=== PATIENT | male | born 1945 | race Caucasian/White ===

== ENCOUNTER 2018-01-13 18:37 | Emergency (ER) | payer OTHER, SELFPAY ==
[2018-01-13 18:37] VITALS: BP 164/64; PULSE 71; RESP 18; TEMP 36.8; O2SAT 98; BMI 47.2
--- NOTE | 2018-01-13 18:50 | ED.VISSUMM ---
- ER Visit Summary Date of Service: 01/13/18 Chief Complaint: Fall, facial injury History of Present Illness: The patient is a 72 M presents to the emergency department after mechanical fall. The patient normally walks with crutches. He was out at the park walking his dog. He states that he thinks that he got tangled up with the dog. He fell forward. Since he was on his crutches, he cannot brace his fall. He struck his face against the concrete. He denies loss of consciousness. His only current complaint is some mild pain at the top of his nose. He denies malocclusion. He denies any trouble speaking or swallowing. He does not take anticoagulants. Physical Examination: Exam is relatively unremarkable. This is an obese male no acute distress. Head is normocephalic. Patient has multiple abrasions on the forehead. He has deformity of the nose, but states this is chronic. There is some bleeding from the nares, but no nasal septal hematoma. Midface is stable. There is no malocclusion. Neck is nontender. Patient has 5 out of 5 strength of the upper extremities. He has a small contusion of the left knee, but minimal pain palpation. Extension is preserved. Test Results: [] Emergency Department Course and Treatment: The patient presents a fall. He had crutches and was unable to brace himself. He struck his anterior face. He also had some transient numbness of bilateral upper extremities. Head CT was obtained which shows no acute intracranial abnormality. CT of the face shows bilateral nasal fractures and a markedly depressed frontal sinus fracture. It is not through the posterior table. CT of the C-spine is pending. Patient was kept in a collar. He was given analgesics with improvement of his pain. Given his depressed frontal sinus fracture that is greater than 2 mm, it is transient heaviness of his arms I do want to rule out central cord. I do for this patient is going to require higher level of care at a trauma center. Patient was discussed with Radha hicks was accepted. He will be transferred for trauma evaluation. Treatment Plan: [] Disposition: Transfer Impression: 1. Depressed frontal sinus fracture 2. Transient upper extremity weakness 3. Closed head injury This note was generated with TensorCommation software. It may contain incorrect words, spelling, and punctuation that were not noted in review of the chart prior to signing ED Disposition - Plan for ED Patient: Chief Complaint: Fall Referrals: [facility],Out of [NON-STAFF] -
[2018-01-13] MEDS: Oxymetazoline 0.05% 1 SPRAY SPRAY.BTL 2 SPRAY NASAL (18:58)
[2018-01-13] MEDS: Acetaminophen 500 MG Tablet 1000 MG PO (18:58)
[2018-01-13] MEDS: Ondansetron 4 MG/2 ML Vial IV (19:58)
[2018-01-13] MEDS: fentaNYL 100 MCG/2 ML Ampul 25 MCG IV (19:58)
[2018-01-13 20:02] VITALS: BP 125/48; PULSE 71; RESP 16; O2SAT 98
[2018-01-13 20:05] LABS: Absolute Lymphocyte Count 0.99 X10^3/ul (0.83-4.51); Absolute Neutrophil Count 6.9 X10^3/uL (2.0-7.7); Basophil# 0.01 X10^3/uL; Basophil% 0.1 % (0-1); Eosinophil# 0.07 X10^3/uL; Eosinophils% 0.8 % (0-5); Hematocrit 34.4 % (40-54); Hemoglobin 11.1 g/dl (13.0-16.5); Lymphocyte # 0.99 X10^3/ul (4.0); Lymphocyte % 11.9 % (19-41); Mean Corp Hgb Conc 32.3 g/gl (32-36); Mean Corpuscular Hgb 26.7 pg (27.0-32.0); Mean Corpuscular Volume 82.7 fL (80-94); Mean Platelet Vol. 8.4 fl (6.2-12.0); Monocyte# 0.42 X10^3/uL; Neutrophil # 6.85 X10^3/uL (2.7-7.7); Neutrophil % 82.1 % (47-70); Platelet Count 71 K/mm3 (150-450); RBC Distribution Width CV 16.3 % (11.6-14.6); RBC Distribution Width SD 49.3 fl (35.1-43.9); Red Blood Count 4.16 M/mm3 (4.6-6.2); White Blood Count 8.4 K/mm3 (4.4-11.0)
[2018-01-13 20:06] LABS: POSITIVE COUNT NO; POSITIVE DIFFERENTIAL NO; POSITIVE MORPHOLOGY NO
[2018-01-13 20:10] VITALS: O2SAT 84; O2SAT 97
[2018-01-13 20:11] LABS: International Normalized Ratio 1.1; Prothrombin Time (Protime)PT. 13.8 SECONDS (11.7-14.9)
[2018-01-13 20:22] LABS: AST(SGOT) 20 U/L (15-37); Alanine Aminotransfer ALT/SGPT 24 U/L (16-61); Albumin, Serum 3.7 g/dL (3.2-5.0); Alkaline Phosphatase 154 U/L (45-117); Anion Gap 13 (5-15); BUN 56 mg/dL (7-18); BUN/Creat Ratio 22.2 RATIO (10-20); Calcium,Total 8.8 mg/dL (8.5-10.1); Chloride 107 mmol/L (98-107); Creatinine, Serum 2.52 mg/dL (0.70-1.30); EST Glomerular Filtration Rate 27 mL/min (>60); Est Glom Filt Rate - Afr Amer 33 mL/min (>60); Estimated Creatinine Clearance 24.77 ml/min; Globulin 3.7 g/dL (2.2-4.2); Glucose 140 mg/dL (74-106); Potassium 4.4 mmol/L (3.5-5.1); Protein, Total 7.4 g/dL (6.4-8.2); Sodium Level 144 mmol/L (136-145)
--- NOTE | 2018-01-13 20:44 | ED.RN ---
CALLED [facility] AND TALKED TO ANN. SHE STATED IT WAS OK TO SEND PT TO [facility] FOR MEDICAL TREATMENT AND ASKED ME TO FAX HER A FACESHEET AT [phone].
[2018-01-13 21:06] VITALS: BP 154/65; PULSE 72; RESP 16; O2SAT 99
== END 2018-01-13 22:15 | disposition short-term general hospital (02) ==
PROVIDERS: Emergency Provider Emergency Medicine
DX: S02.2XXA Fracture of nasal bones, initial encounter for closed fracture (principal); S02.19XA Other fracture of base of skull, initial encounter for closed fracture; S80.02XA Contusion of left knee, initial encounter; S00.81XA Abrasion of other part of head, initial encounter; W01.0XXA Fall on same level from slipping, tripping and stumbling without subsequent striking against object, initial encounter; Y93.K1 Activity, walking an animal; Y92.830 Public park as the place of occurrence of the external cause; Y99.9 Unspecified external cause status; R20.0 Anesthesia of skin; E66.9 Obesity, unspecified
CPT/HCPCS: 70450; 70486; 72125; 80053; 85025; 85610; 96374; 96375; 99285; A4216; J2405

== ENCOUNTER 2018-05-11 02:23 | Inpatient (IN) | payer MEDICARE, SELFPAY ==
[2018-05-11] VITALS (10 sets, daily range): BP systolic 113–134; BP diastolic 53–70; PULSE 82–94; RESP 16–18; TEMP 36.4–36.7; O2SAT 95–100; BMI 44.6; BMI 43.5
--- NOTE | 2018-05-11 02:48 | ED.VISSUMM ---
- ER Visit Summary Date of Service: 05/11/18 Chief Complaint: Hematuria History of Present Illness: The patient is a 72 M who presents with hematuria that is been getting worse over the past week. Patient states he does have some burning with urination. Patient states he feels like there is a clot in his urethra which is causing the burning. Patient also admits to some generalized weakness and some shortness of breath with the exertion. Patient denies any chest pain. Patient denies any nausea or vomiting. Patient denies any fevers or chills. Patient states he has an appointment with a buyer tobacco head tomorrow and urologist next week. Physical Examination: Vital signs are stable. Patient is afebrile. Patient is in no acute distress. Oral mucosa is pink and moist. Neck is supple. Trachea is midline. There is no JVD noted. Heart was regular rate and rhythm. Lungs are clear and equal bilaterally. Abdomen is soft. Bowel sounds are normal. There is no tenderness. Cranial nerves II through XII are intact. There are no focal deficits noted. The remaining physical exam is within normal limits. Test Results: CBC showed a mild anemia with a hemoglobin of 10.0. Basic metabolic profile showed elevated BUN of 113 and a creatinine of 4.2. Urinalysis shows leukocyte esterase of 500 with 50-100 white blood cells, occult blood of 250 with greater than 100 red blood cells. Emergency Department Course and Treatment: Patient initially requested to be transferred to the [facility] since he has an appointment with the buyer tobacco head tomorrow. However there are no beds available at the [facility]. Patient will be admitted here. The case was discussed with Dr. Zuñiga. She will admit the patient for observation. Patient was started on Cipro here in the emergency department. Patient understood and was agreeable with the plan. All questions were answered. Disposition: Admit to hospital Impression: 1. Acute kidney injury 2. Urinary tract infection This note was generated with Spool dictation software. It may contain incorrect words, spelling, and punctuation that were not noted in review of the chart prior to signing ED Disposition - Plan for ED Patient: Chief Complaint: Complaint Referrals: [place] [Primary Care Provider] -
--- NOTE | 2018-05-11 02:50 | RAD_ITS ---
STUDY: X-RAY CHEST REASON FOR EXAM: Male, 72 years old. Hematuria TECHNIQUE: Frontal view COMPARISON: None. FINDINGS: The lungs are clear and expanded. There is no demonstrated pleural abnormality. Normal size heart. Normal mediastinum and kira. Normal visualized pulmonary arteries. Normal visualized aortic arch and descending thoracic aorta. Normal visualized thoracic spine. There is degenerative osteoarthritis of the bilateral shoulders. There is no demonstrated abnormality of the visualized soft tissue structures of the upper abdomen. RAD/Chest 1 View (Portable) IMPRESSION: There is NO acute cardiopulmonary abnormality. Electronically Signed: Edson Lyn MD at 3:40 EST , Service support ,
--- NOTE | 2018-05-11 02:51 | ED.DCSUM_ITS ---
- ER Visit Summary Date of Service: 05/11/18 Chief Complaint: Hematuria History of Present Illness: The patient is a 72 M who presents with hematuria that is been getting worse over the past week. Patient states he does have some burning with urination. Patient states he feels like there is a clot in his urethra which is causing the burning. Patient also admits to some generalized weakness and some shortness of breath with the exertion. Patient denies any chest pain. Patient denies any nausea or vomiting. Patient denies any fevers or chills. Patient states he has an appointment with a vessel operator tomorrow and urologist next week. Physical Examination: Vital signs are stable. Patient is afebrile. Patient is in no acute distress. Oral mucosa is pink and moist. Neck is supple. Trachea is midline. There is no JVD noted. Heart was regular rate and rhythm. Lungs a re clear and equal bilaterally. Abdomen is soft. Bowel sounds are normal. There is no tenderness. Cranial nerves II through XII are intact. There are no focal deficits noted. The remaining physical exam is within normal limits. Test Results: CBC showed a mild anemia with a hemoglobin of 10.0. Basic metabolic profile showed elevated BUN of 113 and a creatinine of 4.2. Urinalysis shows leukocyte esterase of 500 with 50-100 white blood cells, occult blood of 250 with greater than 100 red blood cells. Emergency Department Course and Treatment: Patient initially requested to be transferred to the [facility] since he has an appointment with the vessel operator tomorrow. However there are no beds available at the [facility]. Patient will be admitted here. The case was discussed with Dr. Zuñiga. She will admit the patient for observation. Patient was started on Cipro here in the emergency department. Patient understood and was agreeable with the plan. All questions were answered. Disposition: Admit to hospital Impression: 1. Acute kidney injury 2. Urinary tract infection This note was generated with alphacityguides dictation software. It may contain incorrect words, spelling, and punctuation that were not noted in review of the chart prior to signing ED Disposition - Plan for ED Patient: Chief Complaint: Complaint Referrals: [place] [Primary Care Provider] -
[2018-05-11 03:06] LABS: Absolute Lymphocyte Count 0.69 X10^3/ul (0.83-4.51); Absolute Neutrophil Count 6.4 X10^3/uL (2.0-7.7); Basophil# 0.02 X10^3/uL; Basophil% 0.3 % (0-1); Eosinophil# 0.05 X10^3/uL; Eosinophils% 0.6 % (0-5); Hematocrit 30.2 % (40-54); Lymphocyte # 0.69 X10^3/ul (4.0); Lymphocyte % 8.9 % (19-41); Mean Corp Hgb Conc 33.1 g/gl (32-36); Mean Corpuscular Volume 78.6 fL (80-94); Mean Platelet Vol. 8.3 fl (6.2-12.0); Monocyte% 7.8 % (0-10); Neutrophil # 6.35 X10^3/uL (2.7-7.7); Neutrophil % 82.1 % (47-70); Platelet Count 160 K/mm3 (150-450); RBC Distribution Width CV 16.6 % (11.6-14.6); RBC Distribution Width SD 45.4 fl (35.1-43.9); Red Blood Count 3.84 M/mm3 (4.6-6.2); White Blood Count 7.7 K/mm3 (4.4-11.0)
[2018-05-11 03:07] LABS: POSITIVE COUNT NO; POSITIVE DIFFERENTIAL NO; POSITIVE MORPHOLOGY NO
[2018-05-11 03:12] LABS: International Normalized Ratio 1.2; Prothrombin Time (Protime)PT. 15.1 SECONDS (11.7-14.9)
[2018-05-11 03:13] LABS: Partial Thromboplast Time 36.9 Seconds (24.1-36.2)
[2018-05-11 03:23] LABS: ALB/GLOB Ratio 0.8 RATIO (0.9-2.4); AST(SGOT) 11 U/L (15-37); Alanine Aminotransfer ALT/SGPT 20 U/L (16-61); Albumin, Serum 3.7 g/dL (3.2-5.0); Alkaline Phosphatase 166 U/L (45-117); Anion Gap 13 (5-15); BUN 113 mg/dL (7-18); BUN/Creat Ratio 26.9 RATIO (10-20); Calcium,Total 8.9 mg/dL (8.5-10.1); Chloride 102 mmol/L (98-107); EST Glomerular Filtration Rate 15 mL/min (>60); Est Glom Filt Rate - Afr Amer 18 mL/min (>60); Estimated Creatinine Clearance 15.38 ml/min; Globulin 4.9 g/dL (2.2-4.2); Glucose 242 mg/dL (74-106); Potassium 4.4 mmol/L (3.5-5.1); Protein, Total 8.6 g/dL (6.4-8.2); Sodium Level 134 mmol/L (136-145)
--- NOTE | 2018-05-11 03:23 | ED.RN ---
BUN OF [address] SALEEM
[2018-05-11 03:39] LABS: Mucous, Urine 0 SEEN /hpf (<or=2+); Squamous Epithelial Cells - UA 0 SEEN /hpf (0-5)
[2018-05-11 03:54] LABS: Color, Urine Red (Yellow); Glucose, Dipstick Normal (Normal); Ketone-Dipstick 5 mg/dl (Negative); Leukocyte Esterase-Dipstick 500 /ul (Negative); Nitrite-Dipstick Negative (Negative); Occult Blood-Urine 250 /ul (Negative); Protein-Dipstick 500 mg/dl (Negative); Urine Bilirubin Dipstick Negative (Negative); Urine Clarity Turbid (Clear); Urine Urobilinogen Normal (Normal)
[2018-05-11 04:03] LABS: Bacteria 3+ /hpf (None Seen); Red Blood Cells-Urine > 100 SEEN /hpf (0-5); White Blood Cells 50-100 SEEN /hpf (0-5)
--- NOTE | 2018-05-11 05:53 | HP.PCM_ITS ---
History of Present Illness Date of Admission: 05/11/18 Chief Complaint: lethargy and weakness The patient is a 72 year old M who was admitted through the ED on 05/11/2018 with complaint of lethargy and weakness which became more acute in the early hours of this morning he could barely climb the stairs on his own. Antecedent to that he had been having hematuria for about a week and says he has some burning with urination as well. He denied any fever chills, cough or chest pain, shortness of breath, abdominal pain, any diarrhea vomiting. He was supposed to have an appointment with a [place] furniture finisher helper and urologist in [place] next week because of the symptoms he presented here. Vitals were significant an d chemistry showed sodium of 134 and creatinine of 4.2. Bicarb was 19 and BUN was 113. CBC showed hemoglobin of 10 but was otherwise unremarkable. Chest x- ray showed no acute cardio-pulmonary process. Patient wanted to be transferred to [place] [facility] but they had no beds and so he is been admitted to be managed for [place] I on CKD hematuria. [] Past Medical History Allergies Penicillins Allergy (Verified 01/13/18 18:38) Hives Tetanus Vaccines and Toxoid Allergy (Verified 01/13/18 18:38) Swelling Home Medications: Ambulatory Orders Medication Instructions Recorded Ferrous Sulfate 01/13/18 Folic Acid 01/13/18 Lasix 01/13/18 Potassium Chloride 01/13/18 Renal Vitamin Tablet 01/13/18 Sertraline HCl [Zoloft] 100 mg PO BID 01/13/18 Tylenol 01/13/18 Surgical History: no surgical history Psychiatric History: No pertinent psych hx Lives: With Family Smoking Status: Current some day smoker Alcohol: Occasional - *Family History Maternal History Items: Hypertension Paternal History Items: Hypertension Review of Systems Constitutional: Reports: Malaise, Weakness, Fatigue. Denies: Anorexia, Fever Eyes: Denies: Blurred vision HEENT: Denies: Head Aches, Sinus Congestion, Sinus Drainage Cardiovascular: Denies: Chest Pain, Chest Pressure, Chest Tightness, Palpitations Respiratory: Denies: Cough, Shortness of breath at rest, Sputum production Gastrointestinal: Denies: Abdominal Pain, Nausea, Vomiting Genitourinary: Reports: Hematuria, Incontinence, - - burning with urination. De nies: Dysuria Musculoskeletal: Denies: Joint Pain, Joint Tenderness Skin: Denies: Rash, Wounds Neurological: Denies: Numbness, Tingling, Focal weakness Psychiatric: Denies: Anxiety, Depression, Homicidal Ideations, Suicidal Ideations Hematologic/ Lymphatic: Denies: Easy Bruising, Easy Bleeding VTE Information - Inpt Only VTE Present on Admission: No VTE Mechan Device Prophylaxis: SCD's - Physical Exam General: Alert, Oriented x3, Cooperative, No apparent distress HEENT: Atraumatic, PERRLA, EOMI, Normocephalic Oral: Moist Mucosa Neck: Supple, No JVD, Negative Carotid Bruits Lungs: Clear to auscultation, Normal air movement, No rhonchi, No wheeze, No rales Cardiovascular: Regular rate, Regular Rhythm, Normal S1, Normal S2, No murmurs Abdomen: Bowel Sounds Present, Soft, Non Tender, Non-Distended, No Hepato-splen omegaly, Obese Extremities: No clubbing, No cyanosis, No edema, Capillary Refill Less than 3 Seconds Skin: - - stasis hyperpigmentation of LEs Musculoskeletal: No Tenderness to Palpation of Joints or Extremities Lymphatic: No Cervical, Supraclavicular, or Inguinal Adenopathy Neurological: Cranial nerves II-XII grossly intact, Neuro grossly intact, Motor Exam 5/5 strength throughout Psych/Mental Status: Normal Affect, Appropriate, Alert and oriented to time, place, person, mood and affect Vital Signs Temp Pulse Resp BP Pulse Ox 97.6 F L 90 16 114/69 98 05/11/18 02:24 05/11/18 02:24 05/11/18 04:23 05/11/18 02:24 05/11/18 02:24 Oxygen Delivery Method Room Air Weight: 293 lb 3.437 oz Body Mass Index (BMI) 44.6 Laboratory Tests Past 24 Hrs 05/11/18 05/11/18 05/11/18 02:56 02:56 02:56 WBC 7.7 RBC 3.84 L Hgb 10.0 L Hct 30.2 L MCV 78.6 L MCH 26.0 L MCHC 33.1 RDW 16.6 H RDW Differential 45.4 H Plt Count 160 MPV 8.3 Immature Gran % (Auto) 0.300 Neut % (Auto) 82.1 H Lymph % (Auto) 8.9 L [place] % (Auto) 7.8 Eos % (Auto) 0.6 Baso % (Auto) 0.3 Absolute Neuts (auto) 6.4 Absolute Lymphs (auto) 0.69 L Total Counted Not Reportable PT 15.1 H INR 1.2 APTT 36.9 H Sodium 134 L Potassium 4.4 Chloride 102 Carbon Dioxide 19.0 L Anion Gap 13 BUN 113 H* Creatinine 4.20 H Estim Creat Clear Calc 15.38 Est GFR (MDRD) Af Amer 18 L Est GFR (MDRD) Non-Af 15 L BUN/Creatinine Ratio 26.9 H Glucose 242 H Calcium 8.9 Total Bilirubin 0.40 AST 11 L ALT 20 Alkaline Phosphatase 166 H Total Protein 8.6 H Albumin 3.7 Globulin 4.9 H Albumin/Globulin Ratio 0.8 L Urine Color Urine Clarity Urine pH Ur Specific [place] Urine Protein Urine Glucose (UA) Urine Ketones Urine Occult Blood Urine Nitrite Urine Bilirubin Urine Urobilinogen Ur Leukocyte Esterase Urine RBC Urine WBC Ur Squamous Epith Cells Urine Bacteria Urine Mucus 05/11/18 03:30 WBC RBC Hgb Hct MCV MCH MCHC RDW RDW Differential Plt Count MPV Immature Gran % (Auto) Neut % (Auto) Lymph % (Auto) [place] % (Auto) Eos % (Auto) Baso % (Auto) Absolute Neuts (auto) Absolute Lymphs (auto) Total Counted PT INR APTT Sodium Potassium Chloride Carbon Dioxide Anion Gap BUN Creatinine Estim Creat Clear Calc Est GFR (MDRD) Af Amer Est GFR (MDRD) Non-Af BUN/Creatinine Ratio Glucose Calcium Total Bilirubin AST ALT Alkaline Phosphatase Total Protein Albumin Globulin Albumin/Globulin Ratio Urine Color Red Urine Clarity Turbid Urine pH 8.0 Ur Specific [place] 1.010 Urine Protein 500 H Urine Glucose (UA) Normal Urine Ketones 5 H Urine Occult Blood 250 H Urine Nitrite Negative Urine Bilirubin Negative Urine Urobilinogen Normal Ur Leukocyte Esterase 500 H Urine RBC > 100 SEEN Urine WBC 50-100 SEEN Ur Squamous Epith Cells 0 SEEN Urine Bacteria 3+ Urine Mucus 0 SEEN Diagnostic Data Chest X-Ray 05/11/18 02:50 IMPRESSION: There is NO acute cardiopulmonary abnormality. Electronically Signed: Edson Lyn MD at 3:40 EST , Service support , Assessment/Plan 72-year-old male presenting with lethargy and weakness as well as hematuria. 1. [place] on ?CKD * Cr is 4.2; only baseline Cr we have in EMR is 2.52(01/06) * says he was due to follow up with furniture finisher helper in [place] next week * BUn is 113, likely contributing to his weakness and lethargy * admit to MEd Surg * IVF NS @ 125cc/hr * check urine electrolytes to determine FeUrea * consult nephrology * kidney and bladder USG * 2. hematuria due to likely prostate pathology * has been having hematuria for ~ 1 week; says he was supposed to follow up [facility] urologist next week * Hb is 10; denies any straining or urgency, but admits to incontinence which is chronic. * UA showed 50-100 wbc and 3+ bacteria, LE of 500 * symptoms may be due to UTI * will start iV ciprofloxacin * 3. UTI: as under 2. also complains of mild dysuria. Urine culture. IV ciprofloxacin 4. hyponatremia: na is 134. will hydrate and monitor. 5. Anemia: is a microcytic, normochromic anemia. hb is 10. Will monitor DVT prophylaxis; SCDs; no anticoagulation o/a of hematuria Code Visit OBSV E&M: [id number] Initial observation care L3
[2018-05-11] MEDS: Ciprofloxacin 400 MG/200 ML BAG 200 MG IV (06:35)
[2018-05-11] MEDS: 0.9% Normal Saline 1,000 ML 125 ML IV ×2 (08:00→16:25)
--- NOTE | 2018-05-11 08:00 | US_ITS ---
STUDY: RENAL ULTRASOUND - COMPLETE REASON FOR EXAM: Male, 72 years old. Acute renal failure. TECHNIQUE: Ultrasound evaluation of the kidneys was performed with real-time and static degroot-scale imaging. COMPARISON: None. FINDINGS: RIGHT KIDNEY: 12.7 x 5.5 x 4.7 cm. Normal cortical thickness. 1.2 cm. The renal cortex is mildly echogenic relative to the adjacent liver parenchyma. This suggests the presence of intrinsic renal disease. Simple cyst 17 mm. There is no mass, calculus or hydronephrosis. LEFT KIDNEY: 12.4 x 7.7 x 4.9 cm. Renal cortical thinning, 0.9 cm. The renal cortex is mildly echogenic relative to the adjacent spleen. This suggests the presence of a true renal disease. Left kidney simple cyst measuring 3.8, 3.7, and 2.0 cm. Slight prominence of the renal pelvis, likely physiologic. No evidence of calyceal ectasia. BLADDER: Urinary bladder is not characterized. Decompressed by Kang catheter. Splenomegaly. 18.7 cm. The gallbladder is distended measuring up to 14.6 x 7.1 x 6.5 cm. Minimal sludge. Solitary echogenic shadowing calculus measuring 17 mm. No apparent wall thickening or pericholecystic fluid. US/Kidney and Bladder IMPRESSION: Abnormal renal cortical echotexture bilaterally, mildly echogenic, suggesting intrinsic renal disease. Renal cortical thinning of the left kidney. Simple bilateral renal cysts. Splenomegaly. Dilated gallbladder, cholelithiasis. These features may reflect chronic cholecystitis. There are no specific sonographic features of acute gallbladder inflammation. Electronically Signed: Shawn Chowdhury MD at 10:36 EST Tel , Service support ,
[2018-05-11 08:22] LABS: Urea Nitrogen, Urine 414 mg/dL (NO RANGE EST.)
[2018-05-11 12:31] LABS: Bedside Glucose 199 mg/dL (70-110)
--- NOTE | 2018-05-11 13:22 | PN_ITS ---
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 He additionally complained of hematuria. He has an appointment with a [place] urologist and trimmer press clippings coming up and wanted to be transferred to the [place] but there were no beds available and so he was admitted to [facility]. Vital signs at admission revealed him to be afebrile and the pulse rate and blood pressure were within normal limits. He was 98-100% saturated on room air. Hemoglobin is 10 with an MCV of 78.6 and an RDW of 16.6. The white blood cell count was 7.7 with 82% neutrophils. Sodium was mildly low at 134 and the serum bicarb was 19. BUN was 113 and the creatinine was 4.2. Creatinine in December 2017 was 2.52. Alkaline phosphatase is elevated at 166. UA showed greater than 100 RBCs and 50-100 WBCs with 3+ bacteria. The fractional excretion of urea is 17.45% which is suggestive of prerenal azotemia. All events of the past 24 hours of been reviewed He is afebrile with stable vital signs. Pulse ox is 96-100% on room air. Culture is pending. Salt with Dr. Isaac is ordered. - Physical Exam General: Alert, Oriented x3, Cooperative, No apparent distress, Well developed, Well nourished HEENT: Atraumatic, PERRLA, EOMI, Normocephalic Oral: Dry Mucosa Lungs: Clear to auscultation, Normal air movement Cardiovascular: Regular rate, Regular Rhythm, Normal S1, Normal S2, No rub noted, No Gallop Abdomen: Bowel Sounds Present, Soft, Non Tender, Non-Distended, Obese Vital Signs Temp Pulse Resp BP Pulse Ox 97.8 F 94 18 126/56 H 96 05/11/18 07:00 05/11/18 12:00 05/11/18 07:00 05/11/18 07:00 05/11/18 07:00 Oxygen Delivery Method Room Air Weight: 286 lb 6.087 oz Body Mass Index (BMI) 43.5 Intake and Output for Last 24 Hours 05/09/18 05/10/18 05/11/18 23:59 23:59 23:59 Intake Total 574 / 574 Output Total 450 / 450 Balance 124 / 124 Laboratory Tests Past 24 Hrs 05/11/18 05/11/18 05/11/18 02:56 02:56 02:56 WBC 7.7 RBC 3.84 L Hgb 10.0 L Hct 30.2 L MCV 78.6 L MCH 26.0 L MCHC 33.1 RDW 16.6 H RDW Differential 45.4 H Plt Count 160 MPV 8.3 Immature Gran % (Auto) 0.300 Neut % (Auto) 82.1 H Lymph % (Auto) 8.9 L [place] % (Auto) 7.8 Eos % (Auto) 0.6 Baso % (Auto) 0.3 Absolute Neuts (auto) 6.4 Absolute Lymphs (auto) 0.69 L Total Counted Not Reportable PT 15.1 H INR 1.2 APTT 36.9 H Sodium 134 L Potassium 4.4 Chloride 102 Carbon Dioxide 19.0 L Anion Gap 13 BUN 113 H* Creatinine 4.20 H Estim Creat Clear Calc 15.38 Est GFR (MDRD) Af Amer 18 L Est GFR (MDRD) Non-Af 15 L BUN/Creatinine Ratio 26.9 H Glucose 242 H Calcium 8.9 Total Bilirubin 0.40 AST 11 L ALT 20 Alkaline Phosphatase 166 H Total Protein 8.6 H Albumin 3.7 Globulin 4.9 H Albumin/Globulin Ratio 0.8 L Urine Color Urine Clarity Urine pH Ur Specific [place] Urine Protein Urine Glucose (UA) Urine Ketones Urine Occult Blood Urine Nitrite Urine Bilirubin Urine Urobilinogen Ur Leukocyte Esterase Urine RBC Urine WBC Ur Squamous Epith Cells Urine Bacteria Urine Mucus Urine Creatinine Urine Urea Nitrogen 05/11/18 05/11/18 05/11/18 03:30 07:54 07:54 WBC RBC Hgb Hct MCV MCH MCHC RDW RDW Differential Plt Count MPV Immature Gran % (Auto) Neut % (Auto) Lymph % (Auto) [place] % (Auto) Eos % (Auto) Baso % (Auto) Absolute Neuts (auto) Absolute Lymphs (auto) Total Counted PT INR APTT Sodium Potassium Chloride Carbon Dioxide Anion Gap BUN Creatinine Estim Creat Clear Calc Est GFR (MDRD) Af Amer Est GFR (MDRD) Non-Af BUN/Creatinine Ratio Glucose Calcium Total Bilirubin AST ALT Alkaline Phosphatase Total Protein Albumin Globulin Albumin/Globulin Ratio Urine Color Red Urine Clarity Turbid Urine pH 8.0 Ur Specific [place] 1.010 Urine Protein 500 H Urine Glucose (UA) Normal Urine Ketones 5 H Urine Occult Blood 250 H Urine Nitrite Negative Urine Bilirubin Negative Urine Urobilinogen Normal Ur Leukocyte Esterase 500 H Urine RBC > 100 SEEN Urine WBC 50-100 SEEN Ur Squamous Epith Cells 0 SEEN Urine Bacteria 3+ Urine Mucus 0 SEEN Urine Creatinine 88.20 Urine Urea Nitrogen 414 POC Glucose 05/11/18 12:25 POC Glucose 199 H Medical Necessity - Tobacco Use Smoking Status: Current some day smoker Tobacco Use: Cigars, Pipe Assessment/Plan Impressions 1. acute on chronic renal failure 2. hematuria 3. hx of prostate CA - S/P prostatectomy 4. Morbid obesity 5. Microcytic anemia 6. Metabolic acidosis secondary to renal failure 7. Possible UTI-patient has both white blood cells and red blood cells in his urine. Urine culture is pending. He is afebrile. DC Glipizide, ARB, potassium Decrease the Lantus at HS to 20 units SS insulin at meals Consult Dr. Singh Type and screen for blood HH now Recheck lab in the AM Dr. Isaac on consult
[2018-05-11] MEDS: Nystatin Powder 15gm Bottle 1 APPLIC TOPICAL ×2 (14:23→23:39)
[2018-05-11] MEDS: Menthol/Lanolin/Calamine/Znox 113 GM Tube 1 APPLIC TOPICAL ×2 (14:24→23:41)
[2018-05-11 15:16] LABS: Hematocrit 27.8 % (40-54)
[2018-05-11 16:00] LABS: Ferritin 393 ng/mL (26-388); Iron 32 ug/dL (65-175); Iron Binding Capacity,Total 200 ug/dL (250-450)
--- NOTE | 2018-05-11 16:00 | CASEMGMT ---
COLE REYNOLDS ASSESSMENT Face to Face with patient for initial transition planning/care coordination assessment. COLE REYNOLDS introduced self and role at [facility]. Pt voices understanding and consents to assessment at this time. Pt sitting up in recliner in room, in no distress at this time. Pt is A/O at this time and answers all questions appropriately. Care providers, pharmacy, and demographics verified/updated at this time. PCP: [facility]. KARELY Stuart. Nurse, Mihir. Pact Team #3. Specialists: PA furniture removalist's assistant and PA urologist. [facility]erred Pharmacy[facility] Insurance: MCR A only, [place] benefits Prescription Benefit: Yes @ [facility]. Does not have other prescription coverage and does not have another pharmacy he uses. Living Will/HPOA: Has both LW and HCPOA who is Jeanine Espitia. Neither found on e-chart. Pt states unable to have these brought in. Living Arrangements: Lives in a 2-story home w/a flight of stairs to bedroom. has a second cousin twice removed that I call my nephew. States he stays with him on occasion, but that he comes and goes and sometimes will be gone for days to weeks at a time. States this cousin/nephew is not able to provide assistance or help him. Pt reports he used to be independent with all ADL's until the past couple of weeks. States he has been becoming more weak and has been having more difficulty getting around. States most of the chairs in his house have wheels and he gets around his house mostly by pushing himself around on the chairs. Transportation: Pt states drives self and does not have anyone else that is able to assist him if he is not able to drive. States the [facility] has a [place] transportation van service that he used to use, but states, they've asked me not to use it anymore because they're afraid I'm going to fall getting on/off. States his cousin/nephew does not have a tow driver's license. DME: has the following DME: Shower chair, crutches, W/C, medical alert button, CPAP. Pt states no need for further DME at this time. HHC/SNF: PT/OT evals have been completed and reviewed. *Discussed SNF with pt and he stated, I've thought about going somewhere but I know it would be expensive and I don't think I could afford it. Informed pt that if he is an In-patient for 3 MN's that this would qualify him to go to a SNF for short-term usp for 21 days. Pt states he is agreeable to going to a skilled facility if his insurance would cover, stating he has been so weak lately and it has been becoming harder to care for himself @ home. States he has no preference of SNF. *Also discussed HHC with pt for PT/OT, in the event he wouldn't get 3 MN stays/not qualify for SNF and if he would improve/get strong enough to be able to return home. Pt agreeable with HHC as well, but he is also concerned about the cost. Informed this would be covered under [facility]. Pt states he has no preference of HHC agency. *Ama JORDAN, notified pt agreeable to SNF and has no preference of facility. *Call placed to [facility] and talked with Goldy JORDAN. Goldy states pt may be able to get aide services upon discharge through the PA, in the event he does go home. She states he can have these aide services in addition/in conjunction with C skilled PT/OT or nursing. States GEC form needs completed and faxed back to the PA and they would need to get approval 1st. *RN CM to room to talk with pt. He states if he would go home that he is agreeable to having aides come into his home to assist him. *Goldy faxed the GEC form to this RN CM. Form completed by this RN CM @ pt's bedside, as this RN CM needed to ask pt some of the questions on the form to obtain correct information. GEC form faxed back to Goldy JORDAN @ [facility] @ fax # [phone]. Goldy states she will not be back in her office until next 05/17/18. She asked if CM could notify her then if pt returned home or if he goes to a SNF. [facility]: Call placed to COLE Ash, on Pact Team #3. Informed Mihir that pt is @ [facility]. Alaina states that their fax system is currently not working. Mihir made aware discharge plan is undetermined at this time and he was made aware pt may be discharged to a SNF, depending on his progress and needs upon discharge. Mihir states that he will follow-up with CM next Monday when he returns to the [place] to inquire about pt's progress, status, and discharge plan. He stated if pt is already discharged by then, that he will obtain clinicals from Medical Records d/t RN CM unable to fax information at this time. Mihir states pt is not Service Connected. [facility]: Per ER note, pt had requested to be transferred to [facility] but there are no beds available. Call placed to the Transfer Center. They informed this RN RODOLFO that Jama is assigned to this pt. Message left on Elis's VM re: pt's wishes to be transferred and RN RODOLFO wanting to confirm she is aware of pt's request and clinicals faxed to the [facility]. CM to follow for any further discharge planning/needs. Pt voices no further concerns/needs at this time. Advised pt to ask for CM if any further questions/concerns/needs arise. Voices understanding. Plan: TBD. Home w/HHC (and [facility]) vs SNF. Jes CHAVEZ RN, CM
--- NOTE | 2018-05-11 16:24 | CON.PCM_ITS ---
Consultation - Renal 05/11/18 PCP/ Referring MD: Requesting physician: Dr. Wakefield Primary care physician: [facility] Reason for Consultation:: JEREMY on CKD - History of Present Illness History of Present Illness: The patient is a 72 year old M with past history of type 2 DM, HTN, MEGAN, and prostate cancer presents with a 2 days history of progressive weakness and lethargy. Pt tells me that he felt well until about 3 days prior to admission. The pt reports chronic loose BM for a few weeks although he thought he had been hydrating well. The pt also reports a 1 day history of gross hematuria without dysuria, fever or chill. There is no urinary frequency, urgency or hesitancy. The pt denies nausea or vomiting. There is no CP or SOB currently. The pt has a history of CKD, and he had been seen by Dr. Loera, a disposal operator at [facility], about 3 years ago. He was just referred back to Dr. Loera by his PCP at [facility] recently. In fact, he was supposed to see Dr. Loera today. The pt is unaware of the etiology for his CKD. He denies chronic use of NSAID or recent exposure to IV contrast. - Allergies Allergies: Allergies Penicillins Allergy (Verified 05/11/18 06:57) Rash Tetanus Vaccines and Toxoid Allergy (Verified 05/11/18 06:57) Swelling at injection site - Current Medications Current Medications: Current Medications Calamine/Phenol (Calmoseptine Ointment) 1 applic TOPICAL BID RODERICK; Protocol Last Admin: 05/11/18 14:24 Dose: 1 applic Folic Acid (Folic Acid) 1 mg PO DAILYCM RODERICK Sodium Chloride () 1,000 mls @ 125 mls/hr IV .Q8H RODERICK Stop: 05/11/18 22:48 Last Admin: 05/11/18 08:00 Dose: 125 mls/hr Ciprofloxacin (Cipro) 400 mg in 200 mls @ 200 mls/hr IV DAILY RODERICK Insulin Glargine (Lantus (Bkc)) 20 units SC QHS RODERICK Insulin Human Lispro (Humalog Kwikpen (Bkc)) 0 unit SC TIDAC RODERICK; Protocol Lidocaine/Prilocaine (Emla Cream W/Tegaderm) 0 gm TOPICAL Q6H PRN; Protocol PRN Reason: pain around urethra Magnesium Hydroxide (Milk Of Magnesia) 30 ml PO DAILY PRN PRN PRN Reason: Constipation Nystatin (Mycostatin Powder) 1 applic TOPICAL TID RODERICK; Protocol Last Admin: 05/11/18 14:23 Dose: 1 applic Sertraline HCl (Zoloft) 100 mg PO BID RODERICK Sodium Chloride () 5 - 15 ml IV UD PRN PRN Reason: SALINE FLUSH Tamsulosin HCl (Flomax) 0.4 mg PO QHS RODERICK - Past Surgical History Surgical History: no surgical history - Social History Smoking Status: Current some day smoker Alcohol: Occasional - Family History Maternal History Items: Hypertension Paternal History Items: Hypertension Review of Systems Constitutional: Reports: Malaise, Weakness, Fatigue. Denies: Chills, Fever, Weight Change Eyes: Denies: Blurred vision, Double vision, Redness, Vision Change HEENT: Denies: Hard of Hearing, Head Aches, Sinus Congestion, Sinus Drainage Cardiovascular: Denies: Chest Pain, Palpitations Respiratory: Reports: Shortness of breath upon exertion. Denies: Cough, Hemoptysis Gastrointestinal: Reports: Diarrhea. Denies: Abdominal Pain, Nausea, Vomiting Genitourinary: Reports: Hematuria. Denies: Dysuria, Frequency, Incontinence Musculoskeletal: Denies: Joint Pain, Joint Tenderness Neurological: Denies: Numbness, Tingling, Focal weakness Psychiatric: Denies: Anxiety, Depression, Homicidal Ideations, Suicidal Ideations Hematologic/ Lymphatic: Denies: Easy Bruising, Easy Bleeding - Physical Exam General: Alert, Oriented x3 HEENT: Atraumatic Oral: Dry Mucosa Neck: Supple, No JVD Lungs: Clear to auscultation Cardiovascular: Normal S1, Normal S2, No murmurs Abdomen: Bowel Sounds Present, Soft, Non Tender Extremities: No edema Musculoskeletal: No Tenderness to Palpation of Joints or Extremities Neurological: Cranial nerves II-XII grossly intact Vital Signs Temp Pulse Resp BP Pulse Ox 97.6 F L 87 18 123/56 H 100 05/11/18 14:25 05/11/18 14:25 05/11/18 14:25 05/11/18 14:25 05/11/18 14:25 Oxygen Delivery Method Room Air Weight: 129.9 kg Body Mass Index (BMI) 43.5 Intake and Output for Last 24 Hours 05/09/18 05/10/18 05/11/18 23:59 23:59 23:59 Intake Total 574 / 574 Output Total 450 / 450 Balance 124 / 124 Laboratory Tests Past 24 Hrs 05/11/18 05/11/18 05/11/18 02:56 02:56 02:56 WBC 7.7 RBC 3.84 L Hgb 10.0 L Hct 30.2 L MCV 78.6 L MCH 26.0 L MCHC 33.1 RDW 16.6 H RDW Differential 45.4 H Plt Count 160 MPV 8.3 Immature Gran % (Auto) 0.300 Neut % (Auto) 82.1 H Lymph % (Auto) 8.9 L [place] % (Auto) 7.8 Eos % (Auto) 0.6 Baso % (Auto) 0.3 Absolute Neuts (auto) 6.4 Absolute Lymphs (auto) 0.69 L Total Counted Not Reportable PT 15.1 H INR 1.2 APTT 36.9 H Sodium 134 L Potassium 4.4 Chloride 102 Carbon Dioxide 19.0 L Anion Gap 13 BUN 113 H* Creatinine 4.20 H Estim Creat Clear Calc 15.38 Est GFR (MDRD) Af Amer 18 L Est GFR (MDRD) Non-Af 15 L BUN/Creatinine Ratio 26.9 H Glucose 242 H Calcium 8.9 Iron TIBC Iron Saturation Ferritin Total Bilirubin 0.40 AST 11 L ALT 20 Alkaline Phosphatase 166 H Total Protein 8.6 H Albumin 3.7 Globulin 4.9 H Albumin/Globulin Ratio 0.8 L Urine Color Urine Clarity Urine pH Ur Specific [place] Urine Protein Urine Glucose (UA) Urine Ketones Urine Occult Blood Urine Nitrite Urine Bilirubin Urine Urobilinogen Ur Leukocyte Esterase Urine RBC Urine WBC Ur Squamous Epith Cells Urine Bacteria Urine Mucus Urine Creatinine Urine Urea Nitrogen Blood Type Antibody Screen 05/11/18 05/11/18 05/11/18 03:30 07:54 07:54 WBC RBC Hgb Hct MCV MCH MCHC RDW RDW Differential Plt Count MPV Immature Gran % (Auto) Neut % (Auto) Lymph % (Auto) [place] % (Auto) Eos % (Auto) Baso % (Auto) Absolute Neuts (auto) Absolute Lymphs (auto) Total Counted PT INR APTT Sodium Potassium Chloride Carbon Dioxide Anion Gap BUN Creatinine Estim Creat Clear Calc Est GFR (MDRD) Af Amer Est GFR (MDRD) Non-Af BUN/Creatinine Ratio Glucose Calcium Iron TIBC Iron Saturation Ferritin Total Bilirubin AST ALT Alkaline Phosphatase Total Protein Albumin Globulin Albumin/Globulin Ratio Urine Color Red Urine Clarity Turbid Urine pH 8.0 Ur Specific [place] 1.010 Urine Protein 500 H Urine Glucose (UA) Normal Urine Ketones 5 H Urine Occult Blood 250 H Urine Nitrite Negative Urine Bilirubin Negative Urine Urobilinogen Normal Ur Leukocyte Esterase 500 H Urine RBC > 100 SEEN Urine WBC 50-100 SEEN Ur Squamous Epith Cells 0 SEEN Urine Bacteria 3+ Urine Mucus 0 SEEN Urine Creatinine 88.20 Urine Urea Nitrogen 414 Blood Type Antibody Screen 05/11/18 05/11/18 05/11/18 14:50 14:50 14:50 WBC RBC Hgb 9.0 L Hct 27.8 L MCV MCH MCHC RDW RDW Differential Plt Count MPV Immature Gran % (Auto) Neut % (Auto) Lymph % (Auto) [place] % (Auto) Eos % (Auto) Baso % (Auto) Absolute Neuts (auto) Absolute Lymphs (auto) Total Counted PT INR APTT Sodium Potassium Chloride Carbon Dioxide Anion Gap BUN Creatinine Estim Creat Clear Calc Est GFR (MDRD) Af Amer Est GFR (MDRD) Non-Af BUN/Creatinine Ratio Glucose Calcium Iron 32 L TIBC 200 L Iron Saturation 16.0 Ferritin 393 H Total Bilirubin AST ALT Alkaline Phosphatase Total Protein Albumin Globulin Albumin/Globulin Ratio Urine Color Urine Clarity Urine pH Ur Specific [place] Urine Protein Urine Glucose (UA) Urine Ketones Urine Occult Blood Urine Nitrite Urine Bilirubin Urine Urobilinogen Ur Leukocyte Esterase Urine RBC Urine WBC Ur Squamous Epith Cells Urine Bacteria Urine Mucus Urine Creatinine Urine Urea Nitrogen Blood Type Pending Antibody Screen Pending POC Glucose 05/11/18 12:25 POC Glucose 199 H Assessment/Plan 1. Acute kidney injury on chronic kidney disease stage. Unclear what his baseline SCr truly is. SCr was 2.52 mg/dL on 01/13/18. If this is his baseline CKD would be in stage 4. CKD is most likely due to diabetic nephropathy. JEREMY is likely due to prerenal azotemia. The pt had diarrhea and looks volume depleted on exam. FEurea is also <30%. US of the kidneys did not reveal hydronephrosis. I agree with IVF as ordered. Will recheck renal function again tomorrow. No current need for dialysis. Medications are reviewed and are all appropriately dosed for current renal function. 2. Gross hematuria. to see the pt. Doubt acute GN. Pt has a history of prostate cancer. 3. Anemia. Follow Hgb.
[2018-05-11] MEDS: Insulin Lispro 100 UNIT/ML INSULN.PEN SC (16:29)
[2018-05-11 16:56] LABS: Bedside Glucose 231 mg/dL (70-110)
--- NOTE | 2018-05-11 17:37 | PCM.CONS.U ---
Reason for Consult Date of Consultation: 05/11/18 Reason for Consultation: Gross hematuria history of prostate cancer treated with radiation History of Present Illness: The patient is a 72 year old male presents to the hospital with lethargy and tiredness, very poor historian, he does tell me that he had prostate cancer treated with radiation therapy long time ago. During the conversation he was falling asleep and very tired could not answer other questions. Apparently had radiation therapy in the past. He presented with a day of history of gross hematuria has a catheter in place the urine is clearing. He had an ultrasound of his kidney and bladder with signs of chronic kidney disease in both kidneys no clear finding on ultrasound of his bladder. Has a catheter in place the urine is clearing. Past Medical History Allergies Penicillins Allergy (Verified 05/11/18 06:57) Rash Tetanus Vaccines and Toxoid Allergy (Verified 05/11/18 06:57) Swelling at injection site Home Medications: Ambulatory Orders Medication Instructions Recorded Ascorbic Acid [Vitamin C] 500 mg PO DAILY@0800 05/11/18 B Complex W-C No.20/Folic Acid 1 mg PO DAILY 05/11/18 [Nephrocaps Softgel] Diclofenac Sodium [Voltaren] 1 applicatio TOPICAL BID PRN PRN 05/11/18 Folic Acid 1 mg PO DAILY 05/11/18 Furosemide [Lasix] 80 mg PO DAILY 05/11/18 Insulin Glargine [Lantus (BKC)] 38 units SC QHS 05/11/18 Losartan Potassium 25 mg PO DAILY 05/11/18 Potassium Chloride [K-Dur] 20 meq PO DAILY 05/11/18 Sertraline HCl [Zoloft] 100 mg PO QHS 05/11/18 Tamsulosin HCl [Flomax] 0.4 mg PO QHS 05/11/18 glipiZIDE [Glucotrol] 10 mg PO BIDAC 05/11/18 Surgical History: noncontributory Psychiatric History: No pertinent psych hx Lives: With Family Smoking Status: Current some day smoker Tobacco Use: Cigars, Pipe Alcohol: Occasional - *Family History Maternal History Items: Hypertension Paternal History Items: Hypertension Review of Systems Constitutional: Denies: Chills, Fever, Weight Change HEENT: Denies: Head Aches, Sinus Congestion, Sinus Drainage Cardiovascular: Denies: Chest Pain, Palpitations Respiratory: Denies: Cough, Shortness of breath at rest, Sputum production Gastrointestinal: Denies: Abdominal Pain, Nausea, Vomiting Genitourinary: Denies: Dysuria Musculoskeletal: Denies: Joint Pain, Joint Tenderness Skin: Denies: Rash, Wounds Neurological: Denies: Numbness, Tingling, Focal weakness Psychiatric: Denies: Anxiety, Depression, Homicidal Ideations, Suicidal Ideations Hematologic/ Lymphatic: Denies: Easy Bruising, Easy Bleeding Physical Exam - Physical Exam Vital Signs Temp 97.6 F L 05/11/18 14:25 Pulse 87 05/11/18 14:25 Resp 18 05/11/18 14:25 BP 123/56 H 05/11/18 14:25 Pulse Ox 100 05/11/18 14:25 Intake & Output 05/09/18 05/10/18 05/11/18 23:59 23:59 23:59 Intake Total 574 / 574 Output Total 450 / 450 Balance 124 / 124 Weight: 129.9 kg Intake: Oral 300 / 300 IV fluid/meds 274 / 274 Output: Urine 450 / 450 General: Alert, Lethargic HEENT: Atraumatic Oral: Moist Mucosa Neck: Supple Lungs: Normal air movement Cardiovascular: Regular rate Laboratory Tests Past 24 Hrs 05/11/18 05/11/18 05/11/18 02:56 02:56 02:56 WBC 7.7 RBC 3.84 L Hgb 10.0 L Hct 30.2 L MCV 78.6 L MCH 26.0 L MCHC 33.1 RDW 16.6 H RDW Differential 45.4 H Plt Count 160 MPV 8.3 Immature Gran % (Auto) 0.300 Neut % (Auto) 82.1 H Lymph % (Auto) 8.9 L [place] % (Auto) 7.8 Eos % (Auto) 0.6 Baso % (Auto) 0.3 Absolute Neuts (auto) 6.4 Absolute Lymphs (auto) 0.69 L Total Counted Not Reportable PT 15.1 H INR 1.2 APTT 36.9 H Sodium 134 L Potassium 4.4 Chloride 102 Carbon Dioxide 19.0 L Anion Gap 13 BUN 113 H* Creatinine 4.20 H Estim Creat Clear Calc 15.38 Est GFR (MDRD) Af Amer 18 L Est GFR (MDRD) Non-Af 15 L BUN/Creatinine Ratio 26.9 H Glucose 242 H Calcium 8.9 Iron TIBC Iron Saturation Ferritin Total Bilirubin 0.40 AST 11 L ALT 20 Alkaline Phosphatase 166 H Total Protein 8.6 H Albumin 3.7 Globulin 4.9 H Albumin/Globulin Ratio 0.8 L Urine Color Urine Clarity Urine pH Ur Specific [place] Urine Protein Urine Glucose (UA) Urine Ketones Urine Occult Blood Urine Nitrite Urine Bilirubin Urine Urobilinogen Ur Leukocyte Esterase Urine RBC Urine WBC Ur Squamous Epith Cells Urine Bacteria Urine Mucus Urine Creatinine Urine Urea Nitrogen Blood Type Antibody Screen 05/11/18 05/11/18 05/11/18 03:30 07:54 07:54 WBC RBC Hgb Hct MCV MCH MCHC RDW RDW Differential Plt Count MPV Immature Gran % (Auto) Neut % (Auto) Lymph % (Auto) [place] % (Auto) Eos % (Auto) Baso % (Auto) Absolute Neuts (auto) Absolute Lymphs (auto) Total Counted PT INR APTT Sodium Potassium Chloride Carbon Dioxide Anion Gap BUN Creatinine Estim Creat Clear Calc Est GFR (MDRD) Af Amer Est GFR (MDRD) Non-Af BUN/Creatinine Ratio Glucose Calcium Iron TIBC Iron Saturation Ferritin Total Bilirubin AST ALT Alkaline Phosphatase Total Protein Albumin Globulin Albumin/Globulin Ratio Urine Color Red Urine Clarity Turbid Urine pH 8.0 Ur Specific [place] 1.010 Urine Protein 500 H Urine Glucose (UA) Normal Urine Ketones 5 H Urine Occult Blood 250 H Urine Nitrite Negative Urine Bilirubin Negative Urine Urobilinogen Normal Ur Leukocyte Esterase 500 H Urine RBC > 100 SEEN Urine WBC 50-100 SEEN Ur Squamous Epith Cells 0 SEEN Urine Bacteria 3+ Urine Mucus 0 SEEN Urine Creatinine 88.20 Urine Urea Nitrogen 414 Blood Type Antibody Screen 05/11/18 05/11/18 05/11/18 14:50 14:50 14:50 WBC RBC Hgb 9.0 L Hct 27.8 L MCV MCH MCHC RDW RDW Differential Plt Count MPV Immature Gran % (Auto) Neut % (Auto) Lymph % (Auto) [place] % (Auto) Eos % (Auto) Baso % (Auto) Absolute Neuts (auto) Absolute Lymphs (auto) Total Counted PT INR APTT Sodium Potassium Chloride Carbon Dioxide Anion Gap BUN Creatinine Estim Creat Clear Calc Est GFR (MDRD) Af Amer Est GFR (MDRD) Non-Af BUN/Creatinine Ratio Glucose Calcium Iron 32 L TIBC 200 L Iron Saturation 16.0 Ferritin 393 H Total Bilirubin AST ALT Alkaline Phosphatase Total Protein Albumin Globulin Albumin/Globulin Ratio Urine Color Urine Clarity Urine pH Ur Specific [place] Urine Protein Urine Glucose (UA) Urine Ketones Urine Occult Blood Urine Nitrite Urine Bilirubin Urine Urobilinogen Ur Leukocyte Esterase Urine RBC Urine WBC Ur Squamous Epith Cells Urine Bacteria Urine Mucus Urine Creatinine Urine Urea Nitrogen Blood Type A POSITIVE Antibody Screen NEGATIVE Assessment/Plan 72-year-old male with onset of gross hematuria history of prostate cancer treated with radiation in the past possible etiologies reviewed with the patient that he had a difficult time understanding in reviewing he could have bladder cancer he could have radiation cystitis could be an infection but this does not appear to be the case could be trauma from the Kang placement. For now recommend that the hematuria clears up he will probably need an outpatient workup with a cystoscopy he can follow-up at the [facility] to see the urologist there can follow-up outpatient my office for cystoscopy my office to leave the patient leave that up to the patient for now we will hold off into any of any other imaging if any questions please let me know I think we could try to remove the catheter prior to discharge for voiding trial as well do not think he has to go home with a catheter call me with questions.
[2018-05-11 23:31] LABS: Bedside Glucose 388 mg/dL (70-110)
[2018-05-11] MEDS: Tamsulosin HCl 0.4 MG Capsule PO ×2 (23:39→23:47)
[2018-05-11] MEDS: Sertraline 100 MG Tablet PO (23:47)
[2018-05-11] MEDS: Nepro Liquid 120 ML LIQUID PO (23:49)
[2018-05-12] VITALS (10 sets, daily range): BP systolic 123–135; BP diastolic 66–71; PULSE 80–94; RESP 16–19; TEMP 36.8–37.3; O2SAT 97–98
[2018-05-12] MEDS: Insulin Lispro 100 UNIT/ML INSULN.PEN SC ×3 (06:32→18:43)
[2018-05-12] MEDS: Nystatin Powder 15gm Bottle 1 APPLIC TOPICAL ×3 (06:32→21:32)
[2018-05-12 06:51] LABS: Bedside Glucose 169 mg/dL (70-110)
[2018-05-12] MEDS: Folic Acid 1 MG Tablet PO (07:51)
[2018-05-12 08:07] LABS: Absolute Neutrophil Count 3.5 X10^3/uL (2.0-7.7); Basophil# 0.01 X10^3/uL; Basophil% 0.2 % (0-1); Eosinophil# 0.08 X10^3/uL; Eosinophils% 1.6 % (0-5); Hematocrit 24.8 % (40-54); Hemoglobin 8.1 g/dl (13.0-16.5); Lymphocyte % 21.8 % (19-41); Mean Corp Hgb Conc 32.7 g/gl (32-36); Mean Corpuscular Hgb 25.7 pg (27.0-32.0); Mean Corpuscular Volume 78.7 fL (80-94); Mean Platelet Vol. 8.1 fl (6.2-12.0); Monocyte# 0.35 X10^3/uL; Monocyte% 6.9 % (0-10); Neutrophil # 3.48 X10^3/uL (2.7-7.7); Neutrophil % 69.1 % (47-70); POSITIVE COUNT NO; POSITIVE DIFFERENTIAL NO; POSITIVE MORPHOLOGY NO; Platelet Count 108 K/mm3 (150-450); RBC Distribution Width CV 16.9 % (11.6-14.6); RBC Distribution Width SD 48.5 fl (35.1-43.9); Red Blood Count 3.15 M/mm3 (4.6-6.2)
[2018-05-12 09:11] LABS: ALB/GLOB Ratio 0.7 RATIO (0.9-2.4); AST(SGOT) 12 U/L (15-37); Alanine Aminotransfer ALT/SGPT 16 U/L (16-61); Albumin, Serum 2.9 g/dL (3.2-5.0); Alkaline Phosphatase 134 U/L (45-117); Anion Gap 11 (5-15); BUN 107 mg/dL (7-18); BUN/Creat Ratio 27.6 RATIO (10-20); Calcium,Total 8.4 mg/dL (8.5-10.1); Chloride 110 mmol/L (98-107); Creatinine, Serum 3.87 mg/dL (0.70-1.30); EST Glomerular Filtration Rate 16 mL/min (>60); Est Glom Filt Rate - Afr Amer 20 mL/min (>60); Estimated Creatinine Clearance 16.69 ml/min; Globulin 4.1 g/dL (2.2-4.2); Glucose 180 mg/dL (74-106); Magnesium 2.8 mg/dL (1.6-2.6); Phosphorus 4.7 mg/dL (2.5-4.9); Potassium 4.2 mmol/L (3.5-5.1); Sodium Level 138 mmol/L (136-145)
[2018-05-12] MEDS: Ciprofloxacin 400 MG/200 ML BAG 200 MG IV (09:42)
[2018-05-12] MEDS: Menthol/Lanolin/Calamine/Znox 113 GM Tube 1 APPLIC TOPICAL ×2 (09:55→21:33)
[2018-05-12] MEDS: Nepro Liquid 120 ML LIQUID PO ×3 (09:55→21:31)
[2018-05-12] MEDS: 0.9% NaCl Peripheral Flush Adult/Peds IV ×2 (10:16→13:13)
--- NOTE | 2018-05-12 11:14 | CASEMGMT ---
Per RN RODOLFO patient was in agreement with SNF. However, when SW spoke with patient today he does not recall having this conversation. He said he does admit that he has been sleepy most of his visit. He agrees he is weak right now. He seems like he would be agreeable to whatever is recommended. Await today's PT/OT notes. Plan: undetermined at this time. JULIAN and COLE REYNOLDS following. Zuly KELLER MSW
[2018-05-12 12:10] LABS: Bedside Glucose 250 mg/dL (70-110)
--- NOTE | 2018-05-12 13:54 | PCM.PN.HOSP ---
Patient Problems: Active and Suspected Problems JEREMY (acute kidney injury) (Acute) Hematuria (Acute) Subjective: NO complaints. Vitals/I&O's: Vital Signs Temp Pulse Resp BP Pulse Ox 37.3 C 94 16 123/67 H 98 05/12/18 08:25 05/12/18 09:17 05/12/18 08:25 05/12/18 08:25 05/12/18 08:25 Oxygen Flow Rate (L/min) 1 Oxygen Delivery Method Room Air Weight: 129.9 kg Body Mass Index (BMI) 43.5 Intake and Output for Last 24 Hours 05/10/18 05/11/18 05/12/18 23:59 23:59 23:59 Intake Total 1553 / 1553 1520 / 1520 Output Total 900 / 900 1250 / 1250 Balance 653 / 653 270 / 270 General: Alert, Cooperative, No apparent distress, - - sleeping. easily awoke, but quickly dozed off. HEENT: Atraumatic, Normocephalic Oral: Moist Mucosa, No Gingival or Mucosal Lesions/ Ulcerations Lungs: Clear to auscultation, Normal air movement, No rhonchi, No wheeze Cardiovascular: Regular rate, Regular Rhythm, Normal S1, Normal S2, No murmurs Abdomen: Bowel Sounds Present, Soft, Non Tender, Non-Distended, No Hepato-splenomegaly Extremities: No edema, No Calf Tenderness Psych/Mental Status: Normal Affect, Appropriate Microbiology Past 72 Hours 05/11/18 03:30 Urine Catheter - Merino Urine Culture - Preliminary Presumptive E. coli Laboratory Results 05/11/18 14:50: Iron 32 L, TIBC 200 L, Iron Saturation 16.0, Ferritin 393 H 05/11/18 14:50: Blood Type A POSITIVE, Antibody Screen NEGATIVE 05/11/18 14:50: Hgb 9.0 L, Hct 27.8 L 05/11/18 16:24: POC Glucose 231 H 05/11/18 23:28: POC Glucose 388 H 05/12/18 06:30: POC Glucose 169 H 05/12/18 07:05: WBC 5.0, RBC 3.15 L, Hgb 8.1 L, Hct 24.8 L, MCV 78.7 L, MCH 25.7 L, MCHC 32.7, RDW 16.9 H, RDW Differential 48.5 H, Plt Count 108 L, MPV 8.1, Immature Gran % (Auto) 0.400, Neut % (Auto) 69.1, Lymph % (Auto) 21.8, [place] % (Auto) 6.9, Eos % (Auto) 1.6, Baso % (Auto) 0.2, Absolute Neuts (auto) 3.5, Absolute Lymphs (auto) 1.10, Total Counted Not Reportable 05/12/18 07:05: Sodium 138, Potassium 4.2, Chloride 110 H, Carbon Dioxide 17.0 L, Anion Gap 11, BUN 107 H*, Creatinine 3.87 H, Estim Creat Clear Calc 16.69, Est GFR (MDRD) Af Amer 20 L, Est GFR (MDRD) Non-Af 16 L, BUN/Creatinine Ratio 27.6 H, Glucose 180 H, Calcium 8.4 L, Phosphorus 4.7, Magnesium 2.8 H, Total Bilirubin 0.30, AST 12 L, ALT 16, Alkaline Phosphatase 134 H, Total Protein 7.0, Albumin 2.9 L, Globulin 4.1, Albumin/Globulin Ratio 0.7 L 05/12/18 12:04: POC Glucose 250 H Current Medications Calamine/Phenol (Calmoseptine Ointment) 1 applic TOPICAL BID [facility] [place]; Protocol Last Admin: 05/12/18 09:55 Dose: 1 applic Folic Acid (Folic Acid) 1 mg PO DAILYCM [facility] Last Admin: 05/12/18 07:51 Dose: 1 mg Ciprofloxacin (Cipro) 400 mg in 200 mls @ 200 mls/hr IV DAILY [facility] [place] Last Admin: 05/12/18 09:42 Dose: 200 mls/hr Insulin Glargine (Lantus (Bkc)) 20 units SC QHS [facility] [place] Last Admin: 05/11/18 23:48 Dose: 20 units Insulin Human Lispro (Humalog Kwikpen (Bkc)) 0 unit SC TIDAC [facility] [place]; Protocol Last Admin: 05/12/18 12:54 Dose: 2 unit Lidocaine/Prilocaine (Emla Cream W/Tegaderm) 0 gm TOPICAL Q6H PRN; Protocol PRN Reason: pain around urethra Magnesium Hydroxide (Milk Of Magnesia) 30 ml PO DAILY PRN PRN PRN Reason: Constipation Nutritional Formula (Nepro Carb Steady) 120 ml PO 4X/DAY [facility] [place] Last Admin: 05/12/18 09:55 Dose: 120 ml Nystatin (Mycostatin Powder) 1 applic TOPICAL TID [facility] [place]; Protocol Last Admin: 05/12/18 06:32 Dose: 1 applic Sertraline HCl (Zoloft) 100 mg PO QHS [facility] [place] Last Admin: 05/11/18 23:47 Dose: 100 mg Sodium Chloride () 5 - 15 ml IV UD PRN PRN Reason: SALINE FLUSH Last Admin: 05/12/18 13:13 Dose: 10 ml Tamsulosin HCl (Flomax) 0.4 mg PO QHS [facility] [place] Last Admin: 05/11/18 23:47 Dose: 0.4 mg Medical Necessity - Tobacco Use Smoking Status: Current some day smoker Tobacco Use: Cigars, Pipe Assessment/Plan All Active Problems JEREMY (acute kidney injury) (Acute) Hematuria (Acute) 1. JEREMY improved, but still off from baseline (baseline 2.52) FEUrea 17.45%, consistent with prerenal azotemia continue IVF renal US consistent with chronic changes. nephrology following. 2. Hematuria ongoing patient reports improvement radiation cystitis v merino trauma monitor keep merino in for now until hematuria resolves, or is minimal 3.acute blood loss anemia Hg dropped from 10 to 8.1 2/2 hematuria +/- dilution 4. DM2 uncontrolled increase lantus back up to 38 from 20 5. DVT proph: LMWH Code Visit Inpatient E&M: 29406 Subs Hosp L2
--- NOTE | 2018-05-12 13:58 | PN_ITS ---
Patient Problems: Active and Suspected Problems JEREMY (acute kidney injury) (Acute) Hematuria (Acute) Subjective: NO complaints. Vitals/I&O's: Vital Signs Temp Pulse Resp BP Pulse Ox 37.3 C 94 16 123/67 H 98 05/12/18 08:25 05/12/18 09:17 05/12/18 08:25 05/12/18 08:25 05/12/18 08:25 Oxygen Flow Rate (L/min) 1 Oxygen Delivery Method Room Air Weight: 129.9 kg Body Mass Index (BMI) 43.5 Intake and Output for Last 24 Hours 05/10/18 05/11/18 05/12/18 23:59 23:59 23:59 Intake Total 1553 / 1553 1520 / 1520 Output Total 900 / 900 1250 / 1250 Balance 653 / 653 270 / 270 General: Alert, Cooperative, No apparent distress, - - sleeping. easily awoke, but quickly dozed off. HEENT: Atraumatic, Normocephalic Oral: Moist Mucosa, No Gingival or Mucosal Lesions/ Ulcerations Lungs: Clear to auscultation, Normal air movement, No rhonchi, No wheeze Cardiovascular: Regular rate, Regular Rhythm, Normal S1, Normal S2, No murmurs Abdomen: Bowel Sounds Present, Soft, Non Tender, Non-Distended, No Hepato- splenomegaly Extremities: No edema, No Calf Tenderness Psych/Mental Status: Normal Affect, Appropriate Microbiology Past 72 Hours 05/11/18 03:30 Urine Catheter - Merino Urine Culture - Preliminary Presumptive E. coli Laboratory Results 05/11/18 14:50: Iron 32 L, TIBC 200 L, Iron Saturation 16.0, Ferritin 393 H 05/11/18 14:50: Blood Type A POSITIVE, Antibody Screen NEGATIVE 05/11/18 14:50: Hgb 9.0 L, Hct 27.8 L 05/11/18 16:24: POC Glucose 231 H 05/11/18 23:28: POC Glucose 388 H 05/12/18 06:30: POC Glucose 169 H 05/12/18 07:05: WBC 5.0, RBC 3.15 L, Hgb 8.1 L, Hct 24.8 L, MCV 78.7 L, MCH 25.7 L, MCHC 32.7, RDW 16.9 H, RDW Differential 48.5 H, Plt Count 108 L, MPV 8.1, Immature Gran % (Auto) 0.400, Neut % (Auto) 69.1, Lymph % (Auto) 21.8, [place] % (Auto) 6.9, Eos % (Auto) 1.6, Baso % (Auto) 0.2, Absolute Neuts (auto) 3.5, Absolute Lymphs (auto) 1.10, Total Counted Not Reportable 05/12/18 07:05: Sodium 138, Potassium 4.2, Chloride 110 H, Carbon Dioxide 17.0 L , Anion Gap 11, BUN 107 H*, Creatinine 3.87 H, Estim Creat Clear Calc 16.69, Est GFR (MDRD) Af Amer 20 L, Est GFR (MDRD) Non-Af 16 L, BUN/Creatinine Ratio 27.6 H , Glucose 180 H, Calcium 8.4 L, Phosphorus 4.7, Magnesium 2.8 H, Total Bilirubin 0.30, AST 12 L, ALT 16, Alkaline Phosphatase 134 H, Total Protein 7.0, Albumin 2.9 L, Globulin 4.1, Albumin/Globulin Ratio 0.7 L 05/12/18 12:04: POC Glucose 250 H Current Medications Calamine/Phenol (Calmoseptine Ointment) 1 applic TOPICAL BID [facility]; Protocol Last Admin: 05/12/18 09:55 Dose: 1 applic Folic Acid (Folic Acid) 1 mg PO DAILYCM [facility] Last Admin: 05/12/18 07:51 Dose: 1 mg Ciprofloxacin (Cipro) 400 mg in 200 mls @ 200 mls/hr IV DAILY [facility] Last Admin: 05/12/18 09:42 Dose: 200 mls/hr Insulin Glargine (Lantus (Bkc)) 20 units SC QHS [facility] Last Admin: 05/11/18 23:48 Dose: 20 units Insulin Human Lispro (Humalog Kwikpen (Bkc)) 0 unit SC TIDAC [facility]; Protocol Last Admin: 05/12/18 12:54 Dose: 2 unit Lidocaine/Prilocaine (Emla Cream W/Tegaderm) 0 gm TOPICAL Q6H PRN; Protocol PRN Reason: pain around urethra Magnesium Hydroxide (Milk Of Magnesia) 30 ml PO DAILY PRN PRN PRN Reason: Constipation Nutritional Formula (Nepro Carb Steady) 120 ml PO 4X/DAY [facility] Last Admin: 05/12/18 09:55 Dose: 120 ml Nystatin (Mycostatin Powder) 1 applic TOPICAL TID [facility]; Protocol Last Admin: 05/12/18 06:32 Dose: 1 applic Sertraline HCl (Zoloft) 100 mg PO QHS [facility] Last Admin: 05/11/18 23:47 Dose: 100 mg Sodium Chloride () 5 - 15 ml IV UD PRN PRN Reason: SALINE FLUSH Last Admin: 05/12/18 13:13 Dose: 10 ml Tamsulosin HCl (Flomax) 0.4 mg PO QHS [facility] Last Admin: 05/11/18 23:47 Dose: 0.4 mg Medical Necessity - Tobacco Use Smoking Status: Current some day smoker Tobacco Use: Cigars, Pipe Assessment/Plan All Active Problems JEREMY (acute kidney injury) (Acute) Hematuria (Acute) 1. JEREMY * improved, but still off from baseline (baseline 2.52) * FEUrea 17.45%, consistent with prerenal azotemia * continue IVF * renal US consistent with chronic changes. * nephrology following. 2. Hematuria * ongoing * patient reports improvement * radiation cystitis v merino trauma * monitor * keep merino in for now until hematuria resolves, or is minimal 3.acute blood loss anemia * Hg dropped from 10 to 8.1 * 2/2 hematuria +/- dilution 4. DM2 uncontrolled * increase lantus back up to 38 from 20 5. DVT proph: LMWH Code Visit Inpatient E&M: 55265 Subs Hosp L2
[2018-05-12] MEDS: 0.9% Normal Saline 1,000 ML 125 ML IV (14:42)
[2018-05-12 17:15] LABS: Bedside Glucose 288 mg/dL (70-110)
--- NOTE | 2018-05-12 17:59 | PN.RENAL_ITS ---
Patient Problems: Active and Suspected Problems Hematuria (Acute) JEREMY (acute kidney injury) (Acute) Subjective: Following for JEREMY. Pt denies CP, SOB or nausea. Hematuria persists. - Physical Exam General: Alert, Oriented x3 HEENT: Atraumatic Oral: Moist Mucosa Neck: Supple Lungs: Clear to auscultation Cardiovascular: Normal S1, Normal S2 Abdomen: Bowel Sounds Present, Soft, Non Tender Extremities: No edema Vital Signs Temp Pulse Resp BP Pulse Ox 98.7 F 88 18 133/71 H 98 05/12/18 14:25 05/12/18 14:25 05/12/18 14:25 05/12/18 14:25 05/12/18 14:25 Oxygen Flow Rate (L/min) 1 Oxygen Delivery Method Room Air Weight: 129.9 kg Body Mass Index (BMI) 43.5 Intake and Output for Last 24 Hours 05/10/18 05/11/18 05/12/18 23:59 23:59 23:59 Intake Total 1553 / 1553 2743 / 2743 Output Total 900 / 900 1825 / 1825 Balance 653 / 653 918 / 918 Microbiology Past 72 Hours 05/11/18 03:30 Urine Culture - Preliminary Urine Catheter - Kang Presumptive E. coli Laboratory Tests Past 24 Hrs 05/12/18 05/12/18 07:05 07:05 WBC 5.0 RBC 3.15 L Hgb 8.1 L Hct 24.8 L MCV 78.7 L MCH 25.7 L MCHC 32.7 RDW 16.9 H RDW Differential 48.5 H Plt Count 108 L MPV 8.1 Immature Gran % (Auto) 0.400 Neut % (Auto) 69.1 Lymph % (Auto) 21.8 [place] % (Auto) 6.9 Eos % (Auto) 1.6 Baso % (Auto) 0.2 Absolute Neuts (auto) 3.5 Absolute Lymphs (auto) 1.10 Total Counted Not Reportable Sodium 138 Potassium 4.2 Chloride 110 H Carbon Dioxide 17.0 L Anion Gap 11 BUN 107 H* Creatinine 3.87 H Estim Creat Clear Calc 16.69 Est GFR (MDRD) Af Amer 20 L Est GFR (MDRD) Non-Af 16 L BUN/Creatinine Ratio 27.6 H Glucose 180 H Calcium 8.4 L Phosphorus 4.7 Magnesium 2.8 H Total Bilirubin 0.30 AST 12 L ALT 16 Alkaline Phosphatase 134 H Total Protein 7.0 Albumin 2.9 L Globulin 4.1 Albumin/Globulin Ratio 0.7 L POC Glucose 05/12/18 05/12/18 05/12/18 17:11 12:04 06:30 POC Glucose 288 H 250 H 169 H 05/11/18 23:28 POC Glucose 388 H Medical Necessity - Tobacco Use Smoking Status: Current some day smoker Tobacco Use: Cigars, Pipe Assessment/Plan All Active Problems Hematuria (Acute) JEREMY (acute kidney injury) (Acute) 1. Acute kidney injury on chronic kidney disease Unclear what his baseline SCr truly is. SCr was 2.52 mg/dL on 01/13/18. If this is his baseline CKD would be in stage 4. CKD is most likely due to diabetic nephropathy. JEREMY is likely due to prerenal azotemia. The pt had diarrhea and was volume depleted. FEurea is also <30%. US of the kidneys did not reveal hydronephrosis. Renal function has improved with IVF. I agree with IVF as ordered. There is no sign of volume overload. Will recheck renal function again tomorrow. No current need for dialysis. Medications are reviewed and are all appropriately dosed for current renal function. 2. Gross hematuria. Seen by . Doubt acute GN. Pt has a history of prostate cancer. Office follow up for C+P. 3. Anemia. Follow Hgb. Slowly falling Hgb but pt is hemodynamically stable.
[2018-05-12] MEDS: Sertraline 100 MG Tablet PO (21:31)
[2018-05-12 21:41] LABS: Bedside Glucose 266 mg/dL (70-110)
[2018-05-13] VITALS (14 sets, daily range): BP systolic 115–153; BP diastolic 51–76; PULSE 80–94; RESP 17–18; TEMP 36.7–37.3; O2SAT 97–100
[2018-05-13] MEDS: Nystatin Powder 15gm Bottle 1 APPLIC TOPICAL ×3 (06:18→22:49)
[2018-05-13] MEDS: Insulin Lispro 100 UNIT/ML INSULN.PEN SC ×4 (06:29→16:27)
[2018-05-13 07:05] LABS: Bedside Glucose 314 mg/dL (70-110)
[2018-05-13 07:12] LABS: Absolute Lymphocyte Count 1.07 X10^3/ul (0.83-4.51); Absolute Neutrophil Count 3.8 X10^3/uL (2.0-7.7); Basophil# 0.01 X10^3/uL; Basophil% 0.2 % (0-1); Eosinophil# 0.06 X10^3/uL; Eosinophils% 1.1 % (0-5); Hematocrit 24.8 % (40-54); Lymphocyte # 1.07 X10^3/ul (4.0); Lymphocyte % 20.2 % (19-41); Mean Corp Hgb Conc 32.3 g/gl (32-36); Mean Corpuscular Hgb 26.1 pg (27.0-32.0); Mean Platelet Vol. 8.1 fl (6.2-12.0); Monocyte% 5.6 % (0-10); Neutrophil # 3.81 X10^3/uL (2.7-7.7); Neutrophil % 71.8 % (47-70); Platelet Count 144 K/mm3 (150-450); RBC Distribution Width SD 47.2 fl (35.1-43.9); Red Blood Count 3.06 M/mm3 (4.6-6.2); White Blood Count 5.3 K/mm3 (4.4-11.0)
[2018-05-13 07:15] LABS: POSITIVE COUNT NO; POSITIVE DIFFERENTIAL NO; POSITIVE MORPHOLOGY NO
[2018-05-13 07:35] LABS: Anion Gap 10 (5-15); BUN 98 mg/dL (7-18); BUN/Creat Ratio 31.6 RATIO (10-20); Calcium,Total 7.9 mg/dL (8.5-10.1); Chloride 111 mmol/L (98-107); EST Glomerular Filtration Rate 21 mL/min (>60); Est Glom Filt Rate - Afr Amer 26 mL/min (>60); Estimated Creatinine Clearance 20.84 ml/min; Glucose 250 mg/dL (74-106); Potassium 4.2 mmol/L (3.5-5.1); Sodium Level 137 mmol/L (136-145)
[2018-05-13] MEDS: Folic Acid 1 MG Tablet PO (09:23)
[2018-05-13] MEDS: Menthol/Lanolin/Calamine/Znox 113 GM Tube 1 APPLIC TOPICAL ×2 (09:23→22:49)
[2018-05-13] MEDS: Ciprofloxacin 400 MG/200 ML BAG 200 MG IV (09:24)
--- NOTE | 2018-05-13 09:38 | PCM.PN.BLA ---
Progress Note still bleeding will do ct scan add on for cysto for tomorrow in or. npo
--- NOTE | 2018-05-13 09:39 | CT_ITS ---
STUDY: CT ABDOMEN AND PELVIS WITHOUT CONTRAST REASON FOR EXAM: Male, 72 years old. Hematuria RADIATION DOSAGE (If Supplied By Facility): CTDIvol = ( 32.91 ) mGy, DLP = ( 1891.44 ) mGycm TECHNIQUE: Transaxial images were obtained from the dome of the diaphragm to the symphysis pubis without oral contrast, and without intravenous contrast. Sagittal and coronal images were reconstructed. Individualized dose optimization techniques were used for this CT. COMPARISON: Renal ultrasound dated 05/11/2018 FINDINGS: The visualized lung bases are unremarkable. The visualized portions of the heart are within normal limits. Small hypodensity in the right lobe of the liver measuring 1.1 cm. Otherwise, liver is within normal limits prominent distention of the gallbladder with several stones and possible sludge. No evidence of wall thickening or pericholecystic fluid. There is mild splenomegaly. Normal pancreas. Normal bilateral adrenal glands. There is moderate cortical atrophy of the right kidney, consistent with chronic medical renal disease. There is severe cortical atrophy of the left kidney, consistent with chronic medical renal disease. Hypodensities in both kidneys, likely small cysts however, poorly evaluated without IV contrast. Bilateral perinephric fat stranding and edema; possibly age-related in nature versus underlying infection Normal visualized stomach. Normal small intestine. There are multiple colonic diverticula consistent with diverticulosis. The appendix is visualized and appears normal. Normal abdominal aorta. Normal inferior vena cava. Normal retroperitoneum. Bladder is decompressed via Kang catheter. Small air-fluid level. There is a small umbilical hernia containing fat. There are diffuse degenerative changes of the visualized lumbar spine. CT/Abdomen/Pelvis without Cont IMPRESSION: Atrophy of both kidneys without evidence of acute obstruction or stones. Hypodensities in both kidneys, compatible with cysts. Bilateral perinephric fat stranding and edema. Possibly related to age-related changes versus infection. Recommend clinical correlation Mild splenomegaly Prominent distention of the gallbladder with stones and sludge. No evidence of wall thickening or pericholecystic fluid. Electronically Signed: Tiburcio Hurley DO at 10:38 EST Tel , Service support ,
--- NOTE | 2018-05-13 10:03 | NURSING ---
pocket knife locked up in [facility]
--- NOTE | 2018-05-13 11:11 | PN_ITS ---
Patient Problems: Active and Suspected Problems Hematuria (Acute) JEREMY (acute kidney injury) (Acute) Subjective: hematuria still present, still waxes and wanes, however. Vitals/I&O's: Vital Signs Temp Pulse Resp BP Pulse Ox 36.9 C 94 18 131/60 H 99 05/13/18 09:38 05/13/18 09:38 05/13/18 09:38 05/13/18 09:38 05/13/18 09:38 Oxygen Flow Rate (L/min) 1 Oxygen Delivery Method Room Air Weight: 129.9 kg Body Mass Index (BMI) 43.5 Intake and Output for Last 24 Hours 05/11/18 05/12/18 05/13/18 23:59 23:59 23:59 Intake Total 1553 / 1553 2743 / 2743 832 / 832 Output Total 900 / 900 1825 / 1825 1400 / 1400 Balance 653 / 653 918 / 918 -568 / -568 General: Alert, Cooperative, No apparent distress, - - dark red urine--no clots. HEENT: Atraumatic, Normocephalic Oral: Moist Mucosa, No Gingival or Mucosal Lesions/ Ulcerations Neck: No Nodes, Thyroid Normal Size and Texture Lungs: Clear to auscultation, Normal air movement, No rhonchi, No wheeze Cardiovascular: Regular rate, Regular Rhythm, Normal S1, Normal S2, No murmurs Abdomen: Bowel Sounds Present, Soft, Non Tender, Non-Distended Extremities: No edema, No Calf Tenderness Psych/Mental Status: Normal Affect, Appropriate Microbiology Past 72 Hours 05/11/18 03:30 Urine Catheter - Merino Urine Culture - Final Proteus mirabilis Laboratory Results 05/12/18 12:04: POC Glucose 250 H 05/12/18 17:11: POC Glucose 288 H 05/12/18 21:29: POC Glucose 266 H 05/13/18 06:28: POC Glucose 314 H 05/13/18 06:55: WBC 5.3, RBC 3.06 L, Hgb 8.0 L, Hct 24.8 L, MCV 81.0, MCH 26.1 L , MCHC 32.3, RDW 17.0 H, RDW Differential 47.2 H, Plt Count 144 L, MPV 8.1, Immature Gran % (Auto) 1.100 H, Neut % (Auto) 71.8 H, Lymph % (Auto) 20.2, [place] % (Auto) 5.6, Eos % (Auto) 1.1, Baso % (Auto) 0.2, Absolute Neuts (auto) 3.8, Absolute Lymphs (auto) 1.07, Total Counted Not Reportable 05/13/18 06:55: Sodium 137, Potassium 4.2, Chloride 111 H, Carbon Dioxide 16.0 L , Anion Gap 10, BUN 98 H, Creatinine 3.10 H, Estim Creat Clear Calc 20.84, Est GFR (MDRD) Af Amer 26 L, Est GFR (MDRD) Non-Af 21 L, BUN/Creatinine Ratio 31.6 H , Glucose 250 H, Calcium 7.9 L Current Medications Calamine/Phenol (Calmoseptine Ointment) 1 applic TOPICAL BID [facility]; Protocol Last Admin: 05/13/18 09:23 Dose: 1 applic Folic Acid (Folic Acid) 1 mg PO DAILYCM [facility] Last Admin: 05/13/18 09:23 Dose: 1 mg Ciprofloxacin (Cipro) 400 mg in 200 mls @ 200 mls/hr IV DAILY [facility] Last Admin: 05/13/18 09:24 Dose: 200 mls/hr Insulin Glargine (Lantus (Bkc)) 38 units SC QHS [facility] Last Admin: 05/12/18 21:32 Dose: 38 units Insulin Human Lispro (Humalog Kwikpen (Bkc)) 0 unit SC TIDAC [facility]; Protocol Last Admin: 05/13/18 06:29 Dose: 3 unit Lidocaine/Prilocaine (Emla Cream W/Tegaderm) 0 gm TOPICAL Q6H PRN; Protocol PRN Reason: pain around urethra Magnesium Hydroxide (Milk Of Magnesia) 30 ml PO DAILY PRN PRN PRN Reason: Constipation Nutritional Formula (Nepro Carb Steady) 120 ml PO 4X/DAY [facility] Last Admin: 05/13/18 09:24 Dose: Not Given Nystatin (Mycostatin Powder) 1 applic TOPICAL TID [facility]; Protocol Last Admin: 05/13/18 06:18 Dose: 1 applic Sertraline HCl (Zoloft) 100 mg PO QHS [facility] Last Admin: 05/12/18 21:31 Dose: 100 mg Sodium Chloride () 5 - 15 ml IV UD PRN PRN Reason: SALINE FLUSH Last Admin: 05/12/18 13:13 Dose: 10 ml Tamsulosin HCl (Flomax) 0.4 mg PO QHS [facility] Last Admin: 05/11/18 23:47 Dose: 0.4 mg Medical Necessity - Tobacco Use Smoking Status: Current some day smoker Tobacco Use: Cigars, Pipe Assessment/Plan All Active Problems Hematuria (Acute) JEREMY (acute kidney injury) (Acute) 1. JEREMY * improved, but still off from baseline (baseline 2.52) * FEUrea 17.45%, consistent with prerenal azotemia * continue IVF * renal US consistent with chronic changes. * nephrology following. 2. Hematuria * ongoing * patient reports improvement * radiation cystitis v merino trauma * monitor * keep merino in for now until hematuria resolves, or is minimal * to OR on 05/14 3.acute blood loss anemia * stable * Hg dropped from 10 to 8 * 2/2 hematuria +/- dilution 4. DM2 uncontrolled * increase lantus back up to 38 from 20 5. DVT proph: SCDs. Code Visit Inpatient E&M: [id number] Subs Hosp L2
[2018-05-13] MEDS: 0.9% Normal Saline 1,000 ML 75 ML IV (12:00)
[2018-05-13 12:15] LABS: Bedside Glucose > 500 mg/dL (70-110)
[2018-05-13 12:38] LABS: Glucose 357 mg/dL (74-106)
[2018-05-13] MEDS: Nepro Liquid 120 ML LIQUID PO ×2 (14:18→22:53)
[2018-05-13 16:36] LABS: Bedside Glucose 263 mg/dL (70-110)
[2018-05-13 17:54] LABS: International Normalized Ratio 1.2; Prothrombin Time (Protime)PT. 14.9 SECONDS (11.7-14.9)
--- NOTE | 2018-05-13 18:51 | PN.RENAL_ITS ---
Patient Problems: Active and Suspected Problems Hematuria (Acute) JEREMY (acute kidney injury) (Acute) Subjective: Following for JEREMY. Pt denies CP, SOB or nausea. No edema. - Physical Exam General: Alert, Oriented x3 HEENT: Atraumatic, Normocephalic Oral: Moist Mucosa Neck: Supple Lungs: Clear to auscultation - anteriorly Cardiovascular: Normal S1, Normal S2, No murmurs Abdomen: Bowel Sounds Present, Soft, Non Tender Extremities: No edema Vital Signs Temp Pulse Resp BP Pulse Ox 98.2 F 80 18 115/51 L 97 05/13/18 15:30 05/13/18 16:59 05/13/18 15:30 05/13/18 15:30 05/13/18 15:30 Oxygen Flow Rate (L/min) 1 Oxygen Delivery Method Room Air Weight: 129.9 kg Body Mass Index (BMI) 43.5 Intake and Output for Last 24 Hours 05/11/18 05/12/18 05/13/18 23:59 23:59 23:59 Intake Total 1553 / 1553 2743 / 2743 2238 / 2238 Output Total 900 / 900 1825 / 1825 1900 / 1900 Balance 653 / 653 918 / 918 338 / 338 Microbiology Past 72 Hours 05/11/18 03:30 Urine Culture - Final Urine Catheter - Kang Proteus mirabilis Laboratory Tests Past 24 Hrs 05/13/18 05/13/18 05/13/18 06:55 06:55 12:16 WBC 5.3 RBC 3.06 L Hgb 8.0 L Hct 24.8 L MCV 81.0 MCH 26.1 L MCHC 32.3 RDW 17.0 H RDW Differential 47.2 H Plt Count 144 L MPV 8.1 Immature Gran % (Auto) 1.100 H Neut % (Auto) 71.8 H Lymph % (Auto) 20.2 [place] % (Auto) 5.6 Eos % (Auto) 1.1 Baso % (Auto) 0.2 Absolute Neuts (auto) 3.8 Absolute Lymphs (auto) 1.07 Total Counted Not Reportable PT INR APTT Sodium 137 Potassium 4.2 Chloride 111 H Carbon Dioxide 16.0 L Anion Gap 10 BUN 98 H Creatinine 3.10 H Estim Creat Clear Calc 20.84 Est GFR (MDRD) Af Amer 26 L Est GFR (MDRD) Non-Af 21 L BUN/Creatinine Ratio 31.6 H Glucose 250 H 357 H Calcium 7.9 L 05/13/18 17:28 WBC RBC Hgb Hct MCV MCH MCHC RDW RDW Differential Plt Count MPV Immature Gran % (Auto) Neut % (Auto) Lymph % (Auto) [place] % (Auto) Eos % (Auto) Baso % (Auto) Absolute Neuts (auto) Absolute Lymphs (auto) Total Counted PT 14.9 INR 1.2 APTT 36.0 Sodium Potassium Chloride Carbon Dioxide Anion Gap BUN Creatinine Estim Creat Clear Calc Est GFR (MDRD) Af Amer Est GFR (MDRD) Non-Af BUN/Creatinine Ratio Glucose Calcium POC Glucose 05/13/18 05/13/18 05/13/18 16:23 11:54 06:28 POC Glucose 263 H > 500 H* 314 H 05/12/18 21:29 POC Glucose 266 H Medical Necessity - Tobacco Use Smoking Status: Current some day smoker Tobacco Use: Cigars, Pipe Assessment/Plan All Active Problems Hematuria (Acute) JEREMY (acute kidney injury) (Acute) 1. Acute kidney injury on chronic kidney disease Unclear what his baseline SCr truly is. SCr was 2.52 mg/dL on 01/13/18. If this is his baseline CKD would be in stage 4. CKD is most likely due to diabetic nephropathy. JEREMY is likely due to prerenal azotemia. The pt had diarrhea and was volume depleted. FEurea is also <30%. US of the kidneys did not reveal hydronephrosis. Renal function has continued to improve with IVF. I agree with IVF as ordered. There is no sign of volume overload. Will recheck renal function again tomorrow. No current need for dialysis. Medications are reviewed and are all appropriately dosed for current renal function. 2. Gross hematuria. Seen by . Doubt acute GN. Pt has a history of prostate cancer. To have cystoscopy tomorrow. 3. Anemia. Follow Hgb. Hgb stable in the last 24 hrs. Pt is hemodynamically stable.
[2018-05-13] MEDS: Ciprofloxacin 250 MG Tablet PO (22:48)
[2018-05-13] MEDS: Tamsulosin HCl 0.4 MG Capsule PO (22:48)
[2018-05-13] MEDS: Sertraline 100 MG Tablet PO (22:49)
[2018-05-14] VITALS (11 sets, daily range): BP systolic 104–140; BP diastolic 55–75; PULSE 68–94; RESP 9–18; TEMP 36.4–36.6; O2SAT 97–100; BMI 43.5
[2018-05-14] MEDS: 0.9% Normal Saline 1,000 ML 75 ML IV (03:57)
[2018-05-14 06:14] LABS: Absolute Lymphocyte Count 1.07 X10^3/ul (0.83-4.51); Basophil# 0.02 X10^3/uL; Basophil% 0.4 % (0-1); Eosinophil# 0.06 X10^3/uL; Eosinophils% 1.1 % (0-5); Hematocrit 23.8 % (40-54); Hemoglobin 7.6 g/dl (13.0-16.5); Lymphocyte # 1.07 X10^3/ul (4.0); Lymphocyte % 19.3 % (19-41); Mean Corp Hgb Conc 31.9 g/gl (32-36); Mean Corpuscular Hgb 26.2 pg (27.0-32.0); Mean Corpuscular Volume 82.1 fL (80-94); Monocyte# 0.38 X10^3/uL; Monocyte% 6.8 % (0-10); Neutrophil # 3.95 X10^3/uL (2.7-7.7); Neutrophil % 71.1 % (47-70); Platelet Count 116 K/mm3 (150-450); RBC Distribution Width CV 16.8 % (11.6-14.6); RBC Distribution Width SD 47.9 fl (35.1-43.9); White Blood Count 5.6 K/mm3 (4.4-11.0)
[2018-05-14 06:17] LABS: International Normalized Ratio 1.2; Prothrombin Time (Protime)PT. 15.2 SECONDS (11.7-14.9)
[2018-05-14 06:18] LABS: Partial Thromboplast Time 37.6 Seconds (24.1-36.2)
[2018-05-14 06:28] LABS: POSITIVE COUNT NO; POSITIVE DIFFERENTIAL NO; POSITIVE MORPHOLOGY NO
[2018-05-14 06:30] LABS: Anion Gap 9 (5-15); BUN 84 mg/dL (7-18); BUN/Creat Ratio 28.5 RATIO (10-20); Calcium,Total 8.1 mg/dL (8.5-10.1); Chloride 113 mmol/L (98-107); Creatinine, Serum 2.95 mg/dL (0.70-1.30); EST Glomerular Filtration Rate 22 mL/min (>60); Est Glom Filt Rate - Afr Amer 27 mL/min (>60); Glucose 184 mg/dL (74-106); Potassium 4.1 mmol/L (3.5-5.1); Sodium Level 140 mmol/L (136-145)
[2018-05-14 07:05] LABS: Bedside Glucose 179 mg/dL (70-110)
[2018-05-14] MEDS: Insulin Lispro 100 UNIT/ML INSULN.PEN SC ×2 (07:06→11:25)
--- NOTE | 2018-05-14 08:05 | PCM.PN.BLA ---
Progress Note Urine is clear today, stopped bleeding overnight. will hold off on cystoscopy for now. I will not be in town the next week so if bleeding comes back he may need seek medical treatment. for now watch urine. call with questions.
[2018-05-14] MEDS: Ciprofloxacin 250 MG Tablet PO (10:05)
[2018-05-14] MEDS: Menthol/Lanolin/Calamine/Znox 113 GM Tube 1 APPLIC TOPICAL (10:06)
[2018-05-14] MEDS: Folic Acid 1 MG Tablet PO (10:06)
--- NOTE | 2018-05-14 10:11 | PCM.PN.HOSP ---
Patient Problems: Active and Suspected Problems Hematuria (Acute) JEREMY (acute kidney injury) (Acute) Subjective: no new complaints. hematuria resolved. Vitals/I&O's: Vital Signs Temp Pulse Resp BP Pulse Ox 36.6 C 73 18 140/68 H 97 05/14/18 07:45 05/14/18 07:55 05/14/18 07:45 05/14/18 07:45 05/14/18 07:45 Oxygen Flow Rate (L/min) 1 Oxygen Delivery Method Room Air Weight: 129.9 kg Body Mass Index (BMI) 43.5 Intake and Output for Last 24 Hours 05/12/18 05/13/18 05/14/18 23:59 23:59 23:59 Intake Total 2743 / 2743 2238 / 2238 2318 / 2318 Output Total 1825 / 1825 1900 / 1900 1325 / 1325 Balance 918 / 918 338 / 338 993 / 993 General: Alert, Cooperative, No apparent distress HEENT: Atraumatic, Normocephalic Oral: Moist Mucosa, No Gingival or Mucosal Lesions/ Ulcerations Neck: No Nodes, Thyroid Normal Size and Texture Lungs: Clear to auscultation, Normal air movement, No rhonchi, No wheeze Cardiovascular: Regular rate, Regular Rhythm, Normal S1, Normal S2, No murmurs Abdomen: Bowel Sounds Present, Soft, Non Tender, Non-Distended, No Hepato-splenomegaly, - - clear urine in merino bag. Extremities: No edema, No Calf Tenderness Skin: No rashes, No breakdown Psych/Mental Status: Normal Affect, Appropriate Microbiology Past 72 Hours 05/11/18 03:30 Urine Catheter - Merino Urine Culture - Final Proteus mirabilis Laboratory Results 05/11/18 14:30: Crossmatch See Detail 05/13/18 11:54: POC Glucose > 500 H* 05/13/18 12:16: Glucose 357 H 05/13/18 16:23: POC Glucose 263 H 05/13/18 17:28: PT 14.9, INR 1.2, APTT 36.0 05/14/18 05:57: WBC 5.6, RBC 2.90 L, Hgb 7.6 L, Hct 23.8 L, MCV 82.1, MCH 26.2 L, MCHC 31.9 L, RDW 16.8 H, RDW Differential 47.9 H, Plt Count 116 L, MPV 8.0, Immature Gran % (Auto) 1.300 H, Neut % (Auto) 71.1 H, Lymph % (Auto) 19.3, [place] % (Auto) 6.8, Eos % (Auto) 1.1, Baso % (Auto) 0.4, Absolute Neuts (auto) 4.0, Absolute Lymphs (auto) 1.07, Total Counted Not Reportable 05/14/18 05:57: Sodium 140, Potassium 4.1, Chloride 113 H, Carbon Dioxide 18.0 L, Anion Gap 9, BUN 84 H, Creatinine 2.95 H, Estim Creat Clear Calc 21.90, Est GFR (MDRD) Af Amer 27 L, Est GFR (MDRD) Non-Af 22 L, BUN/Creatinine Ratio 28.5 H, Glucose 184 H, Calcium 8.1 L 05/14/18 05:57: PT 15.2 H, INR 1.2, APTT 37.6 H 05/14/18 07:02: POC Glucose 179 H Current Medications Calamine/Phenol (Calmoseptine Ointment) 1 applic TOPICAL BID [facility]; Protocol Last Admin: 05/13/18 22:49 Dose: 1 applic Ciprofloxacin HCl (Cipro) 250 mg PO BID [facility] Last Admin: 05/13/18 22:48 Dose: 250 mg Folic Acid (Folic Acid) 1 mg PO DAILYCM [facility] Last Admin: 05/13/18 09:23 Dose: 1 mg Sodium Chloride () 1,000 mls @ 75 mls/hr IV .[id number] [facility] Last Admin: 05/14/18 03:57 Dose: 75 mls/hr Insulin Glargine (Lantus (Bkc)) 38 units SC QHS [facility] Last Admin: 05/13/18 22:50 Dose: 38 units Insulin Human Lispro (Humalog Kwikpen (Bkc)) 0 unit SC TIDAC [facility]; Protocol Last Admin: 05/14/18 07:06 Dose: 2 u Lidocaine/Prilocaine (Emla Cream W/Tegaderm) 0 gm TOPICAL Q6H PRN; Protocol PRN Reason: pain around urethra Magnesium Hydroxide (Milk Of Magnesia) 30 ml PO DAILY PRN PRN PRN Reason: Constipation Nystatin (Mycostatin Powder) 1 applic TOPICAL TID [facility]; Protocol Last Admin: 05/14/18 07:05 Dose: Not Given Sertraline HCl (Zoloft) 100 mg PO QHS [facility] Last Admin: 05/13/18 22:49 Dose: 100 mg Sodium Chloride () 5 - 15 ml IV UD PRN PRN Reason: SALINE FLUSH Last Admin: 05/12/18 13:13 Dose: 10 ml Tamsulosin HCl (Flomax) 0.4 mg PO QHS [facility] Last Admin: 05/13/18 22:48 Dose: 0.4 mg Medical Necessity - Tobacco Use Smoking Status: Current some day smoker Tobacco Use: Cigars, Pipe Assessment/Plan All Active Problems Hematuria (Acute) JEREMY (acute kidney injury) (Acute) 1. JEREMY improved, but still off from baseline (baseline 2.52) FEUrea 17.45%, consistent with prerenal azotemia continue IVF renal US consistent with chronic changes. nephrology following. 2. Hematuria resolved patient reports improvement radiation cystitis v merino trauma monitor keep merino in for now until hematuria resolves, or is minimal DW Dr. Singh, no surgery since hematuria has resolved (for now). Patient will need to follow up with urology as outpt. 3.acute blood loss anemia stable 2/2 hematuria. Hg dropped from 10 to 8 2/2 hematuria +/- dilution\ type and cross no need for transfusion at this time. 4. DM2 uncontrolled increase lantus back up to 38 from 20 pt has been very non-compliant with diet (earlier drank a 2 liter of non-diet soda) 5. DVT proph: SCDs. 6. Disposition: pending H/H, if any recurrent hematuria. Code Visit Inpatient E&M: 24064 Subs Hosp L2
--- NOTE | 2018-05-14 10:15 | PN_ITS ---
Patient Problems: Active and Suspected Problems Hematuria (Acute) JEREMY (acute kidney injury) (Acute) Subjective: no new complaints. hematuria resolved. Vitals/I&O's: Vital Signs Temp Pulse Resp BP Pulse Ox 36.6 C 73 18 140/68 H 97 05/14/18 07:45 05/14/18 07:55 05/14/18 07:45 05/14/18 07:45 05/14/18 07:45 Oxygen Flow Rate (L/min) 1 Oxygen Delivery Method Room Air Weight: 129.9 kg Body Mass Index (BMI) 43.5 Intake and Output for Last 24 Hours 05/12/18 05/13/18 05/14/18 23:59 23:59 23:59 Intake Total 2743 / 2743 2238 / 2238 2318 / 2318 Output Total 1825 / 1825 1900 / 1900 1325 / 1325 Balance 918 / 918 338 / 338 993 / 993 General: Alert, Cooperative, No apparent distress HEENT: Atraumatic, Normocephalic Oral: Moist Mucosa, No Gingival or Mucosal Lesions/ Ulcerations Neck: No Nodes, Thyroid Normal Size and Texture Lungs: Clear to auscultation, Normal air movement, No rhonchi, No wheeze Cardiovascular: Regular rate, Regular Rhythm, Normal S1, Normal S2, No murmurs Abdomen: Bowel Sounds Present, Soft, Non Tender, Non-Distended, No Hepato- splenomegaly, - - clear urine in merino bag. Extremities: No edema, No Calf Tenderness Skin: No rashes, No breakdown Psych/Mental Status: Normal Affect, Appropriate Microbiology Past 72 Hours 05/11/18 03:30 Urine Catheter - Merino Urine Culture - Final Proteus mirabilis Laboratory Results 05/11/18 14:30: Crossmatch See Detail 05/13/18 11:54: POC Glucose > 500 H* 05/13/18 12:16: Glucose 357 H 05/13/18 16:23: POC Glucose 263 H 05/13/18 17:28: PT 14.9, INR 1.2, APTT 36.0 05/14/18 05:57: WBC 5.6, RBC 2.90 L, Hgb 7.6 L, Hct 23.8 L, MCV 82.1, MCH 26.2 L , MCHC 31.9 L, RDW 16.8 H, RDW Differential 47.9 H, Plt Count 116 L, MPV 8.0, Immature Gran % (Auto) 1.300 H, Neut % (Auto) 71.1 H, Lymph % (Auto) 19.3, [place] % (Auto) 6.8, Eos % (Auto) 1.1, Baso % (Auto) 0.4, Absolute Neuts (auto) 4.0, Absolute Lymphs (auto) 1.07, Total Counted Not Reportable 05/14/18 05:57: Sodium 140, Potassium 4.1, Chloride 113 H, Carbon Dioxide 18.0 L , Anion Gap 9, BUN 84 H, Creatinine 2.95 H, Estim Creat Clear Calc 21.90, Est GFR (MDRD) Af Amer 27 L, Est GFR (MDRD) Non-Af 22 L, BUN/Creatinine Ratio 28.5 H , Glucose 184 H, Calcium 8.1 L 05/14/18 05:57: PT 15.2 H, INR 1.2, APTT 37.6 H 05/14/18 07:02: POC Glucose 179 H Current Medications Calamine/Phenol (Calmoseptine Ointment) 1 applic TOPICAL BID [facility]; Protocol Last Admin: 05/13/18 22:49 Dose: 1 applic Ciprofloxacin HCl (Cipro) 250 mg PO BID [facility] Last Admin: 05/13/18 22:48 Dose: 250 mg Folic Acid (Folic Acid) 1 mg PO DAILYCM [facility] Last Admin: 05/13/18 09:23 Dose: 1 mg Sodium Chloride () 1,000 mls @ 75 mls/hr IV .[id number] [facility] Last Admin: 05/14/18 03:57 Dose: 75 mls/hr Insulin Glargine (Lantus (Bkc)) 38 units SC QHS [facility] Last Admin: 05/13/18 22:50 Dose: 38 units Insulin Human Lispro (Humalog Kwikpen (Bkc)) 0 unit SC TIDAC [facility]; Protocol Last Admin: 05/14/18 07:06 Dose: 2 u Lidocaine/Prilocaine (Emla Cream W/Tegaderm) 0 gm TOPICAL Q6H PRN; Protocol PRN Reason: pain around urethra Magnesium Hydroxide (Milk Of Magnesia) 30 ml PO DAILY PRN PRN PRN Reason: Constipation Nystatin (Mycostatin Powder) 1 applic TOPICAL TID [facility]; Protocol Last Admin: 05/14/18 07:05 Dose: Not Given Sertraline HCl (Zoloft) 100 mg PO QHS [facility] Last Admin: 05/13/18 22:49 Dose: 100 mg Sodium Chloride () 5 - 15 ml IV UD PRN PRN Reason: SALINE FLUSH Last Admin: 05/12/18 13:13 Dose: 10 ml Tamsulosin HCl (Flomax) 0.4 mg PO QHS [facility] Last Admin: 05/13/18 22:48 Dose: 0.4 mg Medical Necessity - Tobacco Use Smoking Status: Current some day smoker Tobacco Use: Cigars, Pipe Assessment/Plan All Active Problems Hematuria (Acute) JEREMY (acute kidney injury) (Acute) 1. JEREMY * improved, but still off from baseline (baseline 2.52) * FEUrea 17.45%, consistent with prerenal azotemia * continue IVF * renal US consistent with chronic changes. * nephrology following. 2. Hematuria * resolved * patient reports improvement * radiation cystitis v merino trauma * monitor * keep merino in for now until hematuria resolves, or is minimal * DW Dr. Singh, no surgery since hematuria has resolved (for now). Patient will need to follow up with urology as outpt. 3.acute blood loss anemia * stable * 2/2 hematuria. * Hg dropped from 10 to 8 * 2/2 hematuria +/- dilution\ * type and cross * no need for transfusion at this time. 4. DM2 uncontrolled * increase lantus back up to 38 from 20 * pt has been very non-compliant with diet (earlier drank a 2 liter of non-diet soda) 5. DVT proph: SCDs. 6. Disposition: pending H/H, if any recurrent hematuria. Code Visit Inpatient E&M: 32394 Subs Hosp L2
--- NOTE | 2018-05-14 10:44 | CASEMGMT ---
Social Work Note JULIAN met with pt to confirm discharge plans. SW introduced self and role at [facility]. Pt is alert and orientated x3. Pt states that he wishes to [facility]. JULIAN updated COLE Haro of [facility] and aides [facility] the [facility]. Pt denied additional needs or concerns at this time. Plan: Pt wishes to discharge home with H[facility] and [facility] services [facility]. Radha Cortez BILLING COLLECTIONS SPECIALIST, PRESSFITTER
--- NOTE | 2018-05-14 11:00 | CASEMGMT ---
COLE REYNOLDS spoke with patient regarding discharge needs for [facility]. COLE REYNOLDS instructed patient to follow-up with nurse Ash at [facility] to schedule appt with PCP and PCP can setup [facility] and Aides [facility]. Patient voices understanding and has follow-up numbers at home for [facility]. Patient denied additional DME and states that he will be able to manage till able [facility].
[2018-05-14 11:40] LABS: Bedside Glucose 283 mg/dL (70-110)
[2018-05-14 13:26] LABS: Absolute Neutrophil Count 4.8 X10^3/uL (2.0-7.7); Basophil# 0.01 X10^3/uL; Basophil% 0.2 % (0-1); Eosinophil# 0.07 X10^3/uL; Eosinophils% 1.1 % (0-5); Hematocrit 27.9 % (40-54); Hemoglobin 8.8 g/dl (13.0-16.5); Lymphocyte % 18.5 % (19-41); Mean Corp Hgb Conc 31.5 g/gl (32-36); Mean Corpuscular Hgb 25.6 pg (27.0-32.0); Mean Corpuscular Volume 81.1 fL (80-94); Mean Platelet Vol. 8.3 fl (6.2-12.0); Monocyte# 0.38 X10^3/uL; Monocyte% 5.9 % (0-10); Neutrophil # 4.81 X10^3/uL (2.7-7.7); POSITIVE COUNT NO; POSITIVE DIFFERENTIAL NO; POSITIVE MORPHOLOGY NO; Platelet Count 104 K/mm3 (150-450); RBC Distribution Width CV 17.2 % (11.6-14.6); RBC Distribution Width SD 50.7 fl (35.1-43.9); Red Blood Count 3.44 M/mm3 (4.6-6.2); White Blood Count 6.5 K/mm3 (4.4-11.0)
--- NOTE | 2018-05-14 13:54 | PCM.DC ---
- Discharge Diagnoses Current Active Problems: Current Active and Chronic Problems Hematuria (Acute) JEREMY (acute kidney injury) (Acute) You will use the following diet at home:: Calorie/Carbohydrate Controlled (specify 1200, 1400, etc) - 1800 calories/day Your food should be the consistency of: Regular Your liquids should be the consistency of: Regular/Thin Discharge Activity: Return to Normal Activity Call your doctor if you observe: - - hematuria Allergies/Adverse Reactions: Allergies Penicillins Allergy (Verified 05/11/18 06:57) Rash Tetanus Vaccines and Toxoid Allergy (Verified 05/11/18 06:57) Swelling at injection site Medications to take at Discharge Ascorbic Acid [Vitamin C] 500 mg PO DAILY@0800 05/11/18 B Complex W-C No.20/Folic Acid [Nephrocaps Softgel] 1 mg PO DAILY 05/11/18 Folic Acid 1 mg PO DAILY 05/11/18 Insulin Glargine [Lantus SoloStar Pen] 38 units SC QHS 05/11/18 Sertraline HCl [Zoloft] 100 mg PO QHS 05/11/18 Tamsulosin HCl [Flomax] 0.4 mg PO QHS 05/11/18 glipiZIDE [Glucotrol] 10 mg PO BIDAC 05/11/18 Ciprofloxacin [Cipro] 250 mg PO BID #8 tablet 05/14/18 The following prescriptions were given: Ciprofloxacin [Cipro] 250 mg PO BID #8 tablet Orders to be completed after discharge: Basic Metabolic Profile (BMP) Time Frame: 1 Week, Location: Laboratory CBC W/Diff, Automated Time Frame: 1 Week, Location: Laboratory [facility] [Primary [facility] Provider] - Within 1 Week Test Results: Test results from this visit will be discussed in further detail at your follow-up appointment, if applicable. Please Follow Up With: Manny Singh MD - or [place] urologist When: 2-4 weeks Please Follow Up With: Marleny Higgins MD - or [place] enrollment clerk. When: 1-2 months Proposed Discharge Date: 05/14/18
--- NOTE | 2018-05-14 13:57 | DCINST_ITS ---
- Discharge Diagnoses Current Active Problems: Current Active and Chronic Problems Hematuria (Acute) JEREMY (acute kidney injury) (Acute) You will use the following diet at home:: Calorie/Carbohydrate Controlled (specify 1200, 1400, etc) - 1800 calories/day Your food should be the consistency of: Regular Your liquids should be the consistency of: Regular/Thin Discharge Activity: Return to Normal Activity Call your doctor if you observe: - - hematuria Allergies/Adverse Reactions: Allergies Penicillins Allergy (Verified 05/11/18 06:57) Rash Tetanus Vaccines and Toxoid Allergy (Verified 05/11/18 06:57) Swelling at injection site Medications to take at Discharge Ascorbic Acid [Vitamin C] 500 mg PO DAILY@0800 05/11/18 B Complex W-C No.20/Folic Acid [Nephrocaps Softgel] 1 mg PO DAILY 05/11/18 Folic Acid 1 mg PO DAILY 05/11/18 Insulin Glargine [Lantus SoloStar Pen] 38 units SC QHS 05/11/18 Sertraline HCl [Zoloft] 100 mg PO QHS 05/11/18 Tamsulosin HCl [Flomax] 0.4 mg PO QHS 05/11/18 glipiZIDE [Glucotrol] 10 mg PO BIDAC 05/11/18 Ciprofloxacin [Cipro] 250 mg PO BID #8 tablet 05/14/18 The following prescriptions were given: Ciprofloxacin [Cipro] 250 mg PO BID #8 tablet Orders to be completed after discharge: Basic Metabolic Profile (BMP) Time Frame: 1 Week, Location: Laboratory CBC W/Diff, Automated Time Frame: 1 Week, Location: Laboratory [facility] [Primary [facility]] - Within 1 Week Test Results: Test results from this visit will be discussed in further detail at your follow- up appointment, if applicable. Please Follow Up With: Manny Singh MD - or [place] urologist When: 2-4 weeks Please Follow Up With: Marleny Higgins MD - or [place] franchise sales director. When: 1-2 months Proposed Discharge Date: 05/14/18
--- NOTE | 2018-05-14 13:59 | DS.PCM_ITS ---
Discharge Date and Diagnosis - Problem List Patient Problems: Active and Suspected Problems UTI (urinary tract infection) (Acute) Hematuria (Acute) JEREMY (acute kidney injury) (Acute) Date of Admission: 05/11/18 Date of Discharge: 05/14/18 - Primary Discharge Diagnosis Active and Suspected Problems UTI (urinary tract infection) (Acute) Hematuria (Acute) JEREMY (acute kidney injury) (Acute) Hospital Course and Treatment Imaging Results: Clinical Impression(s) from Imaging Studies Chest X-Ray 05/11/18 02:50 IMPRESSION: There is NO acute cardiopulmonary abnormality. Electronically Signed: Edson Lyn MD at 3:40 EST , Service support , Renal Ultrasound 05/11/18 08:00 IMPRESSION: Abnormal renal cortical echotexture bilaterally, mildly echogenic, suggesting intrinsic renal disease. Renal cortical thinning of the left kidney. Simple bilateral renal cysts. Splenomegaly. Dilated gallbladder, cholelithiasis. These features may reflect chronic cholecystitis. There are no specific sonographic features of acute gallbladder inflammation. Electronically Signed: Shawn Chowdhury MD at 10:36 EST Tel , Service support , Abdomen/Pelvis CT 05/13/18 09:39 IMPRESSION: Atrophy of both kidneys without evidence of acute obstruction or stones. Hypodensities in both kidneys, compatible with cysts. Bilateral perinephric fat stranding and edema. Possibly related to age-related changes versus infection. Recommend clinical correlation Mild splenomegaly Prominent distention of the gallbladder with stones and sludge. No evidence of wall thickening or pericholecystic fluid. Electronically Signed: Tiburcio Hurley DO at 10:38 EST Tel , Service support , Shelton Singh MD--urology Gab Will MD--nephrology. Operations: None Procedures: None Summary of Care Provided: The patient is a 72 year old M presents with weakness. 1. JEREMY * improved, but still off from baseline (baseline 2.52) * FEUrea 17.45%, consistent with prerenal azotemia * continue IVF * renal US consistent with chronic changes. * nephrology follow up 2. Hematuria * resolved * patient reports improvement * radiation cystitis v merino trauma * monitor * keep merino in for now until hematuria resolves, or is minimal * DW Dr. Singh, no surgery since hematuria has resolved (for now). Patient will need to follow up with urology as [facility]pt with [facility]. 3.acute blood loss anemia * stable * 2/2 hematuria. * Hg dropped from 10 to 8 * 2/2 hematuria +/- dilution\ * type and cross * no need for transfusion at this time. 4. DM2 uncontrolled * increase lantus back up to 38 from 20 * pt has been very non-compliant with diet (earlier drank a 2 liter of non-diet soda)[] Patient Problems: Active and Suspected Problems UTI (urinary tract infection) (Acute) Hematuria (Acute) JEREMY (acute kidney injury) (Acute) - Physical Exam Vital Signs Temp Pulse Resp BP Pulse Ox 36.6 C 94 18 140/68 H 97 05/14/18 07:45 05/14/18 12:00 05/14/18 07:45 05/14/18 07:45 05/14/18 07:45 Oxygen Flow Rate (L/min) 1 Oxygen Delivery Method Room Air Weight: 129.9 kg Body Mass Index (BMI) 43.5 Intake and Output for Last 24 Hours 05/12/18 05/13/18 05/14/18 23:59 23:59 23:59 Intake Total 2743 / 2743 2238 / 2238 2793 / 2793 Output Total 1825 / 1825 1900 / 1900 1725 / 1725 Balance 918 / 918 338 / 338 1068 / 1068 Microbiology Past 72 Hours 05/11/18 03:30 Urine Culture - Final Urine Catheter - Merino Proteus mirabilis Laboratory Tests Past 24 Hrs 05/11/18 05/13/18 05/14/18 14:30 17:28 05:57 WBC 5.6 RBC 2.90 L Hgb 7.6 L Hct 23.8 L MCV 82.1 MCH 26.2 L MCHC 31.9 L RDW 16.8 H RDW Differential 47.9 H Plt Count 116 L MPV 8.0 Immature Gran % (Auto) 1.300 H Neut % (Auto) 71.1 H Lymph % (Auto) 19.3 [place] % (Auto) 6.8 Eos % (Auto) 1.1 Baso % (Auto) 0.4 Absolute Neuts (auto) 4.0 Absolute Lymphs (auto) 1.07 Total Counted Not Reportable PT 14.9 INR 1.2 APTT 36.0 Sodium Potassium Chloride Carbon Dioxide Anion Gap BUN Creatinine Estim Creat Clear Calc Est GFR (MDRD) Af Amer Est GFR (MDRD) Non-Af BUN/Creatinine Ratio Glucose Calcium Crossmatch See Detail 05/14/18 05/14/18 05/14/18 05:57 05:57 13:06 WBC 6.5 RBC 3.44 L Hgb 8.8 L Hct 27.9 L MCV 81.1 MCH 25.6 L MCHC 31.5 L RDW 17.2 H RDW Differential 50.7 H Plt Count 104 L MPV 8.3 Immature Gran % (Auto) 0.300 Neut % (Auto) 74.0 H Lymph % (Auto) 18.5 L [place] % (Auto) 5.9 Eos % (Auto) 1.1 Baso % (Auto) 0.2 Absolute Neuts (auto) 4.8 Absolute Lymphs (auto) 1.20 Total Counted Not Reportable PT 15.2 H INR 1.2 APTT 37.6 H Sodium 140 Potassium 4.1 Chloride 113 H Carbon Dioxide 18.0 L Anion Gap 9 BUN 84 H Creatinine 2.95 H Estim Creat Clear Calc 21.90 Est GFR (MDRD) Af Amer 27 L Est GFR (MDRD) Non-Af 22 L BUN/Creatinine Ratio 28.5 H Glucose 184 H Calcium 8.1 L Crossmatch POC Glucose 05/14/18 05/14/18 05/13/18 11:23 07:02 16:23 POC Glucose 283 H 179 H 263 H Discharge Diet: 1800 Calorie Control Diet Discharge Activity: Return to Normal Activity Call your doctor if you observe: - - hematuria Home Medications: Medications to take at Discharge Ascorbic Acid [Vitamin C] 500 mg PO DAILY@0800 05/11/18 B Complex W-C No.20/Folic Acid [Nephrocaps Softgel] 1 mg PO DAILY 05/11/18 Folic Acid 1 mg PO DAILY 05/11/18 Insulin Glargine [Lantus SoloStar Pen] 38 units SC QHS 05/11/18 Sertraline HCl [Zoloft] 100 mg PO QHS 05/11/18 Tamsulosin HCl [Flomax] 0.4 mg PO QHS 05/11/18 glipiZIDE [Glucotrol] 10 mg PO BIDAC 05/11/18 Ciprofloxacin [Cipro] 250 mg PO BID #8 tablet 05/14/18 Following Prescrptions Were Given to Patient: Ciprofloxacin [Cipro] 250 mg PO BID #8 tablet Other Amb Orders: Basic Metabolic Profile (BMP) Time Frame: 1 Week, Location: Laboratory CBC W/Diff, Automated Time Frame: 1 Week, Location: Laboratory [facility] [[facility]] - Within 1 Week Please Follow Up With: Manny Singh MD - or [place] urologist When: 2-4 weeks Please Follow Up With: Marleny Higgins MD - or [place] fire equipment operator. When: 1-2 months Disposition: Home Minutes spent on discharge:: 32 Patient Condition:: Fair Medical Necessity - Tobacco Use Smoking Status: Current some day smoker Tobacco Use: Cigars, Pipe Meaningful Use Info Meaningful Use Diagnoses (Choose all that apply): None applicable Code Visit Inpatient E&M: 70510 Disch Hosp
[2018-05-15 00:15] LABS: Bedside Glucose 265 mg/dL (70-110)
--- NOTE | 2018-05-16 08:43 | CASEMGMT ---
COLE REYNOLDS NOTE: Call placed to COLE Ash @ [facility]. Mihir notified pt was discharged home 05/14/18 [facility]. Also reviewed discharge instructions with Mihir. Offered to fax discharge instructions to Mihir, but he states he will have have his medical records dept follow up and obtain pt's information. Mihir states he will follow up with pt. Jes CHAVEZ RN CM
== END 2018-05-14 16:50 | disposition home or self-care (01) | DRG 699 ==
LOC: ED 06:10 → MS3 06:14
PROVIDERS: Internal Medicine; Urology; Admitting Provider Student in an Organized Health Care Education/Training Program; Emergency Provider Emergency Medicine
DX: N30.41 Irradiation cystitis with hematuria (principal); N17.9 Acute kidney failure, unspecified; E87.1 Hypo-osmolality and hyponatremia; D62 Acute posthemorrhagic anemia; Z68.41 Body mass index [BMI] 40.0-44.9, adult; E87.2 Acidosis; E11.65 Type 2 diabetes mellitus with hyperglycemia; F17.290 Nicotine dependence, other tobacco product, uncomplicated; E66.01 Morbid (severe) obesity due to excess calories; E11.22 Type 2 diabetes mellitus with diabetic chronic kidney disease; Z90.79 Acquired absence of other genital organ(s); Z85.46 Personal history of malignant neoplasm of prostate; G47.33 Obstructive sleep apnea (adult) (pediatric); Z79.4 Long term (current) use of insulin; Y84.2 Radiological procedure and radiotherapy as the cause of abnormal reaction of the patient, or of later complication, without mention of misadventure at the time of the procedure; E86.9 Volume depletion, unspecified; Z91.11 Patient's noncompliance with dietary regimen; N18.9 Chronic kidney disease, unspecified
CPT/HCPCS: 36415; 51702; 71045; 74176; 76770; 80048; 80053; 81001; 82570; 82728; 82947; 82962; 83540; 83550; 83735; 84100; 84540; 85014; 85018; 85025; 85610; 85730; 86850; 86900; 86920; 87077; 87086; 87088; 87186; 93005; 94660; 97110; 97162; 97165; 97530; 97535; 99285; 99406; J7030; A4216; J0744

== ENCOUNTER 2019-04-09 22:14 | Inpatient (IN) | payer OTHER, MEDICARE, SELFPAY ==
[2018-05-14 07:42] VITALS: BMI 43.5
[2019-04-09 22:15] VITALS: BP 171/69; PULSE 101; RESP 20; TEMP 36.8; O2SAT 100; BMI 41.0
--- NOTE | 2019-04-09 23:17 | ED.RN ---
MANUAL BLADDER IRRIGATION COMPLETED. 1000 ML RETURN WITH LARGE CLOTS NOTED. FIRST DRAINAGE BAG CLOTTED. DRAINAGE BAG CHANGED. CONTINUOUS BLADDER IRRIGATION STARTED. PT REPORT IMPROVEMENT OF BLADDER PRESSURE AND PAIN
--- NOTE | 2019-04-09 23:35 | ED.VIS.GEN ---
History of Present Illness Chief Complaint: Complaint Narrative: Patient is a 73-year-old male with history of hypothyroid, GERD, depression, BPH, urinary tract infections and kidney stones presenting from home with urinary retention, urinary incontinence and hematuria. Patient states last night he woke up and noticed that he was covered in urine. He states the urine was bloody. He said on the toilet and when he got up he noticed that he was bleeding from his penis. He states he did not have a bowel movement and is certain the blood did not come from his rectum. Throughout the day he had a hard time urinating and then this evening he suddenly had severe abdominal pain. He states his lower abdominal. States he felt that he needed to urinate but was unable to. He would randomly passed large clots of blood out of his penis. He called the nurse personal banking advisor line who instructed him to go to the nearest hospital. Patient called EMS and came to the emergency room. [facility] He has a history of hematuria. He states he also has a history of urinary tract infections and ureter stents. He states he last had stents placed about 2 years ago and states they were never removed. He thinks they are the permanent kind. Patient states is otherwise been feeling well. He notes he has chronic back pain has had 4 back surgeries but this is unchanged. He denies any fever, chills, chest pain, shortness of breath or difficulty breathing. He denies any lightheadedness. He was having some nausea associated with this pain in route. Past Medical History - Allergies and Home Meds Allergies/Adverse Reactions: Allergies metformin Allergy (Verified 04/09/19 22:17) Angioedema Penicillins Allergy (Verified 04/09/19 22:17) Rash Tetanus Vaccines and Toxoid Allergy (Verified 04/09/19 22:17) Swelling at injection site Past Medical History: - - Kidney stones, urinary tract infection, BPH, hypothyroid, chronic back pain Surgical History: - - Back surgery x4, ureter stents Lives: Alone Smoking Status: Current every day smoker - Family History Maternal Family History: Reports: Hypertension Paternal Family History: Reports: Hypertension Review of Systems General: Denies: Chills, Fever, Sweats Eyes: Denies: Visual changes - bilaterally, Diplopia ENT: Denies: Rhinorrhea, Sore throat Cardiovascular: Denies: Chest pain, Palpitations Respiratory: Denies: Dyspnea, Cough, Dyspnea on exertion Gastrointestinal: Reports: Abdominal pain, Nausea. Denies: Vomiting, Diarrhea, Melena, Hematochezia Genitourinary: Reports: Hematuria, - - Increased urination. Denies: Dysuria, Frequency Musculoskeletal: Reports: Back pain - Chronic, unchanged. Denies: Extremity Pain Skin: Denies: Rash, Wounds Neurological: Denies: Headache, Weakness, Numbness Physical Exam Vital Signs/Narrative: Vital Signs Temp Pulse Resp BP Pulse Ox 04/09/19 22:15 98.3 F 101 H 20 H 171/69 H 100 Inital Vital Signs reviewed: Yes General: Well nourished, Well developed, No Acute Distress Head: Normocephalic, Atraumatic Eyes: Perrl, EOMI ENT: Moist mucous membranes, No rhinorrhea Neck: Supple, Nontender Cardiovascular: Regular rate, Regular rhythm, No murmurs Respiratory: No distress, CTA bilaterally, Chest nontender Abdomen: Soft, Nontender, Nondistended, Normal bowel sounds Back: Nontender, Normal Inspection Extremities: Nontender, No edema Skin: No rash, Pallor Neurological: Alert, Oriented x3, Cranial nerves II-XII grossly intact, Normal Strength, Normal Sensation Psychological: Normal affect, Normal Mood Diagnostic/Tx/Re-eval Clinical Impression(s) from Imaging Studies Abdomen/Pelvis CT 04/10/19 00:13 IMPRESSION: Stable appearance to distended gallbladder with multiple gallstones. Much more severe bilateral hydronephrosis with new bilateral ureteric stents that appear to be within adequate position. Decompressed urinary bladder with Kang catheter, however, some of the contents of the urinary bladder appears to be hyperdense which could be hemorrhagic urine Individualized dose optimization techniques were used for this CT. at 0116 Reported and signed by: Denver Granda MD Electronically Signed: Denver Granda MD at 1:15 EST Tel , Service support , Laboratory Data 04/09/19 04/09/19 04/09/19 23:30 23:30 23:30 WBC 9.4 RBC 2.80 L Hgb 7.7 L Hct 25.0 L MCV 89.3 MCH 27.5 MCHC 30.8 L RDW Std Deviation 53.6 H RDW Coeff of Nyasia 16.4 H Plt Count 103 L MPV 9.0 Immature Gran % (Auto) 0.700 Neut % (Auto) 88.3 H Lymph % (Auto) 4.4 L [place] % (Auto) 6.1 Eos % (Auto) 0.2 Baso % (Auto) 0.3 Absolute Neuts (auto) 8.3 H Absolute Lymphs (auto) 0.41 L Nucleated RBC % 0 PT 14.9 INR 1.2 APTT 33.8 Sodium 143 Potassium 4.5 Chloride 119 H Carbon Dioxide 14.0 L Anion Gap 10 BUN 82 H Creatinine 4.64 H Estim Creat Clear Calc 14.64 Est GFR (MDRD) Af Amer 16 L Est GFR (MDRD) Non-Af 13 L BUN/Creatinine Ratio 17.7 Glucose 187 H Calcium 8.4 L Urine Color Urine Clarity Urine pH Ur Specific [place] Urine Protein Urine Glucose (UA) Urine Ketones Urine Occult Blood Urine Nitrite Urine Bilirubin Urine Urobilinogen Ur Leukocyte Esterase Urine RBC Urine WBC Ur Squamous Epith Cells Urine Bacteria Urine Mucus Blood Type Antibody Screen Crossmatch 04/10/19 04/10/19 04/10/19 01:40 01:40 01:45 WBC RBC Hgb Hct MCV MCH MCHC RDW Std Deviation RDW Coeff of Nyasia Plt Count MPV Immature Gran % (Auto) Neut % (Auto) Lymph % (Auto) [place] % (Auto) Eos % (Auto) Baso % (Auto) Absolute Neuts (auto) Absolute Lymphs (auto) Nucleated RBC % PT INR APTT Sodium Potassium Chloride Carbon Dioxide Anion Gap BUN Creatinine Estim Creat Clear Calc Est GFR (MDRD) Af Amer Est GFR (MDRD) Non-Af BUN/Creatinine Ratio Glucose Calcium Urine Color Red Urine Clarity Turbid Urine pH 8.0 Ur Specific [place] 1.015 Urine Protein 500 H Urine Glucose (UA) Normal Urine Ketones 5 H Urine Occult Blood 250 H Urine Nitrite Negative Urine Bilirubin Negative Urine Urobilinogen Normal Ur Leukocyte Esterase 25 H Urine RBC > 100 SEEN Urine WBC 0-5 SEEN Ur Squamous Epith Cells 0 SEEN Urine Bacteria 2+ Urine Mucus 0 SEEN Blood Type A POSITIVE Antibody Screen NEGATIVE Crossmatch See Detail - Medical Decision Making She is evaluated for hematuria and abdominal pain. His presentation is consistent with acute urinary retention. Likely subsequent to his hematuria. Per nursing protocol, a three-way Kang catheter is placed prior to my initial evaluation of the patient. Patient still has gross blood and clots coming out of his Kang catheter when I evaluate him. He states his abdominal pain and nausea significantly improved since the catheter was placed. Patient is found to be anemic with a hemoglobin of 7.7. Patient's baseline appears to be around 9 or 10. He also has acute kidney injury with a creatinine around 4. His baseline looks to be closer to 2. Patient has a normal white blood cell count. Patient states he has stents in his ureters but thinks that they are supposed to be permanent. He states they have been present for at least [address] of the abdomen pelvis is obtained to better characterize his kidneys, collecting system and bladder anatomy. Patient does have significant bilateral hydronephrosis. This might be secondary to his recent urinary retention. Discussed the case with Dr. Singh, urology on-call who is aware and will see the patient when he is on the floor. Hospitalist will admit the patient. Hospitalist is aware of patient's anemia. It will be trended we will not start transfusion at this time because he is near his baseline. Patient is agreeable with admission. He stable for the general medical floor at time of disposition. ED Disposition - Plan for ED Patient: Disposition: Acute [facility] Diagnosis: Dnope-[id number] kidney injury, Hematuria, Hydronephrosis, Acute urinary retention
[2019-04-09 23:48] LABS: Absolute Lymphocyte Count 0.41 X10^3/uL (0.83-4.51); Absolute Neutrophil Count 8.3 X10^3/uL (2.0-7.7); Basophil# 0.03 X10^3/uL; Basophil% 0.3 % (0-1); Eosinophil# 0.02 X10^3/uL; Eosinophils% 0.2 % (0-5); Hemoglobin 7.7 g/dL (13.0-16.5); Lymphocyte # 0.41 X10^3/ul (4.0); Lymphocyte % 4.4 % (19-41); Mean Corp Hgb Conc 30.8 g/dL (32-36); Mean Corpuscular Hgb 27.5 pg (27.0-32.0); Mean Corpuscular Volume 89.3 fL (80-94); Monocyte# 0.57 X10^3/uL; Monocyte% 6.1 % (0-10); NRBC Flagged by Analyzer 0 % (0-5); Neutrophil % 88.3 % (47-70); POSITIVE DIFFERENTIAL YES; Platelet Count 103 K/mm3 (150-450); RBC Distribution Width CV 16.4 % (11.6-14.6); RBC Distribution Width SD 53.6 fl (35.1-43.9); White Blood Count 9.4 K/mm3 (4.4-11.0)
[2019-04-09 23:49] LABS: International Normalized Ratio 1.2; Prothrombin Time (Protime)PT. 14.9 SECONDS (11.7-14.9)
[2019-04-09 23:50] LABS: Partial Thromboplast Time 33.8 Seconds (24.1-36.2)
[2019-04-09 23:52] LABS: Differential Indicated SCAN CRITERIA MET
[2019-04-09 23:53] LABS: Anion Gap 10 (5-15); BUN 82 mg/dL (7-18); BUN/Creat Ratio 17.7 RATIO (10-20); Calcium,Total 8.4 mg/dL (8.5-10.1); Chloride 119 mmol/L (98-107); Creatinine, Serum 4.64 mg/dL (0.70-1.30); EST Glomerular Filtration Rate 13 mL/min (>60); Est Glom Filt Rate - Afr Amer 16 mL/min (>60); Estimated Creatinine Clearance 14.64 ml/min; Glucose 187 mg/dL (74-106); Potassium 4.5 mmol/L (3.5-5.1); Sodium Level 143 mmol/L (136-145)
[2019-04-10] VITALS (25 sets, daily range): BP systolic 119–160; BP diastolic 46–80; PULSE 63–90; RESP 16–18; TEMP 36–37; O2SAT 96–100; BMI 38.2; BMI 38.3
--- NOTE | 2019-04-10 00:13 | CT_ITS ---
HISTORY: HEMATURIA,GOMEZ CATHETER IN PLACEHX:HTN,DIABETES,GERD,PROSTATE CANCER WITH PROSTATECTOMY EXAMINATION: CT Abdomen And Pelvis W/O Contrast Injection TECHNIQUE: Helically acquired images were obtained of the abdomen both before and after IV contrast. A radiation dose optimization technique was used for this scan. IV Contrast dosage and agent: None. 549 images Oral contrast: None. COMPARISON: May 13, 2018 FINDINGS: LOWER CHEST: Tiny pericardial effusion. Coronary artery calcific ASCVD. Minimal chronic bronchitis. Trace scarring within the medial aspect of the right middle lobe. LIVER: Homogeneous. No focal mass. GALLBLADDER AND BILIARY TREE: The gallbladder is distended with many gallstones layering within the lumen. These are tiny gravel-like gallstones No intra- or extrahepatic biliary ductal dilation. PANCREAS: No focal cystic or solid mass. SPLEEN: Normal size without focal cystic or solid mass. ADRENAL GLANDS: No nodules. KIDNEYS AND URETERS: Bilateral renal atrophy. Bilateral hydronephrosis. Bilateral hydroureter. Bilateral ureteric stents. Ureteric stents appear to be within adequate position. PERITONEUM: No ascites or free air. No other fluid collection. BOWEL: The rectum is slightly distended with stool. No constipation. No bowel obstruction LYMPH NODES: No enlarged mesenteric or retroperitoneal lymph nodes. VESSELS: Tortuosity to the abdominal aorta with trace calcific plaque, but without aneurysm ABDOMINAL WALL: No discrete abdominal wall hernia. BONES: Multilevel degenerative disc disease with lower lumbar spine facet arthropathy The urinary bladder is decompressed with a Gomez catheter, however, some of the contents of the bladder appear to be hyperdense which could be hemorrhage CT/Abdomen/Pelvis without Cont IMPRESSION: Stable appearance to distended gallbladder with multiple gallstones. Much more severe bilateral hydronephrosis with new bilateral ureteric stents that appear to be within adequate position. Decompressed urinary bladder with Gomez catheter, however, some of the contents of the urinary bladder appears to be hyperdense which could be hemorrhagic urine Individualized dose optimization techniques were used for this CT. at 0116 Reported and signed by: Denver Granda MD Electronically Signed: Denver Granda MD at 1:15 EST Tel , Service support ,
[2019-04-10] MEDS: Ondansetron 4 MG/2 ML Vial IV (01:19)
--- NOTE | 2019-04-10 01:19 | ED.RN ---
TALKED TO ABOUT URINE SAMPLE. URINE IS TOO BLOODY TO TURN OFF AND NOT HAVE A DILUTED SAMPLE. SHE SAID TO HOLD ON URINE. 3RD BAG OF CBI UP. PT STARTED VOMITING, NOTIFIED, ZOFRAN GIVEN.
--- NOTE | 2019-04-10 01:36 | PCM.HP.STD ---
Problem List (1) Hematuria Status: Acute Qualifiers: Hematuria type: unspecified type Qualified Code(s): R31.9 - Hematuria, unspecified (2) Acute blood loss anemia Status: Acute (3) UTI (urinary tract infection) Status: Suspected Qualifiers: Urinary tract infection type: site unspecified (4) JEREMY (acute kidney injury) Status: Acute (5) CKD (chronic kidney disease), stage IV Status: Chronic (6) HTN (hypertension) Status: Chronic Qualifiers: Hypertension type: essential hypertension Qualified Code(s): I10 - Essential (primary) hypertension (7) Anxiety and depression Status: Chronic (8) Tobacco use Status: Chronic (9) MEGAN (obstructive sleep apnea) Status: Chronic (10) Hypothyroidism Status: Chronic Qualifiers: Hypothyroidism type: unspecified Qualified Code(s): E03.9 - Hypothyroidism, unspecified (11) Chronic anemia Status: Chronic (12) GERD (gastroesophageal reflux disease) Status: Chronic Qualifiers: Esophagitis presence: esophagitis presence not specified Qualified Code(s): K21.9 - Gastro-esophageal reflux disease without esophagitis (13) Diabetes mellitus, type II Status: Chronic Qualifiers: Diabetes mellitus [facility] insulin use: with terminal clerk use Diabetes mellitus complication status: with other specified complication Qualified Code(s): E11.69 - Type 2 diabetes mellitus with other specified complication; Z79.4 - retirement (current) use of insulin History of Present Illness Date of Admission: 04/10/19 Chief Complaint: Abdominal pain, urinary retention, hematuria The patient is a 73-year-old M w/ PMHx: Chronic back pain, History of UTIs with required prior ureter stenting, CKD stage IV, Chronic normocytic anemia, Diabetes mellitus type II, GERD, Hypothyroidism, BPH, Anxiety and depression, Morbid obesity who presents to the [facility] ED on 04/10/2019 with history of onset of bright red blood from his penis with history of urinary retention as well as increased urinary incontinence, noting he woke up the evening prior and was covered in urine that was noted to be bloody and has had ongoing difficulties urinating with onset of lower abdominal severe 10/10 pain with inability to urinate although he notes still he would occasionally pass large clots from his penis prompting him to present to the ED. He admits to chills over the last 12-24 hours but no fevers and in the ED had nausea and emesis x 1. In the ED included T 98.3, heart rate 101, BP 171/69, respiratory rate 20, 100% on room air, CBC with W BC 9.4, hemoglobin 7.7, platelet 103 with left shift, unremarkable coags, BMP with chloride 119, carbon dioxide 14, BUN/creatinine 82/4.64, glucose 187, CT abdomen and pelvis with stable appearance to distended gallbladder multiple stones with a more severe bilateral hydronephrosis with new bilateral ureteric stents that appear in adequate position with a decompressed urinary bladder with Kang catheter however the contents of the urinary bladder appeared to be hyperdense possibly hemorrhagic urine. Continuous bladder irrigation initiated in the ED following attempt for manual bladder irrigation with notable large clots with patient reported improvement of bladder discomfort and lower abdominal pain. Past Medical History Past Medical History (Chronic Problems): Chronic Problems CKD (chronic kidney disease), stage IV (Chronic) HTN (hypertension) (Chronic) Anxiety and depression (Chronic) Tobacco use (Chronic) MEGAN (obstructive sleep apnea) (Chronic) Hypothyroidism (Chronic) Chronic anemia (Chronic) GERD (gastroesophageal reflux disease) (Chronic) Diabetes mellitus, type II (Chronic) Allergies metformin Allergy (Verified 04/09/19 22:17) Angioedema Penicillins Allergy (Verified 04/09/19 22:17) Rash Tetanus Vaccines and Toxoid Allergy (Verified 04/09/19 22:17) Swelling at injection site Home Medications: Ambulatory Orders Medication Instructions Recorded Ascorbic Acid [Vitamin C] 500 mg PO DAILY@0800 05/11/18 B Complex W-C No.20/Folic Acid 1 mg PO DAILY 05/11/18 [Nephrocaps Softgel] Folic Acid 1 mg PO DAILY 05/11/18 Insulin Glargine [Lantus SoloStar 38 units SC QHS 05/11/18 Pen] Sertraline HCl [Zoloft] 100 mg PO QHS 05/11/18 Tamsulosin HCl [Flomax] 0.4 mg PO QHS 05/11/18 Ciprofloxacin [Cipro] 250 mg PO BID #8 tablet 05/14/18 Acetaminophen [Tylenol Extra 500 mg PO BID 04/09/19 Strength] Levothyroxine PO DAILY 04/09/19 Omeprazole PO DAILY 04/09/19 Surgical History: - - Prior history reports back surgery however patient denies, ureteral stent placements noted, cataract surgery left eye recently. Lives: Alone Smoking Status: Current every day smoker - Patient smokes cigars and pipes whenever his finances allow he notes. Tobacco Use: Cigars, Pipe Alcohol: None Drugs: None - *Family History Maternal History Items: Heart Disease, Hypertension Paternal History Items: Cancer, Hypertension Review of Systems Constitutional: Reports: Anorexia, Chills, Malaise, Weakness, Fatigue. Denies: Fever, Weight Change HEENT: Denies: Head Aches, Sinus Congestion, Sinus Drainage Cardiovascular: Denies: Chest Pain, Palpitations Respiratory: Denies: Cough, Shortness of breath at rest, Sputum production Gastrointestinal: Reports: Abdominal Pain, Nausea, Vomiting Genitourinary: Reports: Dysuria, Frequency, Hematuria, Hesitancy, Retention Musculoskeletal: Reports: Back Pain, Joint Pain. Denies: Joint Tenderness Skin: Denies: Rash, Wounds Neurological: Denies: Numbness, Tingling, Focal weakness Psychiatric: Reports: Anxiety, Depression. Denies: Homicidal Ideations, Suicidal Ideations Hematologic/ Lymphatic: Reports: Anemia. Denies: Easy Bruising, Easy Bleeding VTE Information - Inpt Only VTE Present on Admission: No VTE Mechan Device Prophylaxis: SCD's VTE Pharm Prophylaxis ordered?: No Reason prophylaxis not ordered:: Medical Contraindication Patient Problems: Active and Suspected Problems Acute blood loss anemia (Acute) Subjective: Laying in the ED bed, fatigued appearance, notes markedly improved abdominal discomfort following continuous irrigation initiation. Objective: Physical Examination: General: awake, alert, oriented x 3 and cooperative, laying in the ED bed, fatigued appearance, notes improvement since continuous irrigation initiation. Skin: normal color, turgor, no icterus, cyanosis. HEENT: AT/NC, EOMI, PERRLA, moderately dry MM, no carotid bruits or JVD noted. Lungs: Diminished breath sounds bilaterally, greater bilateral bases, moderate effort, no rales, ronchi or wheezing. Heart: Improved, regular rate and rhythm; no gallop, rub audible. Abdomen: soft, morbidly obese, currently now NTTP including no tenderness palpation of the suprapubic region but had been remarkably tender prior to irrigation initiation, currently no apparent distention but difficult given habitus, normal BS, no HSM however given habitus very difficult examination, catheter in place with notable bright red blood in the Kang bag. Extremities: no cyanosis, clubbing, bilateral lower extremity ankle edema. Neurological: patient awake, alert, oriented x 3; cognitive function intact; pupils equally reactive to light and accomodation; cranial nerves II-XII grossly normal, moving all 4 extremities, no focal deficits, strength moderately to severely global decreased given acute presentation. Psychiatric: affect appears fatigued, no acute evidence of depressive or anxiety feelings. - Physical Exam Vitals/I&O's: Vital Signs Temp Pulse Resp BP Pulse Ox 98.3 F 90 16 158/74 H 99 04/09/19 22:15 04/10/19 01:04 04/10/19 01:04 04/10/19 01:04 04/10/19 01:04 Oxygen Delivery Method Room Air Weight: 285 lb 15.033 oz Body Mass Index (BMI) 41.0 Laboratory Results 04/09/19 23:30: WBC 9.4, RBC 2.80 L, Hgb 7.7 L, Hct 25.0 L, MCV 89.3, MCH 27.5, MCHC 30.8 L, RDW Std Deviation 53.6 H, RDW Coeff of Nyasia 16.4 H, Plt Count 103 L, MPV 9.0, Immature Gran % (Auto) 0.700, Neut % (Auto) 88.3 H, Lymph % (Auto) 4.4 L, Crisp % (Auto) 6.1, Eos % (Auto) 0.2, Baso % (Auto) 0.3, Absolute Neuts (auto) 8.3 H, Absolute Lymphs (auto) 0.41 L, Nucleated RBC % 0 04/09/19 23:30: PT 14.9, INR 1.2, APTT 33.8 04/09/19 23:30: Sodium 143, Potassium 4.5, Chloride 119 H, Carbon Dioxide 14.0 L, Anion Gap 10, BUN 82 H, Creatinine 4.64 H, Estim Creat Clear Calc 14.64, Est GFR (MDRD) Af Amer 16 L, Est GFR (MDRD) Non-Af 13 L, BUN/Creatinine Ratio 17.7, Glucose 187 H, Calcium 8.4 L Assessment/Plan All Active Problems Acute blood loss anemia (Acute) Hematuria (Acute) JEREMY (acute kidney injury) (Acute) The patient is a 73-year-old M w/ PMHx: Chronic back pain, History of UTIs with required prior ureter stenting, CKD stage IV, Chronic normocytic anemia, Diabetes mellitus type II, GERD, Hypothyroidism, BPH, Anxiety and depression, Morbid obesity who presents to the [facility] ED on 04/10/2019 with history of onset of bright red blood from his penis with history of urinary retention as well as increased urinary incontinence, noting he woke up the evening prior and was covered in urine that was noted to be bloody and has had ongoing difficulties urinating with onset of lower abdominal severe 10/10 pain with inability to urinate although he notes still he would occasionally pass large clots. 1. Acute on chronic normocytic anemia secondary to hematuria w/ ? 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 Admission hemoglobin 7.7, baseline prior noted to be 8-10, ongoing bright red blood per penis, will admit to the medical surgical floor, maintain continuous ongoing irrigation with three-way Kang catheter, urology consulted pending, perform H&H every 6 with type and screen with PRBC administration if clinically appropriate, awaiting UA/UCx but given history and findings will place on renally dosed cipro given allergies pending these tests. 2. JEREMY on Chronic Kidney Disease Stage IV: Admission BUN/Cr 84/4.64, baseline renal function from limited prior 2.5 to most recently 2.95 05/14/2018, repeat BMP in AM continue treatment as noted for hematuria above, urinalysis pending, Kang catheter with continuous irrigation. 04/2018 nephrology evaluation secondary to JEREMY on chronic kidney disease felt likely prerenal azotemia with renal ultrasound with no evidence of hydronephrosis at that time. 3. 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 4. Chronic thrombocytopenia: Admission platelet 103, similar to prior, trend. 5. Diabetes mellitus type II: Hold oral home regimen, continue home insulin regimen, from prior reported history and chart patient noncompliant with diet, n.p.o. status pending urology evaluation in case of cystoscopy needs, accu checks w/ ISS. 6. Hypothyroidism: Continue home synthroid regimen. 7. Anxiety and depression: We will continue home Zoloft regimen. 8. BPH: Continue home Flomax regimen. 9. MEGAN: CPAP q HS. 10. Morbid Obesity: Weight loss and lifestyle changes encouraged, nutrition consulted. 11. DVT prophylaxis: SCDs, defer chemoprophylaxis given acute presentation as noted #1. Code Visit Inpatient E&M: 42897 Init Hosp L3
[2019-04-10 02:02] LABS: Mucous, Urine 0 SEEN /hpf (<or=2+); Squamous Epithelial Cells - UA 0 SEEN /hpf (0-5)
[2019-04-10 02:06] LABS: Color, Urine Red (Yellow); Glucose, Dipstick Normal (Normal); Ketone-Dipstick 5 mg/dl (Negative); Leukocyte Esterase-Dipstick 25 /ul (Negative); Nitrite-Dipstick Negative (Negative); Occult Blood-Urine 250 /ul (Negative); Protein-Dipstick 500 mg/dl (Negative); Specific Gravity, Urine 1.015 (1.002-1.030); Urine Bilirubin Dipstick Negative (Negative); Urine Clarity Turbid (Clear); Urine Urobilinogen Normal (Normal)
[2019-04-10 02:12] LABS: Bacteria 2+ /hpf (None Seen); Red Blood Cells-Urine > 100 SEEN /hpf (0-5); White Blood Cells 0-5 SEEN /hpf (0-5)
[2019-04-10] MEDS: 0.9% Normal Saline 1,000 ML 100 ML IV (04:08)
[2019-04-10] MEDS: Ciprofloxacin 400 MG/200 ML BAG 200 MG IV ×2 (04:09→21:26)
[2019-04-10] MEDS: 0.9% Saline Lock 10 ML Syringe IV (04:11)
[2019-04-10 04:47] LABS: Anion Gap 9 (5-15); BUN 83 mg/dL (7-18); BUN/Creat Ratio 17.7 RATIO (10-20); Calcium,Total 8.1 mg/dL (8.5-10.1); Chloride 119 mmol/L (98-107); EST Glomerular Filtration Rate 13 mL/min (>60); Est Glom Filt Rate - Afr Amer 16 mL/min (>60); Estimated Creatinine Clearance 14.45 ml/min; Glucose 151 mg/dL (74-106); Potassium 4.6 mmol/L (3.5-5.1); Sodium Level 144 mmol/L (136-145)
[2019-04-10 04:55] LABS: Absolute Lymphocyte Count 0.53 X10^3/uL (0.83-4.51); Basophil# 0.01 X10^3/uL; Basophil% 0.1 % (0-1); Hematocrit 20.9 % (40-54); Hemoglobin 6.5 g/dL (13.0-16.5); Lymphocyte # 0.53 X10^3/ul (4.0); Lymphocyte % 6.7 % (19-41); Mean Corp Hgb Conc 31.1 g/dL (32-36); Mean Corpuscular Hgb 27.4 pg (27.0-32.0); Mean Corpuscular Volume 88.2 fL (80-94); Mean Platelet Vol. 9.3 fl (6.2-12.0); Monocyte# 0.31 X10^3/uL; Monocyte% 3.9 % (0-10); NRBC Flagged by Analyzer 0 % (0-5); Neutrophil # 6.96 X10^3/uL (2.7-7.7); Neutrophil % 88.7 % (47-70); POSITIVE COUNT YES; POSITIVE DIFFERENTIAL YES; Platelet Count 88 K/mm3 (150-450); RBC Distribution Width CV 16.5 % (11.6-14.6); RBC Distribution Width SD 52.7 fl (35.1-43.9); Red Blood Count 2.37 M/mm3 (4.6-6.2); White Blood Count 7.9 K/mm3 (4.4-11.0)
[2019-04-10 05:06] LABS: Differential Indicated SCAN CRITERIA MET
[2019-04-10] MEDS: Insulin Lispro 100 UNIT/ML INSULN.PEN SC (06:40)
[2019-04-10 07:01] LABS: Bedside Glucose 153 mg/dL (70-110)
[2019-04-10] MEDS: Acetaminophen 325 MG Tablet 650 MG PO (07:37)
--- NOTE | 2019-04-10 08:34 | CON.PCM_ITS ---
Problem List (1) CKD (chronic kidney disease), stage IV Status: Chronic Reason for Consult Date of Consultation: 04/10/19 Reason for Consultation: Gross hematuria bilateral stents chronic renal insufficiency History of Present Illness: The patient is a 73 year old male who presented to the hospital with gross hematuria and a CAT scan done that demonstrated bilateral hydronephrosis with distended ureters all the way down to the bladder stents are in place but according to the patient had not been changed for a long time they do not appear to be draining since there is hydronephrosis. He also has gross hematuria required three-way catheter irrigation. He is not sure why the stents were placed. He is not sure when the stents were placed. He is not sure of the indication for the stents were being placed. He gets his care at the [facility]. He does not remember which doctor he saw the [facility] states that they change all the time. At this point I get a taken the surgery to evacuate all the blood clots see what the source of the bleeding and will go ahead and change his stents bilaterally not sure what the indication for the stents were. He did have a history of prostate cancer was treated with radiation in the past. Past Medical History Past Medical History (Chronic Problems): Chronic Problems CKD (chronic kidney disease), stage IV (Chronic) HTN (hypertension) (Chronic) Anxiety and depression (Chronic) Tobacco use (Chronic) MEGAN (obstructive sleep apnea) (Chronic) Hypothyroidism (Chronic) Chronic anemia (Chronic) GERD (gastroesophageal reflux disease) (Chronic) Diabetes mellitus, type II (Chronic) [id number] kidney injury (Chronic) Allergies metformin Allergy (Verified 04/09/19 22:17) Angioedema Penicillins Allergy (Verified 04/09/19 22:17) Rash Tetanus Vaccines and Toxoid Allergy (Verified 04/09/19 22:17) Swelling at injection site Home Medications: Ambulatory Orders Medication Instructions Recorded Ascorbic Acid [Vitamin C] 500 mg PO DAILY@0800 05/11/18 B Complex W-C No.20/Folic Acid 1 mg PO DAILY 05/11/18 [Nephrocaps Softgel] Folic Acid 1 mg PO DAILY 05/11/18 Insulin Glargine [Lantus SoloStar 38 units SC QHS 05/11/18 Pen] Sertraline HCl [Zoloft] 100 mg PO QHS 05/11/18 Tamsulosin HCl [Flomax] 0.4 mg PO QHS 05/11/18 Acetaminophen [Tylenol Extra 1,000 mg PO BID 04/09/19 Strength] Levothyroxine PO DAILY 04/09/19 Omeprazole PO DAILY 04/09/19 Surgical History: - - Prior history reports back surgery however patient denies, ureteral stent placements noted, cataract surgery left eye recently. Psychiatric History: No pertinent psych hx Lives: Alone Smoking Status: Current every day smoker Tobacco Use: Cigars, Pipe Alcohol: None Drugs: None - *Family History Maternal History Items: Heart Disease, Hypertension Paternal History Items: Cancer, Hypertension Review of Systems Constitutional: Denies: Chills, Fever, Weight Change HEENT: Denies: Head Aches, Sinus Congestion, Sinus Drainage Cardiovascular: Denies: Chest Pain, Palpitations Respiratory: Denies: Cough, Shortness of breath at rest, Sputum production Gastrointestinal: Denies: Abdominal Pain, Nausea, Vomiting Genitourinary: Reports: Dysuria, Hematuria Musculoskeletal: Denies: Joint Pain, Joint Tenderness Skin: Denies: Rash, Wounds Neurological: Denies: Numbness, Tingling, Focal weakness Psychiatric: Denies: Anxiety, Depression, Homicidal Ideations, Suicidal Ideations Hematologic/ Lymphatic: Denies: Easy Bruising, Easy Bleeding Physical Exam - Physical Exam Vital Signs Temp 98 F 04/10/19 07:36 Pulse 84 04/10/19 07:36 Resp 18 04/10/19 07:36 BP 139/70 H 04/10/19 07:36 Pulse Ox 96 04/10/19 08:09 Intake & Output 04/08/19 04/09/19 04/10/19 23:59 23:59 23:59 Intake Total .67 / .67 Output Total 225 / 2249 Balance - / - Weight: 129.7 kg 122.7 kg Intake: Intake, IV Amount . / . 0.9% Normal Saline 1,000 ML @ / 100 mls/hr IV .Q10H RODERICK Rx#: [id number] Cipro 400 mg In 200 ml @ 200 200 / 200 mls/hr IV Q24@2200 RODERICK Rx#: [id number] Blood Product 0 / 0 Leuko-Reduced Red Blood Cells 0 / 0 Unit [id number] Output: Urine 2250 / 2250 Other: Intake, Continuous Bladder 3,500 3,000 Irrigation Output, Continuous Bladder 2,850 3,350 Irrigation General: Alert, Oriented x3 HEENT: Atraumatic Oral: Moist Mucosa Neck: Supple Lungs: Normal air movement Cardiovascular: Regular rate Laboratory Tests Past 24 Hrs 04/09/19 04/09/19 04/09/19 23:30 23:30 23:30 WBC 9.4 RBC 2.80 L Hgb 7.7 L Hct 25.0 L MCV 89.3 MCH 27.5 MCHC 30.8 L RDW Std Deviation 53.6 H RDW Coeff of Nyasia 16.4 H Plt Count 103 L MPV 9.0 Immature Gran % (Auto) 0.700 Neut % (Auto) 88.3 H Lymph % (Auto) 4.4 L [place] % (Auto) 6.1 Eos % (Auto) 0.2 Baso % (Auto) 0.3 Absolute Neuts (auto) 8.3 H Absolute Lymphs (auto) 0.41 L Nucleated RBC % 0 PT 14.9 INR 1.2 APTT 33.8 Sodium 143 Potassium 4.5 Chloride 119 H Carbon Dioxide 14.0 L Anion Gap 10 BUN 82 H Creatinine 4.64 H Estim Creat Clear Calc 14.64 Est GFR (MDRD) Af Amer 16 L Est GFR (MDRD) Non-Af 13 L BUN/Creatinine Ratio 17.7 Glucose 187 H Calcium 8.4 L Urine Color Urine Clarity Urine pH Ur Specific [place] Urine Protein Urine Glucose (UA) Urine Ketones Urine Occult Blood Urine Nitrite Urine Bilirubin Urine Urobilinogen Ur Leukocyte Esterase Urine RBC Urine WBC Ur Squamous Epith Cells Urine Bacteria Urine Mucus Blood Type Antibody Screen Crossmatch 04/10/19 04/10/19 04/10/19 01:40 01:40 01:45 WBC RBC Hgb Hct MCV MCH MCHC RDW Std Deviation RDW Coeff of Nyasia Plt Count MPV Immature Gran % (Auto) Neut % (Auto) Lymph % (Auto) [place] % (Auto) Eos % (Auto) Baso % (Auto) Absolute Neuts (auto) Absolute Lymphs (auto) Nucleated RBC % PT INR APTT Sodium Potassium Chloride Carbon Dioxide Anion Gap BUN Creatinine Estim Creat Clear Calc Est GFR (MDRD) Af Amer Est GFR (MDRD) Non-Af BUN/Creatinine Ratio Glucose Calcium Urine Color Red Urine Clarity Turbid Urine pH 8.0 Ur Specific [place] 1.015 Urine Protein 500 H Urine Glucose (UA) Normal Urine Ketones 5 H Urine Occult Blood 250 H Urine Nitrite Negative Urine Bilirubin Negative Urine Urobilinogen Normal Ur Leukocyte Esterase 25 H Urine RBC > 100 SEEN Urine WBC 0-5 SEEN Ur Squamous Epith Cells 0 SEEN Urine Bacteria 2+ Urine Mucus 0 SEEN Blood Type A POSITIVE Antibody Screen NEGATIVE Crossmatch See Detail 04/10/19 04/10/19 04:20 04:20 WBC 7.9 RBC 2.37 L Hgb 6.5 L Hct 20.9 L MCV 88.2 MCH 27.4 MCHC 31.1 L RDW Std Deviation 52.7 H RDW Coeff of Nyasia 16.5 H Plt Count 88 L MPV 9.3 Immature Gran % (Auto) 0.600 Neut % (Auto) 88.7 H Lymph % (Auto) 6.7 L [place] % (Auto) 3.9 Eos % (Auto) 0.0 Baso % (Auto) 0.1 Absolute Neuts (auto) 7.0 Absolute Lymphs (auto) 0.53 L Nucleated RBC % 0 PT INR APTT Sodium 144 Potassium 4.6 Chloride 119 H Carbon Dioxide 16.0 L Anion Gap 9 BUN 83 H Creatinine 4.70 H Estim Creat Clear Calc 14.45 Est GFR (MDRD) Af Amer 16 L Est GFR (MDRD) Non-Af 13 L BUN/Creatinine Ratio 17.7 Glucose 151 H Calcium 8.1 L Urine Color Urine Clarity Urine pH Ur Specific [place] Urine Protein Urine Glucose (UA) Urine Ketones Urine Occult Blood Urine Nitrite Urine Bilirubin Urine Urobilinogen Ur Leukocyte Esterase Urine RBC Urine WBC Ur Squamous Epith Cells Urine Bacteria Urine Mucus Blood Type Antibody Screen Crossmatch Assessment/Plan All Active Problems Acute blood loss anemia (Acute) Hydronephrosis (Acute) Acute urinary retention (Acute) Hematuria (Acute) JEREMY (acute kidney injury) (Acute) 73-year-old male with multiple medical problems presents with gross hematuria bilateral stents chronic renal insufficiency plan to taken to surgery today for cystoscopy evacuation of blood clots and bilateral stent changes. We will make him n.p.o. and obtain consent.
--- NOTE | 2019-04-10 10:14 | PCM.PN.HOSP ---
Patient Problems: Active and Suspected Problems Acute blood loss anemia (Acute) Hydronephrosis (Acute) Acute urinary retention (Acute) Hematuria (Acute) Subjective: Patient seen and examined. He was admitted with a complaint of hematuria as well as inability to urinate and increasing urinary incontinence. Hemoglobin was 7.7 and was transfused with 1 unit of packed red blood cells. CT of the abdomen and pelvis showed distended gallbladder with multiple stones and a more severe bilateral hydronephrosis with new bilateral ureteric stents and hyperdense contents of the urinary bladder. Urology was consulted and he is on continuous bladder irrigation. He is due for change of his stents today as he states they have been in for a while. Vitals/I&O's: Vital Signs Temp Pulse Resp BP Pulse Ox 97.8 F 77 18 122/46 H 98 04/10/19 09:24 04/10/19 09:24 04/10/19 09:24 04/10/19 09:24 04/10/19 09:24 Oxygen Delivery Method Room Air Weight: 270 lb 8.115 oz Body Mass Index (BMI) 38.2 Intake and Output for Last 24 Hours 04/08/19 04/09/19 04/10/19 23:59 23:59 23:59 Intake Total 611.67 / 611.67 Output Total 2250 / 2250 Balance -1638.33 / -1638.33 General: Alert, Oriented x3, Cooperative, No apparent distress HEENT: Atraumatic, PERRLA, EOMI, Normocephalic Oral: Moist Mucosa Neck: Supple, No JVD, Negative Carotid Bruits Lungs: Clear to auscultation, Normal air movement, No rhonchi, No wheeze Cardiovascular: Regular rate, Regular Rhythm, Normal S1, Normal S2, No murmurs Abdomen: Bowel Sounds Present, Soft, Non-Distended, No Hepato-splenomegaly, - - mild suprapubic tenderness. urine bag has blood tinged urine. Extremities: No clubbing, No cyanosis, No edema, Capillary Refill Less than 3 Seconds Skin: No rashes, No breakdown Musculoskeletal: No Tenderness to Palpation of Joints or Extremities Lymphatic: No Cervical, Supraclavicular, or Inguinal Adenopathy Neurological: Cranial nerves II-XII grossly intact Psych/Mental Status: Normal Affect, Appropriate, Alert and oriented to time, place, person, mood and affect Laboratory Results 04/09/19 23:30: WBC 9.4, RBC 2.80 L, Hgb 7.7 L, Hct 25.0 L, MCV 89.3, MCH 27.5, MCHC 30.8 L, RDW Std Deviation 53.6 H, RDW Coeff of Nyasia 16.4 H, Plt Count 103 L, MPV 9.0, Immature Gran % (Auto) 0.700, Neut % (Auto) 88.3 H, Lymph % (Auto) 4.4 L, Oliver % (Auto) 6.1, Eos % (Auto) 0.2, Baso % (Auto) 0.3, Absolute Neuts (auto) 8.3 H, Absolute Lymphs (auto) 0.41 L, Nucleated RBC % 0 04/09/19 23:30: PT 14.9, INR 1.2, APTT 33.8 04/09/19 23:30: Sodium 143, Potassium 4.5, Chloride 119 H, Carbon Dioxide 14.0 L, Anion Gap 10, BUN 82 H, Creatinine 4.64 H, Estim Creat Clear Calc 14.64, Est GFR (MDRD) Af Amer 16 L, Est GFR (MDRD) Non-Af 13 L, BUN/Creatinine Ratio 17.7, Glucose 187 H, Calcium 8.4 L 04/10/19 01:40: Blood Type A POSITIVE, Antibody Screen NEGATIVE 04/10/19 01:40: Crossmatch See Detail 04/10/19 01:45: Urine Color Red, Urine Clarity Turbid, Urine pH 8.0, Ur Specific [place] 1.015, Urine Protein 500 H, Urine Glucose (UA) Normal, Urine Ketones 5 H, Urine Occult Blood 250 H, Urine Nitrite Negative, Urine Bilirubin Negative, Urine Urobilinogen Normal, Ur Leukocyte Esterase 25 H, Urine RBC > 100 SEEN, Urine WBC 0-5 SEEN, Ur Squamous Epith Cells 0 SEEN, Urine Bacteria 2+, Urine Mucus 0 SEEN 04/10/19 04:20: WBC 7.9, RBC 2.37 L, Hgb 6.5 L, Hct 20.9 L, MCV 88.2, MCH 27.4, MCHC 31.1 L, RDW Std Deviation 52.7 H, RDW Coeff of Nyasia 16.5 H, Plt Count 88 L, MPV 9.3, Immature Gran % (Auto) 0.600, Neut % (Auto) 88.7 H, Lymph % (Auto) 6.7 L, Oliver % (Auto) 3.9, Eos % (Auto) 0.0, Baso % (Auto) 0.1, Absolute Neuts (auto) 7.0, Absolute Lymphs (auto) 0.53 L, Nucleated RBC % 0 04/10/19 04:20: Sodium 144, Potassium 4.6, Chloride 119 H, Carbon Dioxide 16.0 L, Anion Gap 9, BUN 83 H, Creatinine 4.70 H, Estim Creat Clear Calc 14.45, Est GFR (MDRD) Af Amer 16 L, Est GFR (MDRD) Non-Af 13 L, BUN/Creatinine Ratio 17.7, Glucose 151 H, Calcium 8.1 L 04/10/19 06:28: POC Glucose 153 H Diagnostic Data Abdomen/Pelvis CT 04/10/19 00:13 IMPRESSION: Stable appearance to distended gallbladder with multiple gallstones. Much more severe bilateral hydronephrosis with new bilateral ureteric stents that appear to be within adequate position. Decompressed urinary bladder with Kang catheter, however, some of the contents of the urinary bladder appears to be hyperdense which could be hemorrhagic urine Individualized dose optimization techniques were used for this CT. at 0116 Reported and signed by: Denver Granda MD Electronically Signed: Denver Granda MD at 1:15 EST Tel , Service support , Current Medications Acetaminophen (Tylenol) 650 mg PO Q6H PRN PRN PRN Reason: Non-cardiac pain (4-10/10) Last Admin: 04/10/19 07:37 Dose: 650 mg Documented by: Hydrocodone Bitart/Acetaminophen ([place] 5mg-325mg) 1 - 2 tablet PO Q4H PRN PRN PRN Reason: Pain Score 4-10/10 Al Hydroxide/Mg Hydroxide (Mylanta Ii) 15 - 30 ml PO Q4H PRN PRN PRN Reason: INDIGESTION Albuterol Sulfate (Ventolin Aerosols) 2.5 mg INHALATION Q2H PRN PRN PRN Reason: dyspnea, wheezing Dextrose (D50w Syringe) 0 gm IV X1 PRN; Protocol PRN Reason: Hypoglycemia Glucagon () 1 mg IM .X1 PRN PRN Reason: Hypoglycemia Hydralazine HCl (Apresoline Iv) 10 mg IV Q4H PRN PRN PRN Reason: SBP > 160 Sodium Chloride () 1,000 mls @ 100 mls/hr IV .Q10H RODERICK Last Infusion: 04/10/19 05:09 Dose: 100 mls/hr Documented by: Ciprofloxacin (Cipro) 400 mg in 200 mls @ 200 mls/hr IV Q24@2200 RODERICK Last Infusion: 04/10/19 05:09 Dose: Infused Documented by: Sodium Chloride () 250 mls @ 15 mls/hr IV .[id number] PRN PRN Reason: Saline Flush Insulin Glargine (Lantus (Bkc)) 38 units SC QHS [facility] Insulin Human Lispro (Humalog Kwikpen (Bk)) 0 unit SC Q6 [facility]; Protocol Last Admin: 04/10/19 06:40 Dose: 1 u Documented by: Magnesium Hydroxide (Milk Of Magnesia) 30 ml PO DAILY PRN PRN Reason: Constipation Melatonin (Melatonin) 3 mg PO QHS PRN PRN PRN Reason: INSOMNIA Morphine Sulfate () 1 - 2 mg IV Q4H PRN PRN PRN Reason: Pain Score 1-10/10 Nitroglycerin (Nitrostat) 0.4 mg SUBLINGUAL Q5M PRN PRN Reason: CARDIAC/CHEST PAIN Ondansetron HCl (Zofran) 4 mg IV Q8H PRN PRN PRN Reason: NAUSEA/VOMITING Pantoprazole Sodium (Protonix) 20 mg PO BID RODERICK Sertraline HCl (Zoloft) 100 mg PO QHS [facility] Sodium Chloride () 10 - 40 ml IV UD PRN PRN Reason: SALINE FLUSH Last Admin: 04/10/19 04:11 Dose: 10 ml Documented by: Tamsulosin HCl (Flomax) 0.4 mg PO QHS [facility] STROKE Vital Signs/Narrative: Vital Signs Temp Pulse Resp BP Pulse Ox 04/10/19 09:24 97.8 F 77 18 122/46 H 98 04/10/19 09:10 98.2 F 77 18 119/49 L 98 04/10/19 08:55 98.2 F 77 18 119/49 L 98 04/10/19 08:09 96 04/10/19 07:36 98 F 84 18 139/70 H 99 04/10/19 06:36 98.6 F 83 18 160/75 H 100 04/10/19 06:21 97.6 F L 85 18 156/80 H 100 Medical Necessity - Tobacco Use Smoking Status: Current every day smoker Tobacco Use: Cigars, Pipe Assessment/Plan All Active Problems Acute blood loss anemia (Acute) Hydronephrosis (Acute) Acute urinary retention (Acute) Hematuria (Acute) JEREMY (acute kidney injury) (Acute) 1. Gross hematuria has history of kidney stones necessitating placement of bilateral kidney stents. He states that he has had them change once but the current ones have been changed in a while. Passage of clots and is currently having bladder irrigation. abdomino-pelvic CT: Maternal severe bilateral hydronephrosis with new bilateral ureteric stents in adequate position. Distended gallbladder with multiple gallstones which appears stable. On IV ciprofloxacin and IV fluids. Status post transfusion of 1 unit of packed red blood cells. Urology on board. For cystoscopy today. 2. Acute on chronic anemia due to acute blood loss Hb ws 7.7 on admission status post transfusion of 1 unit of packed red blood cells. Hemoglobin is now 6.5. Will transfuse 2 more units of packed red blood cells. monitor H&H 3. Jeremy on CKD Cr was 4.64 on admission, and is now 4.7, baseline Cr is 2.95 from 05/08 this is likely post renal from hydronephrosis urology on board, for cystoscopy today To trend kidney function and monitor 4. History of prostate cancer: s/p radiation therapy. urology on board 5. thrombocytopenia: is chronic. Platelets were 103 on admission, and now 88. baseline platelets are ~ 104, though he has been as low as 71 in 01/06. will monitor 6. BPH: on flomax 7. Hypothyroidism: on synthroid 8. MEGAN: on CPAP qhs 9. Anxiety and depression: On Zoloft. 10. Diabetes mellitus: On insulin 38IU qhs. Insulin sliding scale. Accu-Cheks before meals at bedtime. DVT prophylaxis: SCDs. Code Visit Inpatient E&M: 35569 [facility] Hosp L3
--- NOTE | 2019-04-10 10:34 | NURSING ---
irrigated merino due to pt C/O pressure large amount of small clots removed. CBI running light pink will continue to monitor
--- NOTE | 2019-04-10 10:45 | CASEMGMT ---
RN CM Face to Face with patient for initial transition planning/care coordination assessment. RN CM introduced self and role at [facility]. Patient lying in bed, alert and oriented. Patient willing to participate in assessment and is able to answer all questions appropriately. Care providers, pharmacy, and demographics verified. Patient wishes to discharge home, denies need for home health at this time. Patient states he has no further needs or concerns at this time. CM to follow for discharge planning needs that may arise. PCP: [facility] Specialists: [facility]erred [facility]acy: [facility] Insurance: [facility] Prescription Benefit: [place] Living Will/HPOA: yes, niece Jeanine Espitia LNOK: niece Living Arrangements: Patient lives alone in a house, independent with self care. Transportation: self/Niece DME/HHC: Patient states he has shower chair, crutches, grab bars, wheelchair and cpap at home. Denies need for HHC at this time. Disposition Plan: Patient to discharge home with family support and follow-up plans in place. Radha CHAVEZ, RN, CM
--- NOTE | 2019-04-10 15:03 | CASEMGMT ---
[facility] NOTE: Pt declines to transfer to [facility]. Declination Form reviewed with pt and signed by pt. Copy made and placed on chart and original given to pt. Clinical info faxed to [facility] along with Transfer Declination Form. Jes CHAVEZ RN CM
[2019-04-10 15:41] LABS: Bedside Glucose 125 mg/dL (70-110)
[2019-04-10 15:51] LABS: Bedside Glucose 110 mg/dL (70-110)
--- NOTE | 2019-04-10 15:57 | NURSING ---
pt off unit to AC report called
--- NOTE | 2019-04-10 17:44 | PCM.OPRPT ---
Problem List (1) CKD (chronic kidney disease), stage IV Status: Chronic Report of Operation Date of Procedure: 04/10/19 Pre-Operative Diagnosis: Bilateral retained stents gross hematuria Post-Operative Diagnosis: Same Surgery/Procedure Performed:: Cystoscopy and bilateral stent removal bilateral retrograde pyelogram, and interpretation of fluoroscopic images Description of Surgical Findings:: 73-year-old male who has multiple medical problems presents to the hospital typically gets his care at the [facility] he has bilateral stents been retained he is not sure why the stents were placed initially does have an elevated creatinine of 4.7. Present with gross hematuria he would like to have the stents removed since her causing her problems not sure exactly why the stents were placed to begin with does have a history of prostate cancer treated with radiation in the past. Patient was taken back to the operating room at the smooth induction of general anesthesia he was placed supine on the table went into the bladder with a 21 [place] rigid cystourethroscope grabbed existing stent on the right side and removed it grabbed existing stent the left side removed it inspected the bladder had a lot of inflammation bullous edema erythema throughout the bladder probably from the catheter certainly no invasive cancer was readily seen but a lot of bullous edema hard to rule out noninvasive cancer given the situation with all the bullous edema erythema throughout the bladder. I then performed a retrograde pyelogram on the right side to the Pollick catheter up injected dye and then the dye went up into the kidney of dilated kidney from a chronic stent and then I could see contrast draining down it did narrow some but they did drain from the right collecting system normally so I decided not to put the stented went to the left side and again the left side also had a dilated system but again it was draining with contrast draining into the into the kidney so it is unclear really he needs stent on that side either so I did not place a stent in the left side of the right side so it is possible to replace stents again if his kidney function worsens or has problems for now we will leave the stent out see what happens I left the catheter in the drain his bladder and his current anesthesia is being reversed. Type of Anesthesia:: General Drains: 20 fr merino - Admit VTE Documentation VTE Present on Admission: No VTE Mechan Device Prophylaxis: SCD's
[2019-04-10 18:05] LABS: Bedside Glucose 99 mg/dL (70-110)
[2019-04-10] MEDS: Pantoprazole Sodium 20 MG Tablet PO (21:24)
[2019-04-10] MEDS: Sertraline 100 MG Tablet PO (21:24)
[2019-04-10] MEDS: Tamsulosin HCl 0.4 MG Capsule PO (21:24)
[2019-04-10 22:20] LABS: Bedside Glucose 141 mg/dL (70-110)
[2019-04-11] VITALS (9 sets, daily range): BP systolic 113–138; BP diastolic 43–63; PULSE 73–80; RESP 15–18; TEMP 34.7–37.1; O2SAT 96–100
[2019-04-11] MEDS: Insulin Lispro 100 UNIT/ML INSULN.PEN SC ×2 (00:17→12:29)
[2019-04-11 01:15] LABS: Bedside Glucose 191 mg/dL (70-110)
[2019-04-11] MEDS: 0.9% Normal Saline 1,000 ML 100 ML IV ×2 (05:35→18:45)
[2019-04-11 06:56] LABS: Bedside Glucose 102 mg/dL (70-110)
[2019-04-11 07:59] LABS: Absolute Lymphocyte Count 0.92 X10^3/uL (0.83-4.51); Absolute Neutrophil Count 4.9 X10^3/uL (2.0-7.7); Basophil# 0.02 X10^3/uL; Basophil% 0.3 % (0-1); Eosinophil# 0.06 X10^3/uL; Eosinophils% 0.9 % (0-5); Hematocrit 22.2 % (40-54); Hemoglobin 6.9 g/dL (13.0-16.5); Lymphocyte # 0.92 X10^3/ul (4.0); Lymphocyte % 14.5 % (19-41); Mean Corp Hgb Conc 31.1 g/dL (32-36); Mean Corpuscular Hgb 27.4 pg (27.0-32.0); Mean Corpuscular Volume 88.1 fL (80-94); Mean Platelet Vol. 9.1 fl (6.2-12.0); Monocyte% 6.3 % (0-10); NRBC Flagged by Analyzer 0 % (0-5); Neutrophil % 77.5 % (47-70); POSITIVE COUNT YES; Platelet Count 83 K/mm3 (150-450); RBC Distribution Width CV 16.7 % (11.6-14.6); RBC Distribution Width SD 53.7 fl (35.1-43.9); Red Blood Count 2.52 M/mm3 (4.6-6.2); White Blood Count 6.3 K/mm3 (4.4-11.0)
[2019-04-11 08:19] LABS: Anion Gap 7 (5-15); BUN 77 mg/dL (7-18); BUN/Creat Ratio 18.5 RATIO (10-20); Chloride 119 mmol/L (98-107); Creatinine, Serum 4.17 mg/dL (0.70-1.30); EST Glomerular Filtration Rate 15 mL/min (>60); Est Glom Filt Rate - Afr Amer 18 mL/min (>60); Estimated Creatinine Clearance 16.29 ml/min; Glucose 97 mg/dL (74-106); Potassium 4.5 mmol/L (3.5-5.1); Sodium Level 142 mmol/L (136-145)
[2019-04-11] MEDS: Pantoprazole Sodium 20 MG Tablet PO ×2 (11:14→21:40)
[2019-04-11] MEDS: Acetaminophen 325 MG Tablet 650 MG PO ×2 (11:19→21:32)
[2019-04-11 12:35] LABS: Bedside Glucose 185 mg/dL (70-110)
--- NOTE | 2019-04-11 12:50 | PCM.PN.HOSP ---
Patient Problems: Active and Suspected Problems Acute blood loss anemia (Acute) Hydronephrosis (Acute) Acute urinary retention (Acute) Hematuria (Acute) Subjective: Patient seen and examined. He has no complaints. He states his catheter has been removed prior to that his urine had cleared up. He denies any lightheadedness or dizziness, palpitations, chest pain, abdominal pain, diarrhea or vomiting. Review of systems otherwise negative. Hemoglobin today noted to be 6.9. Labs and vitals reviewed. He is postop day 1 for cystoscopy and bilateral stent removal. Vitals/I&O's: Vital Signs Temp Pulse Resp BP Pulse Ox 98.7 F 80 18 113/47 L 96 04/11/19 05:18 04/11/19 05:18 04/11/19 09:00 04/11/19 05:18 04/11/19 07:39 Oxygen Delivery Method Room Air Weight: 270 lb 8.115 oz Body Mass Index (BMI) 38.2 Finger Stick Blood Glucose 99 Intake and Output for Last 24 Hours 04/09/19 04/10/19 04/11/19 23:59 23:59 23:59 Intake Total 1485.00 / 1785.00 1335 / 1335 Output Total 4050 / 4650 1600 / 1600 Balance -2565.00 / -2865.00 -265 / -265 General: Alert, Oriented x3, Cooperative, No apparent distress HEENT: Atraumatic, PERRLA, EOMI, Normocephalic Oral: Moist Mucosa Neck: Supple, No JVD, Negative Carotid Bruits Lungs: Clear to auscultation, Normal air movement, No rhonchi, No wheeze Cardiovascular: Regular rate, Regular Rhythm, Normal S1, Normal S2, No murmurs Abdomen: Bowel Sounds Present, Soft, Non-Distended, No Hepato-splenomegaly Extremities: No clubbing, No cyanosis, No edema, Capillary Refill Less than 3 Seconds Skin: No rashes, No breakdown Musculoskeletal: No Tenderness to Palpation of Joints or Extremities Lymphatic: No Cervical, Supraclavicular, or Inguinal Adenopathy Neurological: Cranial nerves II-XII grossly intact Psych/Mental Status: Normal Affect, Appropriate, Alert and oriented to time, place, person, mood and affect Laboratory Results 04/10/19 01:40: Crossmatch See Detail 04/10/19 01:40: Crossmatch See Detail 04/10/19 12:15: POC Glucose 125 H 04/10/19 15:37: POC Glucose 110 04/10/19 18:03: POC Glucose 99 04/10/19 21:17: POC Glucose 141 H 04/11/19 00:15: POC Glucose 191 H 04/11/19 06:50: POC Glucose 102 04/11/19 07:17: WBC 6.3, RBC 2.52 L, Hgb 6.9 L, Hct 22.2 L, MCV 88.1, MCH 27.4, MCHC 31.1 L, RDW Std Deviation 53.7 H, RDW Coeff of Nyasia 16.7 H, Plt Count 83 L, MPV 9.1, Immature Gran % (Auto) 0.500, Neut % (Auto) 77.5 H, Lymph % (Auto) 14.5 L, [place] % (Auto) 6.3, Eos % (Auto) 0.9, Baso % (Auto) 0.3, Absolute Neuts (auto) 4.9, Absolute Lymphs (auto) 0.92, Nucleated RBC % 0 04/11/19 07:17: Sodium 142, Potassium 4.5, Chloride 119 H, Carbon Dioxide 16.0 L, Anion Gap 7, BUN 77 H, Creatinine 4.17 H, Estim Creat Clear Calc 16.29, Est GFR (MDRD) Af Amer 18 L, Est GFR (MDRD) Non-Af 15 L, BUN/Creatinine Ratio 18.5, Glucose 97, Calcium 8.0 L 04/11/19 12:27: POC Glucose 185 H Current Medications Acetaminophen (Tylenol) 650 mg PO Q6H PRN PRN PRN Reason: Non-cardiac pain (4-10/10) Last Admin: 04/11/19 11:19 Dose: 650 mg Documented by: Hydrocodone Bitart/Acetaminophen ([place] 5mg-325mg) 1 - 2 tablet PO Q4H PRN PRN PRN Reason: Pain Score 4-10/10 Al Hydroxide/Mg Hydroxide (Mylanta Ii) 15 - 30 ml PO Q4H PRN PRN PRN Reason: INDIGESTION Albuterol Sulfate (Ventolin Aerosols) 2.5 mg INHALATION Q2H PRN PRN PRN Reason: dyspnea, wheezing Dextrose (D50w Syringe) 0 gm IV X1 PRN; Protocol PRN Reason: Hypoglycemia Glucagon () 1 mg IM .X1 PRN PRN Reason: Hypoglycemia Hydralazine HCl (Apresoline Iv) 10 mg IV Q4H PRN PRN PRN Reason: SBP > 160 Sodium Chloride () 1,000 mls @ 100 mls/hr IV .Q10H REPLACED BY [facility] Last Admin: 04/11/19 05:35 Dose: 100 mls/hr Documented by: Ciprofloxacin (Cipro) 400 mg in 200 mls @ 200 mls/hr IV Q24@2200 REPLACED BY [facility] Last Infusion: 04/10/19 23:06 Dose: Infused Documented by: Sodium Chloride () 250 mls @ 15 mls/hr IV .[id number] PRN PRN Reason: Saline Flush Insulin Glargine (Lantus ([facility])) 38 units SC QHS REPLACED BY [facility] Last Admin: 04/10/19 21:25 Dose: 38 units Documented by: Insulin Human Lispro (Humalog Kwikpen ([facility])) 0 unit SC Q6 [facility]PLACED BY [facility]; Protocol Last Admin: 04/11/19 12:29 Dose: 1 u Documented by: Magnesium Hydroxide (Milk Of Magnesia) 30 ml PO DAILY PRN PRN Reason: Constipation Melatonin (Melatonin) 3 mg PO QHS PRN PRN PRN Reason: INSOMNIA Morphine Sulfate () 1 - 2 mg IV Q4H PRN PRN PRN Reason: Pain Score 1-10/10 Nitroglycerin (Nitrostat) 0.4 mg SUBLINGUAL Q5M PRN PRN Reason: CARDIAC/CHEST PAIN Ondansetron HCl (Zofran) 4 mg IV Q8H PRN PRN PRN Reason: NAUSEA/VOMITING Pantoprazole Sodium (Protonix) 20 mg PO BID REPLACED BY [facility] Last Admin: 04/11/19 11:14 Dose: 20 mg Documented by: Sertraline HCl (Zoloft) 100 mg PO QHS REPLACED BY [facility] Last Admin: 04/10/19 21:24 Dose: 100 mg Documented by: Sodium Chloride () 10 - 40 ml IV UD PRN PRN Reason: SALINE FLUSH Last Admin: 04/10/19 04:11 Dose: 10 ml Documented by: Tamsulosin HCl (Flomax) 0.4 mg PO QHS REPLACED BY [facility] Last Admin: 04/10/19 21:24 Dose: 0.4 mg Documented by: STROKE Vital Signs/Narrative: Vital Signs Resp 04/11/19 09:00 18 Medical Necessity - Tobacco Use Smoking Status: Current every day smoker Tobacco Use: Cigars, Pipe Assessment/Plan All Active Problems Acute blood loss anemia (Acute) Hydronephrosis (Acute) Acute urinary retention (Acute) Hematuria (Acute) TIARA (acute kidney injury) (Acute) 1. Gross hematuria is s/p cystoscopy with bilateral ureteral stent removal. today is POD 1 hematuria has resolved; patient says his urine was clear today on IV ciprofloxacin urology on board 2. Acute on chronic anemia due to acute blood loss Hb today is 6.9. is s/p transfusion of 3 units of PRBCs will transfuse one more unit of PRBC monitor H&H 3. Tiara on CKD Cr is 4.17 today. baseline is ~ 2.95 despite cystoscopy yesterday, Cr is still elevated urology on board will consult nephrology 4. Non anion gap metabolic acidosis: bicarb is 16, with anion gap of 7. Likely due to Tiara on CKD. Will monitor for now. 5. History of prostate cancer: s/p radiation therapy. urology on board 6. thrombocytopenia: is chronic. Platelets were 103 on admission, and now 83 baseline platelets are ~ 104, though he has been as low as 71 in 01/06. will monitor 7. BPH: on flomax 8. Hypothyroidism: on synthroid 9. MEGAN: on CPAP qhs 20. Anxiety and depression: On Zoloft. 10. Diabetes mellitus: On insulin 38IU qhs. Insulin sliding scale. Accu-Cheks before meals at bedtime. DVT prophylaxis: SCDs. Code Visit Inpatient E&M: 84272 Subs Hosp L3
--- NOTE | 2019-04-11 14:21 | CON.PCM_ITS ---
Reason for Consult Date of Consultation: 04/11/19 Reason for Consultation: jeremy History of Present Illness: The patient is a 73 year old M with a past medical history of chronic lower back pain CKD stage IV baseline seems to be 2.9-4 diabetes mellitus type 2 morbid obesity who presented yesterday with a chief complaint of gross hematuria and urinary retention along with urinary incontinence. He also had difficulty urinating associated with lower abdominal pain severe. He reports inability to urinate prior to admission though he would occasionally pass large clots from his penis. He also had some chills but no jhonny fevers. He also had nausea and vomiting x1. His initial creatinine was 4.6. CT abdomen and pelvis showed severe bilateral hydronephrosis with new bilateral ureteric stents and decompressed urinary bladder. He underwent removal of his stents yesterday. He also had manual bladder irrigation. Today's Kang catheter was removed. He still has urinary incontinence. He reports seeing a shake splitter at the [facility] the last time about 2 years ago when his kidney function was about 14% according to him. He does not know why he had ureteral stents placed. He has a history of prostate cancer. He denies shortness of breath nausea vomiting currently. His abdominal pain resolved and he denies lower extremity edema skin rashes dry eyes dry mouth. He has no other complaints. Past Medical History Past Medical History (Chronic Problems): Chronic Problems CKD (chronic kidney disease), stage IV (Chronic) HTN (hypertension) (Chronic) Anxiety and depression (Chronic) Tobacco use (Chronic) MEGAN (obstructive sleep apnea) (Chronic) Hypothyroidism (Chronic) Chronic anemia (Chronic) GERD (gastroesophageal reflux disease) (Chronic) Diabetes mellitus, type II (Chronic) Kdkxn-wv-nrfeniv kidney injury (Chronic) Allergies metformin Allergy (Verified 04/09/19 22:17) Angioedema Penicillins Allergy (Verified 04/09/19 22:17) Rash Tetanus Vaccines and Toxoid Allergy (Verified 04/09/19 22:17) Swelling at injection site Home Medications: Ambulatory Orders Medication Instructions Recorded Ascorbic Acid [Vitamin C] 500 mg PO DAILY@0800 05/11/18 B Complex W-C No.20/Folic Acid 1 mg PO DAILY 05/11/18 [Nephrocaps Softgel] Folic Acid 1 mg PO DAILY 05/11/18 Insulin Glargine [Lantus SoloStar 38 units SC QHS 05/11/18 Pen] Sertraline HCl [Zoloft] 100 mg PO QHS 05/11/18 Tamsulosin HCl [Flomax] 0.4 mg PO QHS 05/11/18 Acetaminophen [Tylenol Extra 1,000 mg PO BID 04/09/19 Strength] Levothyroxine PO DAILY 04/09/19 Omeprazole PO DAILY 04/09/19 Surgical History: - - Prior history reports back surgery however patient denies, ureteral stent placements noted, cataract surgery left eye recently. Psychiatric History: No pertinent psych hx Lives: Alone Smoking Status: Current every day smoker Tobacco Use: Cigars, Pipe Alcohol: None Drugs: None - *Family History Maternal History Items: Heart Disease, Hypertension Paternal History Items: Cancer, Hypertension Patient Problems: Active and Suspected Problems Acute blood loss anemia (Acute) Hydronephrosis (Acute) Acute urinary retention (Acute) Hematuria (Acute) - Physical Exam Vitals/I&O's: Vital Signs Temp Pulse Resp BP Pulse Ox 98.2 F 79 16 130/43 H 99 04/11/19 10:00 04/11/19 10:00 04/11/19 10:00 04/11/19 10:00 04/11/19 10:00 Oxygen Delivery Method Room Air Weight: 122.7 kg Body Mass Index (BMI) 38.2 Finger Stick Blood Glucose 99 Intake and Output for Last 24 Hours 04/09/19 04/10/19 04/11/19 23:59 23:59 23:59 Intake Total 1485.00 / 1785.00 1335 / 1335 Output Total 4050 / 4650 1600 / 1600 Balance -2565.00 / -2865.00 -265 / -265 General: Alert, Oriented x3, Cooperative HEENT: Atraumatic, PERRLA, EOMI, Normocephalic Neck: Supple, No JVD, Negative Carotid Bruits Lungs: Clear to auscultation, Normal air movement Cardiovascular: Regular rate, No murmurs Abdomen: Bowel Sounds Present, Soft, Non Tender, Obese Extremities: No edema, Capillary Refill Less than 3 Seconds Skin: No rashes, No breakdown Musculoskeletal: No Tenderness to Palpation of Joints or Extremities Neurological: Cranial nerves II-XII grossly intact Psych/Mental Status: Normal Affect, Appropriate Laboratory Results 04/10/19 01:40: Crossmatch See Detail 04/10/19 01:40: Crossmatch See Detail 04/10/19 12:15: POC Glucose 125 H 04/10/19 15:37: POC Glucose 110 04/10/19 18:03: POC Glucose 99 04/10/19 21:17: POC Glucose 141 H 04/11/19 00:15: POC Glucose 191 H 04/11/19 06:50: POC Glucose 102 04/11/19 07:17: WBC 6.3, RBC 2.52 L, Hgb 6.9 L, Hct 22.2 L, MCV 88.1, MCH 27.4, MCHC 31.1 L, RDW Std Deviation 53.7 H, RDW Coeff of Nyasia 16.7 H, Plt Count 83 L, MPV 9.1, Immature Gran % (Auto) 0.500, Neut % (Auto) 77.5 H, Lymph % (Auto) 14.5 L, [place] % (Auto) 6.3, Eos % (Auto) 0.9, Baso % (Auto) 0.3, Absolute Neuts (auto) 4.9, Absolute Lymphs (auto) 0.92, Nucleated RBC % 0 04/11/19 07:17: Sodium 142, Potassium 4.5, Chloride 119 H, Carbon Dioxide 16.0 L , Anion Gap 7, BUN 77 H, Creatinine 4.17 H, Estim Creat Clear Calc 16.29, Est GFR (MDRD) Af Amer 18 L, Est GFR (MDRD) Non-Af 15 L, BUN/Creatinine Ratio 18.5, Glucose 97, Calcium 8.0 L 04/11/19 12:27: POC Glucose 185 H Current Medications Acetaminophen (Tylenol) 650 mg PO Q6H PRN PRN PRN Reason: Non-cardiac pain (4-10/10) Last Admin: 04/11/19 11:19 Dose: 650 mg Documented by: Hydrocodone Bitart/Acetaminophen ([place] 5mg-325mg) 1 - 2 tablet PO Q4H PRN PRN PRN Reason: Pain Score 4-10/10 Al Hydroxide/Mg Hydroxide (Mylanta Ii) 15 - 30 ml PO Q4H PRN PRN PRN Reason: INDIGESTION Albuterol Sulfate (Ventolin Aerosols) 2.5 mg INHALATION Q2H PRN PRN PRN Reason: dyspnea, wheezing Dextrose (D50w Syringe) 0 gm IV X1 PRN; Protocol PRN Reason: Hypoglycemia Glucagon () 1 mg IM .X1 PRN PRN Reason: Hypoglycemia Hydralazine HCl (Apresoline Iv) 10 mg IV Q4H PRN PRN PRN Reason: SBP > 160 Sodium Chloride () 1,000 mls @ 100 mls/hr IV .Q10H [facility] Last Admin: 04/11/19 05:35 Dose: 100 mls/hr Documented by: Ciprofloxacin (Cipro) 400 mg in 200 mls @ 200 mls/hr IV Q24@2200 [facility] Last Infusion: 04/10/19 23:06 Dose: Infused Documented by: Sodium Chloride () 250 mls @ 15 mls/hr IV .[id number] PRN PRN Reason: Saline Flush Insulin Glargine (Lantus ([facility])) 38 units SC QHS [facility] Last Admin: 04/10/19 21:25 Dose: 38 units Documented by: Insulin Human Lispro (Humalog Kwikpen ([facility])) 0 unit SC Q6 [facility]; Protocol Last Admin: 04/11/19 12:29 Dose: 1 u Documented by: Magnesium Hydroxide (Milk Of Magnesia) 30 ml PO DAILY PRN PRN Reason: Constipation Melatonin (Melatonin) 3 mg PO QHS PRN PRN PRN Reason: INSOMNIA Morphine Sulfate () 1 - 2 mg IV Q4H PRN PRN PRN Reason: Pain Score 1-10/10 Nitroglycerin (Nitrostat) 0.4 mg SUBLINGUAL Q5M PRN PRN Reason: CARDIAC/CHEST PAIN Ondansetron HCl (Zofran) 4 mg IV Q8H PRN PRN PRN Reason: NAUSEA/VOMITING Pantoprazole Sodium (Protonix) 20 mg PO BID [facility] Last Admin: 04/11/19 11:14 Dose: 20 mg Documented by: Sertraline HCl (Zoloft) 100 mg PO QHS [facility] Last Admin: 04/10/19 21:24 Dose: 100 mg Documented by: Sodium Chloride () 10 - 40 ml IV UD PRN PRN Reason: SALINE FLUSH Last Admin: 04/10/19 04:11 Dose: 10 ml Documented by: Tamsulosin HCl (Flomax) 0.4 mg PO QHS [facility] Last Admin: 04/10/19 21:24 Dose: 0.4 mg Documented by: Assessment/Plan All Active Problems Acute blood loss anemia (Acute) Hydronephrosis (Acute) Acute urinary retention (Acute) Hematuria (Acute) JEREMY (acute kidney injury) (Acute) Acute kidney injury secondary to obstructive uropathy Chronic kidney disease stage IV baseline 2.9-4 likely secondary to diabetic nephropathy Metabolic acidosis normal anion gap with renal failure Gross hematuria status post bilateral stent removal Bilateral hydronephrosis status post bilateral stent removal creatinine improving is 4.1 today Check a renal ultrasound We will check a UA in a day or 2 after gross hematuria cleared FENA was ordered Blood pressure is acceptable Start sodium bicarbonate Avoid nephrotoxins Further work-up as indicated by clinical course
--- NOTE | 2019-04-11 14:33 | US_ITS ---
STUDY: RENAL ULTRASOUND - COMPLETE REASON FOR EXAM: Male, 73 years old. Acute kidney injury TECHNIQUE: Ultrasound evaluation of the kidneys was performed with real-time and static degroot-scale imaging. COMPARISON: CT 04/10/2019. FINDINGS: Aorta: Not visualized. IVC: Visualized portions appear patent. Right kidney: Measures 13.7 cm. Normal contour. Renal cortical thickness appears decreased. 1.5 cm interpolar cyst. No masses, stones, or hydronephrosis identified. Left kidney: Measures 14.9 cm. Irregular contour. Renal cortical thickness appears decreased. Multiple cysts are identified largest measuring up to 4.3 cm. Moderate hydronephrosis. Bladder: Not evaluated secondary to underdistention. US/Kidney and Bladder IMPRESSION: The left kidney is enlarged and largely replaced with cysts. There is moderate left hydronephrosis. Moderate right renal atrophy. Electronically Signed: Dominguez Bazzi, at 19:23 EST Tel , Service support ,
[2019-04-11] MEDS: Sodium Bicarbonate 650 MG Tablet 1300 MG PO ×2 (17:31→21:32)
[2019-04-11 17:36] LABS: Urine Sodium 49 mmol/L (Not Establ.)
[2019-04-11 17:56] LABS: Bedside Glucose 140 mg/dL (70-110)
[2019-04-11] MEDS: Sertraline 100 MG Tablet PO (21:32)
[2019-04-11] MEDS: Ciprofloxacin 400 MG/200 ML BAG 200 MG IV (21:33)
[2019-04-11] MEDS: Tamsulosin HCl 0.4 MG Capsule PO (21:40)
[2019-04-11] MEDS: Senna/Docusate Sodium 1 Tablet 2 TABLET PO (21:41)
[2019-04-11 21:46] LABS: Bedside Glucose 212 mg/dL (70-110)
[2019-04-12] VITALS (7 sets, daily range): BP systolic 128–165; BP diastolic 54–72; PULSE 69–77; RESP 16; TEMP 36.7–37; O2SAT 96–100
--- NOTE | 2019-04-12 00:54 | NURSING ---
Pt refusing CPAP at this time. offered numerous times to assist pt with mask, pt continues to refuse. 2L NC placed.
[2019-04-12] MEDS: 0.9% Normal Saline 1,000 ML 100 ML IV ×2 (05:39→14:38)
[2019-04-12] MEDS: Acetaminophen 325 MG Tablet 650 MG PO ×2 (05:41→22:54)
[2019-04-12 06:35] LABS: Bedside Glucose 138 mg/dL (70-110)
[2019-04-12 07:35] LABS: Absolute Lymphocyte Count 1.07 X10^3/uL (0.83-4.51); Absolute Neutrophil Count 3.7 X10^3/uL (2.0-7.7); Basophil# 0.02 X10^3/uL; Basophil% 0.4 % (0-1); Eosinophil# 0.08 X10^3/uL; Eosinophils% 1.5 % (0-5); Hematocrit 24.6 % (40-54); Hemoglobin 7.9 g/dL (13.0-16.5); Lymphocyte # 1.07 X10^3/ul (4.0); Lymphocyte % 20.5 % (19-41); Mean Corp Hgb Conc 32.1 g/dL (32-36); Mean Corpuscular Hgb 28.1 pg (27.0-32.0); Mean Corpuscular Volume 87.5 fL (80-94); Mean Platelet Vol. 9.4 fl (6.2-12.0); Monocyte# 0.37 X10^3/uL; Monocyte% 7.1 % (0-10); NRBC Flagged by Analyzer 0 % (0-5); Neutrophil # 3.65 X10^3/uL (2.7-7.7); Neutrophil % 69.7 % (47-70); POSITIVE COUNT YES; Platelet Count 78 K/mm3 (150-450); RBC Distribution Width CV 16.3 % (11.6-14.6); RBC Distribution Width SD 51.1 fl (35.1-43.9); Red Blood Count 2.81 M/mm3 (4.6-6.2); White Blood Count 5.2 K/mm3 (4.4-11.0)
[2019-04-12 07:45] LABS: Anion Gap 10 (5-15); BUN 74 mg/dL (7-18); BUN/Creat Ratio 18.4 RATIO (10-20); Calcium,Total 7.6 mg/dL (8.5-10.1); Chloride 119 mmol/L (98-107); Creatinine, Serum 4.03 mg/dL (0.70-1.30); EST Glomerular Filtration Rate 16 mL/min (>60); Est Glom Filt Rate - Afr Amer 19 mL/min (>60); Estimated Creatinine Clearance 16.86 ml/min; Glucose 123 mg/dL (74-106); Phosphorus 3.9 mg/dL (2.5-4.9); Potassium 4.5 mmol/L (3.5-5.1); Sodium Level 144 mmol/L (136-145)
[2019-04-12 08:09] LABS: Differential Indicated SCAN CRITERIA MET
[2019-04-12] MEDS: Senna/Docusate Sodium 1 Tablet 2 TABLET PO ×2 (09:57→22:50)
[2019-04-12] MEDS: Pantoprazole Sodium 20 MG Tablet PO ×2 (09:57→22:51)
[2019-04-12] MEDS: Sodium Bicarbonate 650 MG Tablet 1300 MG PO ×4 (09:57→22:50)
--- NOTE | 2019-04-12 10:42 | PCM.PROGNOTE ---
Patient Problems: Active and Suspected Problems Acute blood loss anemia (Acute) Hydronephrosis (Acute) Acute urinary retention (Acute) Hematuria (Acute) Subjective: No shortness of breath no chest pain no nausea vomiting - Physical Exam Vitals/I&O's: Vital Signs Temp Pulse Resp BP Pulse Ox 98.4 F 69 16 146/54 H 99 04/12/19 07:24 04/12/19 07:24 04/12/19 07:24 04/12/19 07:24 04/12/19 07:24 Oxygen Flow Rate (L/min) 1 Oxygen Delivery Method Room Air Weight: 122.7 kg Body Mass Index (BMI) 38.2 Finger Stick Blood Glucose 99 Intake and Output for Last 24 Hours 04/10/19 04/11/19 04/12/19 23:59 23:59 23:59 Intake Total 1485.00 / 1785.00 3555 / 3555 1420 / 1420 Output Total 4050 / 4650 1800 / 1800 Balance -2565.00 / -2865.00 1755 / 1755 1420 / 1420 General: Alert, Oriented x3, Cooperative HEENT: Atraumatic, PERRLA, EOMI, Normocephalic Neck: Supple, No JVD, Negative Carotid Bruits Lungs: Clear to auscultation, Normal air movement Cardiovascular: Regular rate, No murmurs Abdomen: Bowel Sounds Present, Soft, Non Tender, Obese Extremities: No edema, Capillary Refill Less than 3 Seconds Skin: No rashes, No breakdown Musculoskeletal: No Tenderness to Palpation of Joints or Extremities Neurological: Cranial nerves II-XII grossly intact Psych/Mental Status: Normal Affect, Appropriate Laboratory Results 04/10/19 01:40: Crossmatch See Detail 04/11/19 12:27: POC Glucose 185 H 04/11/19 17:00: Urine Creatinine 54.10 04/11/19 17:00: Ur Random Sodium 49 04/11/19 17:27: POC Glucose 140 H 04/11/19 21:25: POC Glucose 212 H 04/12/19 06:28: POC Glucose 138 H 04/12/19 07:09: WBC 5.2, RBC 2.81 L, Hgb 7.9 L, Hct 24.6 L, MCV 87.5, MCH 28.1, MCHC 32.1, RDW Std Deviation 51.1 H, RDW Coeff of Nyasia 16.3 H, Plt Count 78 L, MPV 9.4, Immature Gran % (Auto) 0.800, Neut % (Auto) 69.7, Lymph % (Auto) 20.5, [place] % (Auto) 7.1, Eos % (Auto) 1.5, Baso % (Auto) 0.4, Absolute Neuts (auto) 3.7, Absolute Lymphs (auto) 1.07, Nucleated RBC % 0 04/12/19 07:09: Sodium 144, Potassium 4.5, Chloride 119 H, Carbon Dioxide 15.0 L, Anion Gap 10, BUN 74 H, Creatinine 4.03 H, Estim Creat Clear Calc 16.86, Est GFR (MDRD) Af Amer 19 L, Est GFR (MDRD) Non-Af 16 L, BUN/Creatinine Ratio 18.4, Glucose 123 H, Calcium 7.6 L, Phosphorus 3.9 Current Medications Acetaminophen (Tylenol) 650 mg PO Q6H PRN PRN PRN Reason: Non-cardiac pain (4-10/10) Last Admin: 04/12/19 05:41 Dose: 650 mg Documented by: Hydrocodone Bitart/Acetaminophen ([place] 5mg-325mg) 1 - 2 tablet PO Q4H PRN PRN PRN Reason: Pain Score 4-10/10 Al Hydroxide/Mg Hydroxide (Mylanta Ii) 15 - 30 ml PO Q4H PRN PRN PRN Reason: INDIGESTION Albuterol Sulfate (Ventolin Aerosols) 2.5 mg INHALATION Q2H PRN PRN PRN Reason: dyspnea, wheezing Dextrose (D50w Syringe) 0 gm IV X1 PRN; Protocol PRN Reason: Hypoglycemia Glucagon () 1 mg IM .X1 PRN PRN Reason: Hypoglycemia Hydralazine HCl (Apresoline Iv) 10 mg IV Q4H PRN PRN PRN Reason: SBP > 160 Sodium Chloride () 1,000 mls @ 100 mls/hr IV .Q10H [facility] Last Admin: 04/12/19 05:39 Dose: 100 mls/hr Documented by: Ciprofloxacin (Cipro) 400 mg in 200 mls @ 200 mls/hr IV Q24@2200 [facility] Last Infusion: 04/11/19 22:33 Dose: Infused Documented by: Sodium Chloride () 250 mls @ 15 mls/hr IV .[id number] PRN PRN Reason: Saline Flush Insulin Glargine (Lantus ([facility])) 38 units SC QHS [facility] Last Admin: 04/11/19 21:33 Dose: 38 units Documented by: Insulin Human Lispro (Humalog Kwikpen ([facility])) 0 unit SC ACHS [facility]; Protocol Last Admin: 04/12/19 06:33 Dose: Not Given Documented by: Magnesium Hydroxide (Milk Of Magnesia) 30 ml PO DAILY PRN PRN Reason: Constipation Melatonin (Melatonin) 3 mg PO QHS PRN PRN PRN Reason: INSOMNIA Morphine Sulfate () 1 - 2 mg IV Q4H PRN PRN PRN Reason: Pain Score 1-10/10 Nitroglycerin (Nitrostat) 0.4 mg SUBLINGUAL Q5M PRN PRN Reason: CARDIAC/CHEST PAIN Ondansetron HCl (Zofran) 4 mg IV Q8H PRN PRN PRN Reason: NAUSEA/VOMITING Pantoprazole Sodium (Protonix) 20 mg PO BID [facility] Last Admin: 04/12/19 09:57 Dose: 20 mg Documented by: Senna/Docusate Sodium (Senokot-S, Leslie-Colace) 2 tablet PO BID [facility] Last Admin: 04/12/19 09:57 Dose: 2 tablet Documented by: Sertraline HCl (Zoloft) 100 mg PO QHS [facility] Last Admin: 04/11/19 21:32 Dose: 100 mg Documented by: Sodium Bicarbonate (Sodium Bicarbonate) 1,300 mg PO 4X/DAY [facility] Last Admin: 04/12/19 09:57 Dose: 1,300 mg Documented by: Sodium Chloride () 10 - 40 ml IV UD PRN PRN Reason: SALINE FLUSH Last Admin: 04/10/19 04:11 Dose: 10 ml Documented by: Tamsulosin HCl (Flomax) 0.4 mg PO QHS [facility] Last Admin: 04/11/19 21:40 Dose: 0.4 mg Documented by: Medical Necessity - Tobacco Use Smoking Status: Current every day smoker Tobacco Use: Cigars, Pipe Assessment/Plan All Active Problems Acute blood loss anemia (Acute) Hydronephrosis (Acute) Acute urinary retention (Acute) Hematuria (Acute) JEREMY (acute kidney injury) (Acute) Acute kidney injury secondary to obstructive uropathy Chronic kidney disease stage IV baseline 2.9-4 likely secondary to diabetic nephropathy Multiple renal cysts mostly on the left Metabolic acidosis normal anion gap with renal failure Gross hematuria status post bilateral stent removal Bilateral hydronephrosis status post bilateral stent removal with residual left-sided hydronephrosis?per urology creatinine improving is 4.0 today We will check a UA in a day or 2 after gross hematuria cleared Blood pressure is acceptable continue sodium bicarbonate Avoid nephrotoxins Further work-up as indicated by clinical course
[2019-04-12] MEDS: Insulin Lispro 100 UNIT/ML INSULN.PEN SC ×3 (11:08→23:03)
[2019-04-12 11:15] LABS: Bedside Glucose 186 mg/dL (70-110)
--- NOTE | 2019-04-12 12:58 | PCM.PN.HOSP ---
Patient Problems: Active and Suspected Problems Acute blood loss anemia (Acute) Hydronephrosis (Acute) Acute urinary retention (Acute) Hematuria (Acute) Subjective: Patient seen and examined. He had no complaints and feels well. He denies any palpitations, dizziness, hematuria, chest pain, diarrhea or vomiting. Review of systems is otherwise negative. Labs and vitals reviewed. Vitals/I&O's: Vital Signs Temp Pulse Resp BP Pulse Ox 98.4 F 69 16 146/54 H 99 04/12/19 07:24 04/12/19 07:24 04/12/19 07:24 04/12/19 07:24 04/12/19 07:24 Oxygen Flow Rate (L/min) 1 Oxygen Delivery Method Room Air Weight: 270 lb 8.115 oz Body Mass Index (BMI) 38.2 Finger Stick Blood Glucose 99 Intake and Output for Last 24 Hours 04/10/19 04/11/19 04/12/19 23:59 23:59 23:59 Intake Total 1485.00 / 1785.00 3555 / 3555 1420 / 1420 Output Total 4050 / 4650 1800 / 1800 Balance -2565.00 / -2865.00 1755 / 1755 1420 / 1420 General: Alert, Oriented x3, Cooperative, No apparent distress HEENT: Atraumatic, PERRLA, EOMI, Normocephalic Oral: Moist Mucosa Neck: Supple, No JVD, Negative Carotid Bruits Lungs: Clear to auscultation, Normal air movement, No rhonchi, No wheeze Cardiovascular: Regular rate, Regular Rhythm, Normal S1, Normal S2, No murmurs Abdomen: Bowel Sounds Present, Soft, Non-Distended, No Hepato-splenomegaly Extremities: No clubbing, No cyanosis, No edema, Capillary Refill Less than 3 Seconds Skin: No rashes, No breakdown Musculoskeletal: No Tenderness to Palpation of Joints or Extremities Lymphatic: No Cervical, Supraclavicular, or Inguinal Adenopathy Neurological: Cranial nerves II-XII grossly intact Psych/Mental Status: Normal Affect, Appropriate, Alert and oriented to time, place, person, mood and affect Laboratory Results 04/10/19 01:40: Crossmatch See Detail 04/11/19 17:00: Urine Creatinine 54.10 04/11/19 17:00: Ur Random Sodium 49 04/11/19 17:27: POC Glucose 140 H 04/11/19 21:25: POC Glucose 212 H 04/12/19 06:28: POC Glucose 138 H 04/12/19 07:09: WBC 5.2, RBC 2.81 L, Hgb 7.9 L, Hct 24.6 L, MCV 87.5, MCH 28.1, MCHC 32.1, RDW Std Deviation 51.1 H, RDW Coeff of Nyasia 16.3 H, Plt Count 78 L, MPV 9.4, Immature Gran % (Auto) 0.800, Neut % (Auto) 69.7, Lymph % (Auto) 20.5, [place] % (Auto) 7.1, Eos % (Auto) 1.5, Baso % (Auto) 0.4, Absolute Neuts (auto) 3.7, Absolute Lymphs (auto) 1.07, Nucleated RBC % 0 04/12/19 07:09: Sodium 144, Potassium 4.5, Chloride 119 H, Carbon Dioxide 15.0 L, Anion Gap 10, BUN 74 H, Creatinine 4.03 H, Estim Creat Clear Calc 16.86, Est GFR (MDRD) Af Amer 19 L, Est GFR (MDRD) Non-Af 16 L, BUN/Creatinine Ratio 18.4, Glucose 123 H, Calcium 7.6 L, Phosphorus 3.9 04/12/19 11:06: POC Glucose 186 H Diagnostic Data Abdomen/Pelvis CT 04/10/19 00:13 IMPRESSION: Stable appearance to distended gallbladder with multiple gallstones. Much more severe bilateral hydronephrosis with new bilateral ureteric stents that appear to be within adequate position. Decompressed urinary bladder with Kang catheter, however, some of the contents of the urinary bladder appears to be hyperdense which could be hemorrhagic urine Individualized dose optimization techniques were used for this CT. at 0116 Reported and signed by: Denver Granda MD Electronically Signed: Denver Granda MD at 1:15 EST Tel , Service support , Renal Ultrasound 04/11/19 14:33 IMPRESSION: The left kidney is enlarged and largely replaced with cysts. There is moderate left hydronephrosis. Moderate right renal atrophy. Electronically Signed: Dominguez Vicentejoshua, at 19:23 EST Tel , Service support , Current Medications Acetaminophen (Tylenol) 650 mg PO Q6H PRN PRN PRN Reason: Non-cardiac pain (4-10/10) Last Admin: 04/12/19 05:41 Dose: 650 mg Documented by: Hydrocodone Bitart/Acetaminophen ([place] 5mg-325mg) 1 - 2 tablet PO Q4H PRN PRN PRN Reason: Pain Score 4-10/10 Al Hydroxide/Mg Hydroxide (Mylanta Ii) 15 - 30 ml PO Q4H PRN PRN PRN Reason: INDIGESTION Albuterol Sulfate (Ventolin Aerosols) 2.5 mg INHALATION Q2H PRN PRN PRN Reason: dyspnea, wheezing Dextrose (D50w Syringe) 0 gm IV X1 PRN; Protocol PRN Reason: Hypoglycemia Glucagon () 1 mg IM .X1 PRN PRN Reason: Hypoglycemia Hydralazine HCl (Apresoline Iv) 10 mg IV Q4H PRN PRN PRN Reason: SBP > 160 Sodium Chloride () 1,000 mls @ 100 mls/hr IV .Q10H [facility] Last Admin: 04/12/19 05:39 Dose: 100 mls/hr Documented by: Ciprofloxacin (Cipro) 400 mg in 200 mls @ 200 mls/hr IV Q24@2200 [facility] Last Infusion: 04/11/19 22:33 Dose: Infused Documented by: Sodium Chloride () 250 mls @ 15 mls/hr IV .[id number] PRN PRN Reason: Saline Flush Insulin Glargine (Lantus (Bkc)) 38 units SC QHS [facility] Last Admin: 04/11/19 21:33 Dose: 38 units Documented by: Insulin Human Lispro (Humalog Kwikpen (Bkc)) 0 unit SC ACHS [facility]; Protocol Last Admin: 04/12/19 11:08 Dose: 1 units Documented by: Magnesium Hydroxide (Milk Of Magnesia) 30 ml PO DAILY PRN PRN Reason: Constipation Melatonin (Melatonin) 3 mg PO QHS PRN PRN PRN Reason: INSOMNIA Morphine Sulfate () 1 - 2 mg IV Q4H PRN PRN PRN Reason: Pain Score 1-10/10 Nitroglycerin (Nitrostat) 0.4 mg SUBLINGUAL Q5M PRN PRN Reason: CARDIAC/CHEST PAIN Ondansetron HCl (Zofran) 4 mg IV Q8H PRN PRN PRN Reason: NAUSEA/VOMITING Pantoprazole Sodium (Protonix) 20 mg PO BID [facility] Last Admin: 04/12/19 09:57 Dose: 20 mg Documented by: Senna/Docusate Sodium (Senokot-S, Leslie-Colace) 2 tablet PO BID [facility] Last Admin: 04/12/19 09:57 Dose: 2 tablet Documented by: Sertraline HCl (Zoloft) 100 mg PO QHS [facility] Last Admin: 04/11/19 21:32 Dose: 100 mg Documented by: Sodium Bicarbonate (Sodium Bicarbonate) 1,300 mg PO 4X/DAY [facility] Last Admin: 04/12/19 09:57 Dose: 1,300 mg Documented by: Sodium Chloride () 10 - 40 ml IV UD PRN PRN Reason: SALINE FLUSH Last Admin: 04/10/19 04:11 Dose: 10 ml Documented by: Tamsulosin HCl (Flomax) 0.4 mg PO QHS [facility] Last Admin: 04/11/19 21:40 Dose: 0.4 mg Documented by: Medical Necessity - Tobacco Use Smoking Status: Current every day smoker Tobacco Use: Cigars, Pipe Assessment/Plan All Active Problems Acute blood loss anemia (Acute) Hydronephrosis (Acute) Acute urinary retention (Acute) Hematuria (Acute) TIARA (acute kidney injury) (Acute) 1. Gross hematuria is s/p cystoscopy with bilateral ureteral stent removal. today is POD 2 hematuria has resolved; on IV ciprofloxacin urology on board 2. Acute on chronic anemia due to acute blood loss from hematuria Hb today is 7.9. is s/p transfusion of 4 units of PRBCs. monitor H&H 3. TIARA on CKD Cr is 4.03 today. baseline is ~ 2.95 despite cystoscopy yesterday, Cr is still elevated nephrology on board: renal USG showed left kidney enlarged and largely replaced with cysts; moderate left hydronephrosis and moderate right renal atrophy 4. Non anion gap metabolic acidosis: bicarb is 15, with anion gap of 10. Likely due to Tiara on CKD. nephrology on board 5. History of prostate cancer: s/p radiation therapy. urology on board 6. thrombocytopenia: is chronic. stable. Will monitor 7. BPH: on flomax 8. Hypothyroidism: on synthroid 9. MEGAN: on CPAP qhs 10. Anxiety and depression: On Zoloft. 11. Diabetes mellitus: On insulin 38IU qhs. Insulin sliding scale. Accu-Cheks before meals at bedtime. DVT prophylaxis: SCDs. Code Visit Inpatient E&M: 64283 Subs Hosp L2
--- NOTE | 2019-04-12 14:22 | CASEMGMT ---
COLE REYNOLDS NOTE: PT/OT evals have been reviewed. FWW recommended. Additional therapy also recommended. To room to talk with pt. Pt is agreeable to [facility] and agreeable to having it billed through [facility]. Pt given list of local [facility] agencies and pt states [facility]. Order placed for [facility]: detention, PT/OT. Discussed option of aide services with pt for bathing but he states he does not feel he needs this. Call placed to Bonnie @ [facility] and referral made. She was made aware anticipate pt discharging tomorrow. She states they are able to accept pt and anticipate start of care being Monday or Monday. Pt made aware of therapy's recommendations for FWW. Pt also states he would benefit from a walker. Pt has [facility] A only and [facility] benefits. FWW is not covered under [facility] and will need to be billed through [facility]. Call placed to [facility] and spoke to JULIAN Winslow. Goldy asking if pt would like rollator or FWW and pt states he feels he would benefit from rollator. Goldy made aware. She states it will take several days for pt to receive rollator. Pt made aware and states he has been managing okay at home with crutches and W/C and is okay with not having the rollator delivered for several days. Pt states he feels he would benefit from aides through the [facility] to assist with Home care needs. JULIAN Winslow @ [facility], also made aware of this. She states [facility] form will need faxed to [facility] so the process to get these services for pt can be initiated prior to pt being discharged. Jes CHAVEZ RN, CM
--- NOTE | 2019-04-12 15:30 | CASEMGMT ---
COLE CM Note: [facility] [place] [facility]. Terrie CHAVEZ RN ACM
[2019-04-12 16:11] LABS: Bedside Glucose 191 mg/dL (70-110)
[2019-04-12] MEDS: Sertraline 100 MG Tablet PO (22:50)
[2019-04-12] MEDS: Tamsulosin HCl 0.4 MG Capsule PO (22:51)
[2019-04-12] MEDS: hydrALAZINE 20 MG/ML Vial 10 MG IV (22:54)
[2019-04-12] MEDS: Ciprofloxacin 400 MG/200 ML BAG 200 MG IV (22:55)
[2019-04-12] MEDS: 0.9% Saline Lock 10 ML Syringe IV (22:55)
[2019-04-12 23:16] LABS: Bedside Glucose 204 mg/dL (70-110)
[2019-04-13] VITALS (7 sets, daily range): BP systolic 124–156; BP diastolic 63–72; PULSE 74–85; RESP 14–18; TEMP 36.6–36.9; O2SAT 94–99
[2019-04-13] MEDS: 0.9% Normal Saline 1,000 ML 100 ML IV ×3 (01:13→20:10)
[2019-04-13] MEDS: Lidocaine Jelly 2% 20 ML Syringe (URO-JET) 20 APPLIC TOPICAL (05:19)
[2019-04-13] MEDS: Acetaminophen 325 MG Tablet 650 MG PO (06:05)
[2019-04-13] MEDS: Ondansetron 4 MG/2 ML Vial IV (06:24)
[2019-04-13] MEDS: 0.9% Saline Lock 10 ML Syringe IV (06:25)
[2019-04-13] MEDS: Insulin Lispro 100 UNIT/ML INSULN.PEN SC ×2 (06:48→18:23)
[2019-04-13 06:55] LABS: Bedside Glucose 156 mg/dL (70-110)
[2019-04-13 07:14] LABS: Absolute Neutrophil Count 7.2 X10^3/uL (2.0-7.7); Basophil# 0.02 X10^3/uL; Basophil% 0.2 % (0-1); Eosinophil# 0.02 X10^3/uL; Eosinophils% 0.2 % (0-5); Hematocrit 25.3 % (40-54); Lymphocyte % 3.7 % (19-41); Mean Corp Hgb Conc 31.6 g/dL (32-36); Mean Corpuscular Hgb 27.9 pg (27.0-32.0); Mean Corpuscular Volume 88.2 fL (80-94); Mean Platelet Vol. 8.8 fl (6.2-12.0); Monocyte# 0.52 X10^3/uL; Monocyte% 6.4 % (0-10); NRBC Flagged by Analyzer 0 % (0-5); Neutrophil # 7.15 X10^3/uL (2.7-7.7); Neutrophil % 88.6 % (47-70); POSITIVE COUNT YES; POSITIVE DIFFERENTIAL YES; Platelet Count 80 K/mm3 (150-450); RBC Distribution Width CV 16.1 % (11.6-14.6); RBC Distribution Width SD 51.7 fl (35.1-43.9); Red Blood Count 2.87 M/mm3 (4.6-6.2); White Blood Count 8.1 K/mm3 (4.4-11.0)
[2019-04-13 07:17] LABS: Differential Indicated SCAN CRITERIA MET
[2019-04-13 07:32] LABS: Anion Gap 9 (5-15); BUN 73 mg/dL (7-18); BUN/Creat Ratio 18.1 RATIO (10-20); Calcium,Total 7.7 mg/dL (8.5-10.1); Chloride 120 mmol/L (98-107); Creatinine, Serum 4.03 mg/dL (0.70-1.30); EST Glomerular Filtration Rate 16 mL/min (>60); Est Glom Filt Rate - Afr Amer 19 mL/min (>60); Estimated Creatinine Clearance 16.86 ml/min; Glucose 157 mg/dL (74-106); Sodium Level 146 mmol/L (136-145)
--- NOTE | 2019-04-13 08:39 | PCM.CONS.B ---
Problem List (1) CKD (chronic kidney disease), stage IV Status: Chronic - Consult Date of Consult: 04/13/19 - Reason for Consult Last night the patient went into urinary retention had a distended bladder with hematuria instructed the nurses to place a 20 Martiniquais Kang catheter which is now draining urine and some blood recommend we flushed the catheter every 2 hours with 50 cc of sterile water until the urine clears at this point recommend he will go home with a catheter for retention.
[2019-04-13] MEDS: Pantoprazole Sodium 20 MG Tablet PO ×2 (09:57→23:03)
[2019-04-13] MEDS: Sodium Bicarbonate 650 MG Tablet 1300 MG PO ×4 (09:57→23:03)
[2019-04-13] MEDS: Senna/Docusate Sodium 1 Tablet 2 TABLET PO ×2 (09:57→23:03)
--- NOTE | 2019-04-13 10:51 | PN_ITS ---
Patient Problems: Active and Suspected Problems Acute blood loss anemia (Acute) Hydronephrosis (Acute) Acute urinary retention (Acute) Hematuria (Acute) Subjective: Patient seen and examined. He started having hematuria again overnight. He had to have Merino catheter reinserted on account of hematuria with passage of clots. He admitted to some lightheadedness and dizziness when hematuria started but which have now resolved. He denies any palpitations, chest pain, diarrhea or vomiting. Review of films otherwise negative. Labs and vitals reviewed. Hemoglobin is 8 today. Vitals/I&O's: Vital Signs Temp Pulse Resp BP Pulse Ox 98.3 F 85 18 140/63 H 95 04/13/19 09:54 04/13/19 09:54 04/13/19 09:54 04/13/19 09:54 04/13/19 09:54 Oxygen Flow Rate (L/min) 1 Oxygen Delivery Method Room Air Weight: 270 lb 8.115 oz Body Mass Index (BMI) 38.2 Finger Stick Blood Glucose 99 Intake and Output for Last 24 Hours 04/11/19 04/12/19 04/13/19 23:59 23:59 23:59 Intake Total 3555 / 3555 3346.66 / 3346.66 1758.33 / 1758.33 Output Total 1800 / 1800 1050 / 1050 Balance 1755 / 1755 3346.66 / 3346.66 708.33 / 708.33 General: Alert, Oriented x3, Cooperative, No apparent distress HEENT: Atraumatic, PERRLA, EOMI, Normocephalic Oral: Moist Mucosa Neck: Supple, No JVD, Negative Carotid Bruits Lungs: Clear to auscultation, Normal air movement, No rhonchi, No wheeze Cardiovascular: Regular rate, Regular Rhythm, Normal S1, Normal S2, No murmurs Abdomen: Bowel Sounds Present, Soft, Non-Distended, No Hepato-splenomegaly; Merino catheter draining bloody urine Extremities: No clubbing, No cyanosis, No edema, Capillary Refill Less than 3 Seconds Skin: No rashes, No breakdown Musculoskeletal: No Tenderness to Palpation of Joints or Extremities Lymphatic: No Cervical, Supraclavicular, or Inguinal Adenopathy Neurological: Cranial nerves II-XII grossly intact Psych/Mental Status: Normal Affect, Appropriate, Alert and oriented to time, place, person, mood and affect Laboratory Results 04/12/19 11:06: POC Glucose 186 H 04/12/19 16:04: POC Glucose 191 H 04/12/19 23:02: POC Glucose 204 H 04/13/19 06:46: POC Glucose 156 H 04/13/19 07:00: WBC 8.1, RBC 2.87 L, Hgb 8.0 L, Hct 25.3 L, MCV 88.2, MCH 27.9, MCHC 31.6 L, RDW Std Deviation 51.7 H, RDW Coeff of Nyasia 16.1 H, Plt Count 80 L, MPV 8.8, Immature Gran % (Auto) 0.900, Neut % (Auto) 88.6 H, Lymph % (Auto) 3.7 L, [place] % (Auto) 6.4, Eos % (Auto) 0.2, Baso % (Auto) 0.2, Absolute Neuts (auto) 7.2, Absolute Lymphs (auto) 0.30 L, Nucleated RBC % 0 04/13/19 07:00: Sodium 146 H, Potassium 4.0, Chloride 120 H, Carbon Dioxide 17.0 L, Anion Gap 9, BUN 73 H, Creatinine 4.03 H, Estim Creat Clear Calc 16.86, Est GFR (MDRD) Af Amer 19 L, Est GFR (MDRD) Non-Af 16 L, BUN/Creatinine Ratio 18.1, Glucose 157 H, Calcium 7.7 L Current Medications Acetaminophen (Tylenol) 650 mg PO Q6H PRN PRN PRN Reason: Non-cardiac pain (4-10/10) Last Admin: 04/13/19 06:05 Dose: 650 mg Documented by: Hydrocodone Bitart/Acetaminophen ([place] 5mg-325mg) 1 - 2 tablet PO Q4H PRN PRN PRN Reason: Pain Score 4-10/10 Al Hydroxide/Mg Hydroxide (Mylanta Ii) 15 - 30 ml PO Q4H PRN PRN PRN Reason: INDIGESTION Albuterol Sulfate (Ventolin Aerosols) 2.5 mg INHALATION Q2H PRN PRN PRN Reason: dyspnea, wheezing Dextrose (D50w Syringe) 0 gm IV X1 PRN; Protocol PRN Reason: Hypoglycemia Glucagon () 1 mg IM .X1 PRN PRN Reason: Hypoglycemia Hydralazine HCl (Apresoline Iv) 10 mg IV Q4H PRN PRN PRN Reason: SBP > 160 Last Admin: 04/12/19 22:54 Dose: 10 mg Documented by: Sodium Chloride () 1,000 mls @ 100 mls/hr IV .Q10H [facility] Last Admin: 04/13/19 10:00 Dose: 100 mls/hr Documented by: Ciprofloxacin (Cipro) 400 mg in 200 mls @ 200 mls/hr IV Q24@2200 [facility] Last Infusion: 04/12/19 23:55 Dose: Infused Documented by: Sodium Chloride () 250 mls @ 15 mls/hr IV .[id number] PRN PRN Reason: Saline Flush Insulin Glargine (Lantus ([facility])) 38 units SC QHS [facility] Last Admin: 04/12/19 23:03 Dose: 38 units Documented by: Insulin Human Lispro (Humalog Kwikpen ([facility])) 0 unit SC [facility]; Protocol Last Admin: 04/13/19 06:48 Dose: 1 units Documented by: Magnesium Hydroxide (Milk Of Magnesia) 30 ml PO DAILY PRN PRN Reason: Constipation Melatonin (Melatonin) 3 mg PO QHS PRN PRN PRN Reason: INSOMNIA Morphine Sulfate () 1 - 2 mg IV Q4H PRN PRN PRN Reason: Pain Score 1-10/10 Nitroglycerin (Nitrostat) 0.4 mg SUBLINGUAL Q5M PRN PRN Reason: CARDIAC/CHEST PAIN Ondansetron HCl (Zofran) 4 mg IV Q8H PRN PRN PRN Reason: NAUSEA/VOMITING Last Admin: 04/13/19 06:24 Dose: 4 mg Documented by: Pantoprazole Sodium (Protonix) 20 mg PO BID [facility] Last Admin: 04/13/19 09:57 Dose: 20 mg Documented by: Senna/Docusate Sodium (Senokot-S, Leslie-Colace) 2 tablet PO BID [facility] Last Admin: 04/13/19 09:57 Dose: 2 tablet Documented by: Sertraline HCl (Zoloft) 100 mg PO QHS [facility] Last Admin: 04/12/19 22:50 Dose: 100 mg Documented by: Sodium Bicarbonate (Sodium Bicarbonate) 1,300 mg PO 4X/DAY [facility] Last Admin: 04/13/19 09:57 Dose: 1,300 mg Documented by: Sodium Chloride () 10 - 40 ml IV UD PRN PRN Reason: SALINE FLUSH Last Admin: 04/13/19 06:25 Dose: 10 ml Documented by: Tamsulosin HCl (Flomax) 0.4 mg PO QHS [facility] Last Admin: 04/12/19 22:51 Dose: 0.4 mg Documented by: STROKE Vital Signs/Narrative: Vital Signs Temp Pulse Resp BP Pulse Ox 04/13/19 09:54 98.3 F 85 18 140/63 H 95 04/13/19 07:53 94 Medical Necessity - Tobacco Use Smoking Status: Current every day smoker Tobacco Use: Cigars, Pipe Assessment/Plan All Active Problems Acute blood loss anemia (Acute) Hydronephrosis (Acute) Acute urinary retention (Acute) Hematuria (Acute) JEREMY (acute kidney injury) (Acute) 1. Gross hematuria * is s/p cystoscopy with bilateral ureteral stent removal. today is POD 3 * started having hematuria again overnight, so merino catheter was re-inserted * on IV ciprofloxacin * urology on board * per urology, to flush catheter every 2 hours with 50cc of sterile water until urine clears. recommended he go home with a catheter for retention. * * 2. Acute on chronic anemia due to acute blood loss from hematuria * Hb today is 8. is s/p transfusion of 4 units of PRBCs. * monitor H&H * 3. JEREMY on CKD * Cr is still 4.03 today. baseline is ~ 2.95 * nephrology on board: renal USG showed left kidney enlarged and largely replaced with cysts; moderate left hydronephrosis and moderate right renal atrophy * per nephrology, want to do further urine workup once urine clears.; * 4. Non anion gap metabolic acidosis: bicarb is 17, with anion gap of 9. Likely due to Jeremy on CKD. nephrology on board 5. History of prostate cancer: s/p radiation therapy. urology on board 6. thrombocytopenia: * is chronic. stable. platelets today-80 * 7. BPH: on flomax 8. Hypothyroidism: on synthroid 9. MEGAN: on CPAP qhs 10. Anxiety and depression: On Zoloft. 11. Diabetes mellitus: On insulin 38IU qhs. Insulin sliding scale. Accu-Cheks before meals at bedtime. DVT prophylaxis: SCDs. Code Visit Inpatient E&M: 31187 Subs Hosp L2
[2019-04-13 11:46] LABS: Bedside Glucose 113 mg/dL (70-110)
--- NOTE | 2019-04-13 18:06 | PCM.PN.REN ---
Patient Problems: Active and Suspected Problems Acute blood loss anemia (Acute) Hydronephrosis (Acute) Acute urinary retention (Acute) Hematuria (Acute) Subjective: Pt was not able to urinate this morning and merino cath was placed again which is draining bloody urine No N/V/SOB - Physical Exam Vitals/I&O's: Vital Signs Temp Pulse Resp BP Pulse Ox 98.3 F 76 18 124/64 H 96 04/13/19 15:53 04/13/19 15:53 04/13/19 15:53 04/13/19 15:53 04/13/19 15:53 Oxygen Flow Rate (L/min) 1 Oxygen Delivery Method Room Air Weight: 122.7 kg Body Mass Index (BMI) 38.2 Finger Stick Blood Glucose 99 Intake and Output for Last 24 Hours 04/11/19 04/12/19 04/13/19 23:59 23:59 23:59 Intake Total 3555 / 3555 3346.66 / 3346.66 2026.66 / 2026.66 Output Total 1800 / 1800 1750 / 1750 Balance 1755 / 1755 3346.66 / 3346.66 276.66 / 276.66 General: Alert, Oriented x3 HEENT: Atraumatic Oral: Moist Mucosa Neck: Supple, No JVD Lungs: Clear to auscultation, Normal air movement, No rhonchi Cardiovascular: Regular rate, Regular Rhythm, Normal S1, Normal S2 Abdomen: Bowel Sounds Present, Soft, Non Tender, Non-Distended Extremities: No clubbing, No edema Skin: No rashes Lymphatic: No Cervical, Supraclavicular, or Inguinal Adenopathy Neurological: Cranial nerves II-XII grossly intact, Neuro grossly intact Psych/Mental Status: Appropriate Laboratory Results 04/12/19 23:02: POC Glucose 204 H 04/13/19 06:46: POC Glucose 156 H 04/13/19 07:00: WBC 8.1, RBC 2.87 L, Hgb 8.0 L, Hct 25.3 L, MCV 88.2, MCH 27.9, MCHC 31.6 L, RDW Std Deviation 51.7 H, RDW Coeff of Nyasia 16.1 H, Plt Count 80 L, MPV 8.8, Immature Gran % (Auto) 0.900, Neut % (Auto) 88.6 H, Lymph % (Auto) 3.7 L, [place] % (Auto) 6.4, Eos % (Auto) 0.2, Baso % (Auto) 0.2, Absolute Neuts (auto) 7.2, Absolute Lymphs (auto) 0.30 L, Nucleated RBC % 0 04/13/19 07:00: Sodium 146 H, Potassium 4.0, Chloride 120 H, Carbon Dioxide 17.0 L, Anion Gap 9, BUN 73 H, Creatinine 4.03 H, Estim Creat Clear Calc 16.86, Est GFR (MDRD) Af Amer 19 L, Est GFR (MDRD) Non-Af 16 L, BUN/Creatinine Ratio 18.1, Glucose 157 H, Calcium 7.7 L 04/13/19 11:34: POC Glucose 113 H Current Medications Acetaminophen (Tylenol) 650 mg PO Q6H PRN PRN PRN Reason: Non-cardiac pain (4-10/10) Last Admin: 04/13/19 06:05 Dose: 650 mg Documented by: Hydrocodone Bitart/Acetaminophen ([place] 5mg-325mg) 1 - 2 tablet PO Q4H PRN PRN PRN Reason: Pain Score 4-10/10 Al Hydroxide/Mg Hydroxide (Mylanta Ii) 15 - 30 ml PO Q4H PRN PRN PRN Reason: INDIGESTION Albuterol Sulfate (Ventolin Aerosols) 2.5 mg INHALATION Q2H PRN PRN PRN Reason: dyspnea, wheezing Dextrose (D50w Syringe) 0 gm IV X1 PRN; Protocol PRN Reason: Hypoglycemia Glucagon () 1 mg IM .X1 PRN PRN Reason: Hypoglycemia Hydralazine HCl (Apresoline Iv) 10 mg IV Q4H PRN PRN PRN Reason: SBP > 160 Last Admin: 04/12/19 22:54 Dose: 10 mg Documented by: Sodium Chloride () 1,000 mls @ 100 mls/hr IV .Q10H [facility] Last Infusion: 04/13/19 11:41 Dose: 100 mls/hr Documented by: Ciprofloxacin (Cipro) 400 mg in 200 mls @ 200 mls/hr IV Q24@2200 [facility] Last Infusion: 04/12/19 23:55 Dose: Infused Documented by: Sodium Chloride () 250 mls @ 15 mls/hr IV .[id number] PRN PRN Reason: Saline Flush Insulin Glargine (Lantus (Bk)) 38 units SC QHS [facility] Last Admin: 04/12/19 23:03 Dose: 38 units Documented by: Insulin Human Lispro (Humalog Kwikpen (Bk)) 0 unit SC [facility]; Protocol Last Admin: 04/13/19 11:39 Dose: Not Given Documented by: Magnesium Hydroxide (Milk Of Magnesia) 30 ml PO DAILY PRN PRN Reason: Constipation Melatonin (Melatonin) 3 mg PO QHS PRN PRN PRN Reason: INSOMNIA Morphine Sulfate () 1 - 2 mg IV Q4H PRN PRN PRN Reason: Pain Score 1-10/10 Nitroglycerin (Nitrostat) 0.4 mg SUBLINGUAL Q5M PRN PRN Reason: CARDIAC/CHEST PAIN Ondansetron HCl (Zofran) 4 mg IV Q8H PRN PRN PRN Reason: NAUSEA/VOMITING Last Admin: 04/13/19 06:24 Dose: 4 mg Documented by: Pantoprazole Sodium (Protonix) 20 mg PO BID [facility] Last Admin: 04/13/19 09:57 Dose: 20 mg Documented by: Senna/Docusate Sodium (Senokot-S, Leslie-Colace) 2 tablet PO BID [facility] Last Admin: 04/13/19 09:57 Dose: 2 tablet Documented by: Sertraline HCl (Zoloft) 100 mg PO QHS [facility] Last Admin: 04/12/19 22:50 Dose: 100 mg Documented by: Sodium Bicarbonate (Sodium Bicarbonate) 1,300 mg PO 4X/DAY [facility] Last Admin: 04/13/19 15:49 Dose: 1,300 mg Documented by: Sodium Chloride () 10 - 40 ml IV UD PRN PRN Reason: SALINE FLUSH Last Admin: 04/13/19 06:25 Dose: 10 ml Documented by: Tamsulosin HCl (Flomax) 0.4 mg PO QHS [facility] Last Admin: 04/12/19 22:51 Dose: 0.4 mg Documented by: Medical Necessity - Tobacco Use Smoking Status: Current every day smoker Tobacco Use: Cigars, Pipe Assessment/Plan All Active Problems Acute blood loss anemia (Acute) Hydronephrosis (Acute) Acute urinary retention (Acute) Hematuria (Acute) JEREMY (acute kidney injury) (Acute) Acute kidney injury secondary to obstructive uropathy Chronic kidney disease stage IV baseline 2.9-4 likely secondary to diabetic nephropathy Multiple renal cysts mostly on the left Metabolic acidosis normal anion gap with renal failure Gross hematuria status post bilateral stent removal Bilateral hydronephrosis status post bilateral stent removal with residual left-sided hydronephrosis?per urology creatinine is stable at 4.0 mg/dL continue urine drain via merino cath Blood pressure is acceptable continue sodium bicarbonate No need for HD Avoid nephrotoxins Further work-up as indicated by clinical course
[2019-04-13 18:36] LABS: Bedside Glucose 164 mg/dL (70-110)
[2019-04-13] MEDS: Ciprofloxacin 400 MG/200 ML BAG 200 MG IV (22:43)
[2019-04-13] MEDS: Sertraline 100 MG Tablet PO (23:03)
[2019-04-13] MEDS: Tamsulosin HCl 0.4 MG Capsule PO (23:04)
[2019-04-13 23:16] LABS: Bedside Glucose 125 mg/dL (70-110)
[2019-04-14] VITALS (15 sets, daily range): BP systolic 137–161; BP diastolic 60–84; PULSE 66–88; RESP 18–19; TEMP 36.7–37.1; O2SAT 95–100
[2019-04-14 06:19] LABS: Absolute Lymphocyte Count 0.91 X10^3/uL (0.83-4.51); Absolute Neutrophil Count 3.9 X10^3/uL (2.0-7.7); Basophil# 0.01 X10^3/uL; Basophil% 0.2 % (0-1); Eosinophil# 0.07 X10^3/uL; Eosinophils% 1.4 % (0-5); Hematocrit 20.4 % (40-54); Hemoglobin 6.5 g/dL (13.0-16.5); Lymphocyte # 0.91 X10^3/ul (4.0); Lymphocyte % 17.6 % (19-41); Mean Corp Hgb Conc 31.9 g/dL (32-36); Mean Corpuscular Volume 87.9 fL (80-94); Mean Platelet Vol. 9.5 fl (6.2-12.0); Monocyte# 0.27 X10^3/uL; Monocyte% 5.2 % (0-10); NRBC Flagged by Analyzer 0 % (0-5); Neutrophil # 3.86 X10^3/uL (2.7-7.7); Neutrophil % 74.4 % (47-70); POSITIVE COUNT YES; Platelet Count 76 K/mm3 (150-450); RBC Distribution Width CV 16.5 % (11.6-14.6); RBC Distribution Width SD 52.5 fl (35.1-43.9); Red Blood Count 2.32 M/mm3 (4.6-6.2); White Blood Count 5.2 K/mm3 (4.4-11.0)
[2019-04-14] MEDS: 0.9% Normal Saline 1,000 ML 100 ML IV ×2 (06:19→22:03)
[2019-04-14 06:40] LABS: Bedside Glucose 79 mg/dL (70-110)
[2019-04-14 06:46] LABS: Differential Indicated SCAN CRITERIA MET
[2019-04-14 06:47] LABS: Anion Gap 7 (5-15); BUN 62 mg/dL (7-18); BUN/Creat Ratio 16.8 RATIO (10-20); Calcium,Total 7.6 mg/dL (8.5-10.1); Chloride 120 mmol/L (98-107); EST Glomerular Filtration Rate 17 mL/min (>60); Est Glom Filt Rate - Afr Amer 21 mL/min (>60); Estimated Creatinine Clearance 18.36 ml/min; Glucose 72 mg/dL (74-106); Potassium 4.1 mmol/L (3.5-5.1); Sodium Level 146 mmol/L (136-145)
[2019-04-14 07:04] LABS: Platelet Estimate MOD DEC (ADEQ)
[2019-04-14 07:05] LABS: Bedside Glucose 76 mg/dL (70-110)
[2019-04-14 07:05] LABS: Bedside Glucose 98 mg/dL (70-110)
[2019-04-14] MEDS: Senna/Docusate Sodium 1 Tablet 2 TABLET PO ×2 (08:49→22:05)
[2019-04-14] MEDS: Pantoprazole Sodium 20 MG Tablet PO ×2 (08:49→22:07)
[2019-04-14] MEDS: Sodium Bicarbonate 650 MG Tablet 1300 MG PO ×4 (08:49→22:05)
--- NOTE | 2019-04-14 10:21 | PCM.PN.HOSP ---
Patient Problems: Active and Suspected Problems Acute blood loss anemia (Acute) Hydronephrosis (Acute) Acute urinary retention (Acute) Hematuria (Acute) Subjective: Patient seen and examined. He continues to have hematuria though he says his urine is starting to clear up. Review of systems otherwise negative. Hemoglobin noted to have fallen to 6.5 today. Labs and vitals reviewed. Vitals/I&O's: Vital Signs Temp Pulse Resp BP Pulse Ox 98.8 F 77 18 142/68 H 97 04/14/19 10:16 04/14/19 10:16 04/14/19 10:16 04/14/19 10:16 04/14/19 10:16 Oxygen Flow Rate (L/min) 1 Oxygen Delivery Method Room Air Weight: 270 lb 8.115 oz Body Mass Index (BMI) 38.2 Finger Stick Blood Glucose 99 Intake and Output for Last 24 Hours 04/12/19 04/13/19 04/14/19 23:59 23:59 23:59 Intake Total 3346.66 / 3346.66 3458.33 / 3578.33 1943.33 / 1943.33 Output Total 2650 / 3600 1650 / 1650 Balance 3346.66 / 3346.66 808.33 / -21.67 293.33 / 293.33 General: Alert, Oriented x3, Cooperative, No apparent distress HEENT: Atraumatic, PERRLA, EOMI, Normocephalic Oral: Moist Mucosa Neck: Supple, No JVD, Negative Carotid Bruits Lungs: Clear to auscultation, Normal air movement, No rhonchi, No wheeze Cardiovascular: Regular rate, Regular Rhythm, Normal S1, Normal S2, No murmurs Abdomen: Bowel Sounds Present, Soft, Non-Distended, No Hepato-splenomegaly; Kang catheter draining blood tinged urine. Extremities: No clubbing, No cyanosis, No edema, Capillary Refill Less than 3 Seconds Skin: No rashes, No breakdown Musculoskeletal: No Tenderness to Palpation of Joints or Extremities Lymphatic: No Cervical, Supraclavicular, or Inguinal Adenopathy Neurological: Cranial nerves II-XII grossly intact Psych/Mental Status: Normal Affect, Appropriate, Alert and oriented to time, place, person, mood and affect Laboratory Results 04/10/19 01:40: Crossmatch See Detail 04/13/19 11:34: POC Glucose 113 H 04/13/19 18:12: POC Glucose 164 H 04/13/19 22:46: POC Glucose 125 H 04/14/19 05:05: WBC 5.2, RBC 2.32 L, Hgb 6.5 L, Hct 20.4 L, MCV 87.9, MCH 28.0, MCHC 31.9 L, RDW Std Deviation 52.5 H, RDW Coeff of Nyasia 16.5 H, Plt Count 76 L, MPV 9.5, Immature Gran % (Auto) 1.200 H, Neut % (Auto) 74.4 H, Lymph % (Auto) 17.6 L, [place] % (Auto) 5.2, Eos % (Auto) 1.4, Baso % (Auto) 0.2, Absolute Neuts (auto) 3.9, Absolute Lymphs (auto) 0.91, Nucleated RBC % 0, Platelet Estimate MOD DEC 04/14/19 05:05: Sodium 146 H, Potassium 4.1, Chloride 120 H, Carbon Dioxide 19.0 L, Anion Gap 7, BUN 62 H, Creatinine 3.70 H, Estim Creat Clear Calc 18.36, Est GFR (MDRD) Af Amer 21 L, Est GFR (MDRD) Non-Af 17 L, BUN/Creatinine Ratio 16.8, Glucose 72 L, Calcium 7.6 L 04/14/19 06:16: POC Glucose 79 04/14/19 06:42: POC Glucose 76 04/14/19 07:02: POC Glucose 98 04/14/19 07:43: Blood Type A POSITIVE, Antibody Screen NEGATIVE, Crossmatch See Detail Current Medications Acetaminophen (Tylenol) 650 mg PO Q6H PRN PRN PRN Reason: Non-cardiac pain (4-10/10) Last Admin: 04/13/19 06:05 Dose: 650 mg Documented by: Hydrocodone Bitart/Acetaminophen ([place] 5mg-325mg) 1 - 2 tablet PO Q4H PRN PRN PRN Reason: Pain Score 4-10/10 Al Hydroxide/Mg Hydroxide (Mylanta Ii) 15 - 30 ml PO Q4H PRN PRN PRN Reason: INDIGESTION Albuterol Sulfate (Ventolin Aerosols) 2.5 mg INHALATION Q2H PRN PRN PRN Reason: dyspnea, wheezing Dextrose (D50w Syringe) 0 gm IV X1 PRN; Protocol PRN Reason: Hypoglycemia Glucagon () 1 mg IM .X1 PRN PRN Reason: Hypoglycemia Hydralazine HCl (Apresoline Iv) 10 mg IV Q4H PRN PRN PRN Reason: SBP > 160 Last Admin: 04/12/19 22:54 Dose: 10 mg Documented by: Sodium Chloride () 1,000 mls @ 100 mls/hr IV .Q10H [facility] Last Infusion: 04/14/19 10:09 Dose: 0 mls/hr Documented by: Ciprofloxacin (Cipro) 400 mg in 200 mls @ 200 mls/hr IV Q24@2200 [facility] Last Infusion: 04/14/19 00:07 Dose: Infused Documented by: Sodium Chloride () 250 mls @ 15 mls/hr IV .[id number] PRN PRN Reason: Saline Flush Insulin Glargine (Lantus ([facility])) 38 units SC QHS [facility] Last Admin: 04/13/19 22:51 Dose: 10 units Documented by: Insulin Human Lispro (Humalog Kwikpen ([facility])) 0 unit SC ACHS [facility]; Protocol Last Admin: 04/14/19 06:21 Dose: Not Given Documented by: Magnesium Hydroxide (Milk Of Magnesia) 30 ml PO DAILY PRN PRN Reason: Constipation Melatonin (Melatonin) 3 mg PO QHS PRN PRN PRN Reason: INSOMNIA Morphine Sulfate () 1 - 2 mg IV Q4H PRN PRN PRN Reason: Pain Score 1-10/10 Nitroglycerin (Nitrostat) 0.4 mg SUBLINGUAL Q5M PRN PRN Reason: CARDIAC/CHEST PAIN Ondansetron HCl (Zofran) 4 mg IV Q8H PRN PRN PRN Reason: NAUSEA/VOMITING Last Admin: 04/13/19 06:24 Dose: 4 mg Documented by: Pantoprazole Sodium (Protonix) 20 mg PO BID [facility] Last Admin: 04/14/19 08:49 Dose: 20 mg Documented by: Senna/Docusate Sodium (Senokot-S, Leslie-Colace) 2 tablet PO BID [facility] Last Admin: 04/14/19 08:49 Dose: 2 tablet Documented by: Sertraline HCl (Zoloft) 100 mg PO QHS [facility] Last Admin: 04/13/19 23:03 Dose: 100 mg Documented by: Sodium Bicarbonate (Sodium Bicarbonate) 1,300 mg PO 4X/DAY [facility] Last Admin: 04/14/19 08:49 Dose: 1,300 mg Documented by: Sodium Chloride () 10 - 40 ml IV UD PRN PRN Reason: SALINE FLUSH Last Admin: 04/13/19 06:25 Dose: 10 ml Documented by: Tamsulosin HCl (Flomax) 0.4 mg PO QHS [facility] Last Admin: 04/13/19 23:04 Dose: 0.4 mg Documented by: STROKE Vital Signs/Narrative: Vital Signs Temp Pulse Resp BP Pulse Ox 04/14/19 10:16 98.8 F 77 18 142/68 H 97 04/14/19 08:41 98.4 F 74 18 152/80 H 100 04/14/19 08:06 95 Medical Necessity - Tobacco Use Smoking Status: Current every day smoker Tobacco Use: Cigars, Pipe Assessment/Plan All Active Problems Acute blood loss anemia (Acute) Hydronephrosis (Acute) Acute urinary retention (Acute) Hematuria (Acute) JEREMY (acute kidney injury) (Acute) 1. Gross hematuria is s/p cystoscopy with bilateral ureteral stent removal. today is POD 4 started having hematuria again one day ago; on IV ciprofloxacin urology on board per urology, to flush catheter every 2 hours with 50cc of sterile water until urine clears. recommended he go home with a catheter for retention. 2. Acute on chronic anemia due to acute blood loss from hematuria Hb today is 6.5. is s/p transfusion of 4 units of PRBCs. will transfuse 2 units of PRBCs monitor H&H 3. JEREMY on CKD 3 Cr is down to 3.7 today, with baseline of ~ 2.95 nephrology on board: renal USG showed left kidney enlarged and largely replaced with cysts; moderate left hydronephrosis and moderate right renal atrophy per nephrology, want to do further urine workup once urine clears.; 4. Non anion gap metabolic acidosis: bicarb is up to 19 today, with anion gap of 7. on sodium bicarbonate nephrology on board 5. History of prostate cancer: s/p radiation therapy. urology on board 6. thrombocytopenia: is chronic. stable. platelets today-76. will continue monitoring. 7. BPH: on flomax 8. Hypothyroidism: on synthroid 9. MEGAN: on CPAP qhs 10. Anxiety and depression: On Zoloft. 11. Diabetes mellitus: On insulin 38IU qhs. Insulin sliding scale. Accu-Cheks before meals at bedtime. DVT prophylaxis: SCDs. Code Visit Inpatient E&M: 87719 Subs Hosp L3
[2019-04-14] MEDS: Insulin Lispro 100 UNIT/ML INSULN.PEN SC ×3 (11:30→22:07)
[2019-04-14 11:40] LABS: Bedside Glucose 162 mg/dL (70-110)
[2019-04-14 17:16] LABS: Bedside Glucose 170 mg/dL (70-110)
[2019-04-14] MEDS: Ciprofloxacin 400 MG/200 ML BAG 200 MG IV (22:03)
[2019-04-14] MEDS: Tamsulosin HCl 0.4 MG Capsule PO (22:05)
[2019-04-14] MEDS: Sertraline 100 MG Tablet PO (22:20)
[2019-04-15] VITALS (8 sets, daily range): BP systolic 117–148; BP diastolic 62–90; PULSE 64–75; RESP 12–18; TEMP 36.4–37.2; O2SAT 96–98
[2019-04-15 00:21] LABS: Bedside Glucose 245 mg/dL (70-110)
[2019-04-15 02:36] LABS: Bedside Glucose 152 mg/dL (70-110)
[2019-04-15 05:48] LABS: Absolute Lymphocyte Count 0.96 X10^3/uL (0.83-4.51); Absolute Neutrophil Count 4.1 X10^3/uL (2.0-7.7); Basophil# 0.01 X10^3/uL; Basophil% 0.2 % (0-1); Eosinophil# 0.06 X10^3/uL; Eosinophils% 1.1 % (0-5); Hematocrit 22.5 % (40-54); Hemoglobin 7.2 g/dL (13.0-16.5); Lymphocyte # 0.96 X10^3/ul (4.0); Lymphocyte % 17.6 % (19-41); Mean Corpuscular Hgb 28.2 pg (27.0-32.0); Mean Corpuscular Volume 88.2 fL (80-94); Mean Platelet Vol. 9.6 fl (6.2-12.0); Monocyte# 0.34 X10^3/uL; Monocyte% 6.2 % (0-10); NRBC Flagged by Analyzer 0 % (0-5); Neutrophil # 4.05 X10^3/uL (2.7-7.7); POSITIVE COUNT YES; Platelet Count 79 K/mm3 (150-450); RBC Distribution Width CV 16.1 % (11.6-14.6); RBC Distribution Width SD 51.9 fl (35.1-43.9); Red Blood Count 2.55 M/mm3 (4.6-6.2); White Blood Count 5.5 K/mm3 (4.4-11.0)
[2019-04-15 06:18] LABS: Anion Gap 8 (5-15); BUN 61 mg/dL (7-18); BUN/Creat Ratio 17.6 RATIO (10-20); Calcium,Total 7.6 mg/dL (8.5-10.1); Chloride 117 mmol/L (98-107); Creatinine, Serum 3.47 mg/dL (0.70-1.30); EST Glomerular Filtration Rate 19 mL/min (>60); Est Glom Filt Rate - Afr Amer 22 mL/min (>60); Estimated Creatinine Clearance 19.58 ml/min; Glucose 122 mg/dL (74-106); Potassium 4.1 mmol/L (3.5-5.1); Sodium Level 145 mmol/L (136-145)
[2019-04-15 06:50] LABS: Bedside Glucose 133 mg/dL (70-110)
[2019-04-15] MEDS: Pantoprazole Sodium 20 MG Tablet PO ×2 (07:42→22:32)
[2019-04-15] MEDS: Sodium Bicarbonate 650 MG Tablet 1300 MG PO ×4 (07:43→22:28)
[2019-04-15] MEDS: 0.9% Normal Saline 1,000 ML 100 ML IV ×2 (07:44→17:18)
--- NOTE | 2019-04-15 10:48 | PCM.PN.HOSP ---
Patient Problems: Active and Suspected Problems Acute blood loss anemia (Acute) Hydronephrosis (Acute) Acute urinary retention (Acute) Hematuria (Acute) Reason for Visit: Feeling much better today, no issues overnight Vitals/I&O's: Vital Signs Temp Pulse Resp BP Pulse Ox 97.8 F 66 14 142/63 H 97 04/15/19 07:56 04/15/19 07:56 04/15/19 07:59 04/15/19 07:56 04/15/19 07:59 Oxygen Flow Rate (L/min) 1 Oxygen Delivery Method Room Air Weight: 270 lb 8.115 oz Body Mass Index (BMI) 38.2 Finger Stick Blood Glucose 99 Intake and Output for Last 24 Hours 04/13/19 04/14/19 04/15/19 23:59 23:59 23:59 Intake Total 3458.33 / 3578.33 4761.67 / 5261.67 1868.33 / 1868.33 Output Total 2650 / 3600 3150 / 4000 2150 / 2150 Balance 808.33 / -21.67 1611.67 / 1261.67 -281.67 / -281.67 General: Alert, Oriented x3, Cooperative, No apparent distress HEENT: Atraumatic, PERRLA, EOMI, Normocephalic Oral: Moist Mucosa Neck: Supple, No JVD Lungs: Clear to auscultation, Normal air movement, No rhonchi, No wheeze, No rales, Diminished Cardiovascular: Regular rate, Regular Rhythm, Normal S1, Normal S2, No murmurs Abdomen: Soft, Non Tender, Non-Distended, No Hepato-splenomegaly, Obese, - - Kang in place Extremities: No edema, Capillary Refill Less than 3 Seconds Skin: No rashes, No breakdown Neurological: Neuro grossly intact, Sensory exam intact to light touch and pain Psych/Mental Status: Normal Affect, Appropriate Laboratory Results 04/14/19 07:43: Blood Type A POSITIVE, Antibody Screen NEGATIVE, Crossmatch See Detail 04/14/19 11:28: POC Glucose 162 H 04/14/19 17:06: POC Glucose 170 H 04/14/19 21:11: POC Glucose 245 H 04/15/19 02:27: POC Glucose 152 H 04/15/19 04:58: WBC 5.5, RBC 2.55 L, Hgb 7.2 L, Hct 22.5 L, MCV 88.2, MCH 28.2, MCHC 32.0, RDW Std Deviation 51.9 H, RDW Coeff of Nyasia 16.1 H, Plt Count 79 L, MPV 9.6, Immature Gran % (Auto) 0.900, Neut % (Auto) 74.0 H, Lymph % (Auto) 17.6 L, [place] % (Auto) 6.2, Eos % (Auto) 1.1, Baso % (Auto) 0.2, Absolute Neuts (auto) 4.1, Absolute Lymphs (auto) 0.96, Nucleated RBC % 0 04/15/19 04:58: Sodium 145, Potassium 4.1, Chloride 117 H, Carbon Dioxide 20.0 L, Anion Gap 8, BUN 61 H, Creatinine 3.47 H, Estim Creat Clear Calc 19.58, Est GFR (MDRD) Af Amer 22 L, Est GFR (MDRD) Non-Af 19 L, BUN/Creatinine Ratio 17.6, Glucose 122 H, Calcium 7.6 L 04/15/19 06:46: POC Glucose 133 H Current Medications Acetaminophen (Tylenol) 650 mg PO Q6H PRN PRN PRN Reason: Non-cardiac pain (4-10/10) Last Admin: 04/13/19 06:05 Dose: 650 mg Documented by: Hydrocodone Bitart/Acetaminophen ([place] 5mg-325mg) 1 - 2 tablet PO Q4H PRN PRN PRN Reason: Pain Score 4-10/10 Al Hydroxide/Mg Hydroxide (Mylanta Ii) 15 - 30 ml PO Q4H PRN PRN PRN Reason: INDIGESTION Albuterol Sulfate (Ventolin Aerosols) 2.5 mg INHALATION Q2H PRN PRN PRN Reason: dyspnea, wheezing Dextrose (D50w Syringe) 0 gm IV X1 PRN; Protocol PRN Reason: Hypoglycemia Glucagon () 1 mg IM .X1 PRN PRN Reason: Hypoglycemia Hydralazine HCl (Apresoline Iv) 10 mg IV Q4H PRN PRN PRN Reason: SBP > 160 Last Admin: 04/12/19 22:54 Dose: 10 mg Documented by: Sodium Chloride () 1,000 mls @ 100 mls/hr IV .Q10H [facility] Last Admin: 04/15/19 07:44 Dose: 100 mls/hr Documented by: Ciprofloxacin (Cipro) 400 mg in 200 mls @ 200 mls/hr IV Q24@2200 [facility] Last Infusion: 04/14/19 23:03 Dose: Infused Documented by: Sodium Chloride () 250 mls @ 15 mls/hr IV .[id number] PRN PRN Reason: Saline Flush Insulin Glargine (Lantus ([facility])) 38 units SC QHS [facility] Last Admin: 04/14/19 22:06 Dose: 38 units Documented by: Insulin Human Lispro (Humalog Kwikpen ([facility])) 0 unit SC ACHS [facility]; Protocol Last Admin: 04/15/19 06:57 Dose: Not Given Documented by: Magnesium Hydroxide (Milk Of Magnesia) 30 ml PO DAILY PRN PRN Reason: Constipation Melatonin (Melatonin) 3 mg PO QHS PRN PRN PRN Reason: INSOMNIA Morphine Sulfate () 1 - 2 mg IV Q4H PRN PRN PRN Reason: Pain Score 1-10/10 Nitroglycerin (Nitrostat) 0.4 mg SUBLINGUAL Q5M PRN PRN Reason: CARDIAC/CHEST PAIN Ondansetron HCl (Zofran) 4 mg IV Q8H PRN PRN PRN Reason: NAUSEA/VOMITING Last Admin: 04/13/19 06:24 Dose: 4 mg Documented by: Pantoprazole Sodium (Protonix) 20 mg PO BID [facility] Last Admin: 04/15/19 07:42 Dose: 20 mg Documented by: Senna/Docusate Sodium (Senokot-S, Leslie-Colace) 2 tablet PO BID [facility] Last Admin: 04/15/19 07:43 Dose: Not Given Documented by: Sertraline HCl (Zoloft) 100 mg PO QHS [facility] Last Admin: 04/14/19 22:20 Dose: 100 mg Documented by: Sodium Bicarbonate (Sodium Bicarbonate) 1,300 mg PO 4X/DAY [facility] Last Admin: 04/15/19 07:43 Dose: 1,300 mg Documented by: Sodium Chloride () 10 - 40 ml IV UD PRN PRN Reason: SALINE FLUSH Last Admin: 04/13/19 06:25 Dose: 10 ml Documented by: Tamsulosin HCl (Flomax) 0.4 mg PO QHS [facility] Last Admin: 04/14/19 22:05 Dose: 0.4 mg Documented by: STROKE Vital Signs/Narrative: Vital Signs Temp Pulse Resp BP Pulse Ox 04/15/19 07:59 14 97 04/15/19 07:56 97.8 F 66 14 142/63 H 97 04/15/19 07:07 96 Medical Necessity - Tobacco Use Smoking Status: Current every day smoker Tobacco Use: Cigars, Pipe Assessment/Plan All Active Problems Acute blood loss anemia (Acute) Hydronephrosis (Acute) Acute urinary retention (Acute) Hematuria (Acute) JEREMY (acute kidney injury) (Acute) 1. Acute on chronic anemia due to acute blood loss from gross hematuria/JEREMY on CKD 3/non-anion gap metabolic acidosis/history of prostate cancer/thrombocytopenia/BPH -Status post 6 units of packed red blood cell transfusions, had 2 units transfused yesterday when his hemoglobin was 6.5 and today at 7.2 -We will recheck in the morning and will likely need to transfuse again, hopefully urology would be able to repeat a cystoscopy and cauterize any bleeding as he cannot go home as he continues to have hematuria -His creatinine has been all over the place and is difficult to say what his baseline is, however during his admission he peaked at 4.70 and today he is 3.47 -His bicarb is increasing to 20, his metabolic acidosis is resolving, appreciate nephrology assistance -Platelets are stable in the 70-80 range -Continue with Flomax while he has his Kang in place which continues to drain blood-tinged urine 3. Hypothyroidism -Stable -Continue with home medications 4. MEGAN -Stable -Continue with CPAP nightly 5. DM 2 -Continue with sliding scale insulin, and Accu-Cheks AC at bedtime -Continue with home insulin regimen, will monitor and make adjustments 6. Anxiety/depression -Stable -Continue with Zoloft DVT: SCDs Code Visit Inpatient E&M: 78788 Subs Hosp L2
--- NOTE | 2019-04-15 10:51 | PCM.PN.REN ---
Patient Problems: Active and Suspected Problems Acute blood loss anemia (Acute) Hydronephrosis (Acute) Acute urinary retention (Acute) Hematuria (Acute) Subjective: Good UO 1.8 L Creatinine 3.5 mild suprapubic discomfort - Physical Exam Vitals/I&O's: Vital Signs Temp Pulse Resp BP Pulse Ox 97.8 F 66 14 142/63 H 97 04/15/19 07:56 04/15/19 07:56 04/15/19 07:59 04/15/19 07:56 04/15/19 07:59 Oxygen Flow Rate (L/min) 1 Oxygen Delivery Method Room Air Weight: 122.7 kg Body Mass Index (BMI) 38.2 Finger Stick Blood Glucose 99 Intake and Output for Last 24 Hours 04/13/19 04/14/19 04/15/19 23:59 23:59 23:59 Intake Total 3458.33 / 3578.33 4761.67 / 5261.67 1868.33 / 1868.33 Output Total 2650 / 3600 3150 / 4000 2150 / 2150 Balance 808.33 / -21.67 1611.67 / 1261.67 -281.67 / -281.67 General: Alert, Oriented x3, Cooperative Lungs: Clear to auscultation, Normal air movement Cardiovascular: Regular rate, No murmurs Abdomen: Distended Extremities: No clubbing Laboratory Results 04/14/19 07:43: Blood Type A POSITIVE, Antibody Screen NEGATIVE, Crossmatch See Detail 04/14/19 11:28: POC Glucose 162 H 04/14/19 17:06: POC Glucose 170 H 04/14/19 21:11: POC Glucose 245 H 04/15/19 02:27: POC Glucose 152 H 04/15/19 04:58: WBC 5.5, RBC 2.55 L, Hgb 7.2 L, Hct 22.5 L, MCV 88.2, MCH 28.2, MCHC 32.0, RDW Std Deviation 51.9 H, RDW Coeff of Nyasia 16.1 H, Plt Count 79 L, MPV 9.6, Immature Gran % (Auto) 0.900, Neut % (Auto) 74.0 H, Lymph % (Auto) 17.6 L, [place] % (Auto) 6.2, Eos % (Auto) 1.1, Baso % (Auto) 0.2, Absolute Neuts (auto) 4.1, Absolute Lymphs (auto) 0.96, Nucleated RBC % 0 04/15/19 04:58: Sodium 145, Potassium 4.1, Chloride 117 H, Carbon Dioxide 20.0 L, Anion Gap 8, BUN 61 H, Creatinine 3.47 H, Estim Creat Clear Calc 19.58, Est GFR (MDRD) Af Amer 22 L, Est GFR (MDRD) Non-Af 19 L, BUN/Creatinine Ratio 17.6, Glucose 122 H, Calcium 7.6 L 04/15/19 06:46: POC Glucose 133 H Current Medications Acetaminophen (Tylenol) 650 mg PO Q6H PRN PRN PRN Reason: Non-cardiac pain (4-1010) Last Admin: 04/13/19 06:05 Dose: 650 mg Documented by: Hydrocodone Bitart/Acetaminophen ([place] 5mg-325mg) 1 - 2 tablet PO Q4H PRN PRN PRN Reason: Pain Score 4-10/10 Al Hydroxide/Mg Hydroxide (Mylanta Ii) 15 - 30 ml PO Q4H PRN PRN PRN Reason: INDIGESTION Albuterol Sulfate (Ventolin Aerosols) 2.5 mg INHALATION Q2H PRN PRN PRN Reason: dyspnea, wheezing Dextrose (D50w Syringe) 0 gm IV X1 PRN; Protocol PRN Reason: Hypoglycemia Glucagon () 1 mg IM .X1 PRN PRN Reason: Hypoglycemia Hydralazine HCl (Apresoline Iv) 10 mg IV Q4H PRN PRN PRN Reason: SBP > 160 Last Admin: 04/12/19 22:54 Dose: 10 mg Documented by: Sodium Chloride () 1,000 mls @ 100 mls/hr IV .Q10H [facility] Last Admin: 04/15/19 07:44 Dose: 100 mls/hr Documented by: Ciprofloxacin (Cipro) 400 mg in 200 mls @ 200 mls/hr IV Q24@2200 [facility] Last Infusion: 04/14/19 23:03 Dose: Infused Documented by: Sodium Chloride () 250 mls @ 15 mls/hr IV .[id number] PRN PRN Reason: Saline Flush Insulin Glargine (Lantus ([facility])) 38 units SC QHS [facility] Last Admin: 04/14/19 22:06 Dose: 38 units Documented by: Insulin Human Lispro (Humalog Kwikpen (Bkc)) 0 unit SC [facility]; Protocol Last Admin: 04/15/19 06:57 Dose: Not Given Documented by: Magnesium Hydroxide (Milk Of Magnesia) 30 ml PO DAILY PRN PRN Reason: Constipation Melatonin (Melatonin) 3 mg PO QHS PRN PRN PRN Reason: INSOMNIA Morphine Sulfate () 1 - 2 mg IV Q4H PRN PRN PRN Reason: Pain Score 1-10/10 Nitroglycerin (Nitrostat) 0.4 mg SUBLINGUAL Q5M PRN PRN Reason: CARDIAC/CHEST PAIN Ondansetron HCl (Zofran) 4 mg IV Q8H PRN PRN PRN Reason: NAUSEA/VOMITING Last Admin: 04/13/19 06:24 Dose: 4 mg Documented by: Pantoprazole Sodium (Protonix) 20 mg PO BID [facility] Last Admin: 04/15/19 07:42 Dose: 20 mg Documented by: Senna/Docusate Sodium (Senokot-S, Leslie-Colace) 2 tablet PO BID [facility] Last Admin: 04/15/19 07:43 Dose: Not Given Documented by: Sertraline HCl (Zoloft) 100 mg PO QHS [facility] Last Admin: 04/14/19 22:20 Dose: 100 mg Documented by: Sodium Bicarbonate (Sodium Bicarbonate) 1,300 mg PO 4X/DAY [facility] Last Admin: 04/15/19 07:43 Dose: 1,300 mg Documented by: Sodium Chloride () 10 - 40 ml IV UD PRN PRN Reason: SALINE FLUSH Last Admin: 04/13/19 06:25 Dose: 10 ml Documented by: Tamsulosin HCl (Flomax) 0.4 mg PO QHS [facility] Last Admin: 04/14/19 22:05 Dose: 0.4 mg Documented by: Medical Necessity - Tobacco Use Smoking Status: Current every day smoker Tobacco Use: Cigars, Pipe Assessment/Plan All Active Problems Acute blood loss anemia (Acute) Hydronephrosis (Acute) Acute urinary retention (Acute) Hematuria (Acute) JEREMY (acute kidney injury) (Acute) Acute kidney injury secondary to obstructive uropathy Chronic kidney disease stage IV baseline 2.9-4 likely secondary to diabetic nephropathy Multiple renal cysts mostly on the left Metabolic acidosis normal anion gap with renal failure on bicarb Gross hematuria status post bilateral stent removal Bilateral hydronephrosis status post bilateral stent removal with residual left-sided hydronephrosis?per urology creatinine is stable at 3.4 mg/dL continue urine drain via merino cath Blood pressure is acceptable continue sodium bicarbonate No need for HD Avoid nephrotoxins Further work-up as indicated by clinical course
[2019-04-15 10:55] LABS: Bedside Glucose 152 mg/dL (70-110)
[2019-04-15] MEDS: Insulin Lispro 100 UNIT/ML INSULN.PEN SC ×2 (12:16→22:29)
--- NOTE | 2019-04-15 13:08 | NURSING ---
LATE ENTRY - 1145 - GOMEZ NOT DRAINING. RED DRAINAGE NOTED AROUND CATHETER INSERTION SITE THOUGH. ATTEMPTED REPOSITIONING PT & TUBING, ATTEMPTED TO IRRIGATE X2 RNS. DR DEAL NOTIFIED BY CHARGE NURSE, ALEXA & RECEIVED NEW ORDER TO REPLACE CURRENT OGMEZ W/22FR GOMEZ.
--- NOTE | 2019-04-15 13:31 | NURSING ---
PT C/O AGAIN OF LOWER ABD DISCOMFORT, PRESSURE. CATHETER MANUALLY IRRIGATED FOR MULTIPLE SMALL CLOTS. GOMEZ BEGAN TO DRAIN & PT VOICED RELIEF.
[2019-04-15 16:16] LABS: Bedside Glucose 140 mg/dL (70-110)
--- NOTE | 2019-04-15 17:49 | PCM.CONS.B ---
Problem List (1) CKD (chronic kidney disease), stage IV Status: Chronic - Consult Date of Consult: 04/15/19 - Reason for Consult 73-year-old male who has been in the hospital quite some time now he started bleeding again we have changed catheter to a larger size of 22 Sinhala catheter and the nurses of manually irrigating is still getting clots so we will make him n.p.o. at midnight tonight and tomorrow taken to surgery again for cystoscopy evacuation of blood clots cauterization of the bladder will get a biopsy see with because of the source of the bleeding. Of note his creatinine is gotten better and we have removed his stents bilaterally but the bleeding is come back so we will get some biopsy of the bladder to see if he has any carcinoma.. Patient is agreeable with plan and will do this tomorrow at lunch or after hours.
[2019-04-15] MEDS: Tamsulosin HCl 0.4 MG Capsule PO (22:29)
[2019-04-15] MEDS: Sertraline 100 MG Tablet PO (22:32)
[2019-04-15] MEDS: Ciprofloxacin 400 MG/200 ML BAG 200 MG IV (22:39)
[2019-04-15] MEDS: Nystatin Powder 15gm Bottle 1 APPLIC TOPICAL (22:40)
[2019-04-15 22:55] LABS: Bedside Glucose 192 mg/dL (70-110)
[2019-04-16] VITALS (21 sets, daily range): BP systolic 138–171; BP diastolic 51–84; PULSE 58–85; RESP 12–21; TEMP 36.4–37.2; O2SAT 95–100
--- NOTE | 2019-04-16 | BLA_PTH ---
PATIENT: TEMITOPE SHANNON LOC: MS3 U#:[id number] AGE/SX: 73/M ROOM: [facility] [place] RE04/10/[address]: Dr. Connor Yo MD : [id number] BED: 1 DIS: 04/17/2019 SPEC #: [id number] RECD: 04/16/19 15:20 STATUS: KYLIE DUMONT #: [id number] VERITO: 04/16/19 00:[address]: Manny Singh DEPT: SURGICAL PATHOLOGY RECD BY: Cheryl Phelps ENTERED: 04/17/19 09:43 SP TYPE: BLADDER BX OTHR DR: MD Dr. Birgit Grady MD Dr. Nicholas F Kotsonis, MD [facility] Tissues: A - Urinary bladder, NOS B - Urinary bladder, NOS Procedures: Surgery Specimen Level IV Comments: @ Ordering doctor for SUIV edited from to @ by HARRIETT at 04/17/19 0943 @ Submitting doctor edited from to @ by HARRIETT at 04/17/19 0943 HEADER OPERATION: Cystoscopy, bilateral stent removal, bilateral retrograde PRE-OP DIAGNOSIS: Gross hematuria, bilateral hydronephrosis, retained stents TISSUE SUBMITTED: A. Posterior bladder, B. Dome of bladder MICROSCOPIC DIAGNOSIS A. Posterior bladder, biopsy: A fragment of urothelial mucosa with squamous metaplasia, mild epithelial atypia, favor reactive, acute and chronic inflammation and granulation tissue reaction. Negative for malignancy. B. Dome of bladder, biopsy: A fragment of urothelial mucosa with acute and chronic inflammation. Negative for malignancy. IVA:jong 04/19/19 MICROSCOPIC DESCRIPTION Slides are reviewed. GROSS DESCRIPTION A - Received in fixative is one container labeled with the patient's name and designated posterior bladder. The specimen consists of a piece of vaughan-pink soft tissue measuring 0.3 x 0.3 x 0.1 cm. The specimen is totally submitted in one cassette. B - Received in fixative is one container labeled with the patient's name and designated dome of bladder. The specimen consists of one irregular fragment of light vaughan soft tissue that measures 0.2 x 0.1 x 0.1 cm. The specimen is totally submitted in one cassette. / IVA:jong 04/17/19 TC:2 CPT: 56311 x 2
[2019-04-16] MEDS: 0.9% Normal Saline 1,000 ML 100 ML IV ×2 (03:35→20:33)
--- NOTE | 2019-04-16 05:55 | EKG12_ITS ---
Test Reason : PRE-OP Blood Pressure : / mmHG Vent. Rate : 066 BPM Atrial Rate : 066 BPM P-R Int : 174 ms QRS Dur : 090 ms QT Int : 452 ms P-R-T Axes : 034 057 077 degrees QTc Int : 473 ms Normal sinus rhythm Normal ECG When compared with ECG of 13-MAY-2018 17:29, Premature ventricular complexes are no longer Present Confirmed by GUSTAVO DANIELS ([id number]), medical transcription editor CRYSTAL LAZO ([id number]) on 04/19/2019 11:51:28 AM Referred By: DR HILL Confirmed By:GUSTAVO DANIELS
[2019-04-16 06:03] LABS: Absolute Neutrophil Count 3.7 X10^3/uL (2.0-7.7); Basophil# 0.01 X10^3/uL; Basophil% 0.2 % (0-1); Eosinophil# 0.06 X10^3/uL; Eosinophils% 1.2 % (0-5); Hematocrit 21.2 % (40-54); Hemoglobin 6.8 g/dL (13.0-16.5); Lymphocyte % 18.2 % (19-41); Mean Corp Hgb Conc 32.1 g/dL (32-36); Mean Corpuscular Hgb 28.1 pg (27.0-32.0); Mean Corpuscular Volume 87.6 fL (80-94); Mean Platelet Vol. 9.9 fl (6.2-12.0); Monocyte# 0.27 X10^3/uL; Monocyte% 5.5 % (0-10); NRBC Flagged by Analyzer 0 % (0-5); Neutrophil # 3.66 X10^3/uL (2.7-7.7); Neutrophil % 74.1 % (47-70); POSITIVE COUNT YES; Platelet Count 83 K/mm3 (150-450); RBC Distribution Width CV 15.9 % (11.6-14.6); RBC Distribution Width SD 51.4 fl (35.1-43.9); Red Blood Count 2.42 M/mm3 (4.6-6.2); White Blood Count 4.9 K/mm3 (4.4-11.0)
[2019-04-16 06:12] LABS: International Normalized Ratio 1.2; Prothrombin Time (Protime)PT. 15.2 SECONDS (11.7-14.9)
[2019-04-16 06:13] LABS: Partial Thromboplast Time 36.8 Seconds (24.1-36.2)
[2019-04-16 06:31] LABS: Anion Gap 7 (5-15); BUN 58 mg/dL (7-18); BUN/Creat Ratio 19.2 RATIO (10-20); Calcium,Total 7.5 mg/dL (8.5-10.1); Chloride 119 mmol/L (98-107); Creatinine, Serum 3.02 mg/dL (0.70-1.30); EST Glomerular Filtration Rate 22 mL/min (>60); Est Glom Filt Rate - Afr Amer 26 mL/min (>60); Estimated Creatinine Clearance 22.49 ml/min; Glucose 142 mg/dL (74-106); Potassium 4.1 mmol/L (3.5-5.1); Sodium Level 146 mmol/L (136-145)
[2019-04-16 06:59] LABS: Thyroid Stim Hormone (TSH) 4.62 uIU/mL (0.358-3.74)
[2019-04-16 07:15] LABS: Bedside Glucose 122 mg/dL (70-110)
--- NOTE | 2019-04-16 07:27 | PN_ITS ---
Patient Problems: Active and Suspected Problems Acute blood loss anemia (Acute) Hydronephrosis (Acute) Acute urinary retention (Acute) Hematuria (Acute) Subjective: Doing well, had to have a larger merino placed because of continued clots Vitals/I&O's: Vital Signs Temp Pulse Resp BP Pulse Ox 98.5 F 66 16 156/64 H 96 04/16/19 03:51 04/16/19 05:35 04/16/19 05:35 04/16/19 03:51 04/16/19 05:35 Oxygen Flow Rate (L/min) 1 Oxygen Delivery Method CPAP Weight: 270 lb 8.115 oz Body Mass Index (BMI) 38.2 Finger Stick Blood Glucose 99 Intake and Output for Last 24 Hours 04/14/19 04/15/19 04/16/19 23:59 23:59 23:59 Intake Total 4761.67 / 5261.67 5697.00 / 5697.00 393.33 / 393.33 Output Total 3150 / 4000 5000 / 5000 1030 / 1030 Balance 1611.67 / 1261.67 697.00 / 697.00 -636.67 / -636.67 General: Alert, Oriented x3, Cooperative, No apparent distress HEENT: Atraumatic, PERRLA, EOMI, Normocephalic Oral: Moist Mucosa Neck: Supple, No JVD Lungs: Clear to auscultation, Normal air movement, No rhonchi, No wheeze, No rales, Diminished Cardiovascular: Regular rate, Regular Rhythm, Normal S1, Normal S2, No murmurs Abdomen: Soft, Non Tender, Non-Distended, No Hepato-splenomegaly, Obese, - - Merino in place Extremities: No edema, Capillary Refill Less than 3 Seconds Skin: No rashes, No breakdown Neurological: Neuro grossly intact, Sensory exam intact to light touch and pain Psych/Mental Status: Normal Affect, Appropriate Laboratory Results 04/15/19 10:50: POC Glucose 152 H 04/15/19 16:08: POC Glucose 140 H 04/15/19 22:18: POC Glucose 192 H 04/16/19 05:40: WBC 4.9, RBC 2.42 L, Hgb 6.8 L, Hct 21.2 L, MCV 87.6, MCH 28.1, MCHC 32.1, RDW Std Deviation 51.4 H, RDW Coeff of Nyasia 15.9 H, Plt Count 83 L, MPV 9.9, Immature Gran % (Auto) 0.800, Neut % (Auto) 74.1 H, Lymph % (Auto) 18.2 L, [place] % (Auto) 5.5, Eos % (Auto) 1.2, Baso % (Auto) 0.2, Absolute Neuts (auto) 3.7, Absolute Lymphs (auto) 0.90, Nucleated RBC % 0 04/16/19 05:40: Sodium 146 H, Potassium 4.1, Chloride 119 H, Carbon Dioxide 20.0 L, Anion Gap 7, BUN 58 H, Creatinine 3.02 H, Estim Creat Clear Calc 22.49, Est GFR (MDRD) Af Amer 26 L, Est GFR (MDRD) Non-Af 22 L, BUN/Creatinine Ratio 19.2, Glucose 142 H, Calcium 7.5 L 04/16/19 05:40: PT 15.2 H, INR 1.2, APTT 36.8 H 04/16/19 05:40: TSH 4.62 H 04/16/19 05:40: Hemoglobin A1c Pending 04/16/19 06:51: POC Glucose 122 H Current Medications Acetaminophen (Tylenol) 650 mg PO Q6H PRN PRN PRN Reason: Non-cardiac pain (4-10/10) Last Admin: 04/13/19 06:05 Dose: 650 mg Documented by: Hydrocodone Bitart/Acetaminophen ([place] 5mg-325mg) 1 - 2 tablet PO Q4H PRN PRN PRN Reason: Pain Score 4-10/10 Al Hydroxide/Mg Hydroxide (Mylanta Ii) 15 - 30 ml PO Q4H PRN PRN PRN Reason: INDIGESTION Albuterol Sulfate (Ventolin Aerosols) 2.5 mg INHALATION Q2H PRN PRN PRN Reason: dyspnea, wheezing Dextrose (D50w Syringe) 0 gm IV X1 PRN; Protocol PRN Reason: Hypoglycemia Glucagon () 1 mg IM .X1 PRN PRN Reason: Hypoglycemia Hydralazine HCl (Apresoline Iv) 10 mg IV Q4H PRN PRN PRN Reason: SBP > 160 Last Admin: 04/12/19 22:54 Dose: 10 mg Documented by: Sodium Chloride () 1,000 mls @ 100 mls/hr IV .Q10H [facility] Last Admin: 04/16/19 03:35 Dose: 100 mls/hr Documented by: Ciprofloxacin (Cipro) 400 mg in 200 mls @ 200 mls/hr IV Q24@2200 [facility] Last Infusion: 04/15/19 23:39 Dose: Infused Documented by: Sodium Chloride () 250 mls @ 15 mls/hr IV .[id number] PRN PRN Reason: Saline Flush Insulin Glargine (Lantus (Bk)) 38 units SC QHS [facility] Last Admin: 04/15/19 22:40 Dose: 38 units Documented by: Insulin Human Lispro (Humalog Kwikpen ([facility])) 0 unit SC [facility]; Protocol Last Admin: 04/16/19 06:52 Dose: Not Given Documented by: Magnesium Hydroxide (Milk Of Magnesia) 30 ml PO DAILY PRN PRN Reason: Constipation Melatonin (Melatonin) 3 mg PO QHS PRN PRN PRN Reason: INSOMNIA Morphine Sulfate () 1 - 2 mg IV Q4H PRN PRN PRN Reason: Pain Score 1-10/10 Nitroglycerin (Nitrostat) 0.4 mg SUBLINGUAL Q5M PRN PRN Reason: CARDIAC/CHEST PAIN Nystatin (Mycostatin Powder) 1 applic TOPICAL BID [facility]; Protocol Last Admin: 04/15/19 22:40 Dose: 1 applic Documented by: Ondansetron HCl (Zofran) 4 mg IV Q8H PRN PRN PRN Reason: NAUSEA/VOMITING Last Admin: 04/13/19 06:24 Dose: 4 mg Documented by: Pantoprazole Sodium (Protonix) 20 mg PO BID [facility] Last Admin: 04/15/19 22:32 Dose: 20 mg Documented by: Senna/Docusate Sodium (Senokot-S, Leslie-Colace) 2 tablet PO BID [facility] Last Admin: 04/15/19 22:32 Dose: Not Given Documented by: Sertraline HCl (Zoloft) 100 mg PO QHS [facility] Last Admin: 04/15/19 22:32 Dose: 100 mg Documented by: Sodium Bicarbonate (Sodium Bicarbonate) 1,300 mg PO 4X/DAY [facility] Last Admin: 04/15/19 22:28 Dose: 1,300 mg Documented by: Sodium Chloride () 10 - 40 ml IV UD PRN PRN Reason: SALINE FLUSH Last Admin: 04/13/19 06:25 Dose: 10 ml Documented by: Tamsulosin HCl (Flomax) 0.4 mg PO QHS [facility] Last Admin: 04/15/19 22:29 Dose: 0.4 mg Documented by: STROKE Vital Signs/Narrative: Vital Signs Temp Pulse Resp BP Pulse Ox 04/16/19 05:35 66 16 96 04/16/19 03:51 98.5 F 65 16 156/64 H 99 Medical Necessity - Tobacco Use Smoking Status: Current every day smoker Tobacco Use: Cigars, Pipe Assessment/Plan All Active Problems Acute blood loss anemia (Acute) Hydronephrosis (Acute) Acute urinary retention (Acute) Hematuria (Acute) JEREMY (acute kidney injury) (Acute) 1. Acute on chronic anemia due to acute blood loss from gross hematuria/JEREMY on CKD 3/non-anion gap metabolic acidosis/history of prostate cancer/thrombocytopenia/BPH -Status post 6 units of packed red blood cell transfusions, will transfuse 2 units today for Hgb of 6.8 -Plan for cystoscopy today or tomorrow, NPO -His creatinine has been all over the place and is difficult to say what his baseline is, however during his admission he peaked at 4.70 and today he is 3.02 -His bicarb is increasing to 20, his metabolic acidosis is resolving, appreciate nephrology assistance -Platelets are stable in the 70-80 range -Continue with Flomax while he has his Merino in place which continues to drain blood-tinged urine 3. Hypothyroidism -Stable -Continue with home medications 4. MEGAN -Stable -Continue with CPAP nightly 5. DM 2 -Continue with sliding scale insulin, and Accu-Cheks AC at bedtime -Continue with home insulin regimen, will monitor and make adjustments 6. Anxiety/depression -Stable -Continue with Zoloft DVT: SCDs Code Visit Inpatient E&M: 20159 Subs Hosp L2
[2019-04-16 08:02] LABS: Hemoglobin A1c 5.2 % (4.2-6.3)
[2019-04-16] MEDS: Pantoprazole Sodium 20 MG Tablet PO ×2 (09:05→21:33)
[2019-04-16] MEDS: Sodium Bicarbonate 650 MG Tablet 1300 MG PO ×4 (09:05→21:33)
[2019-04-16] MEDS: Nystatin Powder 15gm Bottle 1 APPLIC TOPICAL ×2 (09:05→21:34)
--- NOTE | 2019-04-16 10:25 | PN.RENAL_ITS ---
Patient Problems: Active and Suspected Problems Acute blood loss anemia (Acute) Hydronephrosis (Acute) Acute urinary retention (Acute) Hematuria (Acute) Subjective: stable - Physical Exam Vitals/I&O's: Vital Signs Temp Pulse Resp BP Pulse Ox 98.4 F 62 18 153/57 H 98 04/16/19 08:53 04/16/19 08:53 04/16/19 08:53 04/16/19 08:53 04/16/19 08:53 Oxygen Flow Rate (L/min) 1 Oxygen Delivery Method Room Air Weight: 122.7 kg Body Mass Index (BMI) 38.2 Finger Stick Blood Glucose 99 Intake and Output for Last 24 Hours 04/14/19 04/15/19 04/16/19 23:59 23:59 23:59 Intake Total 4761.67 / 5261.67 5697.00 / 5697.00 393.33 / 393.33 Output Total 3150 / 4000 5000 / 5000 1030 / 1030 Balance 1611.67 / 1261.67 697.00 / 697.00 -636.67 / -636.67 General: Alert, Oriented x3, Cooperative HEENT: Atraumatic, PERRLA, EOMI, Normocephalic Neck: Supple, No JVD, Negative Carotid Bruits Lungs: Clear to auscultation, Normal air movement Cardiovascular: Regular rate, No murmurs Abdomen: Bowel Sounds Present, Soft, Non Tender Extremities: No edema, Capillary Refill Less than 3 Seconds Skin: No rashes, No breakdown Musculoskeletal: No Tenderness to Palpation of Joints or Extremities Neurological: Cranial nerves II-XII grossly intact Psych/Mental Status: Normal Affect, Appropriate Laboratory Results 04/14/19 07:43: Crossmatch See Detail 04/15/19 10:50: POC Glucose 152 H 04/15/19 16:08: POC Glucose 140 H 04/15/19 22:18: POC Glucose 192 H 04/16/19 05:40: WBC 4.9, RBC 2.42 L, Hgb 6.8 L, Hct 21.2 L, MCV 87.6, MCH 28.1, MCHC 32.1, RDW Std Deviation 51.4 H, RDW Coeff of Nyasia 15.9 H, Plt Count 83 L, MPV 9.9, Immature Gran % (Auto) 0.800, Neut % (Auto) 74.1 H, Lymph % (Auto) 18.2 L, Hand % (Auto) 5.5, Eos % (Auto) 1.2, Baso % (Auto) 0.2, Absolute Neuts (auto) 3.7, Absolute Lymphs (auto) 0.90, Nucleated RBC % 0 04/16/19 05:40: Sodium 146 H, Potassium 4.1, Chloride 119 H, Carbon Dioxide 20.0 L, Anion Gap 7, BUN 58 H, Creatinine 3.02 H, Estim Creat Clear Calc 22.49, Est GFR (MDRD) Af Amer 26 L, Est GFR (MDRD) Non-Af 22 L, BUN/Creatinine Ratio 19.2, Glucose 142 H, Calcium 7.5 L 04/16/19 05:40: PT 15.2 H, INR 1.2, APTT 36.8 H 04/16/19 05:40: TSH 4.62 H 04/16/19 05:40: Hemoglobin A1c 5.2 04/16/19 06:51: POC Glucose 122 H Current Medications Acetaminophen (Tylenol) 650 mg PO Q6H PRN PRN PRN Reason: Non-cardiac pain (4-10/10) Last Admin: 04/13/19 06:05 Dose: 650 mg Documented by: Hydrocodone Bitart/Acetaminophen ([place] 5mg-325mg) 1 - 2 tablet PO Q4H PRN PRN PRN Reason: Pain Score 4-10/10 Al Hydroxide/Mg Hydroxide (Mylanta Ii) 15 - 30 ml PO Q4H PRN PRN PRN Reason: INDIGESTION Albuterol Sulfate (Ventolin Aerosols) 2.5 mg INHALATION Q2H PRN PRN PRN Reason: dyspnea, wheezing Dextrose (D50w Syringe) 0 gm IV X1 PRN; Protocol PRN Reason: Hypoglycemia Glucagon () 1 mg IM .X1 PRN PRN Reason: Hypoglycemia Hydralazine HCl (Apresoline Iv) 10 mg IV Q4H PRN PRN PRN Reason: SBP > 160 Last Admin: 04/12/19 22:54 Dose: 10 mg Documented by: Sodium Chloride () 1,000 mls @ 100 mls/hr IV .Q10H [facility] Last Admin: 04/16/19 03:35 Dose: 100 mls/hr Documented by: Ciprofloxacin (Cipro) 400 mg in 200 mls @ 200 mls/hr IV Q24@2200 [facility] Last Infusion: 04/15/19 23:39 Dose: Infused Documented by: Sodium Chloride () 250 mls @ 15 mls/hr IV .[id number] PRN PRN Reason: Saline Flush Insulin Glargine (Lantus ([facility])) 38 units SC QHS [facility] Last Admin: 04/15/19 22:40 Dose: 38 units Documented by: Insulin Human Lispro (Humalog Kwikpen ([facility])) 0 unit SC ACHS [facility]; Protocol Last Admin: 04/16/19 06:52 Dose: Not Given Documented by: Magnesium Hydroxide (Milk Of Magnesia) 30 ml PO DAILY PRN PRN Reason: Constipation Melatonin (Melatonin) 3 mg PO QHS PRN PRN PRN Reason: INSOMNIA Morphine Sulfate () 1 - 2 mg IV Q4H PRN PRN PRN Reason: Pain Score 1-10/10 Nitroglycerin (Nitrostat) 0.4 mg SUBLINGUAL Q5M PRN PRN Reason: CARDIAC/CHEST PAIN Nystatin (Mycostatin Powder) 1 applic TOPICAL BID [facility]; Protocol Last Admin: 04/16/19 09:05 Dose: 1 applic Documented by: Ondansetron HCl (Zofran) 4 mg IV Q8H PRN PRN PRN Reason: NAUSEA/VOMITING Last Admin: 04/13/19 06:24 Dose: 4 mg Documented by: Pantoprazole Sodium (Protonix) 20 mg PO BID [facility] Last Admin: 04/16/19 09:05 Dose: 20 mg Documented by: Senna/Docusate Sodium (Senokot-S, Leslie-Colace) 2 tablet PO BID [facility] Last Admin: 04/16/19 09:04 Dose: Not Given Documented by: Sertraline HCl (Zoloft) 100 mg PO QHS [facility] Last Admin: 04/15/19 22:32 Dose: 100 mg Documented by: Sodium Bicarbonate (Sodium Bicarbonate) 1,300 mg PO 4X/DAY [facility] Last Admin: 04/16/19 09:05 Dose: 1,300 mg Documented by: Sodium Chloride () 10 - 40 ml IV UD PRN PRN Reason: SALINE FLUSH Last Admin: 04/13/19 06:25 Dose: 10 ml Documented by: Tamsulosin HCl (Flomax) 0.4 mg PO QHS [facility] Last Admin: 04/15/19 22:29 Dose: 0.4 mg Documented by: Medical Necessity - Tobacco Use Smoking Status: Current every day smoker Tobacco Use: Cigars, Pipe Assessment/Plan All Active Problems Acute blood loss anemia (Acute) Hydronephrosis (Acute) Acute urinary retention (Acute) Hematuria (Acute) JEREMY (acute kidney injury) (Acute) Acute kidney injury secondary to obstructive uropathy Chronic kidney disease stage IV baseline 2.9-4 likely secondary to diabetic nephropathy Multiple renal cysts mostly on the left Metabolic acidosis normal anion gap with renal failure on bicarb Gross hematuria status post bilateral stent removal Bilateral hydronephrosis status post bilateral stent removal with residual left- sided hydronephrosis?per urology creatinine stable continue urine drain via merino cath Blood pressure is acceptable continue sodium bicarbonate No need for HD Avoid nephrotoxins Further work-up as indicated by clinical course
--- NOTE | 2019-04-16 11:18 | NURSING ---
report called to Ann Marie GALVAN
[2019-04-16 11:30] LABS: Bedside Glucose 82 mg/dL (70-110)
[2019-04-16] MEDS: Lidocaine Jelly 2% 20 ML Syringe (URO-JET) 20 APPLIC (12:50)
--- NOTE | 2019-04-16 12:51 | PCM.OPRPT ---
Problem List (1) CKD (chronic kidney disease), stage IV Status: Chronic Report of Operation Date of Procedure: 04/16/19 Pre-Operative Diagnosis: Recurrent gross hematuria and urinary retention Post-Operative Diagnosis: Same Surgery/Procedure Performed:: Cystoscopy bladder biopsy fulguration of bladder sites Description of Surgical Findings:: 73-year-old male is been a hospital quite some time now last time was taken to surgery remove both the stents and we took out the catheter for voiding trial he was urinated for a few days and started developing gross hematuria and bleeding catheter was replaced had any manually irrigated for several days to get the urine to clear non-taken back to surgery to look inside the bladder again. He was taken back to the operating room after smooth induction of general anesthesia he was placed supine on the table and then dorsolithotomy position with the bladder with a 21 [place] rigid cystourethroscope the entire length urethra is normal prostate was enlarged inside the bladder he had severe inflammation throughout the bladder wall the posterior wall dome is all inflamed with bullous edema throughout the bladder 2 biopsies were done one in the posterior bladder and one in the dome is were sent off as a specimen just to make sure there is no carcinoma I suspect just inflammation I cauterized the sites no other bleeding was noted no active bleeding was noted any the clots were evacuated out and then placed a 20 Tongan catheter in we will continue with manual irrigation until urine clears. Type of Anesthesia:: General Drains: 20 fr merino - Admit VTE Documentation VTE Present on Admission: No
--- NOTE | 2019-04-16 14:21 | NURSING ---
Cath flushed with 50 cc ns, one mod size clot, and 50 cc returned. no problem.
--- NOTE | 2019-04-16 15:32 | NURSING ---
Cath flushed with 50 ml, no clots, the same amt returned as inserted.
[2019-04-16 16:20] LABS: Bedside Glucose 161 mg/dL (70-110)
[2019-04-16] MEDS: Insulin Lispro 100 UNIT/ML INSULN.PEN SC ×2 (16:20→21:30)
[2019-04-16] MEDS: 0.9% Saline Lock 10 ML Syringe IV (20:03)
[2019-04-16] MEDS: hydrALAZINE 20 MG/ML Vial 10 MG IV (20:03)
[2019-04-16] MEDS: Tamsulosin HCl 0.4 MG Capsule PO (21:32)
[2019-04-16] MEDS: Sertraline 100 MG Tablet PO (21:33)
[2019-04-16] MEDS: Ciprofloxacin 400 MG/200 ML BAG 200 MG IV (21:36)
[2019-04-16 21:56] LABS: Bedside Glucose 265 mg/dL (70-110)
[2019-04-17] VITALS (8 sets, daily range): BP systolic 123–182; BP diastolic 59–77; PULSE 72–82; RESP 16–20; TEMP 36.6–37.2; O2SAT 93–98
[2019-04-17] MEDS: hydrALAZINE 20 MG/ML Vial 10 MG IV (01:20)
[2019-04-17] MEDS: 0.9% Saline Lock 10 ML Syringe IV (01:21)
[2019-04-17 06:18] LABS: Absolute Lymphocyte Count 0.94 X10^3/uL (0.83-4.51); Absolute Neutrophil Count 4.7 X10^3/uL (2.0-7.7); Basophil# 0.03 X10^3/uL; Basophil% 0.5 % (0-1); Eosinophil# 0.07 X10^3/uL; Eosinophils% 1.1 % (0-5); Hematocrit 25.5 % (40-54); Hemoglobin 8.5 g/dL (13.0-16.5); Lymphocyte # 0.94 X10^3/ul (4.0); Lymphocyte % 15.4 % (19-41); Mean Corp Hgb Conc 33.3 g/dL (32-36); Mean Corpuscular Hgb 28.5 pg (27.0-32.0); Mean Corpuscular Volume 85.6 fL (80-94); Monocyte% 4.9 % (0-10); NRBC Flagged by Analyzer 0 % (0-5); Neutrophil # 4.69 X10^3/uL (2.7-7.7); Neutrophil % 76.8 % (47-70); POSITIVE COUNT YES; Platelet Count 97 K/mm3 (150-450); RBC Distribution Width SD 49.6 fl (35.1-43.9); Red Blood Count 2.98 M/mm3 (4.6-6.2); White Blood Count 6.1 K/mm3 (4.4-11.0)
[2019-04-17 06:20] LABS: Bedside Glucose 125 mg/dL (70-110)
[2019-04-17 06:29] LABS: Anion Gap 7 (5-15); BUN 55 mg/dL (7-18); BUN/Creat Ratio 20.1 RATIO (10-20); Calcium,Total 7.6 mg/dL (8.5-10.1); Chloride 117 mmol/L (98-107); Creatinine, Serum 2.73 mg/dL (0.70-1.30); EST Glomerular Filtration Rate 24 mL/min (>60); Est Glom Filt Rate - Afr Amer 30 mL/min (>60); Estimated Creatinine Clearance 24.88 ml/min; Glucose 125 mg/dL (74-106); Potassium 3.8 mmol/L (3.5-5.1); Sodium Level 145 mmol/L (136-145)
[2019-04-17] MEDS: 0.9% Normal Saline 1,000 ML 100 ML IV (07:28)
[2019-04-17] MEDS: Pantoprazole Sodium 20 MG Tablet PO (09:25)
[2019-04-17] MEDS: Sodium Bicarbonate 650 MG Tablet 1300 MG PO ×2 (09:25→16:20)
[2019-04-17] MEDS: Nystatin Powder 15gm Bottle 1 APPLIC TOPICAL (09:25)
--- NOTE | 2019-04-17 10:02 | DCINST_ITS ---
- Discharge Diagnoses Current Active Problems: Current Active and Chronic Problems CKD (chronic kidney disease), stage IV (Chronic) HTN (hypertension) (Chronic) Anxiety and depression (Chronic) Tobacco use (Chronic) MEGAN (obstructive sleep apnea) (Chronic) Hypothyroidism (Chronic) Acute blood loss anemia (Acute) Chronic anemia (Chronic) GERD (gastroesophageal reflux disease) (Chronic) Diabetes mellitus, type II (Chronic) Hrydx-vr-pfllpsy kidney injury (Chronic) Hydronephrosis (Acute) Acute urinary retention (Acute) Hematuria (Acute) You will use the following diet at home:: Renal (restricted protein/sodium) Your food should be the consistency of: Regular Your liquids should be the consistency of: Regular/Thin Discharge Activity: Return to Normal Activity Call your doctor if you observe: Fever of 101 or Higher, Shortness of breath, Dizziness, Fainting spells, Swelling in the ankles, Chest pain, Increased palpitations (irregular heartbeat) Additional Instructions: Repeat BMP and CBC on 04/19 to monitor renal function and anemia from hematuria Allergies/Adverse Reactions: Allergies metformin Allergy (Verified 04/09/19 22:17) Angioedema Penicillins Allergy (Verified 04/09/19 22:17) Rash Tetanus Vaccines and Toxoid Allergy (Verified 04/09/19 22:17) Swelling at injection site Medications to take at Discharge Ascorbic Acid [Vitamin C] 500 mg PO DAILY@0800 05/11/18 B Complex W-C No.20/Folic Acid [Nephrocaps Softgel] 1 mg PO DAILY 05/11/18 Folic Acid 1 mg PO DAILY 05/11/18 Insulin Glargine [Lantus SoloStar Pen] 38 units SC QHS 05/11/18 Sertraline HCl [Zoloft] 100 mg PO QHS 05/11/18 Tamsulosin HCl [Flomax] 0.4 mg PO QHS 05/11/18 Acetaminophen [Tylenol] 1,000 mg PO BID 04/09/19 Levothyroxine PO DAILY 04/09/19 Omeprazole PO DAILY 04/09/19 [facility] Care Physician: [facility] [Primary Care Provider] - Please follow up with your Primary Care Physician in: 3-5 days Test Results: Test results from this visit will be discussed in further detail at your follow- up appointment, if applicable. Please Follow Up With: Manny Singh MD When: 1 week Please Follow Up With: Waldo Breen MD When: 1-2 weeks
--- NOTE | 2019-04-17 10:05 | PCM.DC.SUM ---
Discharge Date and Diagnosis - Problem List Patient Problems: Active and Suspected Problems Acute blood loss anemia (Acute) Hydronephrosis (Acute) Acute urinary retention (Acute) Hematuria (Acute) Date of Admission: 04/10/19 Date of Discharge: 04/17/19 - Primary Discharge Diagnosis Active and Suspected Problems Acute blood loss anemia (Acute) Hydronephrosis (Acute) Acute urinary retention (Acute) Hematuria (Acute) - Secondary Discharge Diagnosis Chronic Problems CKD (chronic kidney disease), stage IV (Chronic) HTN (hypertension) (Chronic) Anxiety and depression (Chronic) Tobacco use (Chronic) MEGAN (obstructive sleep apnea) (Chronic) Hypothyroidism (Chronic) Chronic anemia (Chronic) GERD (gastroesophageal reflux disease) (Chronic) Diabetes mellitus, type II (Chronic) [id number] kidney injury (Chronic) Hospital Course and Treatment Imaging Results: CT Abd/pelvis: IMPRESSION: Stable appearance to distended gallbladder with multiple gallstones. Much more severe bilateral hydronephrosis with new bilateral ureteric stents that appear to be within adequate position. Decompressed urinary bladder with Kang catheter, however, some of the contents of the urinary bladder appears to be hyperdense which could be hemorrhagic urine Individualized dose optimization techniques were used for this CT. Renal US: IMPRESSION: The left kidney is enlarged and largely replaced with cysts. There is moderate left hydronephrosis. Moderate right renal atrophy. Report of Operation Date of Procedure: 04/10/19 Pre-Operative Diagnosis: Bilateral retained stents gross hematuria Post-Operative Diagnosis: Same Surgery/Procedure Performed:: Cystoscopy and bilateral stent removal bilateral retrograde pyelogram, and interpretation of fluoroscopic images Report of Operation Date of Procedure: 04/16/19 Pre-Operative Diagnosis: Recurrent gross hematuria and urinary retention Post-Operative Diagnosis: Same Surgery/Procedure Performed:: Cystoscopy bladder biopsy fulguration of bladder sites Consults: Nephrology Urology Operations: None Procedures: - - Cystoscopy Summary of Care Provided: Per HPI: The patient is a 73-year-old M w/ PMHx: Chronic back pain, History of UTIs with required prior ureter stenting, CKD stage IV, Chronic normocytic anemia, Diabetes mellitus type II, GERD, Hypothyroidism, BPH, Anxiety and depression, Morbid obesity who presents to the [facility] ED on 04/10/2019 with history of onset of bright red blood from his penis with history of urinary retention as well as increased urinary incontinence, noting he woke up the evening prior and was covered in urine that was noted to be bloody and has had ongoing difficulties urinating with onset of lower abdominal severe 10/10 pain with inability to urinate although he notes still he would occasionally pass large clots from his penis prompting him to present to the ED. He admits to chills over the last 12-24 hours but no fevers and in the ED had nausea and emesis x 1. In the ED included T 98.3, heart rate 101, BP 171/69, respiratory rate 20, 100% on room air, CBC with W BC 9.4, hemoglobin 7.7, platelet 103 with left shift, unremarkable coags, BMP with chloride 119, carbon dioxide 14, BUN/creatinine 82/4.64, glucose 187, CT abdomen and pelvis with stable appearance to distended gallbladder multiple stones with a more severe bilateral hydronephrosis with new bilateral ureteric stents that appear in adequate position with a decompressed urinary bladder with Kang catheter however the contents of the urinary bladder appeared to be hyperdense possibly hemorrhagic urine. Continuous bladder irrigation initiated in the ED following attempt for manual bladder irrigation with notable large clots with patient reported improvement of bladder discomfort and lower abdominal pain. Hospital Course: 1. Acute on chronic anemia due to alcohol acute blood loss from gross hematuria/JEREMY on CKD 3/non-anion gap metabolic acidosis/history of prostate cancer/normal cytopenia/[id number]-old male presented to [facility] because of an acute onset of bright red blood in his urine. He states that he is also started having urinary retention and he woke up on the night prior to admission having urinated in bed which was bloody. He underwent a cystoscopy initially and was found to have stents that had been in for over 2 years, and he does not remember why the stents were placed. Urology was consulted and a cystoscopy was performed where the stents were removed. Unfortunately the patient continued to have episodes of bleeding and has been transfused over 8 units. He underwent a second cystoscopy where bladder biopsies were taken and sites of bleeding were cauterized. Yesterday his hemoglobin was 6.8, and he received 2 units of blood prior to his cystoscopy, on the day of discharge his hemoglobin is 8.5. We recommend that he have a repeat CBC done on the outpatient setting to monitor for stabilization of his anemia. Also he does have chronic kidney disease however on admission his creatinine peaked at 4.7, looking over his previous creatinines it is difficult to assess a baseline, however today on discharge she is down to 2.7. Recommend a BMP as an outpatient to follow-up with nephrology as an outpatient as well. Will discharge him with a Kang in place for manual irrigation and will have home health care see the patient and assist with the manual irrigation. He will need to follow-up with his PCP in 3 to 5 days and with urology in 1 week. 2. His other medical diagnoses were evaluated and his home medications were continued where appropriate Patient Problems: Active and Suspected Problems Acute blood loss anemia (Acute) Hydronephrosis (Acute) Acute urinary retention (Acute) Hematuria (Acute) - Physical Exam Vitals/I&O's: Vital Signs Temp Pulse Resp BP Pulse Ox 99.0 F 78 16 151/65 H 93 04/17/19 06:04 04/17/19 06:04 04/17/19 06:04 04/17/19 06:04 04/17/19 07:15 Oxygen Flow Rate (L/min) 1 Oxygen Delivery Method Room Air Weight: 270 lb 8.115 oz Body Mass Index (BMI) 38.2 Finger Stick Blood Glucose 99 Intake and Output for Last 24 Hours 04/15/19 04/16/19 04/17/19 23:59 23:59 23:59 Intake Total 5697.00 / 5697.00 1833.33 / 1833.33 1300 / 1300 Output Total 5000 / 5000 2990 / 2990 1100 / 1100 Balance 697.00 / 697.00 -1156.67 / -1156.67 200 / 200 General: Alert, Oriented x3, Cooperative, No apparent distress HEENT: Atraumatic, PERRLA, EOMI, Normocephalic Oral: Moist Mucosa Neck: Supple, No JVD Lungs: Clear to auscultation, Normal air movement, No rhonchi, No wheeze, No rales, Diminished Cardiovascular: Regular rate, Regular Rhythm, Normal S1, Normal S2, No murmurs Abdomen: Soft, Non Tender, Non-Distended, No Hepato-splenomegaly, Obese, - - Kang in place Extremities: No edema, Capillary Refill Less than 3 Seconds Skin: No rashes, No breakdown Neurological: Neuro grossly intact, Sensory exam intact to light touch and pain Psych/Mental Status: Normal Affect, Appropriate Laboratory Results 04/14/19 07:43: Crossmatch See Detail 04/16/19 11:11: POC Glucose 82 04/16/19 16:18: POC Glucose 161 H 04/16/19 21:26: POC Glucose 265 H 04/17/19 05:56: WBC 6.1, RBC 2.98 L, Hgb 8.5 L, Hct 25.5 L, MCV 85.6, MCH 28.5, MCHC 33.3, RDW Std Deviation 49.6 H, RDW Coeff of Nyasia 16.0 H, Plt Count 97 L, MPV 10.0, Immature Gran % (Auto) 1.300 H, Neut % (Auto) 76.8 H, Lymph % (Auto) 15.4 L, [place] % (Auto) 4.9, Eos % (Auto) 1.1, Baso % (Auto) 0.5, Absolute Neuts (auto) 4.7, Absolute Lymphs (auto) 0.94, Nucleated RBC % 0 04/17/19 05:56: Sodium 145, Potassium 3.8, Chloride 117 H, Carbon Dioxide 21.0, Anion Gap 7, BUN 55 H, Creatinine 2.73 H, Estim Creat Clear Calc 24.88, Est GFR (MDRD) Af Amer 30 L, Est GFR (MDRD) Non-Af 24 L, BUN/Creatinine Ratio 20.1 H, Glucose 125 H, Calcium 7.6 L 04/17/19 06:08: POC Glucose 125 H Current Medications Acetaminophen (Tylenol) 650 mg PO Q6H PRN PRN PRN Reason: Non-cardiac pain (4-1010) Last Admin: 04/13/19 06:05 Dose: 650 mg Documented by: Hydrocodone Bitart/Acetaminophen ([place] 5mg-325mg) 1 - 2 tablet PO Q4H PRN PRN PRN Reason: Pain Score 4-10/10 Al Hydroxide/Mg Hydroxide (Mylanta Ii) 15 - 30 ml PO Q4H PRN PRN PRN Reason: INDIGESTION Albuterol Sulfate (Ventolin Aerosols) 2.5 mg INHALATION Q2H PRN PRN PRN Reason: dyspnea, wheezing Dextrose (D50w Syringe) 0 gm IV X1 PRN; Protocol PRN Reason: Hypoglycemia Glucagon () 1 mg IM .X1 PRN PRN Reason: Hypoglycemia Hydralazine HCl (Apresoline Iv) 10 mg IV Q4H PRN PRN PRN Reason: SBP > 160 Last Admin: 04/17/19 01:20 Dose: 10 mg Documented by: Sodium Chloride () 1,000 mls @ 100 mls/hr IV .Q10H [facility] Last Admin: 04/17/19 07:28 Dose: 100 mls/hr Documented by: Ciprofloxacin (Cipro) 400 mg in 200 mls @ 200 mls/hr IV Q24@2200 [facility] Last Infusion: 04/16/19 22:48 Dose: Infused Documented by: Sodium Chloride () 250 mls @ 15 mls/hr IV .[id number] PRN PRN Reason: Saline Flush Insulin Glargine (Lantus ([facility])) 38 units SC QHS [facility] Last Admin: 04/16/19 21:29 Dose: 38 units Documented by: Insulin Human Lispro (Humalog Kwikpen ([facility])) 0 unit SC ACHS [facility]; Protocol Last Admin: 04/17/19 06:22 Dose: Not Given Documented by: Magnesium Hydroxide (Milk Of Magnesia) 30 ml PO DAILY PRN PRN Reason: Constipation Melatonin (Melatonin) 3 mg PO QHS PRN PRN PRN Reason: INSOMNIA Morphine Sulfate () 1 - 2 mg IV Q4H PRN PRN PRN Reason: Pain Score 1-10/10 Nitroglycerin (Nitrostat) 0.4 mg SUBLINGUAL Q5M PRN PRN Reason: CARDIAC/CHEST PAIN Nystatin (Mycostatin Powder) 1 applic TOPICAL BID [facility]; Protocol Last Admin: 04/17/19 09:25 Dose: 1 applic Documented by: Ondansetron HCl (Zofran) 4 mg IV Q8H PRN PRN PRN Reason: NAUSEA/VOMITING Last Admin: 04/13/19 06:24 Dose: 4 mg Documented by: Pantoprazole Sodium (Protonix) 20 mg PO BID [facility] Last Admin: 04/17/19 09:25 Dose: 20 mg Documented by: Senna/Docusate Sodium (Senokot-S, Leslie-Colace) 2 tablet PO BID [facility] Last Admin: 04/17/19 09:24 Dose: Not Given Documented by: Sertraline HCl (Zoloft) 100 mg PO QHS [facility] Last Admin: 04/16/19 21:33 Dose: 100 mg Documented by: Sodium Bicarbonate (Sodium Bicarbonate) 1,300 mg PO 4X/DAY [facility] Last Admin: 04/17/19 09:25 Dose: 1,300 mg Documented by: Sodium Chloride () 10 - 40 ml IV UD PRN PRN Reason: SALINE FLUSH Last Admin: 04/17/19 01:21 Dose: 10 ml Documented by: Tamsulosin HCl (Flomax) 0.4 mg PO QHS [facility] Last Admin: 04/16/19 21:32 Dose: 0.4 mg Documented by: Discharge Activity: Return to Normal Activity Call your doctor if you observe: Fever of 101 or Higher, Shortness of breath, Dizziness, Fainting spells, Swelling in the ankles, Chest pain, Increased palpitations (irregular heartbeat) Home Medications: Medications to take at Discharge Ascorbic Acid [Vitamin C] 500 mg PO DAILY@0800 05/11/18 B Complex W-C No.20/Folic Acid [Nephrocaps Softgel] 1 mg PO DAILY 05/11/18 Folic Acid 1 mg PO DAILY 05/11/18 Insulin Glargine [Lantus SoloStar Pen] 38 units SC QHS 05/11/18 Sertraline HCl [Zoloft] 100 mg PO QHS 05/11/18 Tamsulosin HCl [Flomax] 0.4 mg PO QHS 05/11/18 Acetaminophen [Tylenol] 1,000 mg PO BID 04/09/19 Levothyroxine PO DAILY 04/09/19 Omeprazole PO DAILY 04/09/19 [facility] Care Physician: [facility] [Primary Care Provider] - Please follow up with your Primary Care Physician in: 3-5 days Please Follow Up With: Manny Singh MD When: 1 week Please Follow Up With: Waldo Breen MD When: 1-2 weeks Disposition: Home with Home Health Minutes spent on discharge:: 35 Patient Condition:: Stable Medical Necessity - Tobacco Use Smoking Status: Current every day smoker Tobacco Use: Cigars, Pipe Meaningful Use Info Meaningful Use Diagnoses (Choose all that apply): None applicable Code Visit Inpatient E&M: 58812 Disch Hosp
--- NOTE | 2019-04-17 10:28 | CASEMGMT ---
COLE CM Note: Per JULIAN Winslow @ [facility]- they do not have GEC form (faxed Monday, 04.12.19 with confirmation of fax). Fax# verified with JULIAN Winslow and form refaxed to . Confirmation of fax received. Terrie CHAVEZ RN ACM
[2019-04-17] MEDS: Insulin Lispro 100 UNIT/ML INSULN.PEN SC (11:38)
[2019-04-17 11:51] LABS: Bedside Glucose 186 mg/dL (70-110)
--- NOTE | 2019-04-17 15:54 | CASEMGMT ---
Social Work Note JULIAN and RN RODOLFO Updated that pt has no ride home and has no number for pt's niece Jeanine as he got a new phone and Jeanine got a new phone. Pt states his niece Jeanine works at [employer]. RN RODOLFO Haro placed a call to [employer] and left message for Jeanine asking for her to call [employer] main number to discuss transportation home for pt. SW in to speak with pt. JULIAN updated pt that only other option would be wheelchair van but they are done transporting at 4:00pm and it would be private pay. Pt states he is not able to afford private pay. Per RN pt cannot transport via taxi as he requires assistance getting up and pt will need his crutches that are in his home. [facility] van is not able to transport as they will not help pt in and out of vehicle or in to pt's home. JULIAN updated pt that Jeanine has been called at work and left message to call [employer] main floor. Pt states Jeanine may not get back to her phone until 5:00pm. JULIAN updated pt that that is ok and there is no check out time. Radha Cortez [employer]CH[employer]IC, GASKET NOTCHER
--- NOTE | 2019-04-17 15:56 | CASEMGMT ---
RN CM in with nurse to discuss transportation. Patient states he cannot get a hold of niece. Niece works at [employer] and patient gave permission to call niece at work. Message left to call the nursing unit to assist with transportation. P: [phone].
[2019-04-17 16:26] LABS: Bedside Glucose 140 mg/dL (70-110)
== END 2019-04-17 18:29 | disposition home or self-care (01) | DRG 669 ==
LOC: ED 04-10 01:47 → MS3 04-10 02:19
PROVIDERS: Anesthesiology; Student in an Organized Health Care Education/Training Program; Urology; Admitting Provider Family Medicine; Emergency Provider Emergency Medicine; Visit Provider Family Medicine
PROC: 0TBB8ZX Excision of Bladder, Via Natural or Artificial Opening Endoscopic, Diagnostic (ICD-10-PCS; principal; 2019-04-10 16:50)
DX: R31.0 Gross hematuria (principal); D62 Acute posthemorrhagic anemia; E87.2 Acidosis; N17.9 Acute kidney failure, unspecified; N13.30 Unspecified hydronephrosis; N18.4 Chronic kidney disease, stage 4 (severe); R33.9 Retention of urine, unspecified; E11.22 Type 2 diabetes mellitus with diabetic chronic kidney disease; G47.33 Obstructive sleep apnea (adult) (pediatric); E03.9 Hypothyroidism, unspecified; I12.9 Hypertensive chronic kidney disease with stage 1 through stage 4 chronic kidney disease, or unspecified chronic kidney disease; D69.6 Thrombocytopenia, unspecified; F17.290 Nicotine dependence, other tobacco product, uncomplicated; K21.9 Gastro-esophageal reflux disease without esophagitis; F32.9 Major depressive disorder, single episode, unspecified; F41.9 Anxiety disorder, unspecified; Z85.46 Personal history of malignant neoplasm of prostate; Z79.4 Long term (current) use of insulin; Z92.3 Personal history of irradiation
CPT/HCPCS: 36415; 51702; 74176; 76000; 76770; 80048; 81001; 82570; 82962; 83036; 84100; 84300; 84443; 85025; 85610; 85730; 86850; 86900; 86901; 86920; 86922; 88305; 93005; 94660; 94762; 97110; 97116; 97162; 97166; 97530; 97802; 99251; 99285; 99406; J7030; J7040; P9016; P9040; A4216; C1769; G0463; J0744; J2405

== ENCOUNTER 2019-04-26 15:14 | Emergency (ER) | payer OTHER, SELFPAY ==
[2019-04-10 15:53] VITALS: BMI 38.2
[2019-04-26 15:24] VITALS: BP 151/65; PULSE 96; RESP 20; TEMP 37.5; O2SAT 100; BMI 43.1
--- NOTE | 2019-04-26 15:30 | ED.DCSUM_ITS ---
- ER Visit Summary Date of Service: 04/26/19 Chief Complaint: Hematuria History of Present Illness: The patient is a 73 M who presents with hematuria. He was admitted at the end of March. He had bilateral ureteral stents removed by Dr. Singh on April 10. He is unsure why they were initially placed, but he does have a history of prostate cancer and is status post radiation therapy. He also has a history of chronic kidney disease. He had hematuria subsequently, and on April 16 he underwent cystoscopy. He was found to have a normal urethra, large prostate, and severe inflammatory and edematous changes of his bladder. 2 biopsies were taken, cautery was performed, and clots were evacuated. He has been doing well until today. Around 2 PM today, he started to have bright red blood, draining from his penis. He also noticed some clots. It is currently stopped. He denies any pain or other associated symptoms. He does not take blood thinners. Physical Examination: Afebrile and vital signs unremarkable. Patient in no acute distress. Alert and oriented. Heart regular. Lungs clear. Abdomen soft. Blood at the urethral meatus. Test Results: CBC, BMP, coags, urine culture pending. Emergency Department Course and Treatment: IV access obtained. Labs and urine culture pending. Will apply a three-way Kang and start continuous bladder irrigation. Urology was paged. Patient is anemic but stable. Creatinine 3.4, stable. BUN 50, stable. He has continued bleeding despite irrigation. I spoke with Dr. Singh. He is out of state throughout the weekend. We have no urology coverage. Patient requested [facility]. They have no bed availability. He was transferred to [facility]. Treatment Plan: As above Disposition: Transfer Impression: 1. Hematuria This note was generated with [employer] dictation software. It may contain incorrect words, spelling, and punctuation that were not noted in review of the chart prior to signing ED Disposition - Plan for ED Patient: [facility]errals: [facility] [Primary [facility] Provider] -
[2019-04-26 15:59] LABS: Absolute Lymphocyte Count 0.51 X10^3/uL (0.83-4.51); Absolute Neutrophil Count 3.6 X10^3/uL (2.0-7.7); Basophil# 0.01 X10^3/uL; Basophil% 0.2 % (0-1); Eosinophil# 0.03 X10^3/uL; Eosinophils% 0.7 % (0-5); Hematocrit 24.9 % (40-54); Hemoglobin 7.7 g/dL (13.0-16.5); Lymphocyte # 0.51 X10^3/ul (4.0); Lymphocyte % 11.2 % (19-41); Mean Corp Hgb Conc 30.9 g/dL (32-36); Mean Corpuscular Hgb 27.4 pg (27.0-32.0); Mean Corpuscular Volume 88.6 fL (80-94); Mean Platelet Vol. 9.4 fl (6.2-12.0); Monocyte# 0.39 X10^3/uL; Monocyte% 8.6 % (0-10); NRBC Flagged by Analyzer 0 % (0-5); Neutrophil % 79.1 % (47-70); POSITIVE DIFFERENTIAL YES; Platelet Count 110 K/mm3 (150-450); RBC Distribution Width CV 15.2 % (11.6-14.6); RBC Distribution Width SD 48.9 fl (35.1-43.9); Red Blood Count 2.81 M/mm3 (4.6-6.2); White Blood Count 4.6 K/mm3 (4.4-11.0)
[2019-04-26 16:18] VITALS: BP 128/61; PULSE 83; RESP 16; O2SAT 99
[2019-04-26 16:21] LABS: Anion Gap 7 (5-15); BUN 52 mg/dL (7-18); BUN/Creat Ratio 15.2 RATIO (10-20); Calcium,Total 7.9 mg/dL (8.5-10.1); Chloride 113 mmol/L (98-107); Creatinine, Serum 3.41 mg/dL (0.70-1.30); EST Glomerular Filtration Rate 19 mL/min (>60); Est Glom Filt Rate - Afr Amer 23 mL/min (>60); Estimated Creatinine Clearance 19.92 ml/min; Glucose 324 mg/dL (74-106); Potassium 3.7 mmol/L (3.5-5.1); Sodium Level 142 mmol/L (136-145)
[2019-04-26 16:29] LABS: International Normalized Ratio 1.3; Partial Thromboplast Time 43.3 Seconds (24.1-36.2); Prothrombin Time (Protime)PT. 15.9 SECONDS (11.7-14.9)
[2019-04-26 16:31] LABS: Differential Indicated SCAN CRITERIA MET
[2019-04-26 17:04] LABS: Differential Comment SCANNED
[2019-04-26 18:31] VITALS: BP 134/82; PULSE 75; RESP 18; O2SAT 97
[2019-04-26 19:30] VITALS: BP 129/71; PULSE 84; RESP 16; O2SAT 97
== END 2019-04-26 20:32 | disposition short-term general hospital (02) ==
PROVIDERS: Emergency Provider Emergency Medicine
DX: R31.9 Hematuria, unspecified (principal); I12.9 Hypertensive chronic kidney disease with stage 1 through stage 4 chronic kidney disease, or unspecified chronic kidney disease; E11.22 Type 2 diabetes mellitus with diabetic chronic kidney disease; N18.9 Chronic kidney disease, unspecified; D64.9 Anemia, unspecified; E11.65 Type 2 diabetes mellitus with hyperglycemia; K21.9 Gastro-esophageal reflux disease without esophagitis; G47.33 Obstructive sleep apnea (adult) (pediatric); F32.9 Major depressive disorder, single episode, unspecified; F41.9 Anxiety disorder, unspecified; Z72.0 Tobacco use; Z79.4 Long term (current) use of insulin; Z79.899 Other long term (current) drug therapy; Z85.46 Personal history of malignant neoplasm of prostate; Z92.3 Personal history of irradiation; Z87.440 Personal history of urinary (tract) infections
CPT/HCPCS: 80048; 85025; 85610; 85730; 87077; 87086; 87088; 87186; 99285; J7030; A4216

== ENCOUNTER 2019-05-10 00:09 | Inpatient (IN) | payer MEDICARE, SELFPAY ==
[2019-05-10] VITALS (17 sets, daily range): BP systolic 126–161; BP diastolic 58–88; PULSE 92–101; RESP 16–18; TEMP 36.5–37.7; O2SAT 18–100; BMI 40.4; BMI 37.5
--- NOTE | 2019-05-10 01:30 | ED.DCSUM_ITS ---
History of Present Illness Chief Complaint: Fall Informant: Patient Onset: Today Current Severity: - - Patient denies pain Narrative: Patient presents after a fall at home. 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 He uses a motorized wheelchair when he is in the first floor, but tonight he was using his crutches to go up the steps to bed when his right leg gave out on him and he fell. He states he sat down on the step, did not fall down the steps. He called EMS. Patient denies any pain currently. He states he was very weak when trying to get from the wheelchair into the bed. He states he is afraid to try to walk because his legs give out and he falls. He states he has used a walker at home as well but does not feel safe with this either. - Past Medical History (1) Anxiety and depression Status: Chronic (2) CKD (chronic kidney disease), stage IV Status: Chronic (3) Chronic anemia Status: Chronic (4) Diabetes mellitus, type II Status: Chronic (5) GERD (gastroesophageal reflux disease) Status: Chronic (6) HTN (hypertension) Status: Chronic (7) Hypothyroidism Status: Chronic (8) MEGAN (obstructive sleep apnea) Status: Chronic Past Medical History - Allergies and Home Meds Allergies/Adverse Reactions: Allergies metformin Allergy (Verified 05/10/19 00:14) Angioedema Penicillins Allergy (Verified 05/10/19 00:14) Rash Tetanus Vaccines and Toxoid Allergy (Verified 05/10/19 00:14) Swelling at injection site Primary Care Physician: [facility] [Primary Care Provider] - Prior records reviewed: Yes Surgical History: - - Prior history reports back surgery however patient denies, ureteral stent placements noted, cataract surgery left eye recently. Lives: Alone Smoking Status: Current every day smoker - Family History Maternal Family History: Reports: Heart Disease, Hypertension Paternal Family History: Reports: Cancer, Hypertension Review of Systems General: Denies: Chills, Fever Eyes: Denies: Visual changes - bilaterally ENT: Denies: Bilateral ear pain Cardiovascular: Denies: Chest pain Respiratory: Denies: Dyspnea, Cough Gastrointestinal: Denies: Abdominal pain, Nausea, Vomiting, Diarrhea Genitourinary: Denies: Dysuria Musculoskeletal: Denies: Back pain Skin: Denies: Rash, Wounds Neurological: Denies: Headache Psych: Denies: Depression Allergy: Denies: Uticaria Physical Exam Vital Signs/Narrative: Vital Signs Temp Pulse Resp BP Pulse Ox 05/10/19 00:10 98.4 F 100 18 161/82 H 100 Inital Vital Signs reviewed: Yes General: Well nourished Head: Normocephalic ENT: Moist mucous membranes Neck: Supple Cardiovascular: Regular rate, Regular rhythm Respiratory: No distress, CTA bilaterally Abdomen: Soft, Nontender, Normal bowel sounds Extremities: Nontender Skin: Pallor Neurological: Alert, Oriented x3, - - Moves all 4 extremities with no focal deficits. Psychological: Normal affect Diagnostic/Tx/Re-eval Laboratory Results 05/10/19 05/10/19 05/10/19 01:30 01:30 01:50 WBC 7.2 RBC 3.04 L Hgb 8.0 L Hct 25.2 L MCV 82.9 MCH 26.3 L MCHC 31.7 L RDW Std Deviation 44.2 H RDW Coeff of Nyasia 14.7 H Plt Count 178 MPV 8.6 Immature Gran % (Auto) 1.400 H Neut % (Auto) 80.3 H Lymph % (Auto) 9.0 L [place] % (Auto) 8.4 Eos % (Auto) 0.6 Baso % (Auto) 0.3 Absolute Neuts (auto) 5.8 Absolute Lymphs (auto) 0.65 L Nucleated RBC % 0 Sodium 135 L Potassium 5.6 H Chloride 111 H Carbon Dioxide 17.0 L Anion Gap 7 BUN 75 H Creatinine 4.64 H Estim Creat Clear Calc 14.64 Est GFR (MDRD) Af Amer 16 L Est GFR (MDRD) Non-Af 13 L BUN/Creatinine Ratio 16.2 Glucose 290 H Calcium 8.2 L Urine Color Red Urine Clarity Turbid Urine pH 8.0 Ur Specific [place] 1.015 Urine Protein 500 H Urine Glucose (UA) 50 H Urine Ketones Negative Urine Occult Blood 250 H Urine Nitrite Negative Urine Bilirubin Negative Urine Urobilinogen Normal Ur Leukocyte Esterase 500 H Urine RBC > 100 SEEN Urine WBC >100 SEEN Ur Squamous Epith Cells 0-5 SEEN Urine Bacteria 0 SEEN Urine Mucus 0 SEEN - Medical Decision Making Patient presents after fall at home with no injury. He reports leg weakness and difficulty ambulating. Nursing staff does note that they had a hard time getting him from the wheelchair into the bed secondary to weakness. He was also dirty with stool and urine and had to be cleaned. It appears the patient was discharged from [facility] on the . Patient states he started taking Cipro yesterday that was prescribed by them. His urine today does have white cells and red blood cells, but no bacteria. This may be secondary to a partially treated urine infection. A new urine culture will be sent. Patient has chronic anemia that is unchanged from his prior. His renal function is slightly worse than baseline. He will be started on IV fluids and admitted for physical therapy eval to help determine if the patient is safe for home. ED Disposition - Plan for ED Patient: Disposition: Acute Care Hospital [facility] Diagnosis: Weakness, Acute on chronic renal failure [place]errals: [facility] [Primary Care Provider] -
[2019-05-10 01:36] LABS: Absolute Lymphocyte Count 0.65 X10^3/uL (0.83-4.51); Absolute Neutrophil Count 5.8 X10^3/uL (2.0-7.7); Basophil# 0.02 X10^3/uL; Basophil% 0.3 % (0-1); Eosinophil# 0.04 X10^3/uL; Eosinophils% 0.6 % (0-5); Hematocrit 25.2 % (40-54); Lymphocyte # 0.65 X10^3/ul (4.0); Mean Corp Hgb Conc 31.7 g/dL (32-36); Mean Corpuscular Hgb 26.3 pg (27.0-32.0); Mean Corpuscular Volume 82.9 fL (80-94); Mean Platelet Vol. 8.6 fl (6.2-12.0); Monocyte# 0.61 X10^3/uL; Monocyte% 8.4 % (0-10); NRBC Flagged by Analyzer 0 % (0-5); Neutrophil # 5.81 X10^3/uL (2.7-7.7); Neutrophil % 80.3 % (47-70); Platelet Count 178 K/mm3 (150-450); RBC Distribution Width CV 14.7 % (11.6-14.6); RBC Distribution Width SD 44.2 fl (35.1-43.9); Red Blood Count 3.04 M/mm3 (4.6-6.2); White Blood Count 7.2 K/mm3 (4.4-11.0)
[2019-05-10 01:50] LABS: Anion Gap 7 (5-15); BUN 75 mg/dL (7-18); BUN/Creat Ratio 16.2 RATIO (10-20); Calcium,Total 8.2 mg/dL (8.5-10.1); Chloride 111 mmol/L (98-107); Creatinine, Serum 4.64 mg/dL (0.70-1.30); EST Glomerular Filtration Rate 13 mL/min (>60); Est Glom Filt Rate - Afr Amer 16 mL/min (>60); Estimated Creatinine Clearance 14.64 ml/min; Glucose 290 mg/dL (74-106); Potassium 5.6 mmol/L (3.5-5.1); Sodium Level 135 mmol/L (136-145)
[2019-05-10 01:55] LABS: Bacteria 0 SEEN /hpf (None Seen); Mucous, Urine 0 SEEN /hpf (<or=2+)
[2019-05-10 01:56] LABS: Color, Urine Red (Yellow); Glucose, Dipstick 50 mg/dl (Normal); Ketone-Dipstick Negative (Negative); Leukocyte Esterase-Dipstick 500 /ul (Negative); Nitrite-Dipstick Negative (Negative); Occult Blood-Urine 250 /ul (Negative); Protein-Dipstick 500 mg/dl (Negative); Specific Gravity, Urine 1.015 (1.002-1.030); Urine Bilirubin Dipstick Negative (Negative); Urine Clarity Turbid (Clear); Urine Urobilinogen Normal (Normal)
[2019-05-10 02:04] LABS: Red Blood Cells-Urine > 100 SEEN /hpf (0-5); Squamous Epithelial Cells - UA 0-5 SEEN /hpf (0-5); White Blood Cells >100 SEEN /hpf (0-5)
--- NOTE | 2019-05-10 02:41 | HP.PCM_ITS ---
Problem List (1) Adult failure to thrive Status: Acute (2) Fall Status: Acute (3) Hematuria Status: Acute (4) Acute kidney injury superimposed on chronic kidney disease Status: Acute (5) Weakness Status: Acute (6) Jnqge-ez-rrnfbid kidney injury Status: Chronic (7) JEREMY (acute kidney injury) Status: Acute (8) Anxiety and depression Status: Chronic (9) CKD (chronic kidney disease), stage IV Status: Chronic (10) Chronic anemia Status: Chronic (11) Diabetes mellitus, type II Status: Chronic Qualifiers: Diabetes mellitus detention insulin use: with equipment operator intermodal yard use Diabetes mellitus complication status: with other specified complication Qualified Code(s): E11.69 - Type 2 diabetes mellitus with other specified complication; Z79.4 - intermediate (current) use of insulin (12) GERD (gastroesophageal reflux disease) Status: Chronic Qualifiers: Esophagitis presence: esophagitis presence not specified Qualified Code(s): K21.9 - Gastro-esophageal reflux disease without esophagitis (13) HTN (hypertension) Status: Chronic Qualifiers: Hypertension type: essential hypertension Qualified Code(s): I10 - Essential (primary) hypertension (14) Hypothyroidism Status: Chronic Qualifiers: Hypothyroidism type: unspecified Qualified Code(s): E03.9 - Hypothyroidism, unspecified (15) MEGAN (obstructive sleep apnea) Status: Chronic (16) Tobacco use Status: Chronic History of Present Illness Date of Admission: 05/10/19 Chief Complaint: fall The patient is a 73 year old M with a history of prostate cancer status post radiation; chronic anemia; hypothyroidism; GERD; depression; BPH; and severe osteoarthritis of the bilateral knee who presented because of a fall while using his crutches to go up the stairs at his home. Patient fell and ended up sitting on the stairs. He reported that his left leg has been giving up. He called squad who brought him to the emergency department. At baseline he uses wheelchair to move. At the emergency department patient required 2 people to help transfer him. Also he was found to be covered with filth and stool. Per emergency department doctor patient is too afraid to walk. Recently, patient was evaluated at the emergency department and was transferred to outside hospital ([facility]) because of hematuria and because we did not have urology coverage at that time. Reportedly he was evaluated by a urologist at [facility]; diagnosed with UTI and started on ciprofloxacin. Past Medical History Past Medical History (Chronic Problems): Chronic Problems CKD (chronic kidney disease), stage IV (Chronic) HTN (hypertension) (Chronic) Anxiety and depression (Chronic) Tobacco use (Chronic) MEGAN (obstructive sleep apnea) (Chronic) Hypothyroidism (Chronic) Chronic anemia (Chronic) GERD (gastroesophageal reflux disease) (Chronic) Diabetes mellitus, type II (Chronic) Vfntu-px-xukrvif kidney injury (Chronic) Allergies metformin Allergy (Verified 05/10/19 00:14) Angioedema Penicillins Allergy (Verified 05/10/19 00:14) Rash Tetanus Vaccines and Toxoid Allergy (Verified 05/10/19 00:14) Swelling at injection site Home Medications: Ambulatory Orders Medication Instructions Recorded Ascorbic Acid [Vitamin C] 500 mg PO DAILY@0800 05/11/18 B Complex W-C No.20/Folic Acid 1 mg PO DAILY 05/11/18 [Nephrocaps Softgel] Folic Acid 1 mg PO DAILY 05/11/18 Insulin Glargine [Lantus SoloStar 38 units SC QHS 05/11/18 Pen] Sertraline HCl [Zoloft] 100 mg PO BID 05/11/18 Tamsulosin HCl [Flomax] 0.4 mg PO QHS 05/11/18 Levothyroxine 75 mcg PO DAILY 04/09/19 Omeprazole 20 mg PO DAILY 04/09/19 Atorvastatin Calcium [Lipitor] 10 mg PO QHS 04/26/19 Ferrous Sulfate 325 mg PO DAILY 04/26/19 Surgical History: - - Prior history reports back surgery, ureteral stent placements noted, cataract surgery left eye recently. Lives: Alone Smoking Status: Current every day smoker Tobacco Use: Cigars, Pipe - *Family History Maternal History Items: Heart Disease, Hypertension Paternal History Items: Cancer, Hypertension Review of Systems Constitutional: Reports: Weakness. Denies: Chills, Fever, Weight Change HEENT: Denies: Head Aches, Sinus Congestion, Sinus Drainage Cardiovascular: Denies: Chest Pain, Palpitations Respiratory: Denies: Cough, Shortness of breath at rest, Sputum production Gastrointestinal: Denies: Abdominal Pain, Nausea, Vomiting Genitourinary: Reports: Frequency, Incontinence. Denies: Dysuria Musculoskeletal: Denies: Joint Pain, Joint Tenderness Skin: Denies: Rash, Wounds Neurological: Denies: Numbness, Tingling, Focal weakness Psychiatric: Denies: Anxiety, Depression, Homicidal Ideations, Suicidal Ideations Hematologic/ Lymphatic: Denies: Easy Bruising, Easy Bleeding VTE Information - Inpt Only VTE Present on Admission: No VTE Mechan Device Prophylaxis: SCD's VTE Pharm Prophylaxis ordered?: No Patient Problems: Active and Suspected Problems Weakness (Acute) Adult failure to thrive (Acute) Fall (Acute) Hematuria (Acute) Acute kidney injury superimposed on chronic kidney disease (Acute) - Physical Exam Vitals/I&O's: Vital Signs Temp Pulse Resp BP Pulse Ox 98.4 F 100 18 161/82 H 100 05/10/19 00:10 05/10/19 00:10 05/10/19 00:10 05/10/19 00:10 05/10/19 00:10 Oxygen Delivery Method Room Air Weight: 127.913 kg Body Mass Index (BMI) 40.4 Finger Stick Blood Glucose 99 General: Alert, Oriented x3, Cooperative, - - Unkempt HEENT: Atraumatic, PERRLA, EOMI, Normocephalic Neck: Supple, No JVD, Negative Carotid Bruits Lungs: Clear to auscultation, Normal air movement Cardiovascular: Regular rate, Normal S1, Normal S2, No murmurs Abdomen: Bowel Sounds Present, Soft, Non Tender, - - Urinary meatus oozing with blood and pus. Extremities: No edema, Capillary Refill Less than 3 Seconds Skin: No rashes, No breakdown Musculoskeletal: No Tenderness to Palpation of Joints or Extremities Neurological: Cranial nerves II-XII grossly intact Psych/Mental Status: Depressed Laboratory Results 05/10/19 01:30: WBC 7.2, RBC 3.04 L, Hgb 8.0 L, Hct 25.2 L, MCV 82.9, MCH 26.3 L , MCHC 31.7 L, RDW Std Deviation 44.2 H, RDW Coeff of Nyasia 14.7 H, Plt Count 178, MPV 8.6, Immature Gran % (Auto) 1.400 H, Neut % (Auto) 80.3 H, Lymph % (Auto) 9.0 L, [place] % (Auto) 8.4, Eos % (Auto) 0.6, Baso % (Auto) 0.3, Absolute Neuts (auto) 5.8, Absolute Lymphs (auto) 0.65 L, Nucleated RBC % 0 05/10/19 01:30: Sodium 135 L, Potassium 5.6 H, Chloride 111 H, Carbon Dioxide 17.0 L, Anion Gap 7, BUN 75 H, Creatinine 4.64 H, Estim Creat Clear Calc 14.64, Est GFR (MDRD) Af Amer 16 L, Est GFR (MDRD) Non-Af 13 L, BUN/Creatinine Ratio 16.2, Glucose 290 H, Calcium 8.2 L 05/10/19 01:50: Urine Color Red, Urine Clarity Turbid, Urine pH 8.0, Ur Specific [place] 1.015, Urine Protein 500 H, Urine Glucose (UA) 50 H, Urine Ketones Negative, Urine Occult Blood 250 H, Urine Nitrite Negative, Urine Bilirubin Negative, Urine Urobilinogen Normal, Ur Leukocyte Esterase 500 H, Urine RBC > 100 SEEN, Urine WBC >100 SEEN, Ur Squamous Epith Cells 0-5 SEEN, Urine Bacteria 0 SEEN, Urine Mucus 0 SEEN Current Medications Sodium Chloride () 1,000 mls @ 150 mls/hr IV .Q6H40M COUNT INCLUDES THE [facility] Assessment/Plan All Active Problems Weakness (Acute) Adult failure to thrive (Acute) Fall (Acute) Hematuria (Acute) Acute kidney injury superimposed on chronic kidney disease (Acute) JEREMY (acute kidney injury) (Acute) The patient is a 73 year old M with a history of prostate cancer status post radiation; chronic anemia; hypothyroidism; GERD; depression; BPH; and severe osteoarthritis of the bilateral knee with a fall; adult failure to thrive and gross hematuria. Fall and adult failure to thrive Likely secondary to severe osteoarthritis. Patient denies pain. PT and OT to work with patient. Likely patient may need may need placement. Case management consult for discharge planning. Discussed with emergency department doctor to get bilateral knee x-rays. Check vitamin D level Gross Hematuria Physical examination showed blood and pus from his urinary meatus. Continue on home ciprofloxacin for now. Consult urology. Trend H&H. Avoid anticoagulants JEREMY on CKD stage IV Patient's creatinine was 4.64. His creatinine 2 weeks ago was 3.41. Gentle IV hydration. Avoid nephrotoxins. Hyperkalemia Trend BMP IV hydration as above Diabetes mellitus with hyperglycemia. On presentation his blood glucose was elevated. On home Lantus 38 units nightly. We will put on Lantus 25 units nightly and add correction scale insulin. Calorie controlled diet Diabetic education Hypothyroidism Synthroid continued Check TSH Tobacco abuse Patient's smokes cigar and pipe. Counseled. DVT Prophylaxis SCD Code Visit Inpatient E&M: 74319 Init Hosp L3
[2019-05-10] MEDS: 0.9% Normal Saline 1,000 ML 150 ML IV (02:45)
--- NOTE | 2019-05-10 02:48 | RAD_ITS ---
STUDY: X-RAY - LEFT KNEE REASON FOR EXAM: Male, 73 years old. Chronic bilateral knee pain. TECHNIQUE: 4 view(s) of the knee. COMPARISON: None. FINDINGS: Moderate to severe osteoarthritis of the medial patellofemoral compartments, relative sparing of the lateral compartment. Degenerative mild lateral facet of the tibia in relation to the femur. No visible fracture. No osseous destruction. No acute soft tissue abnormality. Calcific atherosclerosis. RAD/Knee 4 or More Views IMPRESSION: Moderate to severe osteoarthritis of the medial patellofemoral compartments. Electronically Signed: Eben Cantu, at 4:14 EST Tel , Service support ,
--- NOTE | 2019-05-10 02:48 | RAD_ITS ---
STUDY: X-RAY - RIGHT KNEE REASON FOR EXAM: Male, 73 years old. Chronic bilateral knee pain. TECHNIQUE: 4 view(s) of the knee. COMPARISON: None. FINDINGS: No visible fracture. No osseous destruction. Severe tricompartmental osteoarthritis particularly at the lateral compartment where there is complete joint space loss and lqbc-fq-xgjv configuration. Mild degenerative lateral offset of the tibia in relation to the femur. No acute soft tissue abnormality. Calcific atherosclerosis. RAD/Knee 4 or More Views IMPRESSION: Severe tricompartmental osteoarthritis. Electronically Signed: Eben Cantu, at 3:59 EST Tel , Service support ,
[2019-05-10] MEDS: 0.9% Normal Saline 1,000 ML 100 ML IV ×2 (04:34→09:19)
[2019-05-10 05:16] LABS: Bedside Glucose 219 mg/dL (70-110)
[2019-05-10 05:27] LABS: International Normalized Ratio 1.2; Prothrombin Time (Protime)PT. 14.6 SECONDS (11.7-14.9)
[2019-05-10] MEDS: Levothyroxine 75 MCG Tablet PO (06:23)
[2019-05-10] MEDS: Insulin Lispro 100 UNIT/ML INSULN.PEN SC ×4 (06:23→22:41)
--- NOTE | 2019-05-10 07:36 | PCM.CONS.U ---
Reason for Consult Date of Consultation: 05/10/19 Reason for Consultation: UTI recent fall History of Present Illness: The patient is a 73 year old Male admitted for fall recently, had a uti and being treated last time had stents removed which the [facility] for unclear reason. in poor chronic health typically incontinent, cr very high at 4.3 and may need dialysis in the future. cysto and bladder biopsy last month negative for cancer has chronic inflammation from stents. Past Medical History Past Medical History (Chronic Problems): Chronic Problems CKD (chronic kidney disease), stage IV (Chronic) HTN (hypertension) (Chronic) Anxiety and depression (Chronic) Tobacco use (Chronic) MEGAN (obstructive sleep apnea) (Chronic) Hypothyroidism (Chronic) Chronic anemia (Chronic) GERD (gastroesophageal reflux disease) (Chronic) Diabetes mellitus, type II (Chronic) Tqirc-wn-fuzkroy kidney injury (Chronic) Allergies metformin Allergy (Verified 05/10/19 00:14) Angioedema Penicillins Allergy (Verified 05/10/19 00:14) Rash Tetanus Vaccines and Toxoid Allergy (Verified 05/10/19 00:14) Swelling at injection site Home Medications: Ambulatory Orders Medication Instructions Recorded Ascorbic Acid [Vitamin C] 500 mg PO DAILY@0800 05/11/18 B Complex W-C No.20/Folic Acid 1 mg PO DAILY 05/11/18 [Nephrocaps Softgel] Folic Acid 1 mg PO DAILY 05/11/18 Insulin Glargine [Lantus SoloStar 38 units SC QHS 05/11/18 Pen] Sertraline HCl [Zoloft] 100 mg PO BID 05/11/18 Tamsulosin HCl [Flomax] 0.4 mg PO QHS 05/11/18 Levothyroxine 75 mcg PO DAILY 04/09/19 Omeprazole 20 mg PO DAILY 04/09/19 Atorvastatin Calcium [Lipitor] 10 mg PO QHS 04/26/19 Ferrous Sulfate 325 mg PO DAILY 04/26/19 Surgical History: - - Prior history reports back surgery however patient denies, ureteral stent placements noted, cataract surgery left eye recently. Lives: Alone Smoking Status: Current every day smoker - *Family History Maternal History Items: Heart Disease, Hypertension Paternal History Items: Cancer, Hypertension Physical Exam - Physical Exam Vital Signs Temp 98.0 F 05/10/19 04:26 Pulse 95 05/10/19 04:26 Resp 16 05/10/19 04:26 BP 128/67 H 05/10/19 04:26 Pulse Ox 99 05/10/19 04:26 Intake & Output 05/08/19 05/09/19 05/10/19 23:59 23:59 23:59 Intake Total 1000 / 1000 Balance 1000 / 1000 Weight: 118.6 kg Intake: Intake, IV Amount 1000 / 1000 0.9% Normal Saline 1,000 ML @ 1000 / 1000 150 mls/hr IV .Q6H40M [facility] Rx#: [id number] Other: Incontinent Amount Large General: Alert HEENT: PERRLA Oral: Moist Mucosa Neck: Supple Abdomen: Obese Laboratory Tests Past 24 Hrs 05/10/19 05/10/19 05/10/19 01:30 01:30 01:30 WBC 7.2 RBC 3.04 L Hgb 8.0 L Hct 25.2 L MCV 82.9 MCH 26.3 L MCHC 31.7 L RDW Std Deviation 44.2 H RDW Coeff of Nyasia 14.7 H Plt Count 178 MPV 8.6 Immature Gran % (Auto) 1.400 H Neut % (Auto) 80.3 H Lymph % (Auto) 9.0 L [place] % (Auto) 8.4 Eos % (Auto) 0.6 Baso % (Auto) 0.3 Absolute Neuts (auto) 5.8 Absolute Lymphs (auto) 0.65 L Nucleated RBC % 0 PT 14.6 INR 1.2 Sodium 135 L Potassium 5.6 H Chloride 111 H Carbon Dioxide 17.0 L Anion Gap 7 BUN 75 H Creatinine 4.64 H Estim Creat Clear Calc 14.64 Est GFR (MDRD) Af Amer 16 L Est GFR (MDRD) Non-Af 13 L BUN/Creatinine Ratio 16.2 Glucose 290 H Calcium 8.2 L Urine Color Urine Clarity Urine pH Ur Specific [place] Urine Protein Urine Glucose (UA) Urine Ketones Urine Occult Blood Urine Nitrite Urine Bilirubin Urine Urobilinogen Ur Leukocyte Esterase Urine RBC Urine WBC Ur Squamous Epith Cells Urine Bacteria Urine Mucus 05/10/19 01:50 WBC RBC Hgb Hct MCV MCH MCHC RDW Std Deviation RDW Coeff of Nyasia Plt Count MPV Immature Gran % (Auto) Neut % (Auto) Lymph % (Auto) [place] % (Auto) Eos % (Auto) Baso % (Auto) Absolute Neuts (auto) Absolute Lymphs (auto) Nucleated RBC % PT INR Sodium Potassium Chloride Carbon Dioxide Anion Gap BUN Creatinine Estim Creat Clear Calc Est GFR (MDRD) Af Amer Est GFR (MDRD) Non-Af BUN/Creatinine Ratio Glucose Calcium Urine Color Red Urine Clarity Turbid Urine pH 8.0 Ur Specific [place] 1.015 Urine Protein 500 H Urine Glucose (UA) 50 H Urine Ketones Negative Urine Occult Blood 250 H Urine Nitrite Negative Urine Bilirubin Negative Urine Urobilinogen Normal Ur Leukocyte Esterase 500 H Urine RBC > 100 SEEN Urine WBC >100 SEEN Ur Squamous Epith Cells 0-5 SEEN Urine Bacteria 0 SEEN Urine Mucus 0 SEEN Assessment/Plan All Active Problems Acute blood loss anemia (Acute) Hydronephrosis (Acute) Acute urinary retention (Acute) Weakness (Acute) Hematuria (Acute) JEREMY (acute kidney injury) (Acute) 73 yo male with chronic renal insufficience chronic dilation of ureters, biopsy last month neg cancer probably with UTI, treat UTI per cultures. check PVR if very high place merino he may be overflow incontinence NOT a surgical candidate for turp given active infection and poor health will only have poor outcomes , call with questions.
[2019-05-10 08:36] LABS: Thyroid Stim Hormone (TSH) 2.19 uIU/mL (0.358-3.74)
[2019-05-10 09:12] LABS: Vitamin D,25 Hydroxy 7.6 ng/mL (29.95-100.01)
[2019-05-10] MEDS: Pantoprazole Sodium 20 MG Tablet PO (09:20)
[2019-05-10] MEDS: Folic Acid/Vitamin B Comp W-C 1 Capsule 1 CAP PO (09:20)
[2019-05-10] MEDS: Folic Acid 1 MG Tablet PO (09:21)
[2019-05-10] MEDS: Ascorbic Acid 500 MG Tablet PO (09:21)
[2019-05-10] MEDS: Ferrous Sulfate 325 MG Tablet PO (09:21)
[2019-05-10] MEDS: Ciprofloxacin 500 MG Tablet PO (09:21)
[2019-05-10] MEDS: Menthol/Lanolin/Calamine/Znox 113 GM Tube 1 APPLIC TOPICAL ×2 (09:22→22:01)
[2019-05-10] MEDS: Nystatin Powder 15gm Bottle 1 APPLIC TOPICAL ×2 (09:23→22:01)
--- NOTE | 2019-05-10 10:17 | CASEMGMT ---
Social Work Note JULIAN met with pt to discuss discharge plans. Pt is alert and orientated x3. Pt states is agreeable to SNF at discharge. JULIAN educated pt on Medicare guidelines and that he already has qualifying stay from 04/10/2019-04/17/2019 when pt was in [facility]. JULIAN provided pt with list of SNF with Medicare ratings. Pt states first choice is [facility], second choice is [facility] and third choice is [facility]. JULIAN informed pt that this worker will call facilities to determine bed availability. Pt states understanding. JULIAN called [facility]CU referral Line, no beds until Monday. JULIAN called [facility] and spoke with Flavia who states they have no beds. JULIAN placed a call to Stephanie at [facility]. Stephanie states they have limited beds but will review referral. JULIAN faxed referral to [facility]. Plan: SNF pending acceptance Radha Cortez FILM PRODUCER, MANAGER GROCERY
[2019-05-10] MEDS: Sertraline 100 MG Tablet PO ×2 (11:02→22:37)
[2019-05-10 11:25] LABS: Bedside Glucose 185 mg/dL (70-110)
--- NOTE | 2019-05-10 11:28 | CASEMGMT ---
COLE CM Note: Discussed VA benefits and M[facility] A benefits re: transfer to [place]. Pt does not wish to transfer to [facility] at this time. Signed Declination to transfer form. Form and clinical faxed to [facility]. Terire CHAVEZ RN AC
--- NOTE | 2019-05-10 11:32 | CASEMGMT ---
Addendum entered by Radha Cortez 05/10/19 12:05: SW received call from Stephanie at [facility] stating she is unable to accept pt because if pt is not ready to go home at day 21, pt doesn't have a payer and would benefit from just going to SNF that can take VA patients (Larry.) SW in to update pt that this worker tried all three of his choices and no one is able to accept pt. SW reviewed SNF list with pt. Pt states I don't have a choice just pick one. SW informed pt that this worker can't pick a SNF for pt and he has to choose one. SW again reviewed medicare ratings with pt. Pt agreeable to [facility]. JULIAN placed a call to Ivy at [facility] and provided referral. JULIAN explained that medicare will be billed for pt's stay at [facility] from 04/10/2019-04/17/2019. Ivy states she will review referral. Original Note: Social Work Note JULIAN received call from Oxana at [facility] stating she is reviewing pt's Medicare and nothing has been billed to Medicare. JULIAN informed Oxana that pt signed declaration form 04/10/2019-04/17/2019 while at [facility] so pt's Medicare should be billed. JULIAN informed Oxana this worker will call [facility]/Billing. JULIAN placed a call to Radha in [facility]. Radha in [facility] states she spoke with billing who states registration put pt's VA benefit as primary so that is who [facility] billed. JULIAN informed Radha that it is documented from RN RODOLFO that pt signed declaration bill so pt's stay should've been billed under his Medicare not VA. JULIAN asked if Medicare could be billed instead. Radha states it can be but she won't have an answer today. JULIAN received another call from Radha in [facility] stating she spoke with billing who will stop payment to VA and will bill Medicare for [facility] stay. JULIAN placed a call to Oxana at [facility] and updated her that Medicare will be billed for hospital stay. Oxana states she will update Stephanie who is reviewing clinically if they can accept pt. JULIAN waiting for call back. Plan: SNF today pending acceptance Radha Cortez LINE UP WORKER, SPINDLE MAKER
[2019-05-10 12:27] LABS: Hematocrit 22.3 % (40-54); Hemoglobin 6.9 g/dL (13.0-16.5)
--- NOTE | 2019-05-10 13:21 | CASEMGMT ---
Addendum entered by Radha Cortez 05/10/19 14:02: JULIAN spoke with Ivy at [facility] who states her truck driver helper could transport pt at 3:30pm. JULIAN spoke with physician who states pt's hemoglobin dropped and will need to be transfused today and possible discharge tomorrow. JULIAN placed a call to Ivy at [facility] and updated her that pt will not be discharged today but likely tomorrow. Ivy states understanding. JULIAN placed a call to pt's niece Jeanine and updated her that pt will be staying today but will likely be discharged over the weekend. Jeanine states understanding. SW completed convalescent 7000 in HENS. JULIAN placed green sheet, HENS, and transportation forms on pt's chart. Plan: [facility] once medically cleared Original Note: Social Work Note JULIAN received message from Ivy at [facility] stating they are able to accept pt today. Physician updated. JULIAN received message that pt's niece Jeanine Espitia has concerns with pt's living environment and requested to be called ([phone]). Jeanine is listed on pt's contact sheet. JULIAN placed a call to Jeanine. Jeanine states that pt's home is a safety concern. Jeanine states that pt has feces all over the home, there are steps and parts of the floor missing, pt will come to ED due to falling and have open wounds and then have blood in his home from not cleaning it up, pt will sleep for 19 hours at a time and miss medications, pt has difficulty ambulating, and the floor is black. Jeanine states she has called [facility], [facility], and [facility]. Jeanine states the home should be deemed not able to live in due to the health concerns. JULIAN informed pt that this worker can make [facility] referral as well. JULIAN updated Jeanine that pt is agreeable to go to SNF and has been accepted to [facility] and will be discharged there today. JULIAN explained Medicare guidelines and that pt should apply for Medicaid once he is at SNF. JULIAN informed Jeanine that there will be a SW at SNF that can assist pt with completing medicaid application. JULIAN informed Jeanine that at this time pt is his own person so if he gets to SNF and decides to go home then the SNF has to allow him to leave. JULIAN educated Jeanine on [facility] and [facility]SING [facility]. JULIAN informed Jeanine that this worker will check with [facility] to determine if they are able to transport pt but if not able to then pt can be transported via wheelchair van and that will be private pay for pt. Jeanine states that if needed she or her siblings could transport pt but doesn't want to receive the guilt trip if they transport pt to SNF. SW informed pt that this worker will check and update her when transportation is confirmed. Jeanine states understanding, thanked this worker. JULIAN placed a call to Jen at [facility] and made [facility]PS referral. JULIAN asked Ivy at [facility] if they are able to transport pt. SW waiting for call back. Plan: [facility] skilled today Radha Cortez TATTOO DESIGNER, CASEWORK SUPERVISOR
--- NOTE | 2019-05-10 14:09 | CASEMGMT ---
Social Work Note JULIAN did receive call from Jen at [facility] stating [facility] has been out to pt's home and last time pt wouldn't allow APS to enter his home. Jen states that pt is also involved in [facility] and they have been trying to get pt a chair lift but pt refuses chair lift. Jen states that unfortunately pt is alert and orientated x3 and is able to live the way he wants to. JULIAN updated Jen that the plan is for [facility] once medically cleared. Jen states understanding. Radha Cortez DOMESTIC VIOLENCE COUNSELOR, WALLPAPERER
[2019-05-10 14:27] LABS: Anion Gap 6 (5-15); BUN 75 mg/dL (7-18); BUN/Creat Ratio 17.2 RATIO (10-20); Calcium,Total 7.9 mg/dL (8.5-10.1); Chloride 115 mmol/L (98-107); Creatinine, Serum 4.37 mg/dL (0.70-1.30); EST Glomerular Filtration Rate 14 mL/min (>60); Est Glom Filt Rate - Afr Amer 17 mL/min (>60); Estimated Creatinine Clearance 15.54 ml/min; Glucose 221 mg/dL (74-106); Iron 20 ug/dL (65-175); Iron Binding Capacity,Total 94 ug/dL (250-450); PERCENT IRON SATURATION 21.3 % (15.0-55.0); Potassium 5.1 mmol/L (3.5-5.1); Sodium Level 139 mmol/L (136-145)
--- NOTE | 2019-05-10 15:11 | CCHN_ITS ---
Hospitalist Note Patient was seen and examined today, we received permission for the patient to be transferred to [facility] [place] [facility], however, the patient's hemoglobin today came back lower than at admission-it was 6.9-also the patient's creatinine on admission was 4.64, I feel that he will need more rehydration before he goes to a [place] [facility]. I have ordered a serum iron on the patient-this came back a low and I will give the patient Liliane for today, he should probably get another dose of Venofer tomorrow. I will also transfuse the patient 2 units of packed red blood cells and recheck an H&H tomorrow. IV fluids will be lowered to 75 cc an hour and the patient will get a BMP drawn in the morning. It is possible the patient may be stable for discharge to a [place] [facility] facility tomorrow, he will not need Cipro as he has been on Cipro for approximately 7 to 10 days total.
[2019-05-10] MEDS: 0.9% Normal Saline 1,000 ML 75 ML IV (15:44)
[2019-05-10] MEDS: 0.9% Saline Lock 10 ML Syringe IV (15:45)
[2019-05-10 15:46] LABS: Bedside Glucose 213 mg/dL (70-110)
[2019-05-10 17:21] LABS: Bedside Glucose 189 mg/dL (70-110)
[2019-05-10] MEDS: Tamsulosin HCl 0.4 MG Capsule PO (22:37)
[2019-05-10] MEDS: Atorvastatin Calcium 10 MG Tablet PO (22:38)
[2019-05-10 23:56] LABS: Bedside Glucose 156 mg/dL (70-110)
[2019-05-11 03:46] VITALS: BP 136/62; PULSE 97; RESP 18; TEMP 37.1; O2SAT 98
[2019-05-11] MEDS: 0.9% Normal Saline 1,000 ML 75 ML IV ×2 (05:30→15:26)
--- NOTE | 2019-05-11 06:06 | CPS ---
Pt. will see about having niece bring in his home CPAP unit; doesn't wish to wear BiPAP/CPAP we could provide
[2019-05-11] MEDS: Levothyroxine 75 MCG Tablet PO (06:42)
[2019-05-11 06:51] LABS: Bedside Glucose 143 mg/dL (70-110)
[2019-05-11 07:29] LABS: Hematocrit 26.1 % (40-54); Hemoglobin 8.1 g/dL (13.0-16.5)
[2019-05-11 07:52] LABS: Anion Gap 8 (5-15); BUN 74 mg/dL (7-18); Calcium,Total 7.7 mg/dL (8.5-10.1); Chloride 115 mmol/L (98-107); EST Glomerular Filtration Rate 15 mL/min (>60); Est Glom Filt Rate - Afr Amer 19 mL/min (>60); Estimated Creatinine Clearance 16.57 ml/min; Glucose 151 mg/dL (74-106); Potassium 5.1 mmol/L (3.5-5.1); Sodium Level 137 mmol/L (136-145)
[2019-05-11] MEDS: Ascorbic Acid 500 MG Tablet PO (08:17)
[2019-05-11] MEDS: Ferrous Sulfate 325 MG Tablet PO (08:17)
[2019-05-11] MEDS: Folic Acid 1 MG Tablet PO (08:17)
[2019-05-11 08:39] VITALS: BP 131/72; PULSE 79; RESP 18; TEMP 36.6; O2SAT 97
[2019-05-11] MEDS: Nystatin Powder 15gm Bottle 1 APPLIC TOPICAL ×2 (10:53→22:16)
[2019-05-11] MEDS: Folic Acid/Vitamin B Comp W-C 1 Capsule 1 CAP PO (10:54)
[2019-05-11] MEDS: Pantoprazole Sodium 20 MG Tablet PO (10:54)
[2019-05-11] MEDS: Ciprofloxacin 250 MG Tablet PO (10:54)
[2019-05-11] MEDS: Menthol/Lanolin/Calamine/Znox 113 GM Tube 1 APPLIC TOPICAL ×2 (10:55→22:17)
[2019-05-11] MEDS: Sertraline 100 MG Tablet PO ×2 (10:55→22:17)
[2019-05-11 11:02] VITALS: O2SAT 98
[2019-05-11 11:26] LABS: Bedside Glucose 175 mg/dL (70-110)
[2019-05-11] MEDS: Insulin Lispro 100 UNIT/ML INSULN.PEN SC ×3 (11:44→22:18)
[2019-05-11 15:57] VITALS: BP 111/59; PULSE 88; RESP 18; TEMP 37.2; O2SAT 98
--- NOTE | 2019-05-11 16:09 | PCM.PN.HOSP ---
Patient Problems: Active and Suspected Problems Weakness (Acute) Adult failure to thrive (Acute) Fall (Acute) Hematuria (Acute) Acute kidney injury superimposed on chronic kidney disease (Acute) Subjective: States that he is feeling ok. Denies CP, SOB. Appetite is good. Vitals/I&O's: Vital Signs Temp Pulse Resp BP Pulse Ox 98.9 F 88 18 111/59 L 98 05/11/19 15:57 05/11/19 15:57 05/11/19 15:57 05/11/19 15:57 05/11/19 15:57 Oxygen Delivery Method Room Air Weight: 118.6 kg Body Mass Index (BMI) 37.5 Finger Stick Blood Glucose 99 Intake and Output for Last 24 Hours 05/09/19 05/10/19 05/11/19 23:59 23:59 23:59 Intake Total 3393.5 / 4323.5 3865.0 / 3865.0 Output Total 3 / 3 Balance 3393.5 / 4323.5 3862.0 / 3862.0 General: Alert, Oriented x3, Cooperative, No apparent distress, Well developed, Well nourished, - - sitting up in chair, non-toxic, appears well HEENT: Atraumatic, PERRLA, EOMI, Normocephalic, EAC Clear, - - male pattern baldness Oral: Moist Mucosa, No Gingival or Mucosal Lesions/ Ulcerations, - - mallampati 1 Neck: Supple, No JVD, Negative Carotid Bruits, Negative Hepatojugular Reflux, No Nodes, No Nuchal Rigidity, Trachea Midline, Thyroid Normal Size and Texture Lungs: Clear to auscultation, Normal air movement, No rhonchi, No wheeze, No rales Cardiovascular: Regular rate, Regular Rhythm, Normal S1, Normal S2, No murmurs, No Ectopic Activity, No rub noted, No Gallop Abdomen: Bowel Sounds Present, Soft, Non Tender, Non-Distended, Obese, No hernias noted Extremities: No clubbing, No cyanosis, Edema - trace B LE Skin: No rashes, - - changes c/w chronic venous stasis B LE Musculoskeletal: Arthritic Changes Lymphatic: No Cervical, Supraclavicular, or Inguinal Adenopathy Neurological: Cranial nerves II-XII grossly intact, Deep Tendon Reflexes 2+/4 and Symmetrical, Neuro grossly intact, Motor Exam 5/5 strength throughout Psych/Mental Status: Appropriate, Alert and oriented to time, place, person, mood and affect Laboratory Results 05/10/19 14:00: Blood Type A POSITIVE, Antibody Screen NEGATIVE, Crossmatch See Detail 05/10/19 15:44: POC Glucose 189 H 05/10/19 22:40: POC Glucose 156 H 05/11/19 06:44: POC Glucose 143 H 05/11/19 07:16: Sodium 137, Potassium 5.1, Chloride 115 H, Carbon Dioxide 14.0 L, Anion Gap 8, BUN 74 H, Creatinine 4.10 H, Estim Creat Clear Calc 16.57, Est GFR (MDRD) Af Amer 19 L, Est GFR (MDRD) Non-Af 15 L, BUN/Creatinine Ratio 18.0, Glucose 151 H, Calcium 7.7 L 05/11/19 07:16: Hgb 8.1 L, Hct 26.1 L 05/11/19 11:19: POC Glucose 175 H Current Medications Acetaminophen (Tylenol) 650 mg PO Q6H PRN PRN PRN Reason: Pain Score 1-10/Temp > 100.7 F Ascorbic Acid (Vitamin C) 500 mg PO DAILY@0800 [facility] Last Admin: 05/11/19 08:17 Dose: 500 mg Documented by: Atorvastatin Calcium (Lipitor) 10 mg PO QHS [facility] Last Admin: 05/10/19 22:38 Dose: 10 mg Documented by: Calamine/Phenol (Calmoseptine Ointment) 1 applic TOPICAL BID [facility]; Protocol Last Admin: 05/11/19 10:55 Dose: 1 applicatio Documented by: Ciprofloxacin HCl (Cipro) 250 mg PO DAILY [facility] Last Admin: 05/11/19 10:54 Dose: 250 mg Documented by: [facility]ous Sulfate ([facility]ous Sulfate) [facility] Last Admin: 05/11/19 08:17 Dose: 325 mg Documented by: Folic Acid (Folic Acid) [facility] Last Admin: 05/11/19 08:17 Dose: 1 mg Documented by: Glucagon () 1 mg IM .X1 PRN PRN Reason: Hypoglycemia Dextrose (Dextrose 10%-Water) 250 mls @ 999 mls/hr IV .Q16M PRN; Protocol PRN Reason: HYPOGLYCEMIA Sodium Chloride () 1,000 mls @ 75 mls/hr IV .[id number] [facility] Last Admin: 05/11/19 15:26 Dose: 75 mls/hr Documented by: Insulin Glargine (Lantus (Bk)) 25 units SC QHS [facility] Last Admin: 05/10/19 22:42 Dose: 25 units Documented by: Insulin Human Lispro (Humalog Kwikpen ([facility])) 0 unit SC ACHS [facility]; Protocol Last Admin: 05/11/19 11:44 Dose: 2 units Documented by: Levothyroxine Sodium (Synthroid) 75 mcg PO DAILY@0600 [facility] Last Admin: 05/11/19 06:42 Dose: 75 mcg Documented by: Multivit/Ca Carb/B Cmplx/FA/Prenat (Nephrocaps, Renaphro) 1 capsule PO DAILY [facility] Last Admin: 05/11/19 10:54 Dose: 1 capsule Documented by: Nystatin (Mycostatin Powder) 1 applic TOPICAL BID [facility]; Protocol Last Admin: 05/11/19 10:53 Dose: 1 applicatio Documented by: Ondansetron HCl (Zofran) 4 mg IV Q8H PRN PRN PRN Reason: NAUSEA/VOMITING Pantoprazole Sodium (Protonix) 20 mg PO DAILY [facility] Last Admin: 05/11/19 10:54 Dose: 20 mg Documented by: Sertraline HCl (Zoloft) 100 mg PO BID [facility] Last Admin: 05/11/19 10:55 Dose: 100 mg Documented by: Sodium Chloride () 10 - 40 ml IV UD PRN PRN Reason: SALINE FLUSH Last Admin: 05/10/19 15:45 Dose: 10 ml Documented by: Tamsulosin HCl (Flomax) 0.4 mg PO QHS [facility] Last Admin: 05/10/19 22:37 Dose: 0.4 mg Documented by: Capacity - Capacity Assessment Tool Can the patient make a choice & communicate that choice?: Yes Can the patient understand benefits, risks and alternatives?: Yes Can the patient make a logical, rational choice?: Yes Is the choice the patient makes consistent w/ their values?: Yes Is there an impending, emergent risk to the patient?: No Does the patient have an Advance Directive?: Yes Is there a Surrogate Available?: Yes i.e. HCPOA: Yes i.e. close relative (spouse, child, parent, sibling)?: Yes - Daughter STROKE Vital Signs/Narrative: Vital Signs Temp Pulse Resp BP Pulse Ox 05/11/19 15:57 98.9 F 88 18 111/59 L 98 Medical Necessity - Tobacco Use Smoking Status: Current every day smoker Tobacco Use: Cigars, Pipe Assessment/Plan All Active Problems Weakness (Acute) Adult failure to thrive (Acute) Fall (Acute) Hematuria (Acute) Acute kidney injury superimposed on chronic kidney disease (Acute) JEREMY (acute kidney injury) (Acute) Gross Hematuria -resolving but still a few clots -Uro following -PVR pending as pt is incontinent frequently -urine cx pending -completed course of cipro--> hold abx for now and await cx -pt has h/o infections -neg cystoscopy and bx last month and has chronic inflammation from stents -not a TURP candidate Fall/Adult Failure to Thrive 2/2 severe OA -OT/PT -plan is for d/c to Assisted Living -walker for ambulation H/O Prostate Cancer s/p XRT/BPH -urology following -continue Flomax DM-2 -BGT ok -continue current regimen JEREMY on CKD stage 4 -baseline creatinine is about 3.4-3.8 -4.1 today -continue IVF for now at same rate and recheck in am Acute on Chronic Anemia -transfused and Venofer given yesterday -repeat Venofer today -repeat hgb in am -appropriate rise today Hypothyroidism -cont Synthroid Depression -continue Zoloft HPL -continue statin CODE STATUS: DNR-CCA Code Visit Inpatient E&M: 63953 Subs Hosp L3
[2019-05-11 16:35] LABS: Bedside Glucose 205 mg/dL (70-110)
[2019-05-11 20:48] VITALS: BP 158/68; PULSE 98; RESP 18; TEMP 36.6; O2SAT 100
[2019-05-11] MEDS: Tamsulosin HCl 0.4 MG Capsule PO (22:17)
[2019-05-11] MEDS: Atorvastatin Calcium 10 MG Tablet PO (22:17)
[2019-05-11 22:26] LABS: Bedside Glucose 226 mg/dL (70-110)
[2019-05-12 03:23] VITALS: BP 116/50; PULSE 91; RESP 18; TEMP 36.3; O2SAT 99
--- NOTE | 2019-05-12 03:25 | NURSING ---
Pt's IVAC frequently alarmed downstream occlusion even though site flushed ok. IV in rt antecub & pt aware he needs to straighten arm to prevent alarms from ringing. Consented to another IV start. Unable to get IV in left forearm after 1 try and then pt refused to let me try again. Said he would rather put up with frequent alarms. [place] GALVAN aware.
[2019-05-12] MEDS: 0.9% Normal Saline 1,000 ML 75 ML IV (06:34)
[2019-05-12] MEDS: Levothyroxine 75 MCG Tablet PO (06:35)
[2019-05-12] MEDS: 0.9% Saline Lock 10 ML Syringe IV (06:35)
[2019-05-12 06:48] LABS: Absolute Lymphocyte Count 1.52 X10^3/uL (0.83-4.51); Absolute Neutrophil Count 4.8 X10^3/uL (2.0-7.7); Basophil# 0.02 X10^3/uL; Basophil% 0.3 % (0-1); Eosinophil# 0.13 X10^3/uL; Eosinophils% 1.8 % (0-5); Hematocrit 27.8 % (40-54); Hemoglobin 8.7 g/dL (13.0-16.5); Lymphocyte # 1.52 X10^3/ul (4.0); Lymphocyte % 21.1 % (19-41); Mean Corp Hgb Conc 31.3 g/dL (32-36); Mean Corpuscular Hgb 27.3 pg (27.0-32.0); Mean Corpuscular Volume 87.1 fL (80-94); Monocyte# 0.51 X10^3/uL; Monocyte% 7.1 % (0-10); NRBC Flagged by Analyzer 0.3 % (0-5); Neutrophil # 4.76 X10^3/uL (2.7-7.7); Neutrophil % 66.1 % (47-70); Platelet Count 160 K/mm3 (150-450); RBC Distribution Width CV 15.7 % (11.6-14.6); RBC Distribution Width SD 49.5 fl (35.1-43.9); Red Blood Count 3.19 M/mm3 (4.6-6.2); White Blood Count 7.2 K/mm3 (4.4-11.0)
[2019-05-12 06:56] LABS: Bedside Glucose 111 mg/dL (70-110)
[2019-05-12 07:05] LABS: Anion Gap 9 (5-15); BUN 80 mg/dL (7-18); BUN/Creat Ratio 20.5 RATIO (10-20); Calcium,Total 8.4 mg/dL (8.5-10.1); Chloride 119 mmol/L (98-107); EST Glomerular Filtration Rate 16 mL/min (>60); Est Glom Filt Rate - Afr Amer 20 mL/min (>60); Estimated Creatinine Clearance 17.42 ml/min; Glucose 120 mg/dL (74-106); Potassium 4.9 mmol/L (3.5-5.1); Sodium Level 142 mmol/L (136-145)
[2019-05-12 07:20] VITALS: O2SAT 97
[2019-05-12] MEDS: Ciprofloxacin 250 MG Tablet PO (09:17)
[2019-05-12] MEDS: Nystatin Powder 15gm Bottle 1 APPLIC TOPICAL (09:17)
[2019-05-12] MEDS: Folic Acid/Vitamin B Comp W-C 1 Capsule 1 CAP PO (09:17)
[2019-05-12] MEDS: Menthol/Lanolin/Calamine/Znox 113 GM Tube 1 APPLIC TOPICAL (09:17)
[2019-05-12] MEDS: Sertraline 100 MG Tablet PO (09:17)
[2019-05-12] MEDS: Ferrous Sulfate 325 MG Tablet PO (09:18)
[2019-05-12] MEDS: Pantoprazole Sodium 20 MG Tablet PO (09:18)
[2019-05-12] MEDS: Folic Acid 1 MG Tablet PO (09:18)
[2019-05-12] MEDS: Ascorbic Acid 500 MG Tablet PO (09:18)
[2019-05-12 09:57] VITALS: BP 123/63; PULSE 80; RESP 18; TEMP 36.4; O2SAT 98
[2019-05-12 11:51] LABS: Bedside Glucose 198 mg/dL (70-110)
[2019-05-12] MEDS: Insulin Lispro 100 UNIT/ML INSULN.PEN SC ×2 (12:10→16:43)
--- NOTE | 2019-05-12 16:25 | PCM.DC.SUM ---
Discharge Date and Diagnosis - Problem List Patient Problems: Active and Suspected Problems Weakness (Acute) Adult failure to thrive (Acute) Fall (Acute) Hematuria (Acute) Acute kidney injury superimposed on chronic kidney disease (Acute) Date of Admission: 05/10/19 Date of Discharge: 05/12/19 - Primary Discharge Diagnosis Active and Suspected Problems Weakness (Acute) Adult failure to thrive (Acute) Fall (Acute) Hematuria (Acute) Acute kidney injury superimposed on chronic kidney disease (Acute) - Secondary Discharge Diagnosis Chronic Problems CKD (chronic kidney disease), stage IV (Chronic) HTN (hypertension) (Chronic) Anxiety and depression (Chronic) Tobacco use (Chronic) MEGAN (obstructive sleep apnea) (Chronic) Hypothyroidism (Chronic) Chronic anemia (Chronic) GERD (gastroesophageal reflux disease) (Chronic) Diabetes mellitus, type II (Chronic) Wfumu-ov-fewmhdz kidney injury (Chronic) Hospital Course and Treatment Imaging Results: Knee M-ksm-Nkayff OA R and Moderate to Severe L Operations: None Procedures: None Summary of Care Provided: Mr. Cuello is a 73 year old M with a history of prostate cancer status post radiation; chronic anemia; hypothyroidism; GERD; depression; BPH; and severe osteoarthritis of the bilateral knee who presented to the ED 05/10/19 because of a fall while using his crutches to go up the stairs at his home. He has had significant issues ambulating. He required 2 people to help him transfer and was found to be covered in filth and stool. He reported that he was too afraid to walk. He has a h/o recurrent UTI and was place on abx that he had been on (cipro) and he has completed treatment at this time. He had some hematuria and urology was consulted. He has had a cysto and bladder biopsy last month negative for cancer and he has chronic inflammation from stents. His creatinine was mildly elevated from his baseline as well. His creatinine trended down to 3.9 from 4.6 and his urine has cleared from blood. He did require a blood transfusion with his blood loss from hematuria but his hgb was stable x 2 days and was given Venofer x 2 doses. He now will be transferred to SNF ([facility]). Urine cx grew enterococcus but only at 10,000 to 25,000. [facility] and pt is aware with the tenuous state of his renal function that he may need HD in the future. Patient Problems: Active and Suspected Problems Weakness (Acute) Adult failure to thrive (Acute) Fall (Acute) Hematuria (Acute) Acute kidney injury superimposed on chronic kidney disease (Acute) - Physical Exam Vitals/I&O's: Vital Signs Temp Pulse Resp BP Pulse Ox 97.6 F L 80 18 123/63 H 98 05/12/19 09:57 05/12/19 09:57 05/12/19 09:57 05/12/19 09:57 05/12/19 09:57 Oxygen Delivery Method Room Air Weight: 118.6 kg Body Mass Index (BMI) 37.5 Finger Stick Blood Glucose 99 Intake and Output for Last 24 Hours 05/10/19 05/11/19 05/12/19 23:59 23:59 23:59 Intake Total 3393.5 / 4323.5 4770.0 / 5010.0 2079 Output Total 6 / 6 Balance 3393.5 / 4323.5 4764.0 / 5004.0 2079 General: Alert, Oriented x3, Cooperative, No apparent distress, Well developed, Well nourished HEENT: Atraumatic, PERRLA, EOMI, Normocephalic, EAC Clear Oral: Moist Mucosa, No Gingival or Mucosal Lesions/ Ulcerations Neck: Supple, No JVD, Negative Carotid Bruits, Negative Hepatojugular Reflux, No Nodes, No Nuchal Rigidity Lungs: Clear to auscultation, Normal air movement, No rhonchi, No wheeze, No rales Cardiovascular: Regular rate, Regular Rhythm, Normal S1, Normal S2, No murmurs, No Ectopic Activity, No rub noted, No Gallop Abdomen: Bowel Sounds Present, Soft, Non Tender, Non-Distended, No hernias noted Extremities: No clubbing, No cyanosis, No edema, Capillary Refill Less than 3 Seconds, Peripheral Pulses Normal, - - B LE hemosideren depostion Skin: No rashes, No breakdown, - Musculoskeletal: No Muscle Wasting, Arthritic Changes Lymphatic: No Cervical, Supraclavicular, or Inguinal Adenopathy Neurological: Cranial nerves II-XII grossly intact, Deep Tendon Reflexes 2+/4 and Symmetrical, Neuro grossly intact, Motor Exam 5/5 strength throughout Psych/Mental Status: Appropriate, Alert and oriented to time, place, person, mood and affect Microbiology Past 72 Hours 05/10/19 01:50 Urine, Clean Catch Urine Culture - Preliminary GPC Poss Enterococcus sp Laboratory Results 05/11/19 16:28: POC Glucose 205 H 05/11/19 22:14: POC Glucose 226 H 05/12/19 06:18: WBC 7.2, RBC 3.19 L, Hgb 8.7 L, Hct 27.8 L, MCV 87.1 D, MCH 27.3, MCHC 31.3 L, RDW Std Deviation 49.5 H, RDW Coeff of Nyasia 15.7 H, Plt Count 160, MPV 9.0, Immature Gran % (Auto) 3.600 H, Neut % (Auto) 66.1, Lymph % (Auto) 21.1, Wayne % (Auto) 7.1, Eos % (Auto) 1.8, Baso % (Auto) 0.3, Absolute Neuts (auto) 4.8, Absolute Lymphs (auto) 1.52, Nucleated RBC % 0.3 05/12/19 06:18: Sodium 142, Potassium 4.9, Chloride 119 H, Carbon Dioxide 14.0 L, Anion Gap 9, BUN 80 H, Creatinine 3.90 H, Estim Creat Clear Calc 17.42, Est GFR (MDRD) Af Amer 20 L, Est GFR (MDRD) Non-Af 16 L, BUN/Creatinine Ratio 20.5 H, Glucose 120 H, Calcium 8.4 L 05/12/19 06:33: POC Glucose 111 H 05/12/19 11:47: POC Glucose 198 H Current Medications Acetaminophen (Tylenol) 650 mg PO Q6H PRN PRN PRN Reason: Pain Score 1-10/Temp > 100.7 F Ascorbic Acid (Vitamin C) 500 mg PO DAILY@0800 [facility] Last Admin: 05/12/19 09:18 Dose: 500 mg Documented by: Atorvastatin Calcium (Lipitor) 10 mg PO QHS [facility] Last Admin: 05/11/19 22:17 Dose: 10 mg Documented by: Calamine/Phenol (Calmoseptine Ointment) 1 applic TOPICAL BID [facility]; Protocol Last Admin: 05/12/19 09:17 Dose: 1 applicatio Documented by: Ciprofloxacin HCl (Cipro) 250 mg PO DAILY [facility] Last Admin: 05/12/19 09:17 Dose: 250 mg Documented by: Ferrous Sulfate ([facility]errous Sulfate) [facility] Last Admin: 05/12/19 09:18 Dose: 325 mg Documented by: Folic Acid (Folic Acid) [facility] Last Admin: 05/12/19 09:18 Dose: 1 mg Documented by: Glucagon () 1 mg IM .X1 PRN PRN Reason: Hypoglycemia Dextrose (Dextrose 10%-Water) 250 mls @ 999 mls/hr IV .Q16M PRN; Protocol PRN Reason: HYPOGLYCEMIA Sodium Chloride () 1,000 mls @ 75 mls/hr IV .[id number] [facility] Last Admin: 05/12/19 06:34 Dose: 75 mls/hr Documented by: Insulin Glargine (Lantus ([facility])) 25 units SC QHS [facility] Last Admin: 05/11/19 22:17 Dose: 25 units Documented by: Insulin Human Lispro (Humalog Kwikpen ([facility])) 0 unit SC ACHS [facility]; Protocol Last Admin: 05/12/19 12:10 Dose: 2 units Documented by: Levothyroxine Sodium (Synthroid) 75 mcg PO DAILY@0600 [facility] Last Admin: 05/12/19 06:35 Dose: 75 mcg Documented by: Multivit/Ca Carb/B Cmplx/FA/Prenat (Nephrocaps, Renaphro) 1 capsule PO DAILY [facility] Last Admin: 05/12/19 09:17 Dose: 1 capsule Documented by: Nystatin (Mycostatin Powder) 1 applic TOPICAL BID [facility]; Protocol Last Admin: 05/12/19 09:17 Dose: 1 applicatio Documented by: Ondansetron HCl (Zofran) 4 mg IV Q8H PRN PRN PRN Reason: NAUSEA/VOMITING Pantoprazole Sodium (Protonix) 20 mg PO DAILY [facility] Last Admin: 05/12/19 09:18 Dose: 20 mg Documented by: Sertraline HCl (Zoloft) 100 mg PO BID [facility] Last Admin: 05/12/19 09:17 Dose: 100 mg Documented by: Sodium Chloride () 10 - 40 ml IV UD PRN PRN Reason: SALINE FLUSH Last Admin: 05/12/19 06:35 Dose: 20 ml Documented by: Tamsulosin HCl (Flomax) 0.4 mg PO QHS [facility] Last Admin: 05/11/19 22:17 Dose: 0.4 mg Documented by: Home Medications: Medications to take at Discharge Ascorbic Acid [Vitamin C] 500 mg PO DAILY@0800 05/11/18 B Complex W-C No.20/Folic Acid [Nephrocaps Softgel] 1 mg PO DAILY 05/11/18 Folic Acid 1 mg PO DAILY 05/11/18 Sertraline HCl [Zoloft] 100 mg PO BID 05/11/18 Tamsulosin HCl [Flomax] 0.4 mg PO QHS 05/11/18 Levothyroxine 75 mcg PO DAILY 04/09/19 Omeprazole 20 mg PO DAILY 04/09/19 Atorvastatin Calcium [Lipitor] 10 mg PO QHS 04/26/19 Ferrous Sulfate 325 mg PO DAILY 04/26/19 Acetaminophen [Tylenol Tablet] 650 mg PO Q6H PRN PRN tab 05/10/19 Insulin Glargine [Lantus SoloStar Pen] 25 units SUBCUT QHS pen 05/10/19 Menthol/Lanolin/Calamine/Znox [Calmoseptine Ointment] 1 applic TOPICAL BID tube 05/10/19 Nystatin Powder [Mycostatin Powder] 1 applic TOPICAL BID bottle 05/10/19 Primary Care Physician: [facility] [Primary Care Provider] - Medical Necessity - Tobacco Use Smoking Status: Current every day smoker Tobacco Use: Cigars, Pipe Meaningful Use Info Meaningful Use Diagnoses (Choose all that apply): None applicable Code Visit Inpatient E&M: 72044 Disch Hosp
[2019-05-12 16:26] LABS: Bedside Glucose 224 mg/dL (70-110)
--- NOTE | 2019-05-12 16:42 | DCINST_ITS ---
- Discharge Diagnoses Current Active Problems: Current Active and Chronic Problems [place]-gt-khdxhfz kidney injury (Chronic) Weakness (Acute) Adult failure to thrive (Acute) Fall (Acute) Hematuria (Acute) Acute kidney injury superimposed on chronic kidney disease (Acute) You will use the following diet at home:: Cardiac, Renal (restricted protein/sodium) Your food should be the consistency of: Regular Your liquids should be the consistency of: Regular/Thin Discharge Activity: Return to Normal Activity, Use Walker Call your doctor if you observe: Fever of 101 or Higher, Coldness, Increased Pain, Numbness or Tingling, Change in Color, Inability to urinate, Inability to have a bowel movement, Using more than one pad per hour, Shortness of breath, Dizziness, Fainting spells, Swelling in the ankles, Chest pain, Prolonged hiccoughing, Increased palpitations (irregular heartbeat), Calf discomfort, Uncontrolled pain Allergies/Adverse Reactions: Allergies metformin Allergy (Verified 05/10/19 00:14) Angioedema Penicillins Allergy (Verified 05/10/19 00:14) Rash Tetanus Vaccines and Toxoid Allergy (Verified 05/10/19 00:14) Swelling at injection site Medications to take at Discharge Ascorbic Acid [Vitamin C] 500 mg PO DAILY@0800 05/11/18 B Complex W-C No.20/Folic Acid [Nephrocaps Softgel] 1 mg PO DAILY 05/11/18 Folic Acid 1 mg PO DAILY 05/11/18 Sertraline HCl [Zoloft] 100 mg PO BID 05/11/18 Tamsulosin HCl [Flomax] 0.4 mg PO QHS 05/11/18 Levothyroxine 75 mcg PO DAILY 04/09/19 Omeprazole 20 mg PO DAILY 04/09/19 Atorvastatin Calcium [Lipitor] 10 mg PO QHS 04/26/19 Ferrous Sulfate 325 mg PO DAILY 04/26/19 Acetaminophen [Tylenol Tablet] 650 mg PO Q6H PRN PRN tab 05/10/19 Insulin Glargine [Lantus SoloStar Pen] 25 units SUBCUT QHS pen 05/10/19 Menthol/Lanolin/Calamine/Znox [Calmoseptine Ointment] 1 applic TOPICAL BID tube 05/10/19 Nystatin Powder [Mycostatin Powder] 1 applic TOPICAL BID bottle 05/10/19 [facility] - Please follow up with your Primary Care Physician in: F/U in 1-2 weeks Test Results: Test results from this visit will be discussed in further detail at your follow- up appointment, if applicable. Please Follow Up With: Urology When: as scheduled
[2019-05-12 17:45] VITALS: BP 118/67; PULSE 74; RESP 18; TEMP 37; O2SAT 97
== END 2019-05-12 18:35 | disposition skilled nursing facility (03) | DRG 812 ==
LOC: ED 02:53 → MS3 04:12
PROVIDERS: Internal Medicine; Admitting Provider Hospitalist; Emergency Provider Emergency Medicine; Visit Provider Internal Medicine
DX: D62 Acute posthemorrhagic anemia (principal); N17.9 Acute kidney failure, unspecified; N18.4 Chronic kidney disease, stage 4 (severe); E87.5 Hyperkalemia; E03.9 Hypothyroidism, unspecified; F17.290 Nicotine dependence, other tobacco product, uncomplicated; R31.0 Gross hematuria; R62.7 Adult failure to thrive; E11.22 Type 2 diabetes mellitus with diabetic chronic kidney disease; F32.9 Major depressive disorder, single episode, unspecified; I12.9 Hypertensive chronic kidney disease with stage 1 through stage 4 chronic kidney disease, or unspecified chronic kidney disease; D64.9 Anemia, unspecified; F41.9 Anxiety disorder, unspecified; G47.33 Obstructive sleep apnea (adult) (pediatric); K21.9 Gastro-esophageal reflux disease without esophagitis; N40.0 Benign prostatic hyperplasia without lower urinary tract symptoms; M17.0 Bilateral primary osteoarthritis of knee; Z92.3 Personal history of irradiation; E11.65 Type 2 diabetes mellitus with hyperglycemia; Z66 Do not resuscitate; Z85.46 Personal history of malignant neoplasm of prostate; Z87.440 Personal history of urinary (tract) infections; W19.XXXA Unspecified fall, initial encounter; Z79.4 Long term (current) use of insulin
CPT/HCPCS: 36415; 73564; 80048; 81001; 82306; 82962; 83540; 83550; 84443; 85014; 85018; 85025; 85610; 86850; 86900; 86901; 86920; 86922; 87077; 87086; 87088; 87186; 97110; 97162; 97166; 97530; 97535; 97802; 99285; 99406; J1756; J7030; J7040; P9016; A4216

== ENCOUNTER 2019-09-09 11:54 | Observation (INO) | payer MEDICARE, OTHER, SELFPAY ==
[2019-05-10 04:14] VITALS: BMI 37.5
[2019-09-09] VITALS (7 sets, daily range): BP systolic 113–168; BP diastolic 57–117; PULSE 92–107; RESP 14–20; TEMP 36.6; O2SAT 97–100; BMI 38.2; BMI 36.6
--- NOTE | 2019-09-09 12:18 | EKG12_ITS ---
Test Reason : WEAKNESS Blood Pressure : / mmHG Vent. Rate : 097 BPM Atrial Rate : 097 BPM P-R Int : 168 ms QRS Dur : 084 ms QT Int : 378 ms P-R-T Axes : 048 047 092 degrees QTc Int : 480 ms Normal sinus rhythm Nonspecific T wave abnormality Prolonged QT Abnormal ECG Confirmed by THERON PEARL, ELIZABETH ([id number]), slot editor CRYSTAL LAZO ([id number] on 09/11/2019 9:35:33 AM Referred By: CELIA Confirmed By:ELIZABETH CRUMP MD
--- NOTE | 2019-09-09 12:19 | CM.ED ---
Addendum entered by Julissa Kaye 09/09/19 12:28: EMS ALSO REPORTED PATIENT WITH BEDBUGS. Original Note: SOCIAL WORK INFORMANT: NURSING AND DR. YANG REASON FOR REFERRAL: DISCHARGE PLANNING/[facility] ([facility]) REFERRAL UPDATED BY NURSING, EMS REPORTS HOME IS DEPLORABLE, UTILITIES ARE SHUT OFF, PATIENT CANNOT GO HOME. REVIEWED PATIENT'S LAST ADMISSION NOTES FROM APRIL 2019. PATIENT DISCHARGED TO THE [facility]. [facility] HAD CALLED IN REGARDING CONCERNS WITH PATIENT'S HOME. REPORT WAS MADE TO [facility]. COLLABORATION WITH DR. YANG. WILL COMPLETE WORKUP. THIS WORKER TO ASSIST WITH NEEDS. CALL TO [facility], LEFT MESSAGE FOR MEGHNA. AWAITING CALL BACK AT THIS TIME. Dashawn KAYE, PUBLICATIONS INSPECTOR, CREATIVE INTERN.
--- NOTE | 2019-09-09 12:20 | ED.DCSUM_ITS ---
History of Present Illness Informant: Patient, Die Turner Narrative: Patient states that he was attempting to get back into his house was very weak and having difficulty getting in the stairs. He eventually found his way into the kitchen and called EMS for help. Patient has spent the past several months in assisted living/[facility]. He states that after his 100 days that he was allotted he was told that he could continue to live there for a little bit more than what he makes per month. He did not wish this route and decided to go home. Unfortunately his home had all the utilities turned off. He states he spent last night at the [place] and. He returned home today so they can be there when the utilities got turned on and then this happened. I asked him he feels like he needs to be admitted to the hospital he states not really but that he is rather weak. He was incontinent of stool last night and has been unable to clean himself up. States he got dialysis yesterday. He states he supposed to have a fistula put him but due to the pandemic has not been able to get that done. There is still concerns by EMS that when he has bedbugs to the living conditions are questionable and is not clear whether or not he has utilities turned on. This coupled with the fact that he was incontinent of stool and cannot get himself clean raises significant concerns as to whether or not he can care for himself. We will get social work involved immediately. <Colten Torrez - Last Filed: 09/09/19 15:59> <Jane Velazquez - Last Filed: 09/09/19 18:16> Chief Complaint: Weakness Past Medical History Surgical History: - - Prior history reports back surgery, ureteral stent placements noted, cataract surgery left eye recently. Smoking Status: Current every day smoker - Family History Maternal Family History: Reports: Heart Disease, Hypertension Paternal Family History: Reports: Cancer, Hypertension <Colten Torrez - Last Filed: 09/09/19 15:59> <Jane Velazquez - Last Filed: 09/09/19 18:16> - Allergies and Home Meds Allergies/Adverse Reactions: Allergies metformin Allergy (Verified 05/10/19 00:14) Angioedema Penicillins Allergy (Verified 05/10/19 00:14) Rash Tetanus Vaccines and Toxoid Allergy (Verified 12/20/19 00:14) Swelling at injection site Review of Systems General: Reports: Malaise. Denies: Chills, Fever, Sweats Eyes: Denies: Visual changes - bilaterally, Diplopia ENT: Denies: Rhinorrhea, Sore throat Cardiovascular: Denies: Chest pain, Palpitations Respiratory: Denies: Dyspnea, Cough, Dyspnea on exertion Gastrointestinal: Denies: Abdominal pain, Nausea, Vomiting, Diarrhea, Melena, Hematochezia Genitourinary: Denies: Dysuria, Hematuria, Frequency Musculoskeletal: Denies: Back pain, Extremity Pain Skin: Denies: Rash, Wounds Neurological: Denies: Headache, Weakness, Numbness <Colten Torrez - Last Filed: 09/09/19 15:59> Physical Exam Vital Signs/Narrative: Vital Signs Temp Pulse Resp BP Pulse Ox 09/09/19 11:55 97.9 F 107 H 20 H 123/70 H 100 Inital Vital Signs reviewed: Yes General: Well nourished, Well developed, Obese, Unkempt, No Acute Distress Head: Normocephalic, Atraumatic Eyes: Perrl, EOMI ENT: Moist mucous membranes, No rhinorrhea Neck: Supple, Nontender Cardiovascular: Regular rate, Regular rhythm, No murmurs, Tachycardia Respiratory: No distress, CTA bilaterally, Chest nontender, - - There is a Vas- Cath present left chest. This does not appear to have evidence of infection. Abdomen: Soft, Nontender, Nondistended, Normal bowel sounds Back: Nontender, Normal Inspection Extremities: Nontender, No edema Skin: Normal color, No rash Neurological: Alert, Oriented x3, Cranial nerves II-XII grossly intact, Normal Strength, Normal Sensation Psychological: Normal affect, Normal Mood <Colten Torrez - Last Filed: 09/09/19 15:59> Vital Signs/Narrative: Vital Signs Pulse Resp BP Pulse Ox 09/09/19 16:26 102 H 18 168/108 H 97 <Jane Velazquez - Last Filed: 09/09/19 18:16> Diagnostic/Tx/Re-eval - Medical Decision Making Basic blood work showed chronic renal issues with anemia. All this seems to be near his baseline. CT the brain was negative. Me the patient was ANO x3 answered appropriate questions. Nursing states that sometimes he seems to have more repetitive questioning about why he is here and how to him to be here. He is very adverse to going to [facility] and does not want to. He wants to go home. We have been in contact with the daughter we spoke with social work I spoke with nursing supervisor endless track vehicle we have called [facility] at this point unless something changes with the patient's wishes we will need to discharge him home. I do fully understand that the patient's living conditions are extremely poor and the likelihood of him coming back to the emergency department with a complication such as a fall dialysis infection or worsening overall health is high. Unfortunately he at this time appears to have the capacity to make his own decisions. Patient will sign AMA if he goes home. <Colten Torrez - Last Filed: 09/09/19 15:59> - Medical Decision Making Did not have a bed available. Patient was amenable to placement at another rehab/detention facility as long as it was not [facility]. This was confirmed by myself, social work and admitting physician. Patient states he is going to pay for what ever is needed to be there. Patient will be admitted to hospital for placement. He is hemodynamically stable in the emergency room. <Jane Velazquez - Last Filed: 09/09/19 18:16> ED Disposition <Colten Torrez - Last Filed: 09/09/19 15:59> <Jane Velazquez - Last Filed: 09/09/19 18:16> - Plan for ED Patient: Disposition: Acute Care Hospital [facility] Diagnosis: Weakness
--- NOTE | 2019-09-09 12:50 | RAD_ITS ---
STUDY: X-RAY CHEST REASON FOR EXAM: Male, 73 years old. C/O INCREASED WEAKNESS TECHNIQUE: Single AP portable view of the chest. COMPARISON: May 11, 2018 FINDINGS: A left side is catheter is present with the tip terminating just above the right atrium. The lungs are clear and expanded. There is no demonstrated pleural abnormality. Normal size heart. The visualized osseous mediastinal structures are grossly stable and unremarkable. RAD/Chest 1 View (Portable) IMPRESSION: No demonstrated acute process Electronically Signed: Shaquille Oquendo MD at 13:21 EDT , Service support ,
[2019-09-09 13:03] LABS: Absolute Lymphocyte Count 0.66 X10^3/uL (0.83-4.51); Absolute Neutrophil Count 3.6 X10^3/uL (2.0-7.7); Basophil# 0.02 X10^3/uL; Basophil% 0.4 % (0-1); Eosinophil# 0.07 X10^3/uL; Eosinophils% 1.5 % (0-5); Hematocrit 27.3 % (40-54); Hemoglobin 8.6 g/dL (13.0-16.5); Lymphocyte # 0.66 X10^3/ul (4.0); Mean Corp Hgb Conc 31.5 g/dL (32-36); Mean Corpuscular Hgb 26.5 pg (27.0-32.0); Mean Platelet Vol. 9.4 fl (6.2-12.0); Monocyte# 0.29 X10^3/uL; Monocyte% 6.2 % (0-10); NRBC Flagged by Analyzer 0 % (0-5); Neutrophil # 3.64 X10^3/uL (2.7-7.7); Neutrophil % 77.3 % (47-70); Platelet Count 108 K/mm3 (150-450); RBC Distribution Width CV 18.1 % (11.6-14.6); RBC Distribution Width SD 54.5 fl (35.1-43.9); Red Blood Count 3.25 M/mm3 (4.6-6.2); White Blood Count 4.7 K/mm3 (4.4-11.0)
--- NOTE | 2019-09-09 13:03 | CM.ED ---
Addendum entered by Julissa Fregoso 09/09/19 17:24: NURSING INFORMED THIS WORKER DID NOT FIND ANY BEDBUGS ON PATIENT Original Note: SOCIAL WORK UPDATED BY NURSEKRISTEL PATIENT HARD TO AROUSE AT TIMES. MET WITH PATIENT IN ROOM. INTRODUCED ROLE AND REASON FOR REFERRAL. PATIENT FALLING BACK TO SLEEP DURING CONVERSATION. PATIENT GAVE PERMISSION FOR THIS WORKER TO CALL [facility]IZA PINTO. CALL TO PATIENT'S ALIZA PINTO ([phone]) NO ANSWER, LEFT MESSAGE WITH THIS WORKER'S CALL BACK INFORMATION.
[2019-09-09 13:22] LABS: ALB/GLOB Ratio 0.6 RATIO (0.9-2.4); AST(SGOT) 15 U/L (15-37); Alanine Aminotransfer ALT/SGPT 18 U/L (16-61); Albumin, Serum 2.7 g/dL (3.2-5.0); Alkaline Phosphatase 150 U/L (45-117); Anion Gap 8 (5-15); BUN 78 mg/dL (7-18); BUN/Creat Ratio 18.8 RATIO (10-20); Calcium,Total 8.8 mg/dL (8.5-10.1); Chloride 101 mmol/L (98-107); Creatinine, Serum 4.14 mg/dL (0.70-1.30); EST Glomerular Filtration Rate 15 mL/min (>60); Est Glom Filt Rate - Afr Amer 18 mL/min (>60); Estimated Creatinine Clearance 16.41 ml/min; Globulin 4.9 g/dL (2.2-4.2); Glucose 391 mg/dL (74-106); Magnesium 1.9 mg/dL (1.6-2.6); Phosphorus 4.9 mg/dL (2.5-4.9); Potassium 4.4 mmol/L (3.5-5.1); Protein, Total 7.6 g/dL (6.4-8.2); Sodium Level 133 mmol/L (136-145)
--- NOTE | 2019-09-09 14:04 | CT_ITS ---
STUDY: CT BRAIN WITHOUT CONTRAST REASON FOR EXAM: Male, 73 years old. Confusion RADIATION DOSAGE (If Supplied By Facility): CTDIvol = ( 60.81 ) mGy, DLP = ( 1112.69 ) mGycm TECHNIQUE: Transaxial CT imaging of the brain was performed without administration of intravenous contrast material. Individualized dose optimization techniques were used for this CT. Mild motion artifact is present. COMPARISON: Head CT dated October 06, 2012 FINDINGS: Portions of the posterior aspect of the right skull and scalp soft tissues are cut off from the [id number]. No acute or significant abnormality seen in the visualized soft tissues and bony structures. There is moderate cerebral atrophy with widening of the extra-axial spaces and ventricular dilatation. There are areas of decreased attenuation within the white matter tracts of the supratentorial brain, consistent with microvascular disease changes. Normal basal ganglia and thalami. Normal brainstem. Normal cerebellum. There is no intracranial hemorrhage. There are no findings of an acute ischemic infarction. Normal visualized paranasal sinuses. CT/Brain/Head without Contrast IMPRESSION: 1. Chronic ischemic and involutional changes of the brain. Electronically Signed: Shaquille Oquendo MD at 14:41 EDT , Service support ,
--- NOTE | 2019-09-09 14:07 | CM.ED ---
SOCIAL WORK RECEIVED CALL BACK FROM PATIENT'S NIECE, ALIZA VIRK (SMITH). PER ALIZA, CONCERNS FOR PATIENT'S LIVING ENVIRONMENT HAS BEEN AN ON GOING [place]. ALIZA REPORTS PATIENT HAS NOT BEEN NOT SAFE IN THE HOME FOR 10 YEARS DUE TO THE CONDITION OF THE HOME. ALIZA REPORTS FLOOR IS FALLING THROUGH, REPEATEDLY HAS HAD FLEAS, SHOWER AND SINK HAVE NOT WORKED, AND HOME SMELLS OF URINE DUE TO PATIENT'S PREVIOUS HISTORY OF HAVING ANIMALS IN THE HOME. ALIZA REPORTS PATIENT IS A HOARDER AND HAS BEEN IN CONTACT WITH ADULT PROTECTIVE SERVICES AND SD PROCESS IMPROVEMENT CONSULTANT IN THE PAST. ALIZA STATES PATIENT CAN BE NON COMPLIANT WITH DIALYSIS AND MEDICATIONS. WILL NOT SLEEP FOR DAYS AND THEN SLEEP FOR 24 HOURS AND NOT EAT. PATIENT IS A DIABETIC. DISCUSSED PATIENT'S COGNITION AND PER NIECE, CONFUSION IS NOT NORMAL FOR PATIENT. ALIZA REQUESTING THIS WORKER FOLLOW UP WITH [facility]. NURSE AND DR. YANG UPDATED ON THE ABOVE. CALL TO [facility], SPOKE WITH RISHI IN ADMISSIONS. PER RISHI, DID NOT NOTE ANY CONFUSION FOR PATIENT. RISHI REPORTS PATIENT IS VERY INTELLECTUAL. PATIENT SIGNED SELF OUT AMA YESTERDAY HE DID NOT WANT TO PAY PATIENT LIABILITY COST. RISHI REPORTS THEY DID ASSIST PATIENT WITH FILING FOR MEDICAID. INQUIRED IF PATIENT WOULD BE ABLE TO RETURN IF IN AGREEMENT TO HALFWAY. RISHI TO CHECK WITH DIRECTOR AND GET BACK TO THIS WORKER.
--- NOTE | 2019-09-09 14:22 | CM.ED ---
SOCIAL WORK RECEIVED CALL BACK FROM [facility]ISH[facility]. PER RISHI, PATIENT ABLE TO RETURN WITH UNDERSTANDING PATIENT LIABILITY MUST BE PAID. WILL DISCUSS WITH PATIENT. Dashawn KAYE MSW, STENCIL MAKER.
--- NOTE | 2019-09-09 14:40 | CM.ED ---
SOCIAL WORK RECEIVED CALL BACK FROM MEGHNA WITH [facility]. DISCUSSED PATIENT'S CASE. PER MEGHNA, WORKER HAS CALLED THE CLINICAL PROGRAM MANAGER AT [facility], EMANUEL BARRIOS ([phone]) AND WAS INFORMED UNABLE TO FIND HOME HEALTH CARE FOR PATIENT DUE TO STAFFING ISSUES, 12 AGENCIES HAVE BEEN CALLED. DISCUSSED CONCERNS WITH PATIENT RETURNING HOME IF NOT IN AGREEMENT WITH SNF. NURSING STAFF ATTEMPTED TO WALK PATIENT, PATIENT UNSTEADY AND NEEDS TO BE ABLE TO NEGOTIATE STEPS. MEGHNA RECOMMENDING THIS WORKER SPEAK WITH AL CLINICAL PROGRAM MANAGER HE IS WELL KNOWN TO [facility] CLINICAL PROGRAM MANAGER. MEGHNA REQUESTING UPDATE ON DISCHARGE PLAN FROM HOSPITAL.
--- NOTE | 2019-09-09 15:17 | CM.ED ---
SOCIAL WORK CALL TO [facility] MECHANOTHERAPIST, EMANUEL BARRIOS ([phone]). PER EMANUEL, PATIENT WELL KNOWN TO WORKER AND ALSO VOICES CONCERNS FOR PATIENT'S LIVING CONDITIONS AND ABILITY TO CARE FOR SELF. EMANUEL STATES HAS ALSO SPOKEN WITH [facility]ULT [facility] THIS DAY. EMANUEL REPORTS PATIENT DOES NOT QUALIFY FOR [place] TO COVER SNF. PATIENT CAN APPLY FOR AID & ATTENDANCE BENEFIT AND WOULD RECEIVE A PENSION TO ASSIST WITH COSTS. EMANUEL REPORTS PROCESS CAN TAKE MONTHS, HOWEVER, SOME FACILITIES WILL WORK WITH PATIENT HAVING A PENDING APPLICATION FOR BENEFIT. EMANUEL ALSO GAVE OPTION FOR [facility] IN [place]. REPORTS SOMETIMES THEY HAVE A WAITING LIST. INQUIRED IF EMANEUL WOULD BE WILLING TO SPEAK WITH PATIENT TO DISCUSS AID & ATTENDANCE BENEFIT AND OPTIONS FOR ASSISTANCE. CALL FACILITATED TO PATIENT'S ROOM. Dashawn KAYE MSW, PENSION FUND MANAGER.
--- NOTE | 2019-09-09 15:40 | CM.ED ---
SOCIAL WORK MET WITH PATIENT IN ROOM. PATIENT REPORTS COMPLETED CALL WITH [facility]ISSION ([phone]) TO START PROCESS FOR APPLYING FOR AID & ATTENDANCE BENEFIT. PATIENT CONCERNED BECAUSE WORKER HE SPOKE WITH STATES WILL BE MAILING OUT APPLICATION. DISCUSSED UPDATING NIECE TO SEE IF SHE COULD ASSIST WITH APPLICATION. PATIENT IN AGREEMENT WITH THIS WORKER UPDATING NIECE.
--- NOTE | 2019-09-09 16:24 | CM.ED ---
SOCIAL WORK MET WITH PATIENT AGAIN TO DISCUSS DISCHARGE PLANNING. PATIENT REPORTS CALLED SERVICE COMMISSION TO START PROCESS FOR APPLYING FOR AID AND ATTENDANCE BENEFIT. PATIENT IN AGREEMENT UNSAFE TO RETURN HOME AT THIS TIME. THIS WORKER CALLED AND LEFT MESSAGE WITH THE [facility] IN [place] PER PATIENT'S REQUEST. LEFT MESSAGE FOR [facility]AS[facility] IN ADMISSIONS. AWAITING CALL BACK. DISCUSSED POSSIBLE WAITING LIST FOR [facility]. PATIENT STATES WOULD BE IN AGREEMENT WITH REFERRAL TO LOCAL NURSING FACILITY, BUT NOT [facility]. PATIENT DOES NOT WISH TO RETURN HE REPORTS I WAS MISERABLE THERE. PATIENT PROVIDED WITH LIST TO REVIEW. DR. TUCKER AND NURSE UPDATED ON THE ABOVE. Dashawn KAYE, SECOND STEWARD, CAR SHAGGER.
[2019-09-09 16:26] LABS: Bedside Glucose 387 mg/dL (70-110)
--- NOTE | 2019-09-09 16:37 | CM.ED ---
SOCIAL WORK PATIENT VOICED CONCERNS WITH APPLICATION PROCESS FOR AID & ATTENDANCE BENEFIT. PATIENT STATES WORKER REPORTED WOULD BE MAILING INFORMATION TO THE HOME. DISCUSSED PATIENT'S NIECE ASSISTING WITH APPLICATION PROCESS. PATIENT IN AGREEMENT WITH THIS WORKER CALLING TO UPDATE NIECE. CALL TO PATIENT'S NIECE. NO ANSWER, LEFT MESSAGE REQUESTING CALL BACK. Dashawn KAYE MSW, VASCULAR SURGERY PHYSICIAN.
--- NOTE | 2019-09-09 17:07 | CM.ED ---
SOCIAL WORK UPDATED BY DR. TUCKER HOSPITALIST ILEANA. DR. TUCKER REQUESTING THIS WORKER CALL TO CANCEL PATIENT'S DIALYSIS APPOINTMENT FOR TOMORROW PATIENT MISSED APPOINTMENT TODAY AND RESCHEDULED FOR TOMORROW MORNING. CALL TO [facility] ([phone]). UPDATED WORKER PATIENT TO BE ADMITTED. WORKER THANKED JULIAN FOR CALLING TO UPDATE ON PATIENT.
--- NOTE | 2019-09-09 17:08 | NURSING ---
CALLED [facility] TO LET THEM KNOW OF ADMISSION AT [facility]. TALKED TO TRINA. SHE TOOK INFO AND SAID BED COODINATOR WILL BE CALLING US BACK
--- NOTE | 2019-09-09 17:28 | HP.PCM_ITS ---
Problem List (1) CKD (chronic kidney disease), stage IV Status: Chronic (2) HTN (hypertension) Status: Chronic Qualifiers: Hypertension type: essential hypertension Qualified Code(s): I10 - Essential (primary) hypertension (3) Anxiety and depression Status: Chronic (4) MEGAN (obstructive sleep apnea) Status: Chronic (5) Hypothyroidism Status: Chronic Qualifiers: Hypothyroidism type: unspecified Qualified Code(s): E03.9 - Hypothyroidism, unspecified (6) Chronic anemia Status: Chronic (7) GERD (gastroesophageal reflux disease) Status: Chronic Qualifiers: Esophagitis presence: esophagitis presence not specified Qualified Code(s): K21.9 - Gastro-esophageal reflux disease without esophagitis (8) Diabetes mellitus, type II Status: Chronic Qualifiers: Diabetes mellitus mcc insulin use: with keno terminal operator use Diabetes mellitus complication status: with other specified complication Qualified Code(s): E11.69 - Type 2 diabetes mellitus with other specified complication; Z79.4 - regional intermodal truck driver (current) use of insulin History of Present Illness Date of Admission: 09/09/19 Chief Complaint: Weakness. The patient is a 73 year old M with past medical history as mentioned above presented to the emergency room because of weakness. Patient was at the assisted living and nursing homes over the past 6 months. Yesterday, he signed himself AGAINST MEDICAL ADVICE from the [facility] which is the local fci in [place] because he was informed that his 100 days that was covered by his insurance are done and he was informed that he needs to pay for his stay at the fci which he cannot do. After he went home, he mentioned that his house is a mess, no utilities and he spent his last night at the hotel. Today, he went back to his house, had difficulty dictating up to the stairs and he stayed in the kitchen and called the squad. He mentioned he was very weak to get up and even to walk around. Reportedly, patient was incontinent of stool and he was not able to clean himself. He missed his hemodialysis today. Patient denied any acute complaints at this time apart from weakness and not able to ambulate. He has history of end-stage renal disease, has been on dialysis on Mondays, Wednesdays and Fridays and his kidney function has been stable today. He had a history of type 2 diabetes mellitus which seemed to be under control with insulin and his hemoglobin A1c was 5.2% on March,. He had a history of hypothyroidism, has been on levothyroxine for replacement and TSH was 2.19 which is normal on April,. In the emergency department, apart from mild tachycardia, other vital signs are stable. Routine blood work was remarkable for hemoglobin of 8.6 g/dL and platelet count of 108,000 and both are chronic, BUN of 78 and creatinine of 4.14 which also chronic. LFT was unremarkable. Serum calcium, phosphorus and magnesium were normal. Troponin was negative. Blood sugar was 391 mg/dL. Chest x-ray showed no acute findings. CT scan brain showed no acute infarct or hemorrhage. He is being admitted for physical debility and functional decline, difficulty taking care of himself and he will need placement to retirement facility. Past Medical History Past Medical History (Chronic Problems): Chronic Problems CKD (chronic kidney disease), stage IV (Chronic) HTN (hypertension) (Chronic) Anxiety and depression (Chronic) Tobacco use (Chronic) MEGAN (obstructive sleep apnea) (Chronic) Hypothyroidism (Chronic) Chronic anemia (Chronic) GERD (gastroesophageal reflux disease) (Chronic) Diabetes mellitus, type II (Chronic) Allergies metformin Allergy (Verified 05/10/19 00:14) Angioedema Penicillins Allergy (Verified 05/10/19 00:14) Rash Tetanus Vaccines and Toxoid Allergy (Verified 05/10/19 00:14) Swelling at injection site Home Medications: Ambulatory Orders Medication Instructions Recorded Tamsulosin HCl [Flomax] 0.4 mg PO QHS 05/11/18 Atorvastatin Calcium [Lipitor] 10 mg PO QHS 04/26/19 Carboxymethylcellulose Sodium 1 drp EACH EYE 4X/DAY 09/09/19 [Artificial Tears] Folic Acid/Vitamin B Comp W-C 1 cap PO DAILY 09/09/19 [Nephrocaps, Renaphro] Insulin Aspart [Novolog Flexpen 0 units SUBCUT TIDCM 09/09/19 (BK)] Insulin Glargine [Lantus SoloStar 17 units SUBCUT QHS 09/09/19 Pen] Levothyroxine Sodium [Synthroid] 75 mcg PO DAILY 09/09/19 Melatonin 6 mg PO QHS 09/09/19 Midodrine HCl 10 mg PO TID 09/09/19 Omeprazole 20 mg PO DAILY 09/09/19 Surgical History: cataract, - - Prior back surgery, ureteral stent placements, cataract. Psychiatric History: Depression Lives: Alone Smoking Status: Current every day smoker Tobacco Use: Cigars Alcohol: Rare Drugs: None - *Family History Maternal History Items: Heart Disease, Hypertension Paternal History Items: Cancer, Hypertension Review of Systems Constitutional: Reports: Weakness. Denies: Anorexia, Chills, Fever Eyes: Denies: Blurred vision, Double vision, Drainage, Redness HEENT: Denies: Difficulty Hearing, Ear Pain, Eye Pain, Nasal Congestion, Sore Throat Cardiovascular: Denies: Chest Pain, Chest Pressure, Chest Tightness, Edema, Heaviness, Light Headedness, Palpitations, Syncope Respiratory: Denies: Cough, Hemoptysis, Pleuritic Pain, Shortness of Breath, Sputum production, Wheezing Gastrointestinal: Denies: Abdominal Pain, Constipation, Diarrhea, Nausea, Vomiting Genitourinary: Denies: Dysuria, Frequency, Hematuria Musculoskeletal: Reports: Back Pain. Denies: Arm Pain, Foot Pain Skin: Denies: Dryness, Rash Neurological: Denies: Balance problems, Blurred vision, Double vision, Change in Speech, Headaches, Incoordination Psychiatric: Reports: Depression. Denies: Anxiety Endocrine: Denies: Change in Body Habitus, Polydipsia, Polyuria VTE Information - Inpt Only VTE Present on Admission: No VTE Mechan Device Prophylaxis: None VTE Pharm Prophylaxis ordered?: Yes - Physical Exam Vitals/I&O's: Vital Signs Temp Pulse Resp BP Pulse Ox 97.9 F 102 H 18 168/108 H 97 09/09/19 11:55 09/09/19 16:26 09/09/19 16:26 09/09/19 16:26 09/09/19 16:26 Oxygen Delivery Method Room Air Weight: 266 lb 5.094 oz Body Mass Index (BMI) 38.2 Finger Stick Blood Glucose 99 General: Alert, Oriented x3, Cooperative, No apparent distress HEENT: Atraumatic, PERRLA, EOMI, Normocephalic Oral: Moist Mucosa, No Gingival or Mucosal Lesions/ Ulcerations Neck: Supple, No JVD, Negative Carotid Bruits, Trachea Midline, Thyroid Normal Size and Texture Lungs: Clear to auscultation, No rhonchi, No wheeze, No rales, Diminished Cardiovascular: Regular rate, Regular Rhythm, Normal S1, Normal S2, PMI Normal Abdomen: Bowel Sounds Present, Soft, Non Tender, Non-Distended, No Hepato- splenomegaly, Obese Extremities: No clubbing, No cyanosis, Edema Skin: No rashes, No breakdown Lymphatic: No Cervical, Supraclavicular, or Inguinal Adenopathy Neurological: Cranial nerves II-XII grossly intact, Motor Exam 5/5 strength throughout Psych/Mental Status: Normal Affect, Appropriate, Alert and oriented to time, place, person, mood and affect Laboratory Results 09/09/19 12:40: POC Glucose 387 H 09/09/19 12:53: WBC 4.7, RBC 3.25 L, Hgb 8.6 L, Hct 27.3 L, MCV 84.0, MCH 26.5 L , MCHC 31.5 L, RDW Std Deviation 54.5 H, RDW Coeff of Nyasia 18.1 H, Plt Count 108 L, MPV 9.4, Immature Gran % (Auto) 0.600, Neut % (Auto) 77.3 H, Lymph % (Auto) 14.0 L, Letcher % (Auto) 6.2, Eos % (Auto) 1.5, Baso % (Auto) 0.4, Absolute Neuts (auto) 3.6, Absolute Lymphs (auto) 0.66 L, Nucleated RBC % 0 09/09/19 12:53: Sodium 133 L, Potassium 4.4, Chloride 101, Carbon Dioxide 24.0, Anion Gap 8, BUN 78 H, Creatinine 4.14 H, Estim Creat Clear Calc 16.41, Est GFR (MDRD) Af Amer 18 L, Est GFR (MDRD) Non-Af 15 L, BUN/Creatinine Ratio 18.8, Glucose 391 H, Calcium 8.8, Phosphorus 4.9, Magnesium 1.9, Total Bilirubin 0.30, AST 15, ALT 18, Alkaline Phosphatase 150 H, Troponin I < 0.015, Total Protein 7.6, Albumin 2.7 L, Globulin 4.9 H, Albumin/Globulin Ratio 0.6 L 09/09/19 12:53: Phosphorus Cancelled Clinical Impression(s) from Imaging Studies Chest X-Ray 09/09/19 12:50 IMPRESSION: No demonstrated acute process Electronically Signed: Shaquille Oquendo MD at 13:21 EDT , Service support , Brain CT 09/09/19 14:04 IMPRESSION: 1. Chronic ischemic and involutional changes of the brain. Electronically Signed: Shaquille Oquendo MD at 14:41 EDT , Service support , Assessment/Plan This is a 73 years old male patient presented to the emergency room because of weakness, difficulty ambulating, poor living conditions at home as well as poor self hygiene and he is being admitted for PT OT evaluation and he will need placement to retirement facility. #1 physical debility/functional decline/difficulty ambulating/poor living conditions at home: Imaging studies and work-up done in the ER and reviewed, was unremarkable. No evidence of acute illness or sickness. Patient has been in the nursing homes and assisted living the last 6 months. Yesterday, he signed himself A[facility] from the [facility] because he is done with the 100 days that was covered by his insurance and he was informed that he will need to pay if he wants to stay longer. Plan: Admit to PCU for observation, Tylenol PRN, Zofran PRN, continue home medications, PT OT evaluation and treatment, case management and socially responsible investment adviser consult for placement to retirement facility. #2 end-stage renal disease: On hemodialysis. He goes on dialysis on Mondays, Wednesdays and Fridays. Missed hemodialysis today. Kidney function stable, no indication for urgent dialysis. Plan for nephrology consult, hemodialysis tomorrow. #3 type 2 diabetes mellitus: ADA diet, Accu-Cheks, insulin sliding scale, continue home dose of Lantus and NovoLog. #4 chronic anemia/chronic thrombocytopenia: It is anemia of chronic disease, hemoglobin and hematocrit are stable at baseline. Platelet count is stable. Plan to monitor. #5 hypothyroidism: Continue levothyroxine. #6 depression: Continue Zoloft. #7 GERD: Continue PPI. #8 DVT prophylaxis: Subcu heparin. This note was generated with [employer] software. It may contain incorrect words, spelling, and punctuation that were not noted in checking the note before signing. OBSV E&M: [id number] Initial observation care L2
--- NOTE | 2019-09-09 17:28 | NURSING ---
PCU PHYSICAL DEBILITY, FUNCTIONAL DECLINE, NEED PLACEMENT ASHELFAH
[2019-09-09] MEDS: Tamsulosin HCl 0.4 MG Capsule PO (21:28)
[2019-09-09] MEDS: Heparin Injection (Vial) 5,000 UNIT/ML VIAL 5000 UNIT SC (21:29)
[2019-09-09] MEDS: Sertraline 100 MG Tablet PO (21:29)
[2019-09-09] MEDS: Atorvastatin Calcium 10 MG Tablet PO (21:29)
[2019-09-09] MEDS: 0.9% Saline Lock 10 ML Syringe IV (21:39)
[2019-09-10 00:11] LABS: Bedside Glucose 347 mg/dL (70-110)
[2019-09-10] MEDS: Menthol/Lanolin/Calamine/Znox 113 GM Tube 1 APPLIC TOPICAL ×3 (00:15→23:18)
[2019-09-10 02:48] VITALS: BP 127/48; PULSE 64; RESP 18; TEMP 36.6; O2SAT 98
[2019-09-10] MEDS: Levothyroxine 75 MCG Tablet PO (05:51)
[2019-09-10 07:35] LABS: Bedside Glucose 225 mg/dL (70-110)
[2019-09-10 08:47] VITALS: BP 113/66; PULSE 86; RESP 18; TEMP 36.8; O2SAT 95
[2019-09-10] MEDS: Acetaminophen 325 MG Tablet 650 MG PO (08:54)
[2019-09-10] MEDS: Folic Acid 1 MG Tablet PO (08:54)
[2019-09-10] MEDS: Heparin Injection (Vial) 5,000 UNIT/ML VIAL 5000 UNIT SC ×2 (08:55→23:14)
[2019-09-10] MEDS: Sertraline 100 MG Tablet PO ×2 (08:56→23:14)
[2019-09-10] MEDS: Pantoprazole Sodium 20 MG Tablet PO (09:00)
--- NOTE | 2019-09-10 09:25 | CASEMGMT ---
JULIAN called Ivy hamlin Abrams. She said patient has Medicaid and his number is [phone]. She said patient did not want to pay his patient liability, which is his income minus $50. He would owe $2,088 for September and August would be pro-rated so it would be around $600. He still has a mortgage so he would lose his house. JULIAN also called [facility]y [facility]UL[facility] in [place] ([phone] and left her a voice mail. JULIAN inquired if he would need to go to a [facility] facility in order to use the Aid and Attendance aid. Await return call from Goldy. JULIAN also called [facility] and obtained patient's dialysis schedule. His schedule is M,W, and F 6:50a. Zuly KELLER MSW
--- NOTE | 2019-09-10 09:50 | CASEMGMT ---
JULIAN received a return call from JULIAN Winslow at [facility] in [place]. She said that patient would need to call [facility] to apply for the Aid and Attendance. Their number is [phone]. She asked JULIAN to keep her up to date on what patient ends up doing. Zuly KELLER MSW
--- NOTE | 2019-09-10 10:04 | PCM.CONS.R ---
Problem List (1) ESRD (end stage renal disease) on dialysis Status: Acute Consultation - Renal 09/10/19 PCP/ Referring MD: Requesting physician: [] Primary care physician: [facility] Reason for Consultation:: ESRD - History of Present Illness History of Present Illness: The patient is a 73 year old M who was admitted for generalized weakness. renal consulted for ESRD. ESRD on HD MWF schedule. access is [facility]. last HD monday. apparently used up his days at [place], went home and admitted here with weakness. currently does not offer any complaints - Allergies Allergies: Allergies metformin Allergy (Verified 05/10/19 00:14) Angioedema Penicillins Allergy (Verified 05/10/19 00:14) Rash Tetanus Vaccines and Toxoid Allergy (Verified 05/10/19 00:14) Swelling at injection site - Current Medications Current Medications: Current Medications Acetaminophen (Tylenol) 650 mg PO Q6H PRN PRN PRN Reason: Pain Score 1-10/Temp > 100.7 F Last Admin: 09/10/19 08:54 Dose: 650 mg Documented by: Atorvastatin Calcium (Lipitor) 10 mg PO QHS [facility] Last Admin: 09/09/19 21:29 Dose: 10 mg Documented by: Calamine/Phenol (Calmoseptine Ointment) 1 applic TOPICAL BID [facility]; Protocol Last Admin: 09/10/19 08:56 Dose: 1 applicatio Documented by: Dextrose (D50w Syringe) 0 gm IV X1 PRN; Protocol PRN Reason: Hypoglycemia Ferrous Sulfate (Ferrous Sulfate) 325 mg PO DAILY@1200 [facility] Folic Acid (Folic Acid) 1 mg PO DAILY@0800 [facility] Last Admin: 09/10/19 08:54 Dose: 1 mg Documented by: Glucagon () 1 mg IM .X1 PRN PRN Reason: Hypoglycemia Heparin Sodium (Porcine) (Heparin Na) 5,000 unit SC Q12 [facility] Last Admin: 09/10/19 08:55 Dose: 5,000 unit Documented by: Insulin Glargine (Lantus (Bkc)) 25 units SC QHS [facility] Last Admin: 09/09/19 21:29 Dose: 25 units Documented by: Levothyroxine Sodium (Synthroid) 75 mcg PO DAILY@0600 [facility] Last Admin: 09/10/19 05:51 Dose: 75 mcg Documented by: Ondansetron HCl (Zofran) 4 mg IV Q8H PRN PRN PRN Reason: NAUSEA/VOMITING Pantoprazole Sodium (Protonix) 20 mg PO DAILY [facility] Last Admin: 09/10/19 09:00 Dose: 20 mg Documented by: Senna/Docusate Sodium (Senokot-S, Leslie-Colace) 2 tablet PO BID PRN PRN PRN Reason: Constipation Sertraline HCl (Zoloft) 100 mg PO BID [facility] Last Admin: 09/10/19 08:56 Dose: 100 mg Documented by: Sodium Chloride () 10 - 40 ml IV UD PRN PRN Reason: SALINE FLUSH Last Admin: 09/09/19 21:39 Dose: 10 ml Documented by: Tamsulosin HCl (Flomax) 0.4 mg PO QHS [facility] Last Admin: 09/09/19 21:28 Dose: 0.4 mg Documented by: Zolpidem Tartrate (Ambien (Generic)) 5 mg PO QHS PRN PRN PRN Reason: INSOMNIA - Past Medical History Past Medical History (Chronic Problems): Chronic Problems CKD (chronic kidney disease), stage IV (Chronic) HTN (hypertension) (Chronic) Anxiety and depression (Chronic) Tobacco use (Chronic) MEGAN (obstructive sleep apnea) (Chronic) Hypothyroidism (Chronic) Chronic anemia (Chronic) GERD (gastroesophageal reflux disease) (Chronic) Diabetes mellitus, type II (Chronic) - Past Surgical History Surgical History: cataract, - - Prior back surgery, ureteral stent placements, cataract. - Social History Smoking Status: Current every day smoker Alcohol: Rare Drugs: None - Family History Maternal History Items: Heart Disease, Hypertension Paternal History Items: Cancer, Hypertension Review of Systems Constitutional: Denies: Chills, Fever, Weight Change HEENT: Denies: Head Aches, Sinus Congestion, Sinus Drainage Cardiovascular: Denies: Chest Pain, Palpitations Respiratory: Denies: Cough, Shortness of breath at rest, Sputum production Gastrointestinal: Denies: Abdominal Pain, Nausea, Vomiting Genitourinary: Denies: Dysuria Musculoskeletal: Denies: Joint Pain, Joint Tenderness Skin: Denies: Rash, Wounds Neurological: Denies: Numbness, Tingling, Focal weakness Psychiatric: Denies: Anxiety, Depression, Homicidal Ideations, Suicidal Ideations Hematologic/ Lymphatic: Denies: Easy Bruising, Easy Bleeding Patient Problems: Active and Suspected Problems Weakness (Acute) ESRD (end stage renal disease) on dialysis (Acute) - Physical Exam Vitals/I&O's: Vital Signs Temp Pulse Resp BP Pulse Ox 98.2 F 86 18 113/66 95 09/10/19 08:47 09/10/19 08:47 09/10/19 08:47 09/10/19 08:47 09/10/19 08:47 Oxygen Delivery Method Room Air Weight: 115.666 kg Body Mass Index (BMI) 36.6 Finger Stick Blood Glucose 99 Intake and Output for Last 24 Hours 09/08/19 09/09/19 09/10/19 23:59 23:59 23:59 Intake Total 200 / 200 Output Total 300 / 300 Balance -100 / -100 General: Alert, Oriented x3, Cooperative HEENT: Atraumatic, PERRLA, EOMI, Normocephalic Neck: Supple, No JVD, Negative Carotid Bruits Lungs: Clear to auscultation, Normal air movement Cardiovascular: Regular rate, No murmurs Abdomen: Bowel Sounds Present, Soft, Non Tender Extremities: No edema, Capillary Refill Less than 3 Seconds Skin: No rashes, No breakdown Musculoskeletal: No Tenderness to Palpation of Joints or Extremities Neurological: Cranial nerves II-XII grossly intact Psych/Mental Status: Normal Affect, Appropriate Laboratory Results 09/09/19 12:40: POC Glucose 387 H 09/09/19 12:53: WBC 4.7, RBC 3.25 L, Hgb 8.6 L, Hct 27.3 L, MCV 84.0, MCH 26.5 L, MCHC 31.5 L, RDW Std Deviation 54.5 H, RDW Coeff of Nyasia 18.1 H, Plt Count 108 L, MPV 9.4, Immature Gran % (Auto) 0.600, Neut % (Auto) 77.3 H, Lymph % (Auto) 14.0 L, Stokes % (Auto) 6.2, Eos % (Auto) 1.5, Baso % (Auto) 0.4, Absolute Neuts (auto) 3.6, Absolute Lymphs (auto) 0.66 L, Nucleated RBC % 0 09/09/19 12:53: Sodium 133 L, Potassium 4.4, Chloride 101, Carbon Dioxide 24.0, Anion Gap 8, BUN 78 H, Creatinine 4.14 H, Estim Creat Clear Calc 16.41, Est GFR (MDRD) Af Amer 18 L, Est GFR (MDRD) Non-Af 15 L, BUN/Creatinine Ratio 18.8, Glucose 391 H, Calcium 8.8, Phosphorus 4.9, Magnesium 1.9, Total Bilirubin 0.30, AST 15, ALT 18, Alkaline Phosphatase 150 H, Troponin I < 0.015, Total Protein 7.6, Albumin 2.7 L, Globulin 4.9 H, Albumin/Globulin Ratio 0.6 L 09/09/19 12:53: Phosphorus Cancelled 09/09/19 21:33: POC Glucose 347 H 09/10/19 07:30: POC Glucose 225 H Current Medications Acetaminophen (Tylenol) 650 mg PO Q6H PRN PRN PRN Reason: Pain Score 1-10/Temp > 100.7 F Last Admin: 09/10/19 08:54 Dose: 650 mg Documented by: Atorvastatin Calcium (Lipitor) 10 mg PO QHS [facility] Last Admin: 09/09/19 21:29 Dose: 10 mg Documented by: Calamine/Phenol (Calmoseptine Ointment) 1 applic TOPICAL BID [facility]; Protocol Last Admin: 09/10/19 08:56 Dose: 1 applicatio Documented by: Dextrose (D50w Syringe) 0 gm IV X1 PRN; Protocol PRN Reason: Hypoglycemia Ferrous Sulfate (Ferrous Sulfate) 325 mg PO DAILY@1200 [facility] Folic Acid (Folic Acid) 1 mg PO DAILY@0800 [facility] Last Admin: 09/10/19 08:54 Dose: 1 mg Documented by: Glucagon () 1 mg IM .X1 PRN PRN Reason: Hypoglycemia Heparin Sodium (Porcine) (Heparin Na) 5,000 unit SC Q12 [facility] Last Admin: 09/10/19 08:55 Dose: 5,000 unit Documented by: Insulin Glargine (Lantus (Bkc)) 25 units SC QHS [facility] Last Admin: 09/09/19 21:29 Dose: 25 units Documented by: Levothyroxine Sodium (Synthroid) 75 mcg PO DAILY@0600 [facility] Last Admin: 09/10/19 05:51 Dose: 75 mcg Documented by: Ondansetron HCl (Zofran) 4 mg IV Q8H PRN PRN PRN Reason: NAUSEA/VOMITING Pantoprazole Sodium (Protonix) 20 mg PO DAILY [facility] Last Admin: 09/10/19 09:00 Dose: 20 mg Documented by: Senna/Docusate Sodium (Senokot-S, Leslie-Colace) 2 tablet PO BID PRN PRN PRN Reason: Constipation Sertraline HCl (Zoloft) 100 mg PO BID [facility] Last Admin: 09/10/19 08:56 Dose: 100 mg Documented by: Sodium Chloride () 10 - 40 ml IV UD PRN PRN Reason: SALINE FLUSH Last Admin: 09/09/19 21:39 Dose: 10 ml Documented by: Tamsulosin HCl (Flomax) 0.4 mg PO QHS [facility] Last Admin: 09/09/19 21:28 Dose: 0.4 mg Documented by: Zolpidem Tartrate (Ambien (Generic)) 5 mg PO QHS PRN PRN PRN Reason: INSOMNIA Assessment/Plan All Active Problems Weakness (Acute) ESRD (end stage renal disease) on dialysis (Acute) ESRD. HD today. Anemia. Gets long acting OZ with HD
--- NOTE | 2019-09-10 10:46 | CASEMGMT ---
JULIAN received a call from Johnna at the [facility]. She said there is a 3-6 month waiting list right now. However, patient can complete the application and get it sent in so he can be put on the waiting list. JULIAN met with patient, introduced self and role at [facility]. JULIAN let patient know that there is a 3-6 month waiting list at the [facility]. He understands he will need to go to a correction while he waits. JULIAN explained to him that no matter what correction he goes to he will have the same liability to pay. His monthly liability will be $2,088 and he will have to pay this. He voiced understanding. After much discussion he agreed to go back to [place]. JULIAN told him JULIAN will make sure that [facility] is willing to help him apply for the Aid and Attendance with [facility] and complete the application for the [facility]. JULIAN called Ivy at [facility] and she said they will help him apply for these things. JULIAN will work on obtaining a level of care which is needed to get him to the correction on his Medicaid. Zuly KELLER MSW
[2019-09-10 11:00] VITALS: O2SAT 95
[2019-09-10 11:51] LABS: Bedside Glucose 223 mg/dL (70-110)
--- NOTE | 2019-09-10 12:01 | CASEMGMT ---
JULIAN spoke with patient and asked if he would be able to pay between $600-$700 before he returns to [place]. He said he thinks he could do this. JULIAN also left the application for the [facility] with patient along with a pen. He did give JULIAN permission to talk with his niece. Zuly KELLER MSW
[2019-09-10] MEDS: Ferrous Sulfate 325 MG Tablet PO (12:11)
--- NOTE | 2019-09-10 12:36 | PN_ITS ---
<Jose Martinez - Last Filed: 09/10/19 12:36> Patient Problems: Active and Suspected Problems Weakness (Acute) Reason for Visit: debility Subjective: Pt c/o weakness, fatigue. He slept poorly last night and is having trouble staying awake today. [facility] as [facility] failed at [facility] after [facility] due to financial reasons. He otherwise has no complaints and is in the chair upright in NAD. Vitals/I&O's: Vital Signs Temp Pulse Resp BP Pulse Ox 98.2 F 86 18 113/66 95 09/10/19 08:47 09/10/19 08:47 09/10/19 08:47 09/10/19 08:47 09/10/19 11:00 Oxygen Delivery Method Room Air Weight: 255 lb 1.197 oz Body Mass Index (BMI) 36.6 Finger Stick Blood Glucose 99 Intake and Output for Last 24 Hours 09/08/19 09/09/19 09/10/19 23:59 23:59 23:59 Intake Total 650 / 650 Output Total 300 / 300 Balance 350 / 350 General: Alert, Oriented x3, Cooperative, Lethargic HEENT: Atraumatic, PERRLA, EOMI, Normocephalic Neck: Supple, No JVD, Negative Carotid Bruits Lungs: Clear to auscultation, Normal air movement Cardiovascular: Regular rate, No murmurs Abdomen: Bowel Sounds Present, Soft, Non Tender, Obese Extremities: No edema, Capillary Refill Less than 3 Seconds Skin: No rashes, No breakdown Musculoskeletal: No Tenderness to Palpation of Joints or Extremities Neurological: Cranial nerves II-XII grossly intact Psych/Mental Status: Normal Affect, Appropriate, Alert and oriented to time, place, person, mood and affect Laboratory Results 09/09/19 12:40: POC Glucose 387 H 09/09/19 12:53: WBC 4.7, RBC 3.25 L, Hgb 8.6 L, Hct 27.3 L, MCV 84.0, MCH 26.5 L , MCHC 31.5 L, RDW Std Deviation 54.5 H, RDW Coeff of Nyasia 18.1 H, Plt Count 108 L, MPV 9.4, Immature Gran % (Auto) 0.600, Neut % (Auto) 77.3 H, Lymph % (Auto) 14.0 L, Douglas % (Auto) 6.2, Eos % (Auto) 1.5, Baso % (Auto) 0.4, Absolute Neuts (auto) 3.6, Absolute Lymphs (auto) 0.66 L, Nucleated RBC % 0 09/09/19 12:53: Sodium 133 L, Potassium 4.4, Chloride 101, Carbon Dioxide 24.0, Anion Gap 8, BUN 78 H, Creatinine 4.14 H, Estim Creat Clear Calc 16.41, Est GFR (MDRD) Af Amer 18 L, Est GFR (MDRD) Non-Af 15 L, BUN/Creatinine Ratio 18.8, Glucose 391 H, Calcium 8.8, Phosphorus 4.9, Magnesium 1.9, Total Bilirubin 0.30, AST 15, ALT 18, Alkaline Phosphatase 150 H, Troponin I < 0.015, Total Protein 7.6, Albumin 2.7 L, Globulin 4.9 H, Albumin/Globulin Ratio 0.6 L 09/09/19 12:53: Phosphorus Cancelled 09/09/19 21:33: POC Glucose 347 H 09/10/19 07:30: POC Glucose 225 H 09/10/19 11:37: POC Glucose 223 H Current Medications Acetaminophen (Tylenol) 650 mg PO Q6H PRN PRN PRN Reason: Pain Score 1-10/Temp > 100.7 F Last Admin: 09/10/19 08:54 Dose: 650 mg Documented by: Atorvastatin Calcium (Lipitor) 10 mg PO QHS [facility] Last Admin: 09/09/19 21:29 Dose: 10 mg Documented by: Calamine/Phenol (Calmoseptine Ointment) 1 applic TOPICAL BID [facility]; Protocol Last Admin: 09/10/19 08:56 Dose: 1 applicatio Documented by: Dextrose (D50w Syringe) 0 gm IV X1 PRN; Protocol PRN Reason: Hypoglycemia Ferrous Sulfate (Ferrous Sulfate) 325 mg PO DAILY@1200 [facility] Last Admin: 09/10/19 12:11 Dose: 325 mg Documented by: Folic Acid (Folic Acid) 1 mg PO DAILY@0800 [facility] Last Admin: 09/10/19 08:54 Dose: 1 mg Documented by: Glucagon () 1 mg IM .X1 PRN PRN Reason: Hypoglycemia Heparin Sodium (Porcine) (Heparin Na) 5,000 unit SC Q12 [facility] Last Admin: 09/10/19 08:55 Dose: 5,000 unit Documented by: Insulin Glargine (Lantus (Bkc)) 25 units SC QHS [facility] Last Admin: 09/09/19 21:29 Dose: 25 units Documented by: Levothyroxine Sodium (Synthroid) 75 mcg PO DAILY@0600 [facility] Last Admin: 09/10/19 05:51 Dose: 75 mcg Documented by: Ondansetron HCl (Zofran) 4 mg IV Q8H PRN PRN PRN Reason: NAUSEA/VOMITING Pantoprazole Sodium (Protonix) 20 mg PO DAILY [facility] Last Admin: 09/10/19 09:00 Dose: 20 mg Documented by: Senna/Docusate Sodium (Senokot-S, Leslie-Colace) 2 tablet PO BID PRN PRN PRN Reason: Constipation Sertraline HCl (Zoloft) 100 mg PO BID [facility] Last Admin: 09/10/19 08:56 Dose: 100 mg Documented by: Sodium Chloride () 10 - 40 ml IV UD PRN PRN Reason: SALINE FLUSH Last Admin: 09/09/19 21:39 Dose: 10 ml Documented by: Tamsulosin HCl (Flomax) 0.4 mg PO QHS [facility] Last Admin: 09/09/19 21:28 Dose: 0.4 mg Documented by: Zolpidem Tartrate (Ambien (Generic)) 5 mg PO QHS PRN PRN PRN Reason: INSOMNIA STROKE Vital Signs/Narrative: Vital Signs Temp Pulse Resp BP Pulse Ox 09/10/19 11:00 95 09/10/19 08:47 98.2 F 86 18 113/66 95 Medical Necessity - Tobacco Use Smoking Status: Current every day smoker Tobacco Use: Cigars Assessment/Plan All Active Problems Weakness (Acute) 1. Debility - SNF placement. Continue PTOT. Complicated by ESRD, anemia, poorly controlled DMt2, insomnia. 2. Normocytic anemia (chronic), thrombocytopenia (chronic) - check TSH, iron, ferritin. Likely anemia of chronic dz 2/2 ESRD. Continue PO iron, folate 3. Hyponatremia - mild, possibly 2/2 ssri. will repeat in AM. 4. Gerd - on ppi 5. Anx/Dep - zoloft 6. Hypothyroid - check tsh, continue synthroid. 7. Insomnia - ambien. add melatonin 8. Dmt2 poorly controlled with obesity - continue lantus, start tid insulin, continue ssi. DVT ppx:heparin. trend platelets. DC planning: ECF This patient was seen by Jose Martinez PA-C under the supervision of Dr. Zuñiga. <Blessing Zuñiga - Last Filed: 09/10/19 14:44> Vitals/I&O's: Vital Signs Temp Pulse Resp BP Pulse Ox 97.4 F L 88 18 99/57 L 98 09/10/19 13:39 09/10/19 13:39 09/10/19 13:39 09/10/19 13:39 09/10/19 13:39 Oxygen Delivery Method Room Air Weight: 267 lb Body Mass Index (BMI) 36.6 Finger Stick Blood Glucose 99 Intake and Output for Last 24 Hours 09/08/19 09/09/19 09/10/19 23:59 23:59 23:59 Intake Total 650 / 650 Output Total 300 / 300 Balance 350 / 350 Laboratory Results 09/09/19 12:40: POC Glucose 387 H 09/09/19 21:33: POC Glucose 347 H 09/10/19 07:30: POC Glucose 225 H 09/10/19 11:37: POC Glucose 223 H 09/10/19 12:53: Iron 34 L, TIBC 179 L, Iron Saturation 19.0, Ferritin 972 H, TSH 3.16 Current Medications Acetaminophen (Tylenol) 650 mg PO Q6H PRN PRN PRN Reason: Pain Score 1-10/Temp > 100.7 F Last Admin: 09/10/19 08:54 Dose: 650 mg Documented by: Atorvastatin Calcium (Lipitor) 10 mg PO QHS [facility] Last Admin: 09/09/19 21:29 Dose: 10 mg Documented by: Calamine/Phenol (Calmoseptine Ointment) 1 applic TOPICAL BID [facility]; Protocol Last Admin: 09/10/19 08:56 Dose: 1 applicatio Documented by: Dextrose (D50w Syringe) 0 gm IV X1 PRN; Protocol PRN Reason: Hypoglycemia Ferrous Sulfate (Ferrous Sulfate) 325 mg PO DAILY@1200 [facility] Last Admin: 09/10/19 12:11 Dose: 325 mg Documented by: Folic Acid (Folic Acid) 1 mg PO DAILY@0800 [facility] Last Admin: 09/10/19 08:54 Dose: 1 mg Documented by: Glucagon () 1 mg IM .X1 PRN PRN Reason: Hypoglycemia Heparin Sodium (Porcine) (Heparin Na) 5,000 unit SC Q12 [facility] Last Admin: 09/10/19 08:55 Dose: 5,000 unit Documented by: Insulin Glargine (Lantus (Bkc)) 25 units SC QHS [facility] Last Admin: 09/09/19 21:29 Dose: 25 units Documented by: Insulin Human Lispro (Humalog Kwikpen (Bkc)) 5 unit SC TIDAC [facility] Insulin Human Lispro (Humalog Kwikpen (Bkc)) 0 unit SC ACHS [facility]; Protocol Levothyroxine Sodium (Synthroid) 75 mcg PO DAILY@0600 [facility] Last Admin: 09/10/19 05:51 Dose: 75 mcg Documented by: Melatonin (Melatonin) 3 mg PO QHS [facility] Ondansetron HCl (Zofran) 4 mg IV Q8H PRN PRN PRN Reason: NAUSEA/VOMITING Pantoprazole Sodium (Protonix) 20 mg PO DAILY [facility] Last Admin: 09/10/19 09:00 Dose: 20 mg Documented by: Senna/Docusate Sodium (Senokot-S, Leslie-Colace) 2 tablet PO BID PRN PRN PRN Reason: Constipation Sertraline HCl (Zoloft) 100 mg PO BID [facility] Last Admin: 09/10/19 08:56 Dose: 100 mg Documented by: Sodium Chloride () 10 - 40 ml IV UD PRN PRN Reason: SALINE FLUSH Last Admin: 09/09/19 21:39 Dose: 10 ml Documented by: Tamsulosin HCl (Flomax) 0.4 mg PO QHS [facility] Last Admin: 09/09/19 21:28 Dose: 0.4 mg Documented by: Zolpidem Tartrate (Ambien (Generic)) 5 mg PO QHS PRN PRN PRN Reason: INSOMNIA STROKE Vital Signs/Narrative: Vital Signs Temp Pulse Resp BP Pulse Ox 09/10/19 13:39 97.4 F L 88 18 99/57 L 98 09/10/19 11:00 95 Assessment/Plan Patient seen by Jose Martinez PA-C under my supervision Patient was admitted with a complaint of weakness. He had signed out from his snf facility after he was informed that his 100 days in the skilled facility covered by insurance was up but he would need to pay [id number]. Patient went home but was unable to care for himself and was brought to the hospital on account of weakness. Patient seen and examined this morning. He had no complaints apart from just feeling weak. Review of symptoms otherwise negative. Labs and vitals reviewed. o/e: Vital Signs Temp Pulse Resp BP Pulse Ox 97.4 F L 88 18 99/57 L 98 09/10/19 13:39 09/10/19 13:39 09/10/19 13:39 09/10/19 13:39 09/10/19 13:39 General: Alert, Oriented x3, Cooperative, Lethargic HEENT: Atraumatic, PERRLA, EOMI, Normocephalic Neck: Supple, No JVD, Negative Carotid Bruits Lungs: Clear to auscultation, Normal air movement Cardiovascular: Regular rate, No murmurs Abdomen: Bowel Sounds Present, Soft, Non Tender, Obese Extremities: No edema, Capillary Refill Less than 3 Seconds Skin: No rashes, No breakdown; dialysis catheter in left chest Musculoskeletal: No Tenderness to Palpation of Joints or Extremities Neurological: Cranial nerves II-XII grossly intact Psych/Mental Status: Normal Affect, Appropriate, Alert and oriented to time, place, person, mood and affect Patient is been managed for debility likely due to general medical condition. PT OT on board. Will likely need placement in skilled facility. Patient is anemic with hemoglobin of 8.6 and this is around his baseline and is likely due to anemia of chronic disease from ESRD. Continue home dose of insulin and sliding scale. Case management consulted for placement. Rest as per Jose Martinez PA-C's notes which I have reviewed and endorsed. OBSV E&M: [id number] Subsequent observation care L2
--- NOTE | 2019-09-10 12:53 | PCM.EXTCARCO ---
- Diet 09/10/19 10:21 Diet: Cardiac: Calorie-Controlled Food consistency:: Regular Liquid Consistency:: Regular/Thin Dietary Modifications:: Fluid Restricted Diet Low Phosphorous Diet Low Potassium Restriction Diet Comments: 1500 ml FR; low sodium, low phos, low potassium How many daily calories?: 2000 calorie - Routine Orders/Code Status Suppository Type: Dulcolax 10mg Suppository Frequency: Daily PRN Routine Lab Work: CBC - 3 days, BMP - tomorrow Code Status: Full Code - Wound(s) coccyx Wound Type: Abrasion - Therapies Physical Therapy: Eval and Treat Occupational Therapy: Eval and Treat - Problem/Diagnosis (1) Weakness Status: Acute Current Visit: Yes (2) Hyponatremia Status: Chronic Current Visit: Yes (3) Thrombocytopenia Status: Chronic Current Visit: Yes (4) ESRD (end stage renal disease) on dialysis Status: Chronic Current Visit: Yes (5) Anxiety and depression Status: Chronic Current Visit: No (6) CKD (chronic kidney disease), stage IV Status: Chronic Current Visit: No (7) Chronic anemia Status: Chronic Current Visit: No (8) Diabetes mellitus, type II Status: Chronic Current Visit: No (9) GERD (gastroesophageal reflux disease) Status: Chronic Current Visit: No (10) HTN (hypertension) Status: Chronic Current Visit: No (11) Hypothyroidism Status: Chronic Current Visit: No (12) MEGAN (obstructive sleep apnea) Status: Chronic Current Visit: No - Allergies/Procedures Done in Hospital Allergies/Adverse Reactions: Allergies metformin Allergy (Verified 05/10/19 00:14) Angioedema Penicillins Allergy (Verified 05/10/19 00:14) Rash Tetanus Vaccines and Toxoid Allergy (Verified 05/10/19 00:14) Swelling at injection site Procedures: None - Type of Care/Length of Stay Estimated LOS: More Than 30 Days Type of Care Needed: Skilled Rehab Potential: Fair Prognosis: Fair - Additional Orders/Day of Discharge Day of Discharge: 09/10/19 - Dietary and Speech Recommendations Dietitian Recommendations/Changes: Will change diet to 2000 calorie; Cardiac; low sodium; low potassium; low phos with 1500 ml fluid restriction. - Follow Up Care Primary Care Physician: [facility] [Primary Care Provider] - As soon as possible Please follow up with your Primary Care Physician in: 2 weeks
[2019-09-10 13:31] LABS: Ferritin 972 ng/mL (26-388); Iron 34 ug/dL (65-175); Iron Binding Capacity,Total 179 ug/dL (250-450); Thyroid Stim Hormone (TSH) 3.16 uIU/mL (0.358-3.74)
[2019-09-10 13:39] VITALS: BP 99/57; PULSE 88; RESP 18; TEMP 36.3; O2SAT 98
--- NOTE | 2019-09-10 15:20 | CASEMGMT ---
JULIAN faxed all necessary information to [facility] to obtain a level of care. Await results. Plan: [facility] [place] pending receipt of level of care. Zuly KELLER MSW
[2019-09-10 16:30] VITALS: BP 109/58; PULSE 75; RESP 20; TEMP 36.2; O2SAT 99
--- NOTE | 2019-09-10 16:46 | DIALYSIS ---
Pt tolerated 3hr HD tx wel. Net UF-2600ml. See flow record for tx data.
[2019-09-10] MEDS: Insulin Lispro 100 UNIT/ML INSULN.PEN SC ×3 (17:15→23:17)
[2019-09-10 17:46] LABS: Bedside Glucose 192 mg/dL (70-110)
[2019-09-10 20:29] VITALS: BP 130/74; PULSE 84; RESP 18; TEMP 36.6; O2SAT 98
[2019-09-10] MEDS: Atorvastatin Calcium 10 MG Tablet PO (23:14)
[2019-09-10] MEDS: MELATONIN 3 MG TABLET PO (23:14)
[2019-09-10] MEDS: Tamsulosin HCl 0.4 MG Capsule PO (23:14)
[2019-09-10 23:30] LABS: Bedside Glucose 198 mg/dL (70-110)
[2019-09-11] VITALS (7 sets, daily range): BP systolic 86–156; BP diastolic 37–71; PULSE 78–88; RESP 15–18; TEMP 36.7–36.9; O2SAT 94–98
[2019-09-11] MEDS: Levothyroxine 75 MCG Tablet PO (05:26)
[2019-09-11] MEDS: Fluticasone 0.05% 1 SPRAY NASAL.SRY NASAL (05:26)
[2019-09-11 06:37] LABS: Absolute Lymphocyte Count 1.31 X10^3/uL (0.83-4.51); Absolute Neutrophil Count 3.2 X10^3/uL (2.0-7.7); Basophil# 0.02 X10^3/uL; Basophil% 0.4 % (0-1); Eosinophil# 0.07 X10^3/uL; Eosinophils% 1.4 % (0-5); Hematocrit 26.9 % (40-54); Hemoglobin 8.6 g/dL (13.0-16.5); Lymphocyte # 1.31 X10^3/ul (4.0); Mean Corpuscular Volume 84.6 fL (80-94); Mean Platelet Vol. 8.7 fl (6.2-12.0); Monocyte# 0.41 X10^3/uL; Monocyte% 8.2 % (0-10); NRBC Flagged by Analyzer 0 % (0-5); Neutrophil # 3.21 X10^3/uL (2.7-7.7); Neutrophil % 63.8 % (47-70); Platelet Count 109 K/mm3 (150-450); RBC Distribution Width CV 18.4 % (11.6-14.6); RBC Distribution Width SD 55.9 fl (35.1-43.9); Red Blood Count 3.18 M/mm3 (4.6-6.2)
[2019-09-11 07:04] LABS: Anion Gap 9 (5-15); BUN 44 mg/dL (7-18); BUN/Creat Ratio 14.1 RATIO (10-20); Calcium,Total 8.7 mg/dL (8.5-10.1); Chloride 100 mmol/L (98-107); Creatinine, Serum 3.11 mg/dL (0.70-1.30); EST Glomerular Filtration Rate 21 mL/min (>60); Est Glom Filt Rate - Afr Amer 25 mL/min (>60); Estimated Creatinine Clearance 21.84 ml/min; Glucose 145 mg/dL (74-106); Sodium Level 136 mmol/L (136-145)
[2019-09-11 07:40] LABS: Bedside Glucose 141 mg/dL (70-110)
[2019-09-11] MEDS: Insulin Lispro 100 UNIT/ML INSULN.PEN SC ×4 (08:23→18:04)
--- NOTE | 2019-09-11 09:42 | CASEMGMT ---
SW received level of care from [facility]. SW spoke with patient and let him know he will likely be going today. SW reminded him he will need to pay [facility] $600-$700 when he gets there. SW also reminded him that he will need to pay $2,088 to [place] monthly after that. He wanted to go home before going to the snf and get his car. JULIAN told him that the physician is not going to let him do this as that is the point of sending him to a snf. He was too weak to get around his home and that is what brought him into the hospital. JULIAN told him SW will let him know when transport is set up. Plan: [facility] under skilled level of care. Zuly KELLER MSW
--- NOTE | 2019-09-11 10:32 | CASEMGMT ---
This RN CM to room with AVALOS form at this time and pt is sleeping without distress at this time. Pt does not awaken to verbal stimuli or knock on the door at this time. Will attempt again later. SStaten RN CM
[2019-09-11] MEDS: Heparin Injection (Vial) 5,000 UNIT/ML VIAL 5000 UNIT SC (10:57)
[2019-09-11] MEDS: Ferrous Sulfate 325 MG Tablet PO (10:58)
[2019-09-11] MEDS: Folic Acid 1 MG Tablet PO (10:58)
[2019-09-11] MEDS: Pantoprazole Sodium 20 MG Tablet PO (10:58)
--- NOTE | 2019-09-11 11:07 | CASEMGMT ---
Patient told physician he does not want to go to the snf. He said they take all of his money except $50. He cannot pay for his car, insurance, or gas with that. SW asked him if he has electric, water, and heat. He said he would have to call to find out if everything was turned back on. He has his crutches here at [facility] and that will help him get in the home. He did not have those when he went home before. He said he will be able to drive himself to and from dialysis. Therapy was in the room getting ready to work with patient. SW will check back afterwards. JULIAN also paged Dr Isaac to verify when he will need dialysis next. Zuly KELLER MSW
--- NOTE | 2019-09-11 11:45 | CASEMGMT ---
This COLE REYNOLDS received call from Anai at [facility] checking on pt discharge plan at this time. Anai is updated on all at this time, voices understanding. Plan was for pt to discharge today to [place] but pt states that he now plans on going home. Pt does need dialysis today as well. [facility] This RN CM to room with [facility] form at this time, explanation done-pt voices understanding, and consents to assessment at this time. Original to chart and copy to pt at this time. SStaten COLE REYNOLDS
--- NOTE | 2019-09-11 12:17 | NURSING ---
does not have anybody he wants called to update on condition
--- NOTE | 2019-09-11 13:14 | DS.PCM_ITS ---
<Jose Martinez - Last Filed: 09/11/19 13:14> Discharge Date and Diagnosis - Problem List Patient Problems: Active and Suspected Problems Weakness (Acute) Date of Admission: 09/09/19 Date of Discharge: 09/11/19 - Primary Discharge Diagnosis Active and Suspected Problems Weakness (Acute) ESRD Iron def anemia Thrombocytopenia Anx/Depression Dmt2 hypothyroidism MEGAN - Secondary Discharge Diagnosis Chronic Problems ESRD (end stage renal disease) on dialysis (Chronic) Hyponatremia (Chronic) Thrombocytopenia (Chronic) CKD (chronic kidney disease), stage IV (Chronic) HTN (hypertension) (Chronic) Anxiety and depression (Chronic) Tobacco use (Chronic) MEGAN (obstructive sleep apnea) (Chronic) Hypothyroidism (Chronic) Chronic anemia (Chronic) GERD (gastroesophageal reflux disease) (Chronic) Diabetes mellitus, type II (Chronic) Hospital Course and Treatment Imaging Results: RAD/Chest 1 View (Portable) IMPRESSION: No demonstrated acute process CT/Brain/Head without Contrast IMPRESSION: 1. Chronic ischemic and involutional changes of the brain. Consults: [facility] - Nephrology Operations: None Procedures: Dialysis Summary of Care Provided: Hospital Course: The patient is a 73 year old M with pmhx as above who presented to the ER from home. He went home AMA from the [facility] as he ran out of days to stay through his insurance. He was weak and could not get up the stairs at home and called EMS to help. EMS convinced him to come to the hospital due to his debility and house being disarrayed. The patient was brought to the ER and no acute issues were detected. He was admitted for debility and placement in SNF. The patient did well with no issues. Nephrology was consulted for dialysis. We got him approved to go to the [facility], however on the day of discharge he changed his mind and insisted on discharge home instead. He was discharged home in stable condition with home health care. He will need follow up with nephrology for dialysis as needed and with the PCP in 1-2 weeks. This patient was seen by Jose Martinez PA-C under the supervision of Dr. Lemon.[] Patient Problems: Active and Suspected Problems Weakness (Acute) - Physical Exam Vitals/I&O's: Vital Signs Temp Pulse Resp BP Pulse Ox 98.3 F 78 18 105/54 L 94 09/11/19 08:18 09/11/19 08:18 09/11/19 08:18 09/11/19 08:18 09/11/19 09:27 Oxygen Delivery Method Room Air Weight: 262 lb 12.656 oz Body Mass Index (BMI) 36.6 Finger Stick Blood Glucose 99 Intake and Output for Last 24 Hours 09/09/19 09/10/19 09/11/19 23:59 23:59 23:59 Intake Total 1000 / 1000 800 / 800 Output Total 5750 / 5750 0 / 0 Balance -4750 / -4750 800 / 800 General: Alert, Oriented x3, Cooperative HEENT: Atraumatic, PERRLA, EOMI, Normocephalic Neck: Supple, No JVD, Negative Carotid Bruits Lungs: Clear to auscultation, Normal air movement Cardiovascular: Regular rate, No murmurs Abdomen: Bowel Sounds Present, Soft, Non Tender, Obese Extremities: No edema, Capillary Refill Less than 3 Seconds Skin: No rashes, No breakdown Musculoskeletal: No Tenderness to Palpation of Joints or Extremities Neurological: Cranial nerves II-XII grossly intact Psych/Mental Status: Normal Affect, Appropriate, Alert and oriented to time, pl gabriele, person, mood and affect Laboratory Results 09/10/19 12:53: Iron 34 L, TIBC 179 L, Iron Saturation 19.0, Ferritin 972 H, TSH 3.16 09/10/19 16:55: POC Glucose 192 H 09/10/19 23:12: POC Glucose 198 H 09/11/19 06:24: WBC 5.0, RBC 3.18 L, Hgb 8.6 L, Hct 26.9 L, MCV 84.6, MCH 27.0, MCHC 32.0, RDW Std Deviation 55.9 H, RDW Coeff of Nyasia 18.4 H, Plt Count 109 L, MPV 8.7, Immature Gran % (Auto) 0.200, Neut % (Auto) 63.8, Lymph % (Auto) 26.0, Bullock % (Auto) 8.2, Eos % (Auto) 1.4, Baso % (Auto) 0.4, Absolute Neuts (auto) 3.2, Absolute Lymphs (auto) 1.31, Nucleated RBC % 0 09/11/19 06:24: Sodium 136, Potassium 4.0, Chloride 100, Carbon Dioxide 27.0, Anion Gap 9, BUN 44 H, Creatinine 3.11 H, Estim Creat Clear Calc 21.84, Est GFR (MDRD) Af Amer 25 L, Est GFR (MDRD) Non-Af 21 L, BUN/Creatinine Ratio 14.1, Glucose 145 H, Calcium 8.7 09/11/19 07:33: POC Glucose 141 H Current Medications Acetaminophen (Tylenol) 650 mg PO Q6H PRN PRN PRN Reason: Pain Score 1-10/Temp > 100.7 F Last Admin: 09/10/19 08:54 Dose: 650 mg Documented by: Atorvastatin Calcium (Lipitor) 10 mg PO QHS [facility] Last Admin: 09/10/19 23:14 Dose: 10 mg Documented by: Calamine/Phenol (Calmoseptine Ointment) 1 applic TOPICAL BID [facility]; Protocol Last Admin: 09/10/19 23:18 Dose: 1 applicatio Documented by: Dextrose (D50w Syringe) 0 gm IV X1 PRN; Protocol PRN Reason: Hypoglycemia Ferrous Sulfate (Ferrous Sulfate) 325 mg PO DAILY@1200 [facility] Last Admin: 09/11/19 10:58 Dose: 325 mg Documented by: Fluticasone Propionate (Flonase Nasal [place]) 1 spray NASAL BID [facility] Last Admin: 09/11/19 05:26 Dose: 1 spray Documented by: Folic Acid (Folic Acid) 1 mg PO DAILY@0800 [facility] Last Admin: 09/11/19 10:58 Dose: 1 mg Documented by: Glucagon () 1 mg IM .X1 PRN PRN Reason: Hypoglycemia Heparin Sodium (Porcine) (Heparin Na) 5,000 unit SC Q12 [facility] Last Admin: 09/11/19 10:57 Dose: 5,000 unit Documented by: Insulin Glargine (Lantus (Bkc)) 25 units SC QHS [facility] Last Admin: 09/10/19 23:15 Dose: 25 units Documented by: Insulin Human Lispro (Humalog Kwikpen (Bkc)) 5 unit SC TIDAC [facility] Last Admin: 09/11/19 08:23 Dose: 5 units Documented by: Insulin Human Lispro (Humalog Kwikpen (Bkc)) 0 unit SC ACHS [facility]; Protocol Last Admin: 09/11/19 07:35 Dose: Not Given Documented by: Levothyroxine Sodium (Synthroid) 75 mcg PO DAILY@0600 [facility] Last Admin: 09/11/19 05:26 Dose: 75 mcg Documented by: Melatonin (Melatonin) 3 mg PO QHS [facility] Last Admin: 09/10/19 23:14 Dose: 3 mg Documented by: Ondansetron HCl (Zofran) 4 mg IV Q8H PRN PRN PRN Reason: NAUSEA/VOMITING Pantoprazole Sodium (Protonix) 20 mg PO DAILY [facility] Last Admin: 09/11/19 10:58 Dose: 20 mg Documented by: Senna/Docusate Sodium (Senokot-S, Leslie-Colace) 2 tablet PO BID PRN PRN PRN Reason: Constipation Sertraline HCl (Zoloft) 100 mg PO BID [facility] Last Admin: 09/10/19 23:14 Dose: 100 mg Documented by: Sodium Chloride () 10 - 40 ml IV UD PRN PRN Reason: SALINE FLUSH Last Admin: 09/09/19 21:39 Dose: 10 ml Documented by: Tamsulosin HCl (Flomax) 0.4 mg PO QHS [facility] Last Admin: 09/10/19 23:14 Dose: 0.4 mg Documented by: Zolpidem Tartrate (Ambien (Generic)) 5 mg PO QHS PRN PRN PRN Reason: INSOMNIA Discharge Diet: Renal Diet Discharge Activity: Return to Normal Activity Home Medications: Medications to take at Discharge Tamsulosin HCl [Flomax] 0.4 mg PO QHS 05/11/18 Atorvastatin Calcium [Lipitor] 10 mg PO QHS 04/26/19 Carboxymethylcellulose Sodium [Artificial Tears] 1 drp EACH EYE 4X/DAY 09/09/19 Folic Acid/Vitamin B Comp W-C [Nephrocaps, Renaphro] 1 cap PO DAILY 09/09/19 Levothyroxine Sodium [Synthroid] 75 mcg PO DAILY 09/09/19 Omeprazole 20 mg PO DAILY 09/09/19 Acetaminophen [Tylenol Tablet] 650 mg PO Q6H PRN PRN tab 09/11/19 Ferrous Sulfate 325 mg PO DAILY@1200 #30 tab 09/11/19 Insulin Glargine [Lantus SoloStar Pen] 25 units SUBCUT QHS pen 09/11/19 Insulin Lispro [Humalog KwikPen] 5 unit SUBCUT TIDAC insuln.pen 09/11/19 Insulin Lispro [Humalog KwikPen] See Protocol SUBCUT ACHS insuln.pen 09/11/19 Melatonin 3 mg PO QHS tab 09/11/19 Menthol/Lanolin/Calamine/Znox [Calmoseptine Ointment] 1 applic TOPICAL BID tube 09/11/19 Senna/Docusate Sodium [Senokot-S] 2 tab PO BID PRN PRN tab 09/11/19 Sertraline HCl [Zoloft] 100 mg PO BID tab 09/11/19 Following Prescrptions Were Given to Patient: Ferrous Sulfate 325 mg PO DAILY@1200 #30 tab Transmission Status: Received by [facility] - As soon as possible Please follow up with your Primary Care Physician in: 2 weeks Please Follow Up With: Nephrology as needed Disposition: Home with Home Health Minutes spent on discharge:: 35 Patient Condition:: Stable Medical Necessity - Tobacco Use Smoking Status: Current every day smoker Tobacco Use: Cigars Meaningful Use Info Meaningful Use Diagnoses (Choose all that apply): None applicable <Erik Lemon - Last Filed: 09/11/19 14:39> Discharge Date and Diagnosis - Primary Discharge Diagnosis Active and Suspected Problems Weakness (Acute) - Secondary Discharge Diagnosis Chronic Problems ESRD (end stage renal disease) on dialysis (Chronic) Hyponatremia (Chronic) Thrombocytopenia (Chronic) CKD (chronic kidney disease), stage IV (Chronic) HTN (hypertension) (Chronic) Anxiety and depression (Chronic) Tobacco use (Chronic) MEGAN (obstructive sleep apnea) (Chronic) Hypothyroidism (Chronic) Chronic anemia (Chronic) GERD (gastroesophageal reflux disease) (Chronic) Diabetes mellitus, type II (Chronic) Hospital Course and Treatment Operations: None Procedures: Dialysis Summary of Care Provided: Patient seen and examined independently. Data reviewed. I agree with the above note by the physician assistant import manager. The patient is a 73 year old M presents with weakness. Patient was just discharged from residential facility. Got to his house and found that his power is often otherwise in disarray. Presented to the hospital and no acute medical issues were identified. Plan was for him to be discharged to a residential facility. However, patient insisted on going home. Patient was total assist with activity and walking going up stairs but later was able to negotiate going to the bathroom with minimal involvement. Still was the recommendation of this provider that the patient go to a residential facility for further strengthening prior to going home. Patient is insisting on going home. Discussed risks of falls and subsequent sequelae of falls, such as hip fractures or head bleeds. He still wishes to go home. Patient will be discharged home with home care. Patient is of sound mind decision understanding the risks and benefits of returning home. [] - Physical Exam Vitals/I&O's: Vital Signs Temp Pulse Resp BP Pulse Ox 36.9 C 86 18 156/71 H 97 09/11/19 14:07 09/11/19 14:07 09/11/19 14:07 09/11/19 14:07 09/11/19 14:07 Oxygen Delivery Method Room Air Weight: 119.2 kg Body Mass Index (BMI) 36.6 Finger Stick Blood Glucose 99 Intake and Output for Last 24 Hours 09/09/19 09/10/19 09/11/19 23:59 23:59 23:59 Intake Total 1000 / 1000 1280 / 1280 Output Total 5750 / 5750 0 / 0 Balance -4750 / -4750 1280 / 1280 General: Alert, Cooperative HEENT: Atraumatic, Normocephalic Neck: No Nodes, Trachea Midline Lungs: Clear to auscultation, Normal air movement, No rhonchi, No wheeze Cardiovascular: Regular rate, Regular Rhythm, Normal S1, Normal S2, No murmurs Abdomen: Bowel Sounds Present, Soft, Non Tender, Non-Distended Extremities: No edema, No Calf Tenderness Psych/Mental Status: Normal Affect, Appropriate Laboratory Results 09/10/19 16:55: POC Glucose 192 H 09/10/19 23:12: POC Glucose 198 H 09/11/19 06:24: WBC 5.0, RBC 3.18 L, Hgb 8.6 L, Hct 26.9 L, MCV 84.6, MCH 27.0, MCHC 32.0, RDW Std Deviation 55.9 H, RDW Coeff of Nyasia 18.4 H, Plt Count 109 L, MPV 8.7, Immature Gran % (Auto) 0.200, Neut % (Auto) 63.8, Lymph % (Auto) 26.0, Bullock % (Auto) 8.2, Eos % (Auto) 1.4, Baso % (Auto) 0.4, Absolute Neuts (auto) 3.2, Absolute Lymphs (auto) 1.31, Nucleated RBC % 0 09/11/19 06:24: Sodium 136, Potassium 4.0, Chloride 100, Carbon Dioxide 27.0, Anion Gap 9, BUN 44 H, Creatinine 3.11 H, Estim Creat Clear Calc 21.84, Est GFR (MDRD) Af Amer 25 L, Est GFR (MDRD) Non-Af 21 L, BUN/Creatinine Ratio 14.1, Glucose 145 H, Calcium 8.7 09/11/19 07:33: POC Glucose 141 H 09/11/19 13:44: POC Glucose 168 H Current Medications Acetaminophen (Tylenol) 650 mg PO Q6H PRN PRN PRN Reason: Pain Score 1-10/Temp > 100.7 F Last Admin: 09/10/19 08:54 Dose: 650 mg Documented by: Atorvastatin Calcium (Lipitor) 10 mg PO QHS [facility] Last Admin: 09/10/19 23:14 Dose: 10 mg Documented by: Calamine/Phenol (Calmoseptine Ointment) 1 applic TOPICAL BID [facility]; Protocol Last Admin: 09/11/19 13:47 Dose: 1 applicatio Documented by: Dextrose (D50w Syringe) 0 gm IV X1 PRN; Protocol PRN Reason: Hypoglycemia Ferrous Sulfate (Ferrous Sulfate) 325 mg PO DAILY@1200 [facility] Last Admin: 09/11/19 10:58 Dose: 325 mg Documented by: Fluticasone Propionate (Flonase Nasal [place]) 1 spray NASAL BID [facility] Last Admin: 09/11/19 05:26 Dose: 1 spray Documented by: Folic Acid (Folic Acid) 1 mg PO DAILY@0800 [facility] Last Admin: 09/11/19 10:58 Dose: 1 mg Documented by: Glucagon () 1 mg IM .X1 PRN PRN Reason: Hypoglycemia Heparin Sodium (Porcine) (Heparin Na) 5,000 unit SC Q12 [facility] Last Admin: 09/11/19 10:57 Dose: 5,000 unit Documented by: Insulin Glargine (Lantus ([facility])) 25 units SC QHS [facility] Last Admin: 09/10/19 23:15 Dose: 25 units Documented by: Insulin Human Lispro (Humalog Kwikpen ([facility])) 5 unit SC TIDAC [facility] Last Admin: 09/11/19 13:48 Dose: 5 units Documented by: Insulin Human Lispro (Humalog Kwikpen (Bkc)) 0 unit SC [facility]; Protocol Last Admin: 09/11/19 13:48 Dose: 1 units Documented by: Levothyroxine Sodium (Synthroid) 75 mcg PO DAILY@0600 [facility] Last Admin: 09/11/19 05:26 Dose: 75 mcg Documented by: Melatonin (Melatonin) 3 mg PO QHS [facility] Last Admin: 09/10/19 23:14 Dose: 3 mg Documented by: Ondansetron HCl (Zofran) 4 mg IV Q8H PRN PRN PRN Reason: NAUSEA/VOMITING Pantoprazole Sodium (Protonix) 20 mg PO DAILY [facility] Last Admin: 09/11/19 10:58 Dose: 20 mg Documented by: Senna/Docusate Sodium (Senokot-S, Leslie-Colace) 2 tablet PO BID PRN PRN PRN Reason: Constipation Sertraline HCl (Zoloft) 100 mg PO BID [facility] Last Admin: 09/10/19 23:14 Dose: 100 mg Documented by: Sodium Chloride () 10 - 40 ml IV UD PRN PRN Reason: SALINE FLUSH Last Admin: 09/09/19 21:39 Dose: 10 ml Documented by: Tamsulosin HCl (Flomax) 0.4 mg PO QHS [facility] Last Admin: 09/10/19 23:14 Dose: 0.4 mg Documented by: Zolpidem Tartrate (Ambien (Generic)) 5 mg PO QHS PRN PRN PRN Reason: INSOMNIA Discharge Diet: Renal Diet Discharge Activity: Return to Normal Activity Disposition: Home with Home Health Minutes spent on discharge:: 35 Patient Condition:: Stable Medical Necessity - Tobacco Use Tobacco Use: Cigars Meaningful Use Info Meaningful Use Diagnoses (Choose all that apply): None applicable OBSV E&M: 43980 Observation care discharge
--- NOTE | 2019-09-11 13:22 | PCM.DC ---
- Discharge Diagnoses Current Active Problems: Current Active and Chronic Problems Weakness (Acute) ESRD (end stage renal disease) on dialysis (Chronic) Hyponatremia (Chronic) Thrombocytopenia (Chronic) You will use the following diet at home:: Renal (restricted protein/sodium) Your food should be the consistency of: Regular Your liquids should be the consistency of: Regular/Thin Discharge Activity: Return to Normal Activity Allergies/Adverse Reactions: Allergies metformin Allergy (Verified 05/10/19 00:14) Angioedema Penicillins Allergy (Verified 05/10/19 00:14) Rash Tetanus Vaccines and Toxoid Allergy (Verified 05/10/19 00:14) Swelling at injection site Medications to take at Discharge Tamsulosin HCl [Flomax] 0.4 mg PO QHS 05/11/18 Atorvastatin Calcium [Lipitor] 10 mg PO QHS 04/26/19 Carboxymethylcellulose Sodium [Artificial Tears] 1 drp EACH EYE 4X/DAY 09/09/19 Folic Acid/Vitamin B Comp W-C [Nephrocaps, Renaphro] 1 cap PO DAILY 09/09/19 Levothyroxine Sodium [Synthroid] 75 mcg PO DAILY 09/09/19 Omeprazole 20 mg PO DAILY 09/09/19 Acetaminophen [Tylenol Tablet] 650 mg PO Q6H PRN PRN tab 09/11/19 Ferrous Sulfate 325 mg PO DAILY@1200 #30 tab 09/11/19 Insulin Glargine [Lantus SoloStar Pen] 25 units SUBCUT QHS pen 09/11/19 Insulin Lispro [Humalog KwikPen] 5 unit SUBCUT TIDAC insuln.pen 09/11/19 Insulin Lispro [Humalog KwikPen] See Protocol SUBCUT ACHS insuln.pen 09/11/19 Melatonin 3 mg PO QHS tab 09/11/19 Menthol/Lanolin/Calamine/Znox [Calmoseptine Ointment] 1 applic TOPICAL BID tube 09/11/19 Senna/Docusate Sodium [Senokot-S] 2 tab PO BID PRN PRN tab 09/11/19 Sertraline HCl [Zoloft] 100 mg PO BID tab 09/11/19 The following prescriptions were given: Ferrous Sulfate 325 mg PO DAILY@1200 #30 tab Primary Care Physician: [facility] [Primary Care Provider] - As soon as possible Please follow up with your Primary Care Physician in: 2 weeks Test Results: Test results from this visit will be discussed in further detail at your follow-up appointment, if applicable. Please Follow Up With: Nephrology as needed Proposed Discharge Date: 09/11/19
[2019-09-11] MEDS: Menthol/Lanolin/Calamine/Znox 113 GM Tube 1 APPLIC TOPICAL (13:47)
[2019-09-11 14:06] LABS: Bedside Glucose 168 mg/dL (70-110)
--- NOTE | 2019-09-11 14:29 | CASEMGMT ---
JULIAN received a message from Dr Isaac and patient will get dialysis today. Therapy said patient managed fairly well, but she cannot attest to how he will do with stairs. However, patient said he has his crutches so he will be fine. SW asked if he has electric, water, and heat in his home. He said he does not know. SW asked how he is going to get home and he said he will take a cab. Patient's clothes that he had on when he came into the hospital are soiled. JULIAN spoke with Jen at [facility] and updated her on current situation with patient. JULIAN also called [place] JULIAN [place] and let her know patient is now going home. Plan: Patient has decided he is not going to the [place] [facility], that he will be fine at home now that he has his crutches, and he will drive himself to and from dialysis. This is not what is recommended by JULIAN or physicians, but patient is alert and oriented and can make his own decisions. [facility] Services has been notified. Zuly KELLER MSW
--- NOTE | 2019-09-11 15:01 | CASEMGMT ---
JULIAN left a voice mail for Goldy inquiring if [facility] can set up skilled home health or if they have to do it due to his P[facility] being a [facility]. Zuly KELLER MSW
--- NOTE | 2019-09-11 15:33 | CASEMGMT ---
JULIAN talked with Goldy regarding home health for patient. She said they put an order in for the home based team to go out to his home. [facility] They will be measuring for a stair left as well as assessing for other needs. Zuly KELLER ENGINEERING CONSULTANT
--- NOTE | 2019-09-11 17:13 | DIALYSIS ---
HD x 2.5 hours complete. Ran on 3k bath. UF of 1300ml. Used left chest wall catheter. Catheter closed with heparin per fill volume. Caps placed. Dressing is dry and intact. Report was given to COLE Castillo.
[2019-09-11 17:15] LABS: Bedside Glucose 129 mg/dL (70-110)
[2019-09-11] MEDS: Sertraline 100 MG Tablet PO (18:04)
--- NOTE | 2019-09-11 19:36 | NURSING ---
PT HAS BEEN DC'D - GIVEN DC ORDERS. IV DC'D. PT NOW C/O HEARTBURN & NAUSEA & STATING HE IS NOT LEAVING UNTIL I THROW UP BECAUSE IM NOT THROWING UP IN A CAB. DR BELCHER NOTIFIED & ORDER RECEIVED FOR MARIA LUISA.
--- NOTE | 2019-09-11 20:50 | NURSING ---
Cab called for pt. to be taken to [address] [place] [address] ST. per pt. Cab should arrive in approx. 30 to 40 min.
== END 2019-09-11 21:25 | disposition home health service (06) ==
LOC: ED 15:10 → PCU 21:46
PROVIDERS: Physician Assistant; Student in an Organized Health Care Education/Training Program; Admitting Provider Hospitalist; Emergency Provider Emergency Medicine
DX: R53.1 Weakness (principal); I12.0 Hypertensive chronic kidney disease with stage 5 chronic kidney disease or end stage renal disease; E11.22 Type 2 diabetes mellitus with diabetic chronic kidney disease; N18.6 End stage renal disease; E03.9 Hypothyroidism, unspecified; G47.33 Obstructive sleep apnea (adult) (pediatric); K21.9 Gastro-esophageal reflux disease without esophagitis; R15.9 Full incontinence of feces; Z99.2 Dependence on renal dialysis; Z79.899 Other long term (current) drug therapy; Z79.4 Long term (current) use of insulin; F41.9 Anxiety disorder, unspecified; F32.9 Major depressive disorder, single episode, unspecified; F17.290 Nicotine dependence, other tobacco product, uncomplicated; D63.8 Anemia in other chronic diseases classified elsewhere; D69.6 Thrombocytopenia, unspecified; E87.1 Hypo-osmolality and hyponatremia
CPT/HCPCS: 36415; 70450; 71045; 80048; 80053; 82728; 82962; 83540; 83550; 83735; 84100; 84443; 84484; 85025; 90937; 93005; 96372; 97110; 97116; 97162; 97166; 97530; 97802; 99218; 99251; 99285; 99406; A4216; G0257; G0378; G0463

== ENCOUNTER 2019-09-12 17:31 | Inpatient (IN) | payer MEDICARE, OTHER, SELFPAY ==
[2019-09-09 18:31] VITALS: BMI 36.6
[2019-09-12 17:32] VITALS: BP 118/77; PULSE 79; RESP 18; TEMP 36.4; O2SAT 100; BMI 38.7
--- NOTE | 2019-09-12 17:44 | ED.DCSUM_ITS ---
History of Present Illness Chief Complaint: Weakness Informant: Patient Onset: Days Context: Gradual Onset Timing: Continuous Current Severity: Moderate Maximum Severity: Moderate Narrative: The patient is a 73-year-old male with medical history significant for end-stage renal disease, chronic debility, hypertension who presents to the emergency department after a fall. The patient was recently hospitalized at a skilled facility and discharged home after his 100 days were complete. The patient was here over the weekend because he had missed dialysis. He was admitted on Monday, had his dialysis, and was evaluated by both physical therapy and Occupational Therapy. It was felt the patient would best be suited back to the nursing facility, but prior to being transferred, he decided that he wanted to go home. The patient has been evaluated rather thoroughly with social work. Today, he was at home. He was trying to step over something on the ground, lost his balance, and fell. He did not strike his head or lose consciousness. However, given his rather severe debility he could not get up. Squad did bring the patient in. Apparently, his home is in significant disarray. He has no hot water. Prior similar symptoms: Yes Recent Illness/Hospitalization: Yes Past Medical History - Allergies and Home Meds Allergies/Adverse Reactions: Allergies metformin Allergy (Verified 09/12/19 17:34) Angioedema Penicillins Allergy (Verified 09/12/19 17:34) Rash Tetanus Vaccines and Toxoid Allergy (Verified 09/12/19 17:34) Swelling at injection site [facility] Phys[facility] [place] [[facility]] - Prior records reviewed: Yes Past Medical History: - - Chronic kidney disease on dialysis, hypertension, hyperlipidemia, debility Surgical History: cataract, - - Prior back surgery, ureteral stent placements, cataract. Smoking Status: Current every day smoker - Family History Maternal Family History: Reports: Heart Disease, Hypertension Paternal Family History: Reports: Cancer, Hypertension Review of Systems General: Denies: Chills, Fever, Sweats Eyes: Denies: Visual changes - bilaterally, Diplopia ENT: Denies: Rhinorrhea, Sore throat Cardiovascular: Denies: Chest pain, Palpitations Respiratory: Denies: Dyspnea, Cough, Dyspnea on exertion Gastrointestinal: Denies: Abdominal pain, Nausea, Vomiting, Diarrhea, Melena, Hematochezia Genitourinary: Denies: Dysuria, Hematuria, Frequency Musculoskeletal: Denies: Back pain, Extremity Pain Skin: Denies: Rash, Wounds Neurological: Denies: Headache, Weakness, Numbness Physical Exam Vital Signs/Narrative: Vital Signs Temp Pulse Resp BP Pulse Ox 09/12/19 17:32 97.5 F L 79 18 118/77 100 Inital Vital Signs reviewed: Yes General: Well nourished, Well developed, No Acute Distress Head: Normocephalic, Atraumatic Eyes: Perrl, EOMI ENT: Moist mucous membranes, No rhinorrhea Neck: Supple, Nontender Cardiovascular: Regular rate, Regular rhythm, No murmurs Respiratory: No distress, CTA bilaterally, Chest nontender Abdomen: Soft, Nontender, Nondistended, Normal bowel sounds Back: Nontender, Normal Inspection Extremities: Nontender, No edema Skin: Normal color, No rash Neurological: Alert, Oriented x3, Cranial nerves II-XII grossly intact, Normal Strength, Normal Sensation Psychological: Normal affect, Normal Mood Diagnostic/Tx/Re-eval - Medical Decision Making The patient presents with persistent failure to thrive. Adult Protective Services is already involved with his care. Social work is already involved with his care. The patient obviously is not safe at home and cannot take care of himself. He does consent for admission. He had labs done yesterday and they will be repeated. He was discussed with the hospitalist and will be admitted as he is going to need placement given his advanced debility and inability to care for himself. Impression 1. Adult failure to thrive ED Disposition - Plan for ED Patient: [facility] -
--- NOTE | 2019-09-12 18:02 | CM.ED ---
SOCIAL WORK INFORMANT: DR. PLAZA REASON FOR REFERRAL: DISCHARGE PLANNING/ADULT PROTECTIVE SERVICES PATIENT WELL KNOWN TO THIS WORKER FROM VISIT ON 09/09/2019. PATIENT WAS ADMITTED OBS FOR JAIL PLACEMENT FROM ED. YESTERDAY PATIENT CHANGED D/C PLAN AND WANTED TO GO HOME. DUE TO PATIENT BEING ALERT AND ORIENTED PATIENT WAS DISCHARGED HOME. PATIENT PRESENTS TO EMERGENCY DEPARTMENT THIS EVENING AFTER A FALL. MET WITH PATIENT IN ROOM TO DISCUSS SAFE D/C PLANNING. PATIENT STATES YESTERDAY HE HAD WANTED TO GO HOME BECAUSE HE HAD PAPERWORK THERE THAT HE NEEDED FOR AID AND ATTENDANCE [facility]ENEF[facility] DISCUSSED MANY SAFETY CONCERNS FOR PATIENT BEING AT HOME ALONE. PATIENT STATES I KNOW I AM A HAZARD BEING AT HOME. PATIENT REPORTS IS IN AGREEMENT WITH [facility]. PATIENT UNDERSTANDS HE MUST COVER PATIENT LIABILITY COSTS AT FACILITY. PATIENT WILL NEED LEVEL OF CARE UNDER MEDICAID FOR JAIL. PATIENT GAVE PERMISSION FOR THIS WORKER TO CONTACT [facility] TO UPDATE PATIENT IS BACK IN THE HOSPITAL AND IS ALSO ASKING FOR [employer] AND OTHER PERSONAL ITEMS. UPDATED DR. PLAZA ON THE ABOVE. CALL TO RISHI AT [facility], IT IS AFTER HOURS LEFT MESSAGE UPDATING ON PATIENT. CALL TO PATIENT'S [facility] [phone]. NO ANSWER, LEFT VOICEMAIL. CALL TO KELIN WITH ADULT PROTECTIVE SERVICES TO UPDATE PATIENT BACK IN THE HOSPITAL. PLAN: ANTICIPATE ADMISSION FOR JAIL PLACEMENT. Dashawn KAYE, BULK PLANT MANAGER, TITLE 1 TUTOR.
--- NOTE | 2019-09-12 18:15 | PCM.PN.HOSP ---
Reason for Visit: debility Subjective: 73-year-old white male who just discharged yesterday with weakness. It was recommended that he go to a halfway facility but insisted on going home, asked he expressed understanding of the risks of going home, since including falls but is still insisted on going home. Patient did have dialysis prior to being discharged. So patient was at home and interesting over a bag and then fell. Presented to the emergency room because of him being weak and unable to manage at home and now he is relenting and agreeing to go to a halfway facility. Previously, patient was being on trying to get into facility and [place] but apparently there was a wait list of least 3 months to get into that facility. Patient was intending on staying at home before he could be accepted at this facility. Patient was very insistent on going home because he apparently had some more paperwork that he need to submit to the [facility]. Vitals/I&O's: Vital Signs Temp Pulse Resp BP Pulse Ox 36.4 C L 79 18 118/77 100 09/12/19 17:32 09/12/19 17:32 09/12/19 17:32 09/12/19 17:32 09/12/19 17:32 Weight: 122.6 kg Body Mass Index (BMI) 38.7 Finger Stick Blood Glucose 99 General: Alert, No apparent distress HEENT: Atraumatic, Normocephalic Oral: Moist Mucosa, No Gingival or Mucosal Lesions/ Ulcerations Neck: No Nodes, Trachea Midline Lungs: Clear to auscultation, Normal air movement, No rhonchi, No wheeze, No rales Cardiovascular: Regular rate, Regular Rhythm, Normal S1, Normal S2, No murmurs Abdomen: Bowel Sounds Present, Soft, Non Tender, Non-Distended, No Hepato-splenomegaly Extremities: No edema, No Calf Tenderness Skin: No rashes, No breakdown Psych/Mental Status: Normal Affect, Appropriate STROKE Vital Signs/Narrative: Vital Signs Temp Pulse Resp BP Pulse Ox 09/12/19 17:32 36.4 C L 79 18 118/77 100 Medical Necessity - Tobacco Use Smoking Status: Current every day smoker Assessment/Plan All Active Problems Weakness (Acute) 1. Debility: Unsurprisingly, patient did not do well at home. Patient was still requiring a lot of assistance with therapy though was able to demonstrate going to the bathroom on his own yesterday. Patient is just very weak overall and is unable to safely manage at home. So plan is for the patient to go into a halfway facility. Will have physical and occupational therapy see him, case management and then hopefully be able to facilitate getting him into a facility the . 2. End-stage renal disease on dialysis. Patient is due for his normal dialysis session on the . Nephrology has been contacted and will facilitate the dialysis. 3. Diabetes mellitus type 2: Continue with his home regimen of insulin. 4. VTE prophylaxis: Low risk as patient is observation status and not indicated at this time. 5. Advanced care planning: Discussed with patient. Patient wishes to be DNR Comfort Care arrest no intubation. Inpatient E&M: [id number] Subs Hosp L2
[2019-09-12 18:23] LABS: Absolute Neutrophil Count 3.8 X10^3/uL (2.0-7.7); Basophil# 0.03 X10^3/uL; Basophil% 0.6 % (0-1); Eosinophil# 0.02 X10^3/uL; Eosinophils% 0.4 % (0-5); Hematocrit 31.6 % (40-54); Hemoglobin 9.6 g/dL (13.0-16.5); Lymphocyte % 13.9 % (19-41); Mean Corp Hgb Conc 30.4 g/dL (32-36); Mean Corpuscular Hgb 26.4 pg (27.0-32.0); Mean Corpuscular Volume 86.8 fL (80-94); Mean Platelet Vol. 8.5 fl (6.2-12.0); Monocyte# 0.39 X10^3/uL; Monocyte% 7.8 % (0-10); NRBC Flagged by Analyzer 0 % (0-5); Neutrophil # 3.84 X10^3/uL (2.7-7.7); Neutrophil % 76.5 % (47-70); Platelet Count 118 K/mm3 (150-450); RBC Distribution Width CV 19.1 % (11.6-14.6); RBC Distribution Width SD 56.7 fl (35.1-43.9); Red Blood Count 3.64 M/mm3 (4.6-6.2)
[2019-09-12 18:26] VITALS: BP 125/69; PULSE 87; RESP 18; TEMP 36.4; O2SAT 99
[2019-09-12 18:31] LABS: Anion Gap 6 (5-15); BUN 41 mg/dL (7-18); BUN/Creat Ratio 11.5 RATIO (10-20); Calcium,Total 9.5 mg/dL (8.5-10.1); Chloride 101 mmol/L (98-107); Creatinine, Serum 3.57 mg/dL (0.70-1.30); EST Glomerular Filtration Rate 18 mL/min (>60); Est Glom Filt Rate - Afr Amer 22 mL/min (>60); Estimated Creatinine Clearance 19.03 ml/min; Glucose 204 mg/dL (74-106); Potassium 4.4 mmol/L (3.5-5.1); Sodium Level 136 mmol/L (136-145)
[2019-09-12 19:49] VITALS: BMI 36.8
[2019-09-12 19:54] VITALS: BMI 36.8
[2019-09-12 20:17] VITALS: BP 115/58; PULSE 82; RESP 16; TEMP 36.6; O2SAT 100
[2019-09-12] MEDS: Sertraline 100 MG Tablet PO (21:29)
[2019-09-12] MEDS: Menthol/Lanolin/Calamine/Znox 113 GM Tube 1 APPLIC TOPICAL (21:29)
[2019-09-12] MEDS: Tamsulosin HCl 0.4 MG Capsule PO (21:30)
[2019-09-12] MEDS: Atorvastatin Calcium 10 MG Tablet PO (21:30)
[2019-09-12] MEDS: MELATONIN 3 MG TABLET PO (21:30)
[2019-09-12] MEDS: Insulin Lispro 100 UNIT/ML INSULN.PEN SC (21:34)
[2019-09-12 21:36] LABS: Bedside Glucose 185 mg/dL (70-110)
[2019-09-13 02:17] VITALS: BP 118/67; PULSE 71; RESP 16; TEMP 36.9; O2SAT 96
[2019-09-13] MEDS: Levothyroxine 75 MCG Tablet PO (06:25)
[2019-09-13] MEDS: Insulin Lispro 100 UNIT/ML INSULN.PEN SC ×6 (06:25→22:14)
[2019-09-13 06:35] LABS: Bedside Glucose 112 mg/dL (70-110)
[2019-09-13] MEDS: Sertraline 100 MG Tablet PO ×2 (09:45→22:16)
[2019-09-13] MEDS: Menthol/Lanolin/Calamine/Znox 113 GM Tube 1 APPLIC TOPICAL ×2 (09:45→22:16)
[2019-09-13] MEDS: Pantoprazole Sodium 20 MG Tablet PO (09:45)
[2019-09-13] MEDS: Folic Acid/Vitamin B Comp W-C 1 Capsule 1 CAP PO (09:46)
[2019-09-13 09:47] VITALS: BP 94/44; PULSE 89; RESP 16; TEMP 36.6; O2SAT 97
[2019-09-13] MEDS: Ferrous Sulfate 325 MG Tablet PO (09:47)
[2019-09-13] MEDS: Acetaminophen 325 MG Tablet 650 MG PO (09:59)
--- NOTE | 2019-09-13 10:38 | PCM.CONS.R ---
Problem List (1) ESRD (end stage renal disease) on dialysis Status: Chronic Consultation - Renal 09/13/19 PCP/ Referring MD: Requesting physician: [] Primary care physician: [facility] Reason for Consultation:: esrd - History of Present Illness History of Present Illness: The patient is a 73 year old M admitted to the hospital with complaints of generalized weakness. This is his second admission this week. He [facility], signed out AMA to home, declined [facility] last admission, went home, came back with same complaints. Scheduled for dialysis today - Allergies Allergies: Allergies metformin Allergy (Verified 09/12/19 17:34) Angioedema Penicillins Allergy (Verified 09/12/19 17:34) Rash Tetanus Vaccines and Toxoid Allergy (Verified 09/12/19 17:34) Swelling at injection site - Current Medications Current Medications: Current Medications Acetaminophen (Tylenol) 650 mg PO Q6H PRN PRN PRN Reason: Pain Score 1-10/Temp > 100.7 F Last Admin: 09/13/19 09:59 Dose: 650 mg Documented by: Artificial Tears (Tears Naturale, Artificial Tears) 1 drop OPHTHALMIC 4X/DAY [facility] Last Admin: 09/13/19 09:46 Dose: 1 drop Documented by: Atorvastatin Calcium (Lipitor) 10 mg PO QHS [facility] Last Admin: 09/12/19 21:30 Dose: 10 mg Documented by: Calamine/Phenol (Calmoseptine Ointment) 1 applic TOPICAL BID [facility]; Protocol Last Admin: 09/13/19 09:45 Dose: 1 applicatio Documented by: Dextrose (D50w Syringe) 0 gm IV X1 PRN; Protocol PRN Reason: Hypoglycemia Ferrous Sulfate (Ferrous Sulfate) 325 mg PO DAILY@1200 [facility] Last Admin: 09/13/19 09:47 Dose: 325 mg Documented by: Glucagon () 1 mg IM .X1 PRN PRN Reason: Hypoglycemia Insulin Glargine (Lantus (Bkc)) 25 units SC QHS [facility] Last Admin: 09/12/19 21:30 Dose: 25 u Documented by: Insulin Human Lispro (Humalog Kwikpen (Bkc)) 0 unit SC ACHS [facility]; Protocol Last Admin: 09/13/19 06:25 Dose: Not Given Documented by: Insulin Human Lispro (Humalog Kwikpen (Bkc)) 5 unit SC TIDAC [facility] Last Admin: 09/13/19 06:25 Dose: 5 u Documented by: Levothyroxine Sodium (Synthroid) 75 mcg PO DAILY@0600 [facility] Last Admin: 09/13/19 06:25 Dose: 75 mcg Documented by: Melatonin (Melatonin) 3 mg PO QHS [facility] Last Admin: 09/12/19 21:30 Dose: 3 mg Documented by: Multivit/Ca Carb/B Cmplx/FA/Prenat (Nephrocaps, Renaphro) 1 capsule PO DAILY [facility] Last Admin: 09/13/19 09:46 Dose: 1 capsule Documented by: Ondansetron HCl (Zofran) 4 mg IV Q8H PRN PRN PRN Reason: NAUSEA/VOMITING Pantoprazole Sodium (Protonix) 20 mg PO DAILY [facility] Last Admin: 09/13/19 09:45 Dose: 20 mg Documented by: Senna/Docusate Sodium (Senokot-S, Leslie-Colace) 2 tablet PO BID PRN PRN PRN Reason: Constipation Sertraline HCl (Zoloft) 100 mg PO BID [facility] Last Admin: 09/13/19 09:45 Dose: 100 mg Documented by: Sodium Chloride () 10 - 40 ml IV UD PRN PRN Reason: SALINE FLUSH Tamsulosin HCl (Flomax) 0.4 mg PO QHS [facility] Last Admin: 09/12/19 21:30 Dose: 0.4 mg Documented by: - Past Medical History Past Medical History (Chronic Problems): Chronic Problems ESRD (end stage renal disease) on dialysis (Chronic) Hyponatremia (Chronic) Thrombocytopenia (Chronic) CKD (chronic kidney disease), stage IV (Chronic) HTN (hypertension) (Chronic) Anxiety and depression (Chronic) Tobacco use (Chronic) MEGAN (obstructive sleep apnea) (Chronic) Hypothyroidism (Chronic) Chronic anemia (Chronic) GERD (gastroesophageal reflux disease) (Chronic) Diabetes mellitus, type II (Chronic) - Past Surgical History Surgical History: cataract, - - Prior back surgery, ureteral stent placements, cataract. - Social History Smoking Status: Current every day smoker - Family History Maternal History Items: Heart Disease, Hypertension Paternal History Items: Cancer, Hypertension Review of Systems Constitutional: Denies: Chills, Fever, Weight Change HEENT: Denies: Head Aches, Sinus Congestion, Sinus Drainage Cardiovascular: Denies: Chest Pain, Palpitations Respiratory: Denies: Cough, Shortness of breath at rest, Sputum production Gastrointestinal: Denies: Abdominal Pain, Nausea, Vomiting Genitourinary: Denies: Dysuria Musculoskeletal: Denies: Joint Pain, Joint Tenderness Skin: Denies: Rash, Wounds Neurological: Denies: Numbness, Tingling, Focal weakness Psychiatric: Denies: Anxiety, Depression, Homicidal Ideations, Suicidal Ideations Hematologic/ Lymphatic: Denies: Easy Bruising, Easy Bleeding - Physical Exam Vitals/I&O's: Vital Signs Temp Pulse Resp BP Pulse Ox 97.8 F 89 16 94/44 L 97 09/13/19 09:47 09/13/19 09:47 09/13/19 09:47 09/13/19 09:47 09/13/19 09:47 Oxygen Delivery Method Room Air Weight: 116.4 kg Body Mass Index (BMI) 36.8 Finger Stick Blood Glucose 99 Intake and Output for Last 24 Hours 09/11/19 09/12/19 09/13/19 23:59 23:59 23:59 Intake Total 890 / 890 Balance 890 / 890 General: Alert, Oriented x3, Cooperative HEENT: Atraumatic, PERRLA, EOMI, Normocephalic Neck: Supple, No JVD, Negative Carotid Bruits Lungs: Clear to auscultation, Normal air movement Cardiovascular: Regular rate, No murmurs Abdomen: Bowel Sounds Present, Soft, Non Tender Extremities: No edema, Capillary Refill Less than 3 Seconds Skin: No rashes, No breakdown Musculoskeletal: No Tenderness to Palpation of Joints or Extremities Neurological: Cranial nerves II-XII grossly intact Psych/Mental Status: Normal Affect, Appropriate Laboratory Results 09/12/19 18:05: WBC 5.0, RBC 3.64 L, Hgb 9.6 L, Hct 31.6 L, MCV 86.8, MCH 26.4 L, MCHC 30.4 L, RDW Std Deviation 56.7 H, RDW Coeff of Nyasia 19.1 H, Plt Count 118 L, MPV 8.5, Immature Gran % (Auto) 0.800, Neut % (Auto) 76.5 H, Lymph % (Auto) 13.9 L, [place] % (Auto) 7.8, Eos % (Auto) 0.4, Baso % (Auto) 0.6, Absolute Neuts (auto) 3.8, Absolute Lymphs (auto) 0.70 L, Nucleated RBC % 0 09/12/19 18:05: Sodium 136, Potassium 4.4, Chloride 101, Carbon Dioxide 29.0, Anion Gap 6, BUN 41 H, Creatinine 3.57 H, Estim Creat Clear Calc 19.03, Est GFR (MDRD) Af Amer 22 L, Est GFR (MDRD) Non-Af 18 L, BUN/Creatinine Ratio 11.5, Glucose 204 H, Calcium 9.5 09/12/19 21:28: POC Glucose 185 H 09/13/19 06:12: POC Glucose 112 H Current Medications Acetaminophen (Tylenol) 650 mg PO Q6H PRN PRN PRN Reason: Pain Score 1-10/Temp > 100.7 F Last Admin: 09/13/19 09:59 Dose: 650 mg Documented by: Artificial Tears (Tears Naturale, Artificial Tears) 1 drop OPHTHALMIC 4X/DAY [facility] Last Admin: 09/13/19 09:46 Dose: 1 drop Documented by: Atorvastatin Calcium (Lipitor) 10 mg PO QHS [facility] Last Admin: 09/12/19 21:30 Dose: 10 mg Documented by: Calamine/Phenol (Calmoseptine Ointment) 1 applic TOPICAL BID [facility]; Protocol Last Admin: 09/13/19 09:45 Dose: 1 applicatio Documented by: Dextrose (D50w Syringe) 0 gm IV X1 PRN; Protocol PRN Reason: Hypoglycemia Ferrous Sulfate (Ferrous Sulfate) 325 mg PO DAILY@1200 [facility] Last Admin: 09/13/19 09:47 Dose: 325 mg Documented by: Glucagon () 1 mg IM .X1 PRN PRN Reason: Hypoglycemia Insulin Glargine (Lantus (Bkc)) 25 units SC QHS [facility] Last Admin: 09/12/19 21:30 Dose: 25 u Documented by: Insulin Human Lispro (Humalog Kwikpen (Bkc)) 0 unit SC ACHS [facility]; Protocol Last Admin: 09/13/19 06:25 Dose: Not Given Documented by: Insulin Human Lispro (Humalog Kwikpen (Bkc)) 5 unit SC TIDAC [facility] Last Admin: 09/13/19 06:25 Dose: 5 u Documented by: Levothyroxine Sodium (Synthroid) 75 mcg PO DAILY@0600 [facility] Last Admin: 09/13/19 06:25 Dose: 75 mcg Documented by: Melatonin (Melatonin) 3 mg PO QHS [facility] Last Admin: 09/12/19 21:30 Dose: 3 mg Documented by: Multivit/Ca Carb/B Cmplx/FA/Prenat (Nephrocaps, Renaphro) 1 capsule PO DAILY [facility] Last Admin: 09/13/19 09:46 Dose: 1 capsule Documented by: Ondansetron HCl (Zofran) 4 mg IV Q8H PRN PRN PRN Reason: NAUSEA/VOMITING Pantoprazole Sodium (Protonix) 20 mg PO DAILY [facility] Last Admin: 09/13/19 09:45 Dose: 20 mg Documented by: Senna/Docusate Sodium (Senokot-S, Leslie-Colace) 2 tablet PO BID PRN PRN PRN Reason: Constipation Sertraline HCl (Zoloft) 100 mg PO BID [facility] Last Admin: 09/13/19 09:45 Dose: 100 mg Documented by: Sodium Chloride () 10 - 40 ml IV UD PRN PRN Reason: SALINE FLUSH Tamsulosin HCl (Flomax) 0.4 mg PO QHS [facility] Last Admin: 09/12/19 21:30 Dose: 0.4 mg Documented by: Assessment/Plan All Active Problems Weakness (Acute) ESRD. Dialysis today has been arranged. Generalized weakness. Needs rehab placement again. Agrees to [facility] back to [facility].
--- NOTE | 2019-09-13 11:29 | CASEMGMT ---
Addendum entered by Radha Cortez 09/13/19 11:47: SW placed a call to pt's JULIAN Winslow at [facility] and updated her that pt is back at [facility]. SW placed a call to Hali with [facility] ([phone]) and updated her that pt is back to [facility] and plan is for pt to discharge to SNF. SW also placed a call to Jen with [facility] and left her a message updating her on pt's admission to [facility] and discharge plan. Original Note: Social Work Note SW received referral for SNF placement. SW reviewed notes, pt was arranged to discharge to [facility] on 09/11/2019 but then decided to discharge home instead of going to SNF. Pt was at home, fell, and is requesting to discharge to SNF. SW has LOC results and PAS/RR results for pt to admit to SNF under Medicaid. SW placed a call to Ivy at [facility]. Ivy states she is able to accept pt again and would need new referral and LOC results and PAS/RR results. Physician mentioned that [facility] [place] SW read previous notes, the [facility] [place] [facility] 3-6 month waitlist and pt would need to fill out application to be admitted. Per previous notes, pt was updated on this by Zuly KELLER and was also provided application to complete. COLE REYNOLDS spoke with RODOLFO Mares at [facility] who faxed application again to this worker to provide to pt. Suzan also states that pt is able to call [facility] ([phone]) who can assist pt with application as pt will need assistance from [facility]. JULIAN also encouraged pt to call his CM Goldy at [facility] who may be able to assist pt with paperwork/documents, etc. Pt states he will do so. SW in to speak with pt. JULIAN introduced self and role at [facility]. Pt confirms that he will need to go to SNF at discharge and is agreeable to [facility]. JULIAN reiterated to pt that same liability costs apply to pt and he will need to pay costs and that the costs will be the same no matter which SNF he goes. JULIAN also provided pt with application again for [facility] and provided pt with number for [facility] to call for assistance. Pt states he will need transportation arranged to go to SNF. SW informed pt that this worker did speak with [facility] and they are able to accept pt again and that pt will likely be able to discharge today. Pt states understanding. SW faxed referral to Ivy at [facility] including LOC results and PAS/RR Results. Per previous notes, Ivy at [facility] has been made aware that the plan is for pt to eventually transition to [facility] in [place] and she was going to have staff assist pt with paperwork. SW waiting for call back from Ivy at [facility] to confirm if they are able to accept pt today. LOC and PAS/RR has already been completed and received. Plan: Likely [facility] today Radha Cortez MSW, DIRECTOR OF INSTRUMENTAL MUSIC
--- NOTE | 2019-09-13 11:58 | PN_ITS ---
Subjective: Doing well, states that he is weak but he is concerned about [facility] Vitals/I&O's: Vital Signs Temp Pulse Resp BP Pulse Ox 97.8 F 89 16 94/44 L 97 09/13/19 09:47 09/13/19 09:47 09/13/19 09:47 09/13/19 09:47 09/13/19 09:47 Oxygen Delivery Method Room Air Weight: 256 lb 9.889 oz Body Mass Index (BMI) 36.8 Finger Stick Blood Glucose 99 Intake and Output for Last 24 Hours 09/11/19 09/12/19 09/13/19 23:59 23:59 23:59 Intake Total 890 / 890 Balance 890 / 890 General: Alert, Oriented x3, Cooperative, No apparent distress HEENT: Atraumatic, PERRLA, EOMI, Normocephalic Oral: Moist Mucosa Neck: Supple, No JVD Lungs: Clear to auscultation, Normal air movement, No rhonchi, No wheeze, No rales Cardiovascular: Regular rate, Regular Rhythm, Normal S1, Normal S2, No murmurs Abdomen: Soft, Non Tender, Non-Distended, No Hepato-splenomegaly Extremities: No edema, No Calf Tenderness Skin: No rashes, No breakdown Neurological: Neuro grossly intact, Sensory exam intact to light touch and pain Psych/Mental Status: Normal Affect, Appropriate Laboratory Results 09/12/19 18:05: WBC 5.0, RBC 3.64 L, Hgb 9.6 L, Hct 31.6 L, MCV 86.8, MCH 26.4 L , MCHC 30.4 L, RDW Std Deviation 56.7 H, RDW Coeff of Nyasia 19.1 H, Plt Count 118 L, MPV 8.5, Immature Gran % (Auto) 0.800, Neut % (Auto) 76.5 H, Lymph % (Auto) 13.9 L, [place] % (Auto) 7.8, Eos % (Auto) 0.4, Baso % (Auto) 0.6, Absolute Neuts (auto) 3.8, Absolute Lymphs (auto) 0.70 L, Nucleated RBC % 0 09/12/19 18:05: Sodium 136, Potassium 4.4, Chloride 101, Carbon Dioxide 29.0, Anion Gap 6, BUN 41 H, Creatinine 3.57 H, Estim Creat Clear Calc 19.03, Est GFR (MDRD) Af Amer 22 L, Est GFR (MDRD) Non-Af 18 L, BUN/Creatinine Ratio 11.5, Glucose 204 H, Calcium 9.5 09/12/19 21:28: POC Glucose 185 H 09/13/19 06:12: POC Glucose 112 H Current Medications Acetaminophen (Tylenol) 650 mg PO Q6H PRN PRN PRN Reason: Pain Score 1-10/Temp > 100.7 F Last Admin: 09/13/19 09:59 Dose: 650 mg Documented by: Artificial Tears (Tears Naturale, Artificial Tears) 1 drop OPHTHALMIC 4X/DAY [facility] Last Admin: 09/13/19 09:46 Dose: 1 drop Documented by: Atorvastatin Calcium (Lipitor) 10 mg PO QHS [facility] Last Admin: 09/12/19 21:30 Dose: 10 mg Documented by: Calamine/Phenol (Calmoseptine Ointment) 1 applic TOPICAL BID [facility]; Protocol Last Admin: 09/13/19 09:45 Dose: 1 applicatio Documented by: Dextrose (D50w Syringe) 0 gm IV X1 PRN; Protocol PRN Reason: Hypoglycemia Ferrous Sulfate (Ferrous Sulfate) 325 mg PO DAILY@1200 [facility] Last Admin: 09/13/19 09:47 Dose: 325 mg Documented by: Glucagon () 1 mg IM .X1 PRN PRN Reason: Hypoglycemia Insulin Glargine (Lantus ([facility])) 25 units SC QHS [facility] Last Admin: 09/12/19 21:30 Dose: 25 u Documented by: Insulin Human Lispro (Humalog Kwikpen ([facility])) 0 unit SC ACHS [facility]; Protocol Last Admin: 09/13/19 06:25 Dose: Not Given Documented by: Insulin Human Lispro (Humalog Kwikpen ([facility])) 5 unit SC TIDAC [facility] Last Admin: 09/13/19 06:25 Dose: 5 u Documented by: Levothyroxine Sodium (Synthroid) 75 mcg PO DAILY@0600 [facility] Last Admin: 09/13/19 06:25 Dose: 75 mcg Documented by: Melatonin (Melatonin) 3 mg PO QHS [facility] Last Admin: 09/12/19 21:30 Dose: 3 mg Documented by: Multivit/Ca Carb/B Cmplx/FA/Prenat (Nephrocaps, Renaphro) 1 capsule PO DAILY [facility] Last Admin: 09/13/19 09:46 Dose: 1 capsule Documented by: Ondansetron HCl (Zofran) 4 mg IV Q8H PRN PRN PRN Reason: NAUSEA/VOMITING Pantoprazole Sodium (Protonix) 20 mg PO DAILY [facility] Last Admin: 09/13/19 09:45 Dose: 20 mg Documented by: Senna/Docusate Sodium (Senokot-S, Leslie-Colace) 2 tablet PO BID PRN PRN PRN Reason: Constipation Sertraline HCl (Zoloft) 100 mg PO BID [facility] Last Admin: 09/13/19 09:45 Dose: 100 mg Documented by: Sodium Chloride () 10 - 40 ml IV UD PRN PRN Reason: SALINE FLUSH Tamsulosin HCl (Flomax) 0.4 mg PO QHS [facility] Last Admin: 09/12/19 21:30 Dose: 0.4 mg Documented by: STROKE Vital Signs/Narrative: Vital Signs Temp Pulse Resp BP Pulse Ox 09/13/19 09:47 97.8 F 89 16 94/44 L 97 Medical Necessity - Tobacco Use Smoking Status: Current every day smoker Assessment/Plan All Active Problems Weakness (Acute) 1. Debility -He was recently admitted for debility after he left AMA from the [facility]. He was set to go back to the [facility] and then decided against that and decided to go home. At which point he did not do well and came back in with weakness and debility and inability to complete ADLs -He wants to go to a [place] facility in [facility], however there is a 3 to 6- month wait -We will try to help him fill out the paperwork so that way when he does go to the [facility] he could be on the waiting list at that [facility] and then transfer there directly from the [facility] -PT/OT 2. Acute on chronic anemia due to acute blood loss from gross hematuria/ESRD on dialysis/history of prostate cancer/thrombocytopenia/BPH -Hemoglobin appears to have finally stabilized after his multiple transfusions in March -He is currently on dialysis Monday, Monday, Monday -Platelets are stable in the low 100s which is improved from where he was in No [place] -Continue with Flomax 3. Hypothyroidism -Stable -Continue with home medications 4. MEGAN -Stable -Continue with CPAP nightly 5. DM 2 -Continue with sliding scale insulin, and Accu-Cheks AC at bedtime -Continue with home insulin regimen, will monitor and make adjustments 6. Anxiety/depression -Stable -Continue with Zoloft 7. GERD -Stable -Tinea with PPI DVT: Low risk OBSV E&M: 16577 Subsequent observation care L2
[2019-09-13 12:10] LABS: Bedside Glucose 257 mg/dL (70-110)
--- NOTE | 2019-09-13 12:58 | CASEMGMT ---
Addendum entered by Radha Cortez 09/13/19 13:40: JULIAN updated that dialysis is not getting to pt until 4:45pm today. SW placed a call to [facility], [facility] has no wheelchair vans available on the weekend. [facility] doesn't transport on weekend. SW placed a call to [facility]. They do have wheelchair van available for tomorrow and transport is arranged for 9:00am. SW completed transportation form. SW updated RN, toll relief operator, and physician on transportation time for tomorrow and that discharge will need to be in before 9:00am. JULIAN placed a call to Ivy at [facility] and updated her on transportation time for tomorrow. SW updated pt on discharge and transportation time tomorrow. Pt states understanding, again states he has no one available to transport him as his niece works. SW placed green sheet, transport form, LOC results and PAS/RR results on pt's chart. Plan: Discharge to [facility] skilled tomorrow with [facility] transporting pt at 9:00am. Radha Cortez ANTIQUE AUTOMOBILES REPAIRER, [employer] Original Note: Social Work Note JULIAN placed a call to Ivy at [facility]. Ivy confirms she got referral and can officially accept pt today. JULIAN updated Ivy that pt is getting dialysis today so this worker will need to check with RN to determine time pt will get dialysis and time pt will be done. Ivy states understanding. JULIAN spoke with RN. RN states dialysis hasn't seen pt yet and dialysis will take at least 4 hours for pt, likely longer as pt's dialysis is slower. JULIAN updated RN that pt needs wheelchair van to be arranged but those are done transportation around 3:00pm so wheelchair van will not be available for pt today. JULIAN updated RN that pt will likely need discharge tomorrow. SW in to speak with pt. SW updated pt that [facility] is able to accept pt but informed pt that due to to pt still need dialysis today and wheelchair van being done transporting at 3:00pm, transportation is not able to be arranged today unless pt has family/friend who is able to transport. Pt states he doesn't have anyone available to transport today. Pt states that he can drive himself. SW informed pt that if he is able to drive himself to SNF then he doesn't need to go to SNF and that driving self is not an option. Pt asked about [facility]. Pt states that he has completed most of the application but the documents that are needed the documents are home and he is not sure how to get documents. SW encouraged pt to call [facility] (number has been provided to pt) pt call his SW/RODOLFO Winslow at [facility] to determine how they are able to assist pt with getting documents since pt is now going to SNF. Pt states he will call. JULIAN updated physician that due to pt still need dialysis, wheelchair van's being done transporting at 3:00pm and pt not having any family/friend to transport pt is not able to discharge today, likely discharge tomorrow. Plan: [facility] once medically cleared and once transportation can be arranged Radha Cortez MSW, [employer]
--- NOTE | 2019-09-13 13:51 | CASEMGMT ---
Social Work Note Per previous notes, pt had given staff permission to call his niece Jeanine to update. JULIAN placed a call to pt's davy Solorzano, message left. JULIAN placed a call to JULIAN Winslow at [facility] and updated her on plan for discharge tomorrow to [facility]. Glody states she has additional documents for pt for application to [facility] and she will be in contact with JULIAN Calvo at [facility] to get documents to pt. JULIAN also placed a call to Jen at [facility] and left message that the plan is for pt to discharge to [facility] tomorrow. Radha Cortez CENTRAL SUPPLY CLERK, REGISTERED NURSE CARDIOVASCULAR ICU
[2019-09-13 16:10] VITALS: BP 95/48; PULSE 77; RESP 16; TEMP 36.8
[2019-09-13 16:41] LABS: Bedside Glucose 243 mg/dL (70-110)
--- NOTE | 2019-09-13 16:58 | DIALYSIS ---
Addendum entered by Sanjay Urban 09/13/19 20:46: Hemodialysis complete. 3.5 hour run, 2k bath. Net fluid removed = 2000 ml. Patient tolerated HD tx well. Left chest CVC: site remains reddened. Patient denies pain or tenderness at catheter site. Catheter site is cool to touch. Catheter lumen flushed with NS, filled to volume with Heparin, capped and clamped. Report given to primary RNKristi Original Note: Report from primary RN, Ramiro Lee. Hep B sag (negative) 09/02/2019. Copy of result placed in patient's chart. Access: Left chest CVC. Site slightly reddened. Patient denies pain or tenderness at insertion site. Connections secure, hemosafe applied x 2.
[2019-09-13 18:00] VITALS: BP 99/53; PULSE 70; RESP 16; TEMP 36.6; O2SAT 98
[2019-09-13 20:40] VITALS: BP 106/40; PULSE 85; RESP 16; TEMP 37.3
[2019-09-13 21:49] VITALS: BP 131/64; PULSE 98; RESP 18; TEMP 37.9; O2SAT 96
--- NOTE | 2019-09-13 22:13 | PCM.PN.BLA ---
Progress Note Notified by nursing staff that patient's dialysis catheter sites was mildly red. Reportedly, dialysis catheter site is tender to touch. Also patient with a low-grade fever of 100.3 F. We will get blood cultures x2. Patient is allergic to penicillin. Will start patient on Doxycycline for possible catheter site infection. Tylenol as needed for temperature of 101 100.7 Fahrenheit. STROKE Vital Signs/Narrative: Vital Signs Temp Pulse Resp BP Pulse Ox 09/13/19 21:49 100.3 F H 98 18 131/64 H 96 09/13/19 20:40 99.1 F 85 16 106/40 L
[2019-09-13] MEDS: Atorvastatin Calcium 10 MG Tablet PO (22:16)
[2019-09-13] MEDS: MELATONIN 3 MG TABLET PO (22:16)
[2019-09-13] MEDS: Tamsulosin HCl 0.4 MG Capsule PO (22:16)
[2019-09-13] MEDS: Heparin 10,000 UNITS/10 ML Vial 5700 UNITS IV (22:28)
[2019-09-13 23:05] LABS: Bedside Glucose 204 mg/dL (70-110)
[2019-09-14 02:23] VITALS: BP 119/63; PULSE 89; RESP 18; TEMP 37.4; O2SAT 95
[2019-09-14] MEDS: Acetaminophen 325 MG Tablet 650 MG PO (02:37)
[2019-09-14] MEDS: Levothyroxine 75 MCG Tablet PO (06:29)
[2019-09-14 07:59] VITALS: BP 111/53; PULSE 78; RESP 18; TEMP 36.7; O2SAT 98
--- NOTE | 2019-09-14 08:42 | PN_ITS ---
Subjective: Currently feeling okay, last night he felt feverish and his port site was expected and he looked little red so he was started on doxycycline and blood cultures were obtained. Vitals/I&O's: Vital Signs Temp Pulse Resp BP Pulse Ox 98.0 F 78 18 111/53 L 98 09/14/19 07:59 09/14/19 07:59 09/14/19 07:59 09/14/19 07:59 09/14/19 07:59 Oxygen Delivery Method Room Air Weight: 256 lb 9.889 oz Body Mass Index (BMI) 36.8 Finger Stick Blood Glucose 99 Intake and Output for Last 24 Hours 09/12/19 09/13/19 09/14/19 23:59 23:59 23:59 Intake Total 890 / 1370 980 / 980 Output Total 1999 Balance -1110 / -630 -1020 / -1020 General: Alert, Oriented x3, Cooperative, No apparent distress HEENT: Atraumatic, PERRLA, EOMI, Normocephalic Oral: Moist Mucosa Neck: Supple, No JVD Lungs: Clear to auscultation, Normal air movement, No rhonchi, No wheeze, No rales Cardiovascular: Regular rate, Regular Rhythm, Normal S1, Normal S2, No murmurs Abdomen: Soft, Non Tender, Non-Distended, No Hepato-splenomegaly Extremities: No edema, No Calf Tenderness Skin: Slight redness around his port in his left chest Neurological: Neuro grossly intact, Sensory exam intact to light touch and pain Psych/Mental Status: Normal Affect, Appropriate Laboratory Results 09/13/19 12:00: POC Glucose 257 H 09/13/19 16:25: POC Glucose 243 H 09/13/19 21:58: POC Glucose 204 H Current Medications Acetaminophen (Tylenol) 650 mg PO Q6H PRN PRN PRN Reason: Pain Score 1-10/Temp > 100.7 F Last Admin: 09/14/19 02:37 Dose: 650 mg Documented by: Artificial Tears (Tears Naturale, Artificial Tears) 1 drop OPHTHALMIC 4X/DAY [facility] Last Admin: 09/13/19 22:17 Dose: 1 drop Documented by: Atorvastatin Calcium (Lipitor) 10 mg PO QHS [facility] Last Admin: 09/13/19 22:16 Dose: 10 mg Documented by: Calamine/Phenol (Calmoseptine Ointment) 1 applic TOPICAL BID [facility]; Protocol Last Admin: 09/13/19 22:16 Dose: 1 applicatio Documented by: Dextrose (D50w Syringe) 0 gm IV X1 PRN; Protocol PRN Reason: Hypoglycemia Ferrous Sulfate (Ferrous Sulfate) 325 mg PO DAILY@1200 [facility] Last Admin: 09/13/19 09:47 Dose: 325 mg Documented by: Glucagon () 1 mg IM .X1 PRN PRN Reason: Hypoglycemia Doxycycline Hyclate 100 mg/ (Dextrose) 260 mls @ 250 mls/hr IV Q12 [facility] Last Infusion: 09/14/19 00:30 Dose: Infused Documented by: Insulin Glargine (Lantus ([facility])) 25 units SC QHS [facility] Last Admin: 09/13/19 22:13 Dose: 25 u Documented by: Insulin Human Lispro (Humalog Kwikpen ([facility])) 0 unit SC ACHS [facility]; Protocol Last Admin: 09/13/19 22:14 Dose: 2 u Documented by: Insulin Human Lispro (Humalog Kwikpen ([facility])) 5 unit SC TIDAC [facility] Last Admin: 09/13/19 16:31 Dose: 5 u Documented by: Levothyroxine Sodium (Synthroid) 75 mcg PO DAILY@0600 [facility] Last Admin: 09/14/19 06:29 Dose: 75 mcg Documented by: Melatonin (Melatonin) 3 mg PO QHS [facility] Last Admin: 09/13/19 22:16 Dose: 3 mg Documented by: Multivit/Ca Carb/B Cmplx/FA/Prenat (Nephrocaps, Renaphro) 1 capsule PO DAILY [facility] Last Admin: 09/13/19 09:46 Dose: 1 capsule Documented by: Ondansetron HCl (Zofran) 4 mg IV Q8H PRN PRN PRN Reason: NAUSEA/VOMITING Pantoprazole Sodium (Protonix) 20 mg PO DAILY [facility] Last Admin: 09/13/19 09:45 Dose: 20 mg Documented by: Senna/Docusate Sodium (Senokot-S, Leslie-Colace) 2 tablet PO BID PRN PRN PRN Reason: Constipation Sertraline HCl (Zoloft) 100 mg PO BID [facility] Last Admin: 09/13/19 22:16 Dose: 100 mg Documented by: Sodium Chloride () 10 - 40 ml IV UD PRN PRN Reason: SALINE FLUSH Tamsulosin HCl (Flomax) 0.4 mg PO QHS [facility] Last Admin: 09/13/19 22:16 Dose: 0.4 mg Documented by: STROKE Vital Signs/Narrative: Vital Signs Temp Pulse Resp BP Pulse Ox 09/14/19 07:59 98.0 F 78 18 111/53 L 98 Medical Necessity - Tobacco Use Smoking Status: Current every day smoker Assessment/Plan All Active Problems Weakness (Acute) 1. Debility/cellulitis around his port site -He was recently admitted for debility after he left AMA from the [facility]. He was set to go back to the [facility] and then decided against that and decided to go home. At which point he did not do well and came back in with weakness and debility and inability to complete ADLs -He wants to go to a [place] facility in [facility], however there is a 3 to 6- month wait -We will try to help him fill out the paperwork so that way when he does go to the [facility] he could be on the waiting list at that [facility] and then transfer there directly from the [facility] -PT/OT -We will obtain labs this morning to evaluate for a white count, he did have a fever last night blood cultures are pending -Continue with doxycycline for now 2. Acute on chronic anemia due to acute blood loss from gross hematuria/ESRD on dialysis/history of prostate cancer/thrombocytopenia/BPH -Hemoglobin appears to have finally stabilized after his multiple transfusions in March -He is currently on dialysis Monday, Monday, Monday -Platelets are stable in the low 100s which is improved from where he was in March -Continue with Flomax 3. Hypothyroidism -Stable -Continue with home medications 4. MEGAN -Stable -Continue with CPAP nightly 5. DM 2 -Continue with sliding scale insulin, and Accu-Cheks AC at bedtime -Continue with home insulin regimen, will monitor and make adjustments 6. Anxiety/depression -Stable -Continue with Zoloft 7. GERD -Stable -Continue with PPI DVT: Low risk OBSV E&M: 80580 Subsequent observation care L2
[2019-09-14 08:51] LABS: Bedside Glucose 203 mg/dL (70-110)
--- NOTE | 2019-09-14 08:51 | NURSING ---
This nurse spoke with Gina Lares and Molina at [facility]. Both are aware that pt is not being discharged today.
[2019-09-14] MEDS: Insulin Lispro 100 UNIT/ML INSULN.PEN SC ×7 (09:29→22:53)
[2019-09-14 09:30] LABS: Absolute Lymphocyte Count 1.17 X10^3/uL (0.83-4.51); Absolute Neutrophil Count 2.7 X10^3/uL (2.0-7.7); Basophil# 0.02 X10^3/uL; Basophil% 0.4 % (0-1); Eosinophil# 0.05 X10^3/uL; Eosinophils% 1.1 % (0-5); Hematocrit 28.9 % (40-54); Hemoglobin 9.1 g/dL (13.0-16.5); Lymphocyte # 1.17 X10^3/ul (4.0); Lymphocyte % 25.8 % (19-41); Mean Corp Hgb Conc 31.5 g/dL (32-36); Mean Corpuscular Hgb 26.7 pg (27.0-32.0); Mean Corpuscular Volume 84.8 fL (80-94); Mean Platelet Vol. 8.7 fl (6.2-12.0); Monocyte# 0.53 X10^3/uL; Monocyte% 11.7 % (0-10); NRBC Flagged by Analyzer 0 % (0-5); Neutrophil # 2.73 X10^3/uL (2.7-7.7); Neutrophil % 60.3 % (47-70); Platelet Count 109 K/mm3 (150-450); RBC Distribution Width CV 19.8 % (11.6-14.6); RBC Distribution Width SD 57.8 fl (35.1-43.9); Red Blood Count 3.41 M/mm3 (4.6-6.2); White Blood Count 4.5 K/mm3 (4.4-11.0)
[2019-09-14 09:42] LABS: Anion Gap 5 (5-15); BUN 29 mg/dL (7-18); BUN/Creat Ratio 8.8 RATIO (10-20); Calcium,Total 8.4 mg/dL (8.5-10.1); Chloride 97 mmol/L (98-107); Creatinine, Serum 3.28 mg/dL (0.70-1.30); EST Glomerular Filtration Rate 20 mL/min (>60); Est Glom Filt Rate - Afr Amer 24 mL/min (>60); Estimated Creatinine Clearance 20.71 ml/min; Glucose 186 mg/dL (74-106); Potassium 3.8 mmol/L (3.5-5.1); Sodium Level 132 mmol/L (136-145)
[2019-09-14] MEDS: Folic Acid/Vitamin B Comp W-C 1 Capsule 1 CAP PO (10:52)
[2019-09-14] MEDS: Menthol/Lanolin/Calamine/Znox 113 GM Tube 1 APPLIC TOPICAL ×2 (10:52→22:52)
[2019-09-14] MEDS: Sertraline 100 MG Tablet PO ×2 (10:53→22:54)
[2019-09-14] MEDS: Pantoprazole Sodium 20 MG Tablet PO (10:53)
[2019-09-14] MEDS: 0.9% Saline Lock 10 ML Syringe IV ×2 (10:57→22:52)
[2019-09-14 12:10] LABS: Bedside Glucose 226 mg/dL (70-110)
[2019-09-14] MEDS: Ferrous Sulfate 325 MG Tablet PO (13:39)
[2019-09-14 14:00] VITALS: BP 99/38; PULSE 90; RESP 18; TEMP 37.3; O2SAT 96
[2019-09-14 17:06] LABS: Bedside Glucose 234 mg/dL (70-110)
[2019-09-14 20:39] VITALS: BP 107/55; PULSE 100; RESP 18; TEMP 36.9; O2SAT 96
[2019-09-14] MEDS: Tamsulosin HCl 0.4 MG Capsule PO (22:53)
[2019-09-14] MEDS: MELATONIN 3 MG TABLET PO (22:54)
[2019-09-14] MEDS: Atorvastatin Calcium 10 MG Tablet PO (22:54)
[2019-09-14 23:10] LABS: Bedside Glucose 211 mg/dL (70-110)
[2019-09-15 02:51] VITALS: BP 98/58; PULSE 85; RESP 18; TEMP 36.5; O2SAT 96
[2019-09-15] MEDS: Levothyroxine 75 MCG Tablet PO (06:48)
[2019-09-15 07:01] LABS: Bedside Glucose 128 mg/dL (70-110)
[2019-09-15 08:40] VITALS: BP 115/50; PULSE 79; RESP 16; TEMP 36.6; O2SAT 96
--- NOTE | 2019-09-15 08:56 | PCM.PN.HOSP ---
Subjective: No issues overnight, no fevers last night. Vitals/I&O's: Vital Signs Temp Pulse Resp BP Pulse Ox 97.8 F 79 16 115/50 L 96 09/15/19 08:40 09/15/19 08:40 09/15/19 08:40 09/15/19 08:40 09/15/19 08:40 Oxygen Delivery Method Room Air Weight: 256 lb 9.889 oz Body Mass Index (BMI) 36.8 Finger Stick Blood Glucose 99 Intake and Output for Last 24 Hours 09/13/19 09/14/19 09/15/19 23:59 23:59 23:59 Intake Total 890 / 1370 2380 / 2380 860 / 860 Output Total 1999 450 / 450 Balance -1110 / -630 380 / 380 410 / 410 General: Alert, Oriented x3, Cooperative, No apparent distress HEENT: Atraumatic, PERRLA, EOMI, Normocephalic Oral: Moist Mucosa Neck: Supple, No JVD Lungs: Clear to auscultation, Normal air movement, No rhonchi, No wheeze, No rales Cardiovascular: Regular rate, Regular Rhythm, Normal S1, Normal S2, No murmurs Abdomen: Soft, Non Tender, Non-Distended, No Hepato-splenomegaly Extremities: No edema, No Calf Tenderness Skin: Slight redness around his port in his left chest Neurological: Neuro grossly intact, Sensory exam intact to light touch and pain Psych/Mental Status: Normal Affect, Appropriate Laboratory Results 09/14/19 08:54: WBC 4.5, RBC 3.41 L, Hgb 9.1 L, Hct 28.9 L, MCV 84.8, MCH 26.7 L, MCHC 31.5 L, RDW Std Deviation 57.8 H, RDW Coeff of Nyasia 19.8 H, Plt Count 109 L, MPV 8.7, Immature Gran % (Auto) 0.700, Neut % (Auto) 60.3, Lymph % (Auto) 25.8, [place] % (Auto) 11.7 H, Eos % (Auto) 1.1, Baso % (Auto) 0.4, Absolute Neuts (auto) 2.7, Absolute Lymphs (auto) 1.17, Nucleated RBC % 0 09/14/19 08:54: Sodium 132 L, Potassium 3.8, Chloride 97 L, Carbon Dioxide 30.0, Anion Gap 5, BUN 29 H, Creatinine 3.28 H, Estim Creat Clear Calc 20.71, Est GFR (MDRD) Af Amer 24 L, Est GFR (MDRD) Non-Af 20 L, BUN/Creatinine Ratio 8.8 L, Glucose 186 H, Calcium 8.4 L 09/14/19 12:03: POC Glucose 226 H 09/14/19 16:54: POC Glucose 234 H 09/14/19 22:51: POC Glucose 211 H 09/15/19 06:52: POC Glucose 128 H Current Medications Acetaminophen (Tylenol) 650 mg PO Q6H PRN PRN PRN Reason: Pain Score 1-10/Temp > 100.7 F Last Admin: 09/14/19 02:37 Dose: 650 mg Documented by: Artificial Tears (Tears Naturale, Artificial Tears) 1 drop OPHTHALMIC 4X/DAY [facility] Last Admin: 09/14/19 22:52 Dose: 1 drop Documented by: Atorvastatin Calcium (Lipitor) 10 mg PO QHS [facility] Last Admin: 09/14/19 22:54 Dose: 10 mg Documented by: Calamine/Phenol (Calmoseptine Ointment) 1 applic TOPICAL BID [facility]; Protocol Last Admin: 09/14/19 22:52 Dose: 1 applicatio Documented by: Dextrose (D50w Syringe) 0 gm IV X1 PRN; Protocol PRN Reason: Hypoglycemia Ferrous Sulfate (Ferrous Sulfate) 325 mg PO DAILY@1200 [facility] Last Admin: 09/14/19 13:39 Dose: 325 mg Documented by: Glucagon () 1 mg IM .X1 PRN PRN Reason: Hypoglycemia Doxycycline Hyclate 100 mg/ (Dextrose) 260 mls @ 250 mls/hr IV Q12 [facility] Last Infusion: 09/15/19 00:12 Dose: Infused Documented by: Insulin Glargine (Lantus ([facility])) 25 units SC QHS [facility] Last Admin: 09/14/19 22:53 Dose: 25 u Documented by: Insulin Human Lispro (Humalog Kwikpen ([facility])) 0 unit SC ACHS [facility]; Protocol Last Admin: 09/14/19 22:53 Dose: 2 u Documented by: Insulin Human Lispro (Humalog Kwikpen ([facility])) 5 unit SC TIDAC [facility] Last Admin: 09/14/19 17:56 Dose: 5 u Documented by: Levothyroxine Sodium (Synthroid) 75 mcg PO DAILY@0600 [facility] Last Admin: 09/15/19 06:48 Dose: 75 mcg Documented by: Melatonin (Melatonin) 3 mg PO QHS [facility] Last Admin: 09/14/19 22:54 Dose: 3 mg Documented by: Multivit/Ca Carb/B Cmplx/FA/Prenat (Nephrocaps, Renaphro) 1 capsule PO DAILY [facility] Last Admin: 09/14/19 10:52 Dose: 1 capsule Documented by: Ondansetron HCl (Zofran) 4 mg IV Q8H PRN PRN PRN Reason: NAUSEA/VOMITING Pantoprazole Sodium (Protonix) 20 mg PO DAILY [facility] Last Admin: 09/14/19 10:53 Dose: 20 mg Documented by: Senna/Docusate Sodium (Senokot-S, Leslie-Colace) 2 tablet PO BID PRN PRN PRN Reason: Constipation Sertraline HCl (Zoloft) 100 mg PO BID [facility] Last Admin: 09/14/19 22:54 Dose: 100 mg Documented by: Sodium Chloride () 10 - 40 ml IV UD PRN PRN Reason: SALINE FLUSH Last Admin: 09/14/19 22:52 Dose: 10 ml Documented by: Tamsulosin HCl (Flomax) 0.4 mg PO QHS [facility] Last Admin: 09/14/19 22:53 Dose: 0.4 mg Documented by: STROKE Vital Signs/Narrative: Vital Signs Temp Pulse Resp BP Pulse Ox 09/15/19 08:40 97.8 F 79 16 115/50 L 96 Medical Necessity - Tobacco Use Smoking Status: Current every day smoker Assessment/Plan All Active Problems Weakness (Acute) 1. Debility/cellulitis around his port site -He was recently admitted for debility after he left AMA from the [facility]. [facility] was set to [facility] and then decided against that and decided to go home. At which point he did not do well and came back in with weakness and debility and inability to complete ADLs -He wants to go to a [place] facility in [facility], however there is a 3 to 6-month wait -We will try to help him fill out the paperwork so that way when he does go to the [facility] he could be on the waiting list at that [facility] and then transfer there directly from the [facility] -PT/OT -Blood cultures are still pending -Continue with doxycycline for now 2. Acute on chronic anemia due to acute blood loss from gross hematuria/ESRD on dialysis/history of prostate cancer/thrombocytopenia/BPH -Hemoglobin appears to have finally stabilized after his multiple transfusions in March -He is currently on dialysis Monday, Monday, Monday -Platelets are stable in the low 100s which is improved from where he was in March -Continue with Flomax 3. Hypothyroidism -Stable -Continue with home medications 4. MEGAN -Stable -Continue with CPAP nightly 5. DM 2 -Continue with sliding scale insulin, and Accu-Cheks AC at bedtime -Continue with home insulin regimen, will monitor and make adjustments 6. Anxiety/depression -Stable -Continue with Zoloft 7. GERD -Stable -Continue with PPI DVT: Low risk Inpatient E&M: 18559 Subs Hosp L2
[2019-09-15] MEDS: Insulin Lispro 100 UNIT/ML INSULN.PEN SC ×6 (09:00→22:06)
[2019-09-15] MEDS: Menthol/Lanolin/Calamine/Znox 113 GM Tube 1 APPLIC TOPICAL ×2 (10:05→22:05)
[2019-09-15] MEDS: Pantoprazole Sodium 20 MG Tablet PO (10:06)
[2019-09-15] MEDS: Folic Acid/Vitamin B Comp W-C 1 Capsule 1 CAP PO (10:06)
[2019-09-15] MEDS: Sertraline 100 MG Tablet PO ×2 (10:06→22:07)
[2019-09-15 11:20] LABS: Bedside Glucose 228 mg/dL (70-110)
[2019-09-15] MEDS: Ferrous Sulfate 325 MG Tablet PO (11:40)
[2019-09-15 13:48] VITALS: BP 102/51; PULSE 74; RESP 16; TEMP 36.5; O2SAT 95
[2019-09-15 16:16] LABS: Bedside Glucose 214 mg/dL (70-110)
[2019-09-15 20:15] VITALS: BP 99/50; PULSE 79; RESP 16; TEMP 36.4; O2SAT 100
[2019-09-15] MEDS: Tamsulosin HCl 0.4 MG Capsule PO (22:06)
[2019-09-15] MEDS: MELATONIN 3 MG TABLET PO (22:07)
[2019-09-15] MEDS: Atorvastatin Calcium 10 MG Tablet PO (22:07)
[2019-09-15 22:21] LABS: Bedside Glucose 187 mg/dL (70-110)
[2019-09-16 02:10] VITALS: BP 95/62; PULSE 80; RESP 16; TEMP 36.9; O2SAT 100
[2019-09-16] MEDS: Levothyroxine 75 MCG Tablet PO (05:46)
[2019-09-16 08:16] LABS: Anion Gap 9 (5-15); BUN 67 mg/dL (7-18); BUN/Creat Ratio 13.8 RATIO (10-20); Calcium,Total 8.8 mg/dL (8.5-10.1); Chloride 97 mmol/L (98-107); Creatinine, Serum 4.86 mg/dL (0.70-1.30); EST Glomerular Filtration Rate 13 mL/min (>60); Est Glom Filt Rate - Afr Amer 15 mL/min (>60); Estimated Creatinine Clearance 13.98 ml/min; Glucose 111 mg/dL (74-106); Potassium 4.5 mmol/L (3.5-5.1); Sodium Level 130 mmol/L (136-145)
--- NOTE | 2019-09-16 08:54 | PCM.TXEXTCAR ---
- Diet 09/12/19 19:47 Diet: Calorie Controlled Food consistency:: Regular Liquid Consistency:: Regular/Thin How many daily calories?: 1800 calorie - Routine Orders/Code Status Routine Lab Work: CBC, BMP Code Status: DNRCC-A - Therapies Physical Therapy: Eval and Treat Occupational Therapy: Eval and Treat - Allergies/Procedures Done in Hospital Allergies/Adverse Reactions: Allergies metformin Allergy (Verified 09/12/19 17:34) Angioedema Penicillins Allergy (Verified 09/12/19 17:34) Rash Tetanus Vaccines and Toxoid Allergy (Verified 09/12/19 17:34) Swelling at injection site Procedures: Dialysis - Type of Care/Length of Stay Estimated LOS: Convalescent Care Less Than 30 days Type of Care Needed: Skilled Rehab Potential: Good Prognosis: Good - Additional Orders/Day of Discharge Additional Orders: He is on the waiting list for a SNF run by the [facility] in [facility], once he is accepted, he is to be transferred to that facility. Day of Discharge: 09/16/19 - Follow Up Care Primary Care Physician: [facility] [Primary Care Provider] - Please follow up with your Primary Care Physician in: 1-2 weeks
--- NOTE | 2019-09-16 08:58 | DS.PCM_ITS ---
Discharge Date and Diagnosis Date of Admission: 09/09/19 Date of Discharge: 09/16/19 - Secondary Discharge Diagnosis Chronic Problems ESRD (end stage renal disease) on dialysis (Chronic) Hyponatremia (Chronic) Thrombocytopenia (Chronic) CKD (chronic kidney disease), stage IV (Chronic) HTN (hypertension) (Chronic) Anxiety and depression (Chronic) Tobacco use (Chronic) MEGAN (obstructive sleep apnea) (Chronic) Hypothyroidism (Chronic) Chronic anemia (Chronic) GERD (gastroesophageal reflux disease) (Chronic) Diabetes mellitus, type II (Chronic) Hospital Course and Treatment Imaging Results: None Consults: Nephrology Operations: None Procedures: Dialysis Summary of Care Provided: Per HPI: 73-year-old white male who just discharged yesterday with weakness. It was recommended that he go to a group home facility but insisted on going home, asked he expressed understanding of the risks of going home, since including falls but is still insisted on going home. Patient did have dialysis prior to being discharged. So patient was at home and interesting over a bag and then fell. Presented to the emergency room because of him being weak and unable to manage at home and now he is relenting and agreeing to go to a group home facility. Previously, patient was being on trying to get into facility and [place] but apparently there was a wait list of least 3 months to get into that facility. Patient was intending on staying at home before he could be accepted at this facility. Patient was very insistent on going home because he apparently had some more paperwork that he need to submit to the [facility]. Hospital Course: 1. Debility/cellulitis around the port [id number] male who was recently admitted and was supposed to be discharged back to the [place] decided to go home. When he went home he was too weak and called EMS to try to help him get inside however they convinced him to come back to the ER. He is undergoing physical therapy here in the recommending once again group home facility stay. He has agreed to go to the [facility] until he is excepted into a half-way run by the [facility] in [facility]. It takes 3 to 6 months to get in and he is okay with staying at the [place] for that time. During his stay he developed a fever and had some redness around his port site therefore blood cultures were obtained and he was started on doxycycline based on his allergy profile. Blood cultures have come back negative for 48 hours therefore he can be discharged on doxycycline for another 5 days. I did discuss discharge planning with him, and he expressed understanding of the risks and benefits of going to the group home facility. 2. His other medical diagnoses were evaluated and his home medications were continued where appropriate - Physical Exam Vitals/I&O's: Vital Signs Temp Pulse Resp BP Pulse Ox 98.4 F 80 16 95/62 100 09/16/19 02:10 09/16/19 02:10 09/16/19 02:10 09/16/19 02:10 09/16/19 02:10 Oxygen Delivery Method Room Air Weight: 256 lb 9.889 oz Body Mass Index (BMI) 36.8 Finger Stick Blood Glucose 99 Intake and Output for Last 24 Hours 09/14/19 09/15/19 09/16/19 23:59 23:59 23:59 Intake Total 2380 / 2380 1120 / 1120 760 / 760 Output Total 1999 / 1999 450 / 450 500 / 500 Balance 380 / 380 670 / 670 260 / 260 General: Alert, Oriented x3, Cooperative, No apparent distress HEENT: Atraumatic, PERRLA, EOMI, Normocephalic Oral: Moist Mucosa Neck: Supple, No JVD Lungs: Clear to auscultation, Normal air movement, No rhonchi, No wheeze, No rales Cardiovascular: Regular rate, Regular Rhythm, Normal S1, Normal S2, No murmurs Abdomen: Soft, Non Tender, Non-Distended, No Hepato-splenomegaly Extremities: No edema, No Calf Tenderness Skin: Slight redness around his port in his left chest Neurological: Neuro grossly intact, Sensory exam intact to light touch and pain Psych/Mental Status: Normal Affect, Appropriate Microbiology Past 72 Hours 09/13/19 22:50 Blood Culture (Wb) - Left Forearm Blood Culture - Preliminary No growth in 48 hours. Laboratory Results 09/15/19 11:07: POC Glucose 228 H 09/15/19 16:08: POC Glucose 214 H 09/15/19 22:04: POC Glucose 187 H 09/16/19 07:15: Sodium 130 L, Potassium 4.5, Chloride 97 L, Carbon Dioxide 24.0, Anion Gap 9, BUN 67 H, Creatinine 4.86 H, Estim Creat Clear Calc 13.98, Est GFR (MDRD) Af Amer 15 L, Est GFR (MDRD) Non-Af 13 L, BUN/Creatinine Ratio 13.8, Glucose 111 H, Calcium 8.8 Current Medications Acetaminophen (Tylenol) 650 mg PO Q6H PRN PRN PRN Reason: Pain Score 1-10/Temp > 100.7 F Last Admin: 09/14/19 02:37 Dose: 650 mg Documented by: Artificial Tears (Tears Naturale, Artificial Tears) 1 drop OPHTHALMIC 4X/DAY [facility] Last Admin: 09/15/19 22:07 Dose: 1 drop Documented by: Atorvastatin Calcium (Lipitor) 10 mg PO QHS [facility] Last Admin: 09/15/19 22:07 Dose: 10 mg Documented by: Calamine/Phenol (Calmoseptine Ointment) 1 applic TOPICAL BID [facility]; Protocol Last Admin: 09/15/19 22:05 Dose: 1 applicatio Documented by: Dextrose (D50w Syringe) 0 gm IV X1 PRN; Protocol PRN Reason: Hypoglycemia Ferrous Sulfate (Ferrous Sulfate) 325 mg PO DAILY@1200 [facility] Last Admin: 09/15/19 11:40 Dose: 325 mg Documented by: Glucagon () 1 mg IM .X1 PRN PRN Reason: Hypoglycemia Doxycycline Hyclate 100 mg/ (Dextrose) 260 mls @ 250 mls/hr IV Q12 [facility] Last Infusion: 09/16/19 02:09 Dose: Infused Documented by: Insulin Glargine (Lantus (Bkc)) 25 units SC QHS [facility] Last Admin: 09/15/19 22:06 Dose: 25 u Documented by: Insulin Human Lispro (Humalog Kwikpen (Bkc)) 0 unit SC ACHS [facility]; Protocol Last Admin: 09/16/19 08:23 Dose: Not Given Documented by: Insulin Human Lispro (Humalog Kwikpen (Bkc)) 5 unit SC TIDAC [facility] Last Admin: 09/16/19 08:23 Dose: Not Given Documented by: Levothyroxine Sodium (Synthroid) 75 mcg PO DAILY@0600 [facility] Last Admin: 09/16/19 05:46 Dose: 75 mcg Documented by: Melatonin (Melatonin) 3 mg PO QHS [facility] Last Admin: 09/15/19 22:07 Dose: 3 mg Documented by: Multivit/Ca Carb/B Cmplx/FA/Prenat (Nephrocaps, Renaphro) 1 capsule PO DAILY [facility] Last Admin: 09/15/19 10:06 Dose: 1 capsule Documented by: Ondansetron HCl (Zofran) 4 mg IV Q8H PRN PRN PRN Reason: NAUSEA/VOMITING Pantoprazole Sodium (Protonix) 20 mg PO DAILY [facility] Last Admin: 09/15/19 10:06 Dose: 20 mg Documented by: Senna/Docusate Sodium (Senokot-S, Leslie-Colace) 2 tablet PO BID PRN PRN PRN Reason: Constipation Sertraline HCl (Zoloft) 100 mg PO BID [facility] Last Admin: 09/15/19 22:07 Dose: 100 mg Documented by: Sodium Chloride () 10 - 40 ml IV UD PRN PRN Reason: SALINE FLUSH Last Admin: 09/14/19 22:52 Dose: 10 ml Documented by: Tamsulosin HCl (Flomax) 0.4 mg PO QHS [facility] Last Admin: 09/15/19 22:06 Dose: 0.4 mg Documented by: Home Medications: Medications to take at Discharge Tamsulosin HCl [Flomax] 0.4 mg PO QHS 05/11/18 Atorvastatin Calcium [Lipitor] 10 mg PO QHS 04/26/19 Carboxymethylcellulose Sodium [Artificial Tears] 1 drp EACH EYE 4X/DAY 09/09/19 Folic Acid/Vitamin B Comp W-C [Nephrocaps, Renaphro] 1 cap PO DAILY 09/09/19 Levothyroxine Sodium [Synthroid] 75 mcg PO DAILY 09/09/19 Omeprazole 20 mg PO DAILY 09/09/19 Acetaminophen [Tylenol Tablet] 650 mg PO Q6H PRN PRN tab 09/11/19 Ferrous Sulfate 325 mg PO DAILY@1200 #30 tab 09/11/19 Insulin Glargine [Lantus SoloStar Pen] 25 units SUBCUT QHS pen 09/11/19 Insulin Lispro [Humalog KwikPen] 5 unit SUBCUT TIDAC insuln.pen 09/11/19 Insulin Lispro [Humalog KwikPen] See Protocol SUBCUT ACHS insuln.pen 09/11/19 Melatonin 3 mg PO QHS tab 09/11/19 Menthol/Lanolin/Calamine/Znox [Calmoseptine Ointment] 1 applic TOPICAL BID tube 09/11/19 Senna/Docusate Sodium [Senokot-S] 2 tab PO BID PRN PRN tab 09/11/19 Sertraline HCl [Zoloft] 100 mg PO BID tab 09/11/19 Doxycycline 100 mg PO BID #10 cap 09/16/19 Following Prescrptions Were Given to Patient: Doxycycline 100 mg PO BID #10 cap [facility] Care Physician: [facility] [Primary Care Provider] - Please follow up with your Primary Care Physician in: 1-2 weeks Disposition: Senior Living facility Minutes spent on discharge:: 35 Patient Condition:: Stable Medical Necessity - Tobacco Use Smoking Status: Current every day smoker Meaningful Use Info Meaningful Use Diagnoses (Choose all that apply): None applicable Inpatient E&M: 47177 Disch Hosp
[2019-09-16 09:30] VITALS: BP 115/61; PULSE 78; RESP 18; TEMP 36.4; O2SAT 97
--- NOTE | 2019-09-16 11:17 | CASEMGMT ---
Addendum entered by Radha Cortez 09/16/19 13:38: Pt did discharge to [facility]. JULIAN placed a call to Jen at [facility] and left message that pt was discharged to [facility] today, JULIAN placed a call to Goldy JORDAN at [facility] and updated her that pt was discharged to [facility] today. JULIAN also placed a call to pt's davy Marx and updated her that pt was discharged to [facility] today. Original Note: Social Work Note Pt is still at [facility]. JULIAN placed a call to Ivy at [facility]. Ivy states she is still able to accept pt today. SW in to speak with pt. Pt confirms still agreeable to going to [facility]. Pt currently receiving dialysis, per jewelry setter pt will be done with dialysis at 12:30pm. JULIAN placed a call to [facility] and arranged transport via wheelchair van for 1:00pm as this is the only time [facility] has available today. Transportation form completed and placed on SNF folder and copy on pt's chart. JULIAN updated RN on transportation time who will update pt. JULIAN faxed completed discharge paperwork to Ivy at [facility] including transfer to extended care, signed medication list, any scripts, PAS/RR, LOC results and COVID transfer summer. Pt was not tested for COVID while at [facility]. JULIAN placed a call to Ivy and updated her on transportation time. Jen with [facility], Goldy, JULIAN at [facility], pt's flo Araseli was all made aware on Monday that pt would be discharged to [facility] at discharge. Plan: [facility] skilled with transportation arranged at 1:00pm. Radha Cortez ASSISTANT NEWS DIRECTOR, [employer]
[2019-09-16 12:10] LABS: Bedside Glucose 152 mg/dL (70-110)
[2019-09-16] MEDS: Ferrous Sulfate 325 MG Tablet PO (12:38)
[2019-09-16] MEDS: Folic Acid/Vitamin B Comp W-C 1 Capsule 1 CAP PO (12:38)
[2019-09-16] MEDS: Heparin 10,000 UNITS/10 ML Vial IV (12:38)
[2019-09-16] MEDS: Sertraline 100 MG Tablet PO (12:38)
[2019-09-16] MEDS: Pantoprazole Sodium 20 MG Tablet PO (12:38)
[2019-09-16] MEDS: Insulin Lispro 100 UNIT/ML INSULN.PEN SC ×2 (12:40)
[2019-09-16 12:48] VITALS: BP 94/64; PULSE 87; RESP 18; TEMP 36.7; O2SAT 96
[2019-09-16 13:17] VITALS: BP 105/60; PULSE 83; RESP 16; TEMP 36.7
--- NOTE | 2019-09-16 13:18 | NURSING ---
Report given to [facility] at [facility] at this time.
--- NOTE | 2019-09-16 13:18 | DIALYSIS ---
HD x 3.5 hours complete. Tolerated tx well. Ran on 3k bath. UF of 3000ml. Used left chest wall catheter. Catheter dressing not scheduled to be changed until tomorrow but mid tx I changed it d/t exit site looking like it had blister with some redness. No drainage noted. No blister noted but site is red and very irritated. Used chloraprep to clean exit site Dr. Isaac was notified. Catheter closed with heparin per fill volume. Report was given to COLE Spencer.
== END 2019-09-16 13:05 | disposition skilled nursing facility (03) | DRG 947 ==
LOC: ED 18:15 → MS3 18:22
PROVIDERS: Emergency Provider Emergency Medicine; Visit Provider Family Medicine
DX: R53.81 Other malaise (principal); N18.6 End stage renal disease; I12.0 Hypertensive chronic kidney disease with stage 5 chronic kidney disease or end stage renal disease; E87.1 Hypo-osmolality and hyponatremia; D62 Acute posthemorrhagic anemia; L03.313 Cellulitis of chest wall; R31.0 Gross hematuria; R62.7 Adult failure to thrive; R53.1 Weakness; W01.0XXA Fall on same level from slipping, tripping and stumbling without subsequent striking against object, initial encounter; E11.22 Type 2 diabetes mellitus with diabetic chronic kidney disease; D63.1 Anemia in chronic kidney disease; D69.6 Thrombocytopenia, unspecified; F32.9 Major depressive disorder, single episode, unspecified; F41.9 Anxiety disorder, unspecified; G47.33 Obstructive sleep apnea (adult) (pediatric); E03.9 Hypothyroidism, unspecified; K21.9 Gastro-esophageal reflux disease without esophagitis; N40.0 Benign prostatic hyperplasia without lower urinary tract symptoms; F17.200 Nicotine dependence, unspecified, uncomplicated; Z66 Do not resuscitate; Z88.0 Allergy status to penicillin; Z99.2 Dependence on renal dialysis; Z79.4 Long term (current) use of insulin; Z79.899 Other long term (current) drug therapy
CPT/HCPCS: 36415; 70450; 71045; 80048; 80053; 82728; 82962; 83540; 83550; 83735; 84100; 84443; 84484; 85025; 87040; 90937; 93005; 96372; 97110; 97116; 97162; 97166; 97530; 97535; 97802; 99218; 99251; 99285; 99406; J7030; A4216; G0257; G0378; G0463

== ENCOUNTER 2019-09-23 11:19 | Emergency (ER) | payer MEDICARE, MEDICAID, OTHER, SELFPAY ==
[2019-09-23 11:20] VITALS: BP 93/71; PULSE 93; RESP 18; TEMP 36.6; O2SAT 100; BMI 34.8
--- NOTE | 2019-09-23 11:43 | RAD_ITS ---
STUDY: X-RAY CHEST REASON FOR EXAM: Male, 73 years old. SYNCOPE AFTER DIALYSIS, FALL HIT HEAD TECHNIQUE: Single AP portable view of the chest. COMPARISON: Comparison is made with prior study dated September 09, 2019. FINDINGS: EKG electrodes are seen. A left-sided dialysis catheter is present with the tip in the right atrium. Stable mild increased linear markings at the lung bases suggestive of a linear scarring. There is no demonstrated pleural abnormality. Normal size heart. Normal mediastinum and kria. Normal visualized pulmonary arteries. There is atherosclerotic tortuosity of the aortic arch and descending thoracic aorta. Normal visualized thoracic spine. There is degenerative osteoarthritis of the bilateral shoulders. There is no demonstrated abnormality of the visualized soft tissue structures of the upper abdomen. RAD/Chest 1 View (Portable) IMPRESSION: Stable examination. Mild increased linear markings at the lung bases suggestive of linear scarring. Electronically Signed: Messi Hobson, at 12:44 EDT , Service support ,
--- NOTE | 2019-09-23 11:43 | EKG12_ITS ---
Test Reason : Blood Pressure : / mmHG Vent. Rate : 084 BPM Atrial Rate : 084 BPM P-R Int : 172 ms QRS Dur : 088 ms QT Int : 410 ms P-R-T Axes : 032 046 083 degrees QTc Int : 484 ms Normal sinus rhythm Prolonged QT Abnormal ECG Confirmed by GUSTAVO DANIELS ([id number]), features editor TAMARA MURRAY ([id number]) on 09/26/2019 3:08:46 PM Referred By: JUANCARLOS Confirmed By:GUSTAVO DANIELS
--- NOTE | 2019-09-23 11:44 | CT_ITS ---
STUDY: CT BRAIN WITHOUT CONTRAST REASON FOR EXAM: Male, 73 years old. SYNCOPE EPISODE FOLLOWING DIALYSIS-HIT HEAD ON FLOOR -- HX CONCUSSION 02/2019, PROSTATE CA W/ PROSTATECTOMY, END STAGE RENAL DZ, HTN,DIAB RADIATION DOSAGE (If Supplied By Facility): CTDIvol = ( 44.99 ) mGy, DLP = ( 863.60 ) mGycm TECHNIQUE: Transaxial CT imaging of the brain was performed without administration of intravenous contrast material. Individualized dose optimization techniques were used for this CT. COMPARISON: Comparison is made with prior study dated September 09, 2019. FINDINGS: Normal soft tissue structures. Normal calvarium. There is mild cerebral atrophy with widening of the extra-axial spaces and ventricular dilatation. There are areas of decreased attenuation within the white matter tracts of the supratentorial brain, consistent with microvascular disease changes. Normal basal ganglia and thalami. Normal brainstem. Normal cerebellum. There is no intracranial hemorrhage. There are no findings of an acute ischemic infarction. Atherosclerotic calcification of the cavernous portions of the internal carotid arteries bilaterally. Normal visualized paranasal sinuses. CT/Brain/Head without Contrast IMPRESSION: Chronic involutional changes of the brain. Electronically Signed: Messi Hobson, at 12:53 EDT , Service support ,
--- NOTE | 2019-09-23 11:44 | CT_ITS ---
STUDY: CT CERVICAL SPINE WITHOUT CONTRAST REASON FOR EXAM: Male, 73 years old. SYNCOPE EPISODE FOLLOWING DIALYSIS-HIT HEAD ON FLOOR -- HX CONCUSSION 02/2019, PROSTATE CA W/ PROSTATECOMY, END STAGE RENAL DZ, HTN,DIAB RADIATION DOSAGE (If Supplied By Facility): CTDIvol = ( 29.51 ) mGy, DLP = ( 595.11 ) mGycm TECHNIQUE: High resolution transaxial imaging was performed without contrast material. Sagittal and coronal images were reconstructed. Individualized dose optimization techniques were used for this CT. COMPARISON: Comparison is made with prior examination January 13, 2018. FINDINGS: Normal craniovertebral junction. There are degenerative changes of the anterior atlantoaxial articulation. Normal odontoid process. Normal cervical lordosis. Normal vertebral bodies and posterior osseous elements. C2-3: Anterior spondylosis. Mild degree of disc space narrowing. Facet joint hypertrophy and osteoarthritis worse on the left side. C3-4: Minimal anterior listhesis of C3 on C4. Facet joint osteoarthritis and hypertrophy on the left side with moderate to marked degree of left neural foraminal stenosis with uncovertebral arthrosis. C4-5: Mild degree of disc space narrowing. Spondylosis. Hypertrophy of the facet joints worse on the left side with mild bilateral neural foraminal stenosis. C5-6: There is fusion at the C5-C6 disc space. Uncovertebral arthrosis. Mild degree of bilateral neural foraminal stenosis. C6-7: Fusion of the disc space. Uncovertebral arthrosis. Moderate degree of bilateral neural foraminal stenosis. C7-T1: Normal endplates. Normal disc height and morphology. Normal central canal and intervertebral neuroforamina. Calcification of the carotid bifurcations bilaterally. Calcification of the vertebral arteries. Diffuse enlargement of the thyroid gland with thick calcifications along the anterior aspect of the left lobe of the thyroid gland. CT/Spine Cervical without Contras IMPRESSION: Multilevel degenerative changes, as described above. Electronically Signed: Messi Hobson, at 12:55 EDT , Service support ,
--- NOTE | 2019-09-23 11:56 | ED.VIS.GEN ---
History of Present Illness Chief Complaint: Syncope Narrative: Patient presenting secondary to a syncopal episode. Patient has a underlying history of end-stage renal disease, gets dialysis Wednesdays and Fridays. Patient reports that he had a normal dialysis session today, and at its completion he went to stand up and suffered a syncopal episode. Reports were that he hit his head, although the patient does not feel that he did. Patient states that prior to the episode he was feeling claustrophobic but he states that he always feels this way at dialysis. He denies that he is having any sort of chest pain shortness of breath or palpitations. Patient denies recent illness such as fever cough nausea vomiting or diarrhea. Patient denies any pain from the injury at this time. Review of systems otherwise negative. Past Medical History - Allergies and Home Meds Allergies/Adverse Reactions: Allergies lisinopril Allergy (Verified 09/23/19 11:28) PT UNSURE OF REACTION metformin Allergy (Verified 09/23/19 11:27) Angioedema Penicillins Allergy (Verified 09/23/19 11:27) Rash Tetanus Vaccines and Toxoid Allergy (Verified 09/23/19 11:27) Swelling at injection site [facility] Care Physician: [facility] [Primary Care Provider] - Past Medical History: - - End-stage renal disease, diabetes, hypertension Surgical History: cataract, - - Prior back surgery, ureteral stent placements, cataract. Smoking Status: Current every day smoker - Family History Maternal Family History: Reports: Heart Disease, Hypertension Paternal Family History: Reports: Cancer, Hypertension Review of Systems All systems negative except as indicated General: Denies: Chills, Fever, Sweats Eyes: Denies: Visual changes - bilaterally, Diplopia ENT: Denies: Rhinorrhea, Sore throat Cardiovascular: Reports: - - Syncope upon standing Respiratory: Denies: Dyspnea, Cough, Dyspnea on exertion Gastrointestinal: Denies: Abdominal pain, Nausea, Vomiting, Diarrhea, Melena, Hematochezia Genitourinary: Denies: Dysuria, Hematuria, Frequency Musculoskeletal: Denies: Back pain, Extremity Pain Skin: Denies: Rash, Wounds Neurological: Denies: Headache, Weakness, Numbness Physical Exam Vital Signs/Narrative: Vital Signs Temp Pulse Resp BP Pulse Ox 09/23/19 11:20 97.8 F 93 18 93/71 100 Inital Vital Signs reviewed: Yes General: Well nourished, Well developed, No Acute Distress, - - Airways patent, breath sounds equal and bilateral, 2+ radial pulses, GCS 15 Head: Normocephalic, Atraumatic, - - No trauma noted of the scalp Eyes: Perrl, EOMI ENT: Moist mucous membranes, No rhinorrhea Neck: Supple, Nontender, - - Patient reports stiffness of the neck, but no midline tenderness Cardiovascular: Regular rate, Regular rhythm, No murmurs Respiratory: No distress, CTA bilaterally, Chest nontender, - - Left anterior chest tunneled catheter clean dry and intact Abdomen: Soft, Nontender, Nondistended, Normal bowel sounds Back: Nontender, Normal Inspection Extremities: Nontender, - - 2+ pitting edema of the lower extremities Skin: Normal color, No rash Neurological: Alert, Oriented x3, Cranial nerves II-XII grossly intact, Normal Strength, Normal Sensation Psychological: Normal affect, Normal Mood Diagnostic/Tx/Re-eval Clinical Impression(s) from Imaging Studies Chest X-Ray 09/23/19 11:43 IMPRESSION: Stable examination. Mild increased linear markings at the lung bases suggestive of linear scarring. Electronically Signed: Messi Hobson, at 12:44 EDT , Service support , Brain CT 09/23/19 11:44 IMPRESSION: Chronic involutional changes of the brain. Electronically Signed: Messi Hobson at 12:53 EDT , Service support , Cervical Spine CT 09/23/19 11:44 IMPRESSION: Multilevel degenerative changes, as described above. Electronically Signed: Messi Hobson at 12:55 EDT , Service support , Laboratory Data 09/23/19 09/23/19 12:40 12:40 WBC 6.3 RBC 3.86 L Hgb 10.3 L Hct 32.7 L MCV 84.7 MCH 26.7 L MCHC 31.5 L RDW Std Deviation 57.3 H RDW Coeff of Nyasia 18.8 H Plt Count 121 L MPV 8.4 Immature Gran % (Auto) 0.800 Neut % (Auto) 75.2 H Lymph % (Auto) 15.9 L [place] % (Auto) 7.0 Eos % (Auto) 0.5 Baso % (Auto) 0.6 Absolute Neuts (auto) 4.7 Absolute Lymphs (auto) 1.00 Nucleated RBC % 0 Sodium 133 L Potassium 4.1 Chloride 98 Carbon Dioxide 30.0 Anion Gap 5 BUN 36 H Creatinine 3.00 H Estim Creat Clear Calc 23.36 Est GFR (MDRD) Af Amer 26 L Est GFR (MDRD) Non-Af 22 L BUN/Creatinine Ratio 12.0 Glucose 173 H Calcium 8.8 Troponin I < 0.015 - EKG Initial EKG Interpretation: - - Sinus rhythm of [address] segments, normal T waves, QTC prolongation at 484 ms, no evidence of acute ischemia or arrhythmia - Medical Decision Making Patient presented secondary to a syncopal episode after dialysis. He is generally well-appearing. CT imaging of the brain was obtained due to the potential reports of hitting his head this was found to be negative. Syncope work-up including troponin EKG were also found to be unremarkable. Patient likely had an episode of orthostasis after dialysis, I do not believe that he requires admission at this point. He was given reassurance, and the patient was discharged. ED Disposition - Plan for ED Patient: Disposition: Home or Assisted Living Diagnosis: Orthostatic syncope Instructions: ED Hypotension Orthostatic [facility]errals: [facility] [[facility]] - As Needed
[2019-09-23 12:48] LABS: Absolute Neutrophil Count 4.7 X10^3/uL (2.0-7.7); Basophil# 0.04 X10^3/uL; Basophil% 0.6 % (0-1); Eosinophil# 0.03 X10^3/uL; Eosinophils% 0.5 % (0-5); Hematocrit 32.7 % (40-54); Hemoglobin 10.3 g/dL (13.0-16.5); Lymphocyte % 15.9 % (19-41); Mean Corp Hgb Conc 31.5 g/dL (32-36); Mean Corpuscular Hgb 26.7 pg (27.0-32.0); Mean Corpuscular Volume 84.7 fL (80-94); Mean Platelet Vol. 8.4 fl (6.2-12.0); Monocyte# 0.44 X10^3/uL; NRBC Flagged by Analyzer 0 % (0-5); Neutrophil # 4.72 X10^3/uL (2.7-7.7); Neutrophil % 75.2 % (47-70); Platelet Count 121 K/mm3 (150-450); RBC Distribution Width CV 18.8 % (11.6-14.6); RBC Distribution Width SD 57.3 fl (35.1-43.9); Red Blood Count 3.86 M/mm3 (4.6-6.2); White Blood Count 6.3 K/mm3 (4.4-11.0)
[2019-09-23 13:02] LABS: Anion Gap 5 (5-15); BUN 36 mg/dL (7-18); Calcium,Total 8.8 mg/dL (8.5-10.1); Chloride 98 mmol/L (98-107); EST Glomerular Filtration Rate 22 mL/min (>60); Est Glom Filt Rate - Afr Amer 26 mL/min (>60); Estimated Creatinine Clearance 23.36 ml/min; Glucose 173 mg/dL (74-106); Potassium 4.1 mmol/L (3.5-5.1); Sodium Level 133 mmol/L (136-145)
[2019-09-23 13:33] VITALS: BP 120/68; PULSE 81; RESP 13; O2SAT 100
--- NOTE | 2019-09-23 13:36 | ED.DEP ---
ED Disposition - Plan for ED Patient: Disposition: Home or Assisted Living Diagnosis: Orthostatic syncope Instructions: ED Hypotension Orthostatic [facility]errals: [facility] [Primary Care Provider] - As Needed
[2019-09-23 15:00] VITALS: BP 119/64; PULSE 81; RESP 12; O2SAT 100
== END 2019-09-23 16:46 | disposition home or self-care (01) ==
PROVIDERS: Emergency Provider Emergency Medicine
DX: I95.1 Orthostatic hypotension (principal); I12.0 Hypertensive chronic kidney disease with stage 5 chronic kidney disease or end stage renal disease; E11.22 Type 2 diabetes mellitus with diabetic chronic kidney disease; N18.6 End stage renal disease; F17.200 Nicotine dependence, unspecified, uncomplicated; Z99.2 Dependence on renal dialysis; Z79.4 Long term (current) use of insulin
CPT/HCPCS: 70450; 71045; 72125; 80048; 84484; 85025; 93005; 99284; A4216

== ENCOUNTER 2019-10-20 21:23 | Emergency (ER) | payer OTHER, MEDICARE, SELFPAY ==
[2019-10-20 21:24] VITALS: TEMP 36.7; BMI 35.9
[2019-10-20 22:03] VITALS: BP 130/74; PULSE 83; RESP 18; O2SAT 100; BMI 37.3
--- NOTE | 2019-10-20 22:21 | ED.DCSUM_ITS ---
History of Present Illness Chief Complaint: Fall Informant: Patient Narrative: Patient presents via EMS after a fall at home. Patient was recently at the [facility]. He left there at 2 PM today. He states he left because he could not afford the bill for next month. Patient drove himself home. When trying to go up the steps into the home with his walker he fell. EMS was called. EMS reports his house is filthy and essentially unlivable. Patient states he knows his house is dirty because he has not been living there for the last 6 months. Nursing staff took the patient to the decontamination room to clean him up prior to bringing him into one of the ER rooms. At this time patient has no complaints. He denies any injury. He states paramedics talk to him for quite some time on scene and did not feel comfortable leaving him in his home. He states the firer tunnel kiln was planning to bring people to his home tomorrow to clean it up for him so he can live at home. Patient has been trying to get into assisted living facility through the ID. There is a long wait list and he believes he may have a spot this fall. - Past Medical History (1) Anxiety and depression Status: Chronic (2) Diabetes mellitus, type II Status: Chronic (3) ESRD (end stage renal disease) on dialysis Status: Chronic (4) GERD (gastroesophageal reflux disease) Status: Chronic (5) HTN (hypertension) Status: Chronic (6) Hypothyroidism Status: Chronic (7) MEGAN (obstructive sleep apnea) Status: Chronic Past Medical History - Allergies and Home Meds Allergies/Adverse Reactions: Allergies lisinopril Allergy (Verified 09/23/19 11:28) PT UNSURE OF REACTION metformin Allergy (Verified 09/23/19 11:27) Angioedema Penicillins Allergy (Verified 09/23/19 11:27) Rash Tetanus Vaccines and Toxoid Allergy (Verified 09/23/19 11:27) Swelling at injection site [facility] [[facility] - Prior records reviewed: Yes Surgical History: cataract, - - Prior back surgery, ureteral stent placements, cataract. Lives: Alone Smoking Status: Former smoker - Family History Maternal Family History: Reports: Heart Disease, Hypertension Paternal Family History: Reports: Cancer, Hypertension Review of Systems General: Denies: Chills, Fever Eyes: Denies: Visual changes - bilaterally ENT: Denies: Bilateral ear pain Cardiovascular: Denies: Chest pain Respiratory: Denies: Dyspnea Gastrointestinal: Denies: Abdominal pain, Nausea, Vomiting, Diarrhea Genitourinary: Denies: Dysuria Skin: Denies: Rash Neurological: Denies: Headache Hematologic: Denies: Easy bruising, Easy bleeding Allergy: Denies: Uticaria Physical Exam Vital Signs/Narrative: Vital Signs Temp Pulse Resp BP Pulse Ox 10/20/19 22:03 83 18 130/74 H 100 10/20/19 21:24 98.1 F Inital Vital Signs reviewed: Yes General: Well nourished, Well developed Head: Normocephalic ENT: Moist mucous membranes Neck: Supple Cardiovascular: Regular rate, Regular rhythm Respiratory: No distress, CTA bilaterally Abdomen: Soft, Nontender Skin: Normal color Neurological: Alert, Oriented x3, - - No focal neurologic deficits. Psychological: Normal affect Diagnostic/Tx/Re-eval Laboratory Results 10/20/19 10/20/19 22:47 22:47 WBC 4.8 RBC 3.37 L Hgb 9.4 L Hct 30.4 L MCV 90.2 MCH 27.9 MCHC 30.9 L RDW Std Deviation 66.5 H RDW Coeff of Nyasia 20.3 H Plt Count 135 L MPV 8.8 Immature Gran % (Auto) 0.400 Neut % (Auto) 67.1 Lymph % (Auto) 23.4 [place] % (Auto) 7.9 Eos % (Auto) 0.6 Baso % (Auto) 0.6 Absolute Neuts (auto) 3.2 Absolute Lymphs (auto) 1.12 Nucleated RBC % 0 Differential Comment SCANNED Anisocytosis 1+ Sodium 133 L Potassium 4.2 Chloride 94 L Carbon Dioxide 28.0 Anion Gap 11 BUN 70 H Creatinine 5.36 H Estim Creat Clear Calc 12.48 Est GFR (MDRD) Af Amer 14 L Est GFR (MDRD) Non-Af 11 L BUN/Creatinine Ratio 13.1 Glucose 333 H Calcium 8.9 - Medical Decision Making Patient's labs are unremarkable other than his baseline renal failure. I do not have a medical reason to put him in the hospital at this time. After lengthy discussion we have agreed to observe the patient here in the ER overnight. He will be discharged to dialysis early in the morning. I will leave a message with social work to contact him tomorrow to see you what else we can do to help him with his needs. Per previous notes Adult Protective Services and social work is familiar with this patient. At this time he is alert and oriented and can make his own decisions. ED Disposition - Plan for ED Patient: Disposition: Home or Assisted Living Diagnosis: Fall Instructions: ED Mechanical Fall [facility] [[facility] -
[2019-10-20 23:04] LABS: Absolute Lymphocyte Count 1.12 X10^3/uL (0.83-4.51); Absolute Neutrophil Count 3.2 X10^3/uL (2.0-7.7); Basophil# 0.03 X10^3/uL; Basophil% 0.6 % (0-1); Eosinophil# 0.03 X10^3/uL; Eosinophils% 0.6 % (0-5); Hematocrit 30.4 % (40-54); Hemoglobin 9.4 g/dL (13.0-16.5); Lymphocyte # 1.12 X10^3/ul (4.0); Lymphocyte % 23.4 % (19-41); Mean Corp Hgb Conc 30.9 g/dL (32-36); Mean Corpuscular Hgb 27.9 pg (27.0-32.0); Mean Corpuscular Volume 90.2 fL (80-94); Mean Platelet Vol. 8.8 fl (6.2-12.0); Monocyte# 0.38 X10^3/uL; Monocyte% 7.9 % (0-10); NRBC Flagged by Analyzer 0 % (0-5); Neutrophil # 3.21 X10^3/uL (2.7-7.7); Neutrophil % 67.1 % (47-70); POSITIVE MORPHOLOGY YES; Platelet Count 135 K/mm3 (150-450); RBC Distribution Width CV 20.3 % (11.6-14.6); RBC Distribution Width SD 66.5 fl (35.1-43.9); Red Blood Count 3.37 M/mm3 (4.6-6.2); White Blood Count 4.8 K/mm3 (4.4-11.0)
[2019-10-20 23:12] LABS: Differential Indicated SCAN CRITERIA MET
[2019-10-20 23:14] LABS: Anion Gap 11 (5-15); BUN 70 mg/dL (7-18); BUN/Creat Ratio 13.1 RATIO (10-20); Calcium,Total 8.9 mg/dL (8.5-10.1); Chloride 94 mmol/L (98-107); Creatinine, Serum 5.36 mg/dL (0.70-1.30); EST Glomerular Filtration Rate 11 mL/min (>60); Est Glom Filt Rate - Afr Amer 14 mL/min (>60); Estimated Creatinine Clearance 12.48 ml/min; Glucose 333 mg/dL (74-106); Potassium 4.2 mmol/L (3.5-5.1); Sodium Level 133 mmol/L (136-145)
[2019-10-20 23:24] LABS: Anisocytosis 1+; Differential Comment SCANNED
[2019-10-21] VITALS: BP 169/80; PULSE 85; RESP 15; O2SAT 96
[2019-10-21 01:59] VITALS: BP 159/78; PULSE 84; RESP 15; O2SAT 97
[2019-10-21 04:35] VITALS: RESP 16
[2019-10-21 06:45] VITALS: BP 119/71; PULSE 78; RESP 15; TEMP 36.3; O2SAT 98
--- NOTE | 2019-10-21 07:09 | ED.RN ---
pt sleeping. respirations even and unlabored
[2019-10-21 09:58] VITALS: RESP 18; O2SAT 96
--- NOTE | 2019-10-21 11:10 | CM.ED ---
SOCIAL WORK INFORMANT: NURSING, VOICEMAIL FROM DR. WLAKER REASON FOR REFERRAL: DISCHARGE PLANNING MET WITH PATIENT IN ROOM. PATIENT KNOWN TO THIS WORKER FROM PREVIOUS VISITS/ADMISSION. PATIENT STATES TO HAVE LEFT THE AVENUE YESTERDAY AND ONCE HOME, FELL ON THE STAIRS. EMS BROUGHT PATIENT TO HOSPITAL AND VOICED CONCERNS FOR PATIENT'S ABILITY TO CARE FOR SELF IN THE HOME. REPORTED HOME IS DEPLORABLE. PATIENT ADAMANTLY REFUSING LONG TERM AND STATES WISHES TO RETURN HOME. PATIENT ALERT AND ORIENTED X3. PATIENT STATES MISSED DIALYSIS TODAY. INFORMED PATIENT THIS WORKER WILL BE FOLLOWING UP WITH [place]. PATIENT STATES PLAN IS FOR [facility] ONCE ACCEPTED, CURRENTLY ON WAIT LIST. CALL TO EMANUEL BARRIOS [place] [facility] PROFESSIONAL [phone]. LEFT MESSAGE WITH THIS WORKER'S CALL BACK INFORMATION. CALL TO MEGHNA WITH [facility]ULT [facility]. UPDATED ON REPORTS FROM EMS AND PATIENT'S STATUS. PATIENT IS ALERT AND ORIENTED AND ABLE TO MAKE OWN DECISIONS. CALL TO [facility]. UPDATED PATIENT IS IN ED. Dashawn KAYE MSW, EVP STRATEGY
--- NOTE | 2019-10-21 11:28 | CM.ED ---
SOCIAL WORK THIS WORKER AND CHARGE NURSE, MONIQUE MET WITH PATIENT IN ROOM TO DISCUSS CONCERNS WITH PATIENT RETURNING HOME. PATIENT CONTINUES TO STATE WISHES OF RETURNING HOME. PATIENT AWARE APS HAS BEEN CONTACTED.
--- NOTE | 2019-10-21 11:35 | CM.ED ---
SOCIAL WORK RECEIVED CALL BACK FROM EMANUEL BARRIOS, [facility] CO[facility]. UPDATED ON PATIENT'S STATUS. PER EMANUEL, THE [place] HAS COMPLETED ALL FORMS REQUIRED ON THEIR END FOR THE [facility] HOME AND AID AND ATTENDANCE BENEFIT. EMANUEL STATING THE BALL IS NOW IN HIS COURT. HE KNOWS WHAT NEEDS TURNED IN. EMANUEL STATES WILL ATTEMPT TO FIND HOME HEALTH AIDES, HAS BEEN UNSUCCESSFUL IN THE PAST. EMANUEL SUGGESTING PATIENT FOLLOW UP WITH THE SERVICE COMMISSION TO INQUIRE ABOUT STATUS OF AID AND ATTENDANCE BENEFIT. PATIENT UPDATED ON THE ABOVE. Dashawn KAYE MSW, [place]E WORKER.
--- NOTE | 2019-10-21 11:44 | ED.RN ---
THIS NURSE SPOKE WITH FLATWORK FINISHER HAND CHIEF ALAMO AT [facility] ABOUT THE PT. HE WILL FOLLOWUP WITH THE PT AT HIS HOME. THIS NURSE IN THE ROOM ATTEMPTING TO TALK WITH THE PT ABOUT MY CONCERNS OF HIS SAFETY IF HE GOES HOME. I STRESSED SEVERAL TIMES THAT I AM CONCERNED THAT HE WILL FALL AGAIN AND NO ONE KNOW HE IS THERE AND HE NOT BE ABLE TO CALL FOR HELP. PT STATES I AM 74 YEARS OLD. I WOULD RATHER TOMORROW IN MY HOME THAN LIVE ANOTHER YEAR IN A PENITENTIARY. I AM NOT SUICIDAL AND HAVE NEVER EVEN CONSIDERED SUICIDE. I HAVE LIVED A LONG HAPPY LIFE. THIS NURSE AGAIN SPOKE WITH THE PT ABOUT MY CONCERNS WITH HIS SAFETY. PT DECLINED GOING BACK [place]. PT STATES I WANT TO GO HOME
--- NOTE | 2019-10-21 11:47 | ED.RN ---
CASE MANAGEMENT ATTEMPTING TO WORK WITH PT REGARDING DISPOSITION
--- NOTE | 2019-10-21 12:15 | CM.ED ---
SOCIAL WORK SPOKE WITH ISABELL AT [facility]. PER ISABELL, PATIENT ABLE TO BE RAN FOR DIALYSIS TODAY. PATIENT CAN ARRIVE BETWEEN 3P-4P. PATIENT UPDATED. Dashawn KAYE, PAY PER CLICK STRATEGIST, GEAR SETTER.
--- NOTE | 2019-10-21 12:26 | CM.ED ---
Addendum entered by Julissa Fregoso 10/21/19 16:09: 12:30- TAXI LEFT BEFORE PATIENT TO ED ENTRANCE. PATIENT BROUGHT BACK TO ROOM. Original Note: SOCIAL WORK UPDATED BY NURSING, PATIENT REQUIRED ASSIST OF 2 TO GET TO EDGE OF BED. THIS WORKER TO ROOM. DISCUSSED CONCERNS FOR PATIENT BEING ABLE TO CARE FOR SELF AND REQUIRING ASSISTANCE TO GET TO EDGE OF BED. THIS WORKER WATCHED WHILE NURSING GOT PATIENT IN TO WHEELCHAIR. PATIENT CONTINUES TO REFUSE CARE HOME.
[2019-10-21 13:36] VITALS: BP 120/78; PULSE 78; RESP 18; O2SAT 96
--- NOTE | 2019-10-21 13:55 | CM.ED ---
SOCIAL WORK ADIN FROM [facility] HERE. ADIN AND THIS WORKER MET WITH PATIENT. PATIENT IN AGREEMENT WITH [facility] AND TRANSITION TO ASSISTED LIVING FROM [facility]. PATIENT NOT WANTING TO RETURN TO THE AVENUE. PATIENT TO REVIEW LIST. THIS WORKER TO ASSIST WITH PLACEMENT. Dashawn KAYE, SHORER, WEASAND TRIMMER.
--- NOTE | 2019-10-21 14:00 | CM.ED ---
SOCIAL WORK REVIEWED LIST OF AREA NURSING HOMES. PATIENT REPORTING WILL RETURN TO THE AVENUE. CALL TO RISHI AT [facility] TO DISCUSS PATIENT'S STATUS AND POSSIBLE RE-ADMISSION TO FACILITY. PER RISHI, WILL NEED TO SPEAK WITH BILLING DEPARTMENT PATIENT MAY STILL OWE PATIENT LIABILITY PAYMENT. RISHI TO CALL THIS WORKER BACK.
--- NOTE | 2019-10-21 14:29 | CM.ED ---
SOCIAL WORK RECEIVED CALL BACK FROM RISHI. PATIENT WILL OWE $2,088 FOR OCTOBER. FACILITY BELIEVES PATIENT SIGNED SELF OUT DUE TO NOT WANTING TO PAY. MET WITH PATIENT IN ROOM AND UPDATED ON PAYMENT. PATIENT STATING WISHES TO GO HOME AND NOT GO TO FACILITY. RE-ADDRESSED CONCERNS WITH PATIENT RETURNING HOME AND BEING ABLE TO CARE FOR SELF. PATIENT VOICES UNDERSTANDING, BUT CONTINUES TO STATE WISHES TO RETURN HOME. SUPERVISOR VENDOR QUALITY TO SET UP TRANSPORT.
--- NOTE | 2019-10-21 14:40 | CM.ED ---
SOCIAL WORK ADIN WITH [facility] UPDATED PATIENT NO LONGER IN AGREEMENT WITH INTERMEDIATE AND WISHES TO RETURN HOME. PATIENT IS IN AGREEMENT WITH TRANSITION FROM HOME TO ASSISTED LIVING. INFORMED BY RISHI AT THE [facility] PATIENT HAS TRADITIONAL MEDICAID. THIS WORKER TO MAKE REFERRAL TO [facility] [address] TO ASSIST WITH SERVICES/COMPLETED ASSESSMENT FOR ASSISTED LIVING. Dashawn KAYE MSW, ALTERATIONS SUPERVISOR.
--- NOTE | 2019-10-21 14:50 | CM.ED ---
SOCIAL WORK CALL TO [facility] TO UPDATE PATIENT STILL IN EMERGENCY DEPARTMENT. SPOKE WITH ISABELL. ISABELL REPORTS PATIENT TO BE RAN TOMORROW, REQUESTING PATIENT ARRIVE AT 6:10A. PATIENT UPDATED. PATIENT STATES WILL DRIVE SELF TO APPOINTMENT.
--- NOTE | 2019-10-21 15:00 | CM.ED ---
SOCIAL WORK REFERRAL MADE TO [facility] [address] FOR SERVICES/ASSISTED LIVING ASSESSMENT.
== END 2019-10-21 15:26 | disposition home or self-care (01) ==
PROVIDERS: Emergency Provider Emergency Medicine
DX: Z04.3 Encounter for examination and observation following other accident (principal); I12.0 Hypertensive chronic kidney disease with stage 5 chronic kidney disease or end stage renal disease; E11.22 Type 2 diabetes mellitus with diabetic chronic kidney disease; N18.6 End stage renal disease; Z99.2 Dependence on renal dialysis; K21.9 Gastro-esophageal reflux disease without esophagitis; E03.9 Hypothyroidism, unspecified; F32.9 Major depressive disorder, single episode, unspecified; F41.9 Anxiety disorder, unspecified; Z79.4 Long term (current) use of insulin; Z79.899 Other long term (current) drug therapy; Z87.891 Personal history of nicotine dependence
CPT/HCPCS: 80048; 85025; 99285; A4216

== ENCOUNTER 2019-10-22 19:37 | Inpatient (IN) | payer MEDICARE, SELFPAY ==
[2019-10-22 19:39] VITALS: BP 100/53; PULSE 105; RESP 14; TEMP 37; O2SAT 98; BMI 37.5
--- NOTE | 2019-10-22 19:53 | EKG12_ITS ---
Test Reason : DYSRHYTHMIA Blood Pressure : / mmHG Vent. Rate : 098 BPM Atrial Rate : 098 BPM P-R Int : 148 ms QRS Dur : 078 ms QT Int : 390 ms P-R-T Axes : 025 049 084 degrees QTc Int : 497 ms Normal sinus rhythm Prolonged QT Abnormal ECG Confirmed by THERON PEARL, ELIZABETH ([id number]), editor house organ CRYSTAL LAZO ([id number]) on 10/24/2019 10:43:19 AM Referred By: MARGARITA Confirmed By:ELIZABETH CRUMP MD
--- NOTE | 2019-10-22 19:54 | ED.VIS.GEN ---
History of Present Illness Chief Complaint: Weakness Informant: Patient Onset: Month(s) Context: - - Patient does not recall if this was sudden Timing: Continuous Quality: Generalized weakness Location: Not applicable Current Severity: Mild Maximum Severity: Moderate Worsened by: Nothing per patient Relieved by: Nothing Associated Symptoms: Black stool Narrative: Patient is a 74-year-old male who was started on hemodialysis 1 month ago. The etiology of his renal failure per patient is unknown. He was dialyzed today. He apparently fell 2 days ago. He is wearing the same close he had on 2 days ago. He states he did not wear closed for 2 days. He apparently had nothing else to where to go to dialysis. He states he is on iron. He denies fever, chills night sweats. He denies headache, visual, ocular auditory symptoms. He denies URI symptoms. He denies cardiac symptoms or chest pain. He denies shortness of breath. He denies abdominal pain. He denies hematemesis or hematochezia. He denies vomiting. He does make urine and denies dysuria, frequency, urgency or hematuria. He states he believes he is making less urine. He denies anesthesia, paresthesia or motor weakness. He denies problems with balance. He reports when he fell he did not hit his head. Prior similar symptoms: No Recent Illness/Hospitalization: Yes - Past Medical History (1) Anxiety and depression Status: Chronic (2) Chronic anemia Status: Chronic (3) Diabetes mellitus, type II Status: Chronic (4) ESRD (end stage renal disease) on dialysis Status: Chronic (5) GERD (gastroesophageal reflux disease) Status: Chronic (6) HTN (hypertension) Status: Chronic (7) Hypothyroidism Status: Chronic (8) MEGAN (obstructive sleep apnea) Status: Chronic (9) Thrombocytopenia Status: Chronic (10) Tobacco use Status: Chronic Past Medical History - Allergies and Home Meds Allergies/Adverse Reactions: Allergies lisinopril Allergy (Verified 10/22/19 19:38) PT UNSURE OF REACTION metformin Allergy (Verified 10/22/19 19:38) Angioedema Penicillins Allergy (Verified 10/22/19 19:38) Rash Tetanus Vaccines and Toxoid Allergy (Verified 10/22/19 19:38) Swelling at injection site Primary Care Phys[facility] - Prior records reviewed: Yes Surgical History: cataract, - - Prior back surgery, ureteral stent placements, cataract. Lives: Alone Smoking Status: Current some day smoker Alcohol: None Drugs: None - Family History Maternal Family History: Reports: Heart Disease, Hypertension Paternal Family History: Reports: Cancer, Hypertension Review of Systems General: Reports: Malaise. Denies: Chills, Fever, Sweats, Weight loss Eyes: Denies: Visual changes - bilaterally, Blurred Vision - bilaterally ENT: Denies: Rhinorrhea, Sore throat Cardiovascular: Denies: Chest pain, Palpitations Respiratory: Reports: Cough - Intermittent cough for several months.. Denies: Dyspnea, Sputum, Dyspnea on exertion, Orthopnea, Paroxysmal nocturnal dyspnea Gastrointestinal: Reports: Melena. Denies: Abdominal pain, Nausea, Vomiting, Diarrhea, Constipation, Hematochezia, -, - Genitourinary: Denies: Dysuria, Hematuria, Frequency Musculoskeletal: Denies: Myalgias, Arthralgias, Neck pain, Back pain, Swelling, Extremity Pain, -, - Skin: Denies: Rash, Wounds Neurological: Reports: Weakness. Denies: Headache, Parasthesia, Numbness Psych: Reports: Depression, Anxiety. Denies: Suicidal thoughts Endocrine: Denies: Polyuria, Polydipsia Hematologic: Denies: Easy bruising, Easy bleeding Physical Exam Vital Signs/Narrative: Vital Signs Temp Pulse Resp BP Pulse Ox 10/22/19 19:39 98.6 F 105 H 14 100/53 L 98 Inital Vital Signs reviewed: Yes General: Well nourished, Well developed, Obese, Unkempt, No Acute Distress Head: Normocephalic, Atraumatic. Negative for: Trauma, Tenderness Eyes: Perrl, EOMI. Negative for: Pale conjunctiva, Scleral icterus ENT: No rhinorrhea. Negative for: Nasal congestion Neck: Supple, Nontender, No lymphadenopathy, No JVD Cardiovascular: Regular rhythm, No murmurs, Normal S1, Normal S2, Tachycardia Respiratory: No distress, CTA bilaterally, Chest nontender Abdomen: Soft, Nontender, Nondistended, Normal bowel sounds, No masses. Negative for: Hepatomegaly, Splenomegaly, Mass, Pulsatile mass Rectal: - - Stool is dark green. There is no blood or mucus. : - - Testes descended bilaterally. No penile lesions or discharge noted. Back: Nontender, Normal Inspection Extremities: Nontender, Edema Skin: Normal color, No rash. Negative for: Cyanosis, Diaphoresis, Jaundice Neurological: Alert, Oriented x3, Cranial nerves II-XII grossly intact, Normal Strength, Normal Sensation, Normal DTR Psychological: Negative for: Normal affect, Normal Mood Diagnostic/Tx/Re-eval 10/22/19 20:00 Stool Stool Occult Blood (ALEJANDRO) - Final Laboratory Results 10/22/19 10/22/19 10/22/19 19:44 19:44 20:20 WBC 6.2 RBC 3.84 L Hgb 10.6 L Hct 34.4 L MCV 89.6 MCH 27.6 MCHC 30.8 L RDW Std Deviation 65.9 H RDW Coeff of Nyasia 21.0 H Plt Count 177 MPV 8.6 Immature Gran % (Auto) 0.600 Neut % (Auto) 61.9 Lymph % (Auto) 29.3 [place] % (Auto) 6.9 Eos % (Auto) 0.8 Baso % (Auto) 0.5 Absolute Neuts (auto) 3.9 Absolute Lymphs (auto) 1.83 Nucleated RBC % 0.3 Differential Comment Sodium 139 Potassium 3.8 Chloride 100 Carbon Dioxide 27.0 Anion Gap 12 BUN 30 H Creatinine 3.42 H Estim Creat Clear Calc 19.57 Est GFR (MDRD) Af Amer 23 L Est GFR (MDRD) Non-Af 19 L BUN/Creatinine Ratio 8.8 L Glucose 280 H Calcium 9.0 Total Bilirubin 0.40 AST 16 ALT 16 Alkaline Phosphatase 164 H Total Protein 8.5 H Albumin 3.1 L Globulin 5.4 H Albumin/Globulin Ratio 0.6 L Urine Color Yellow Urine Clarity Turbid Urine pH 7.0 Ur Specific [place] 1.010 Urine Protein 100 H Urine Glucose (UA) Normal Urine Ketones Negative Urine Occult Blood 150 H Urine Nitrite Negative Urine Bilirubin Negative Urine Urobilinogen Normal Ur Leukocyte Esterase 500 H Urine RBC 0 SEEN Urine WBC >100 SEEN Ur Squamous Epith Cells 0 SEEN Urine Bacteria 0 SEEN Urine Mucus 0 SEEN Reveals pyuria without bacteria. He has greater than 100 WBCs and no epithelial cells. Macro was positive for blood and leukoesterase negative for nitrites. Comprehensive metabolic panel was remarkable for a BUN and creatinine of 30 and 3.42. Patient is a dialysis patient and he was dialyzed today. Potassium is normal. Total protein is elevated 8.5. Albumin was 3.1. CBC is remarkable for a hemoglobin of 10.6. This is baseline for patient. - EKG Initial EKG Interpretation: Sinus Rhythm - This rhythm with a ventricular rate of 98. WA interval is 148 ms. QRS duration 78 ms. QT is 390 seconds with a QTC of 497 ms. [place] is normal. There is prolongation of the QT interval. - Medical Decision Making Dual was sent for Hemoccult test. Patient is hypotensive. This may be secondary to dialysis. He does not know the amount of fluid removed. Will administer 500 cc bolus. CBC was obtained to assess H&H since he has history of iron deficiency anemia. Basic metabolic panel was obtained to assess potassium and electrolytes. UA was obtained to rule out urinary tract infection. When patient was told he would be going home he has concerned that he is not able to care for himself. He states he has difficulty walking. Will have nurse walk him. If he is unable to walk and he is not able to care for himself will contact hospitalist for observation status for case management to see him in the morning for placement back into a nursing facility. Patient's blood pressure did improve with hydration. Most recent is 112 systolic. Patient did receive 650 mg of Tylenol for his fever. Patient's Vas-Cath site reveals no evidence of infection. Patient is unable to get out of bed. In light of fever, inability to care for himself, and concern for infection hospitalist has been paged for admission. ED Disposition - Plan for ED Patient: Disposition: Acute Care [facility] Diagnosis: Hypotension, Pyuria, Anemia in chronic illness, End-stage renal disease on hemodialysis, Fever, Hyperglycemia due to type 2 diabetes mellitus [facility] -
[2019-10-22 19:59] LABS: Absolute Lymphocyte Count 1.83 X10^3/uL (0.83-4.51); Absolute Neutrophil Count 3.9 X10^3/uL (2.0-7.7); Basophil# 0.03 X10^3/uL; Basophil% 0.5 % (0-1); Eosinophil# 0.05 X10^3/uL; Eosinophils% 0.8 % (0-5); Hematocrit 34.4 % (40-54); Hemoglobin 10.6 g/dL (13.0-16.5); Lymphocyte # 1.83 X10^3/ul (4.0); Lymphocyte % 29.3 % (19-41); Mean Corp Hgb Conc 30.8 g/dL (32-36); Mean Corpuscular Hgb 27.6 pg (27.0-32.0); Mean Corpuscular Volume 89.6 fL (80-94); Mean Platelet Vol. 8.6 fl (6.2-12.0); Monocyte# 0.43 X10^3/uL; Monocyte% 6.9 % (0-10); NRBC Flagged by Analyzer 0.3 % (0-5); Neutrophil # 3.86 X10^3/uL (2.7-7.7); Neutrophil % 61.9 % (47-70); POSITIVE MORPHOLOGY YES; Platelet Count 177 K/mm3 (150-450); RBC Distribution Width SD 65.9 fl (35.1-43.9); Red Blood Count 3.84 M/mm3 (4.6-6.2); White Blood Count 6.2 K/mm3 (4.4-11.0)
[2019-10-22 20:03] LABS: Differential Indicated SCAN CRITERIA MET
[2019-10-22 20:11] VITALS: BP 90/58; PULSE 98; RESP 14; O2SAT 97
[2019-10-22 20:15] LABS: ALB/GLOB Ratio 0.6 RATIO (0.9-2.4); AST(SGOT) 16 U/L (15-37); Alanine Aminotransfer ALT/SGPT 16 U/L (16-61); Albumin, Serum 3.1 g/dL (3.2-5.0); Alkaline Phosphatase 164 U/L (45-117); Anion Gap 12 (5-15); BUN 30 mg/dL (7-18); BUN/Creat Ratio 8.8 RATIO (10-20); Chloride 100 mmol/L (98-107); Creatinine, Serum 3.42 mg/dL (0.70-1.30); EST Glomerular Filtration Rate 19 mL/min (>60); Est Glom Filt Rate - Afr Amer 23 mL/min (>60); Estimated Creatinine Clearance 19.57 ml/min; Globulin 5.4 g/dL (2.2-4.2); Glucose 280 mg/dL (74-106); Potassium 3.8 mmol/L (3.5-5.1); Protein, Total 8.5 g/dL (6.4-8.2); Sodium Level 139 mmol/L (136-145)
[2019-10-22 20:35] LABS: Bacteria 0 SEEN /hpf (None Seen); Mucous, Urine 0 SEEN /hpf (<or=2+); Red Blood Cells-Urine 0 SEEN /hpf (0-5); Squamous Epithelial Cells - UA 0 SEEN /hpf (0-5)
[2019-10-22 20:36] LABS: Color, Urine Yellow (Yellow); Glucose, Dipstick Normal (Normal); Ketone-Dipstick Negative (Negative); Leukocyte Esterase-Dipstick 500 /ul (Negative); Nitrite-Dipstick Negative (Negative); Occult Blood-Urine 150 /ul (Negative); Protein-Dipstick 100 mg/dl (Negative); Urine Bilirubin Dipstick Negative (Negative); Urine Clarity Turbid (Clear); Urine Urobilinogen Normal (Normal)
[2019-10-22 20:44] LABS: White Blood Cells >100 SEEN /hpf (0-5)
[2019-10-22 21:29] VITALS: BP 103/67; PULSE 95; RESP 14; O2SAT 97
[2019-10-22 22:30] VITALS: BP 105/67; PULSE 98; RESP 14; O2SAT 97
[2019-10-22] MEDS: Ceftriaxone 1 GM/50 ML BAG IV (23:16)
[2019-10-22 23:18] VITALS: BP 105/57; PULSE 100; RESP 18; O2SAT 96
[2019-10-22 23:19] VITALS: BP 105/52; PULSE 98; RESP 19; TEMP 38.2; O2SAT 98
--- NOTE | 2019-10-22 23:42 | PCM.HP.STD ---
Problem List (1) SIRS (systemic inflammatory response syndrome) Status: Acute (2) ESRD (end stage renal disease) on dialysis Status: Chronic (3) Anemia in chronic illness Status: Chronic (4) HTN (hypertension) Status: Chronic Qualifiers: Hypertension type: essential hypertension Qualified Code(s): I10 - Essential (primary) hypertension (5) Anxiety and depression Status: Chronic (6) Tobacco use Status: Chronic (7) MEGAN (obstructive sleep apnea) Status: Chronic (8) Hypothyroidism Status: Chronic Qualifiers: Hypothyroidism type: unspecified Qualified Code(s): E03.9 - Hypothyroidism, unspecified (9) GERD (gastroesophageal reflux disease) Status: Chronic Qualifiers: Esophagitis presence: esophagitis presence not specified Qualified Code(s): K21.9 - Gastro-esophageal reflux disease without esophagitis (10) Diabetes mellitus, type II Status: Chronic Qualifiers: Diabetes mellitus care home insulin use: with assistant terminal manager use Diabetes mellitus complication status: with other specified complication Qualified Code(s): E11.69 - Type 2 diabetes mellitus with other specified complication; Z79.4 - superintendent marine oil terminal (current) use of insulin History of Present Illness Date of Admission: 10/22/19 Chief Complaint: Weakness The patient is a 74 y/o M w/ PMHx: AOCD/Fe deficiency anemia, Diabetes mellitus type II, Anxiety and Depression, BPH, GERD, HLD, Hypothyroidism, ESRD on HD following w/ MEGAN Jones who presents to the [facility] ED on 10/22/19 with history of progressively worsening weakness, inability to care for himself, noted HD on day of presentation with mild hypotension prior, noted to have been covered in feces upon presentation with recent 09/09/19-09/16/19 admission with treatment for possible port infection discharge to home despite detention facility continued placement recommendations secondary to cost as had recently been at [facility] for greater than 100 days and had left secondary to transition to self-pay who now represents secondary to debility, failure to thrive and weakness describing a very full day following his transition to home including evaluation for cost of a muffler, visiting [employer] and several other errands and upon returning home significant debility and weakness. Patient does note that his blood pressures have been labile especially following dialysis initiation and he routinely does live run low but can intermittently elevate. He states that since he started dialysis he has frequently felt poorly and weak. He denies any recent cough, congestion, alteration to sense of taste or smell, dyspnea, fever, chills, nausea, emesis, abdominal pain however does admit that he has intermittent loose stools and constipation which is chronic. He denies any recent dysuria or suprapubic tenderness. He does reportedly have dark stools but is on chronic iron supplementation. In the ED patient does have some mild coccyx stage I irritation. Work-up in the ED included T 100.7, heart rate 105, BP initially 153 respiratory rate 14, 98% on room air, CBC with WBC 6.2, hemoglobin 10.6, platelet 177 without shift, CMP with BUN/creatinine 30/3.42, glucose 280, total bilirubin 0.40, AST/ALT 16/16, alk phos 164, urinalysis with specific gravity 1.010, protein 100, occult blood 150, negative nitrite, 500 leukocyte esterase, greater than 100 WBCs, no urine bacteria demonstrated but turbid in appearance, urine culture pending per ED, stool occult negative, Bld Cx x 2 pending. In the ED patient administered Rocephin, vancomycin, Tylenol and normal saline. Past Medical History Past Medical History (Chronic Problems): Chronic Problems ESRD (end stage renal disease) on dialysis (Chronic) Hyponatremia (Chronic) Thrombocytopenia (Chronic) Anemia in chronic illness (Chronic) CKD (chronic kidney disease), stage IV (Chronic) HTN (hypertension) (Chronic) Anxiety and depression (Chronic) Tobacco use (Chronic) MEGAN (obstructive sleep apnea) (Chronic) Hypothyroidism (Chronic) Chronic anemia (Chronic) GERD (gastroesophageal reflux disease) (Chronic) Diabetes mellitus, type II (Chronic) Allergies lisinopril Allergy (Verified 10/22/19 19:38) PT UNSURE OF REACTION metformin Allergy (Verified 10/22/19 19:38) Angioedema Penicillins Allergy (Verified 10/22/19 19:38) Rash Tetanus Vaccines and Toxoid Allergy (Verified 10/22/19 19:38) Swelling at injection site Home Medications: Ambulatory Orders Medication Instructions Recorded Tamsulosin HCl [Flomax] 0.4 mg PO QHS 05/11/18 Atorvastatin Calcium [Lipitor] 10 mg PO QHS 04/26/19 Folic Acid/Vitamin B Comp W-C 1 cap PO DAILY 09/09/19 [Nephrocaps, Renaphro] Levothyroxine Sodium [Synthroid] 75 mcg PO DAILY 09/09/19 Omeprazole 20 mg PO DAILY 09/09/19 Acetaminophen [Tylenol Tablet] 650 mg PO Q6H PRN PRN tab 09/11/19 Ferrous Sulfate 325 mg PO DAILY@1200 #30 tab 09/11/19 Insulin Lispro [Humalog KwikPen] See Protocol SUBCUT ACHS 09/11/19 insuln.pen Calcium Acetate 667 mg PO TID 10/20/19 Hydroxyzine Pamoate [Vistaril] 25 mg PO Q6H PRN PRN 10/20/19 Midodrine HCl 5 mg PO QODAY 10/20/19 Sertraline HCl [Zoloft] 100 mg PO BID 10/20/19 Insulin Glargine [Lantus SoloStar 38 units SUBCUT QHS 10/22/19 Pen] Surgical History: cataract, - - Prior back surgery, ureteral stent placements, cataract. Psychiatric History: Depression Lives: Alone Smoking Status: Current some day smoker Tobacco Use: Cigars, Pipe Alcohol: None Drugs: None - *Family History Maternal History Items: Heart Disease, Hypertension Paternal History Items: Cancer, Hypertension Review of Systems Constitutional: Reports: Weakness, Fatigue. Denies: Anorexia, Chills, Fever, Malaise, Weight Change HEENT: Denies: Head Aches, Nasal Congestion, Post Nasal Drip, Sinus Congestion, Sinus Drainage, Sore Throat Cardiovascular: Denies: Chest Pain, Chest Pressure, Chest Tightness, Light Headedness, Orthopnea, Palpitations, Syncope Respiratory: Denies: Cough, Shortness of Breath, Shortness of breath at rest, Shortness of breath upon exertion, Sputum production, Wheezing Gastrointestinal: Reports: Constipation - Intermittent constipation and diarrhea, stable, unchanged, Diarrhea - Intermittent constipation and diarrhea, stable, unchanged. Denies: Abdominal Pain, Nausea, Vomiting Genitourinary: Denies: Dysuria Musculoskeletal: Reports: Joint stiffness - Bilateral knee discomfort, Joint swelling - Bilateral knee discomfort. Denies: Joint Pain, Joint Tenderness Skin: Denies: Rash, Wounds Neurological: Denies: Numbness, Tingling, Focal weakness Psychiatric: Reports: Anxiety, Depression. Denies: Homicidal Ideations, Suicidal Ideations Hematologic/ Lymphatic: Reports: Anemia. Denies: Easy Bruising, Easy Bleeding VTE Information - Inpt Only VTE Present on Admission: No VTE Mechan Device Prophylaxis: SCD's VTE Pharm Prophylaxis ordered?: Yes Patient Problems: Active and Suspected Problems Hypotension (Acute) Pyuria (Acute) End-stage renal disease on hemodialysis (Acute) Fever (Acute) Hyperglycemia due to type 2 diabetes mellitus (Acute) SIRS (systemic inflammatory response syndrome) (Acute) Subjective: Patient seated upright in the ED bed, fatigued appearance, [id number], no acute distress. Objective: Physical Examination: General: awake, alert, oriented x 3 and cooperative, seated upright in the ED bed in no apparent distress, non-ill appearing. Skin: normal color, turgor, no icterus, cyanosis except notable BL LE chronic venous stasis skin changes, coccyx stage I. HEENT: AT/NC, EOMI, PERRLA, moderately dry MM, no carotid bruits or JVD noted. Lungs: CTA bilaterally, moderate effort, moderate decrease BL bases, no rales, ronchi or wheezing. Heart: Regular rate and rhythm; no gallop, rub audible. Abdomen: soft, obese, NTTP, ND, normal BS, no HSM. Extremities: no cyanosis, clubbing, mild bilateral ankle nonpitting edema, chronic venous stasis changes as noted. Neurological: patient awake, alert, oriented x 3; cognitive function appears baseline intact; pupils equally reactive to light and accomodation; cranial nerves II-XII grossly normal, moving all 4 extremities, no focal deficits, strength mildly to moderately global decreased. Psychiatric: affect appears mildly fatigued otherwise normal, no acute evidence of depressive or anxiety feelings. - Physical Exam Vitals/I&O's: Vital Signs Temp Pulse Resp BP Pulse Ox 100.7 F H 98 19 H 105/52 L 98 10/22/19 23:19 10/22/19 23:19 10/22/19 23:19 10/22/19 23:19 10/22/19 23:19 Oxygen Delivery Method Room Air Weight: 261 lb 7.492 oz Body Mass Index (BMI) 37.5 Finger Stick Blood Glucose 99 Intake and Output for Last 24 Hours 10/20/19 10/21/19 10/22/19 23:59 23:59 23:59 Intake Total 500 / 500 Balance 500 / 500 Microbiology Past 72 Hours 10/22/19 20:00 Stool Stool Occult Blood (ALEJANDRO) - Final Laboratory Results 10/22/19 19:44: WBC 6.2, RBC 3.84 L, Hgb 10.6 L, Hct 34.4 L, MCV 89.6, MCH 27.6, MCHC 30.8 L, RDW Std Deviation 65.9 H, RDW Coeff of Nyasia 21.0 H, Plt Count 177, MPV 8.6, Immature Gran % (Auto) 0.600, Neut % (Auto) 61.9, Lymph % (Auto) 29.3, [place] % (Auto) 6.9, Eos % (Auto) 0.8, Baso % (Auto) 0.5, Absolute Neuts (auto) 3.9, Absolute Lymphs (auto) 1.83, Nucleated RBC % 0.3, Differential Comment 10/22/19 19:44: Sodium 139, Potassium 3.8, Chloride 100, Carbon Dioxide 27.0, Anion Gap 12, BUN 30 H, Creatinine 3.42 H, Estim Creat Clear Calc 19.57, Est GFR (MDRD) Af Amer 23 L, Est GFR (MDRD) Non-Af 19 L, BUN/Creatinine Ratio 8.8 L, Glucose 280 H, Calcium 9.0, Total Bilirubin 0.40, AST 16, ALT 16, Alkaline Phosphatase 164 H, Total Protein 8.5 H, Albumin 3.1 L, Globulin 5.4 H, Albumin/Globulin Ratio 0.6 L 10/22/19 20:20: Urine Color Yellow, Urine Clarity Turbid, Urine pH 7.0, Ur Specific [place] 1.010, Urine Protein 100 H, Urine Glucose (UA) Normal, Urine Ketones Negative, Urine Occult Blood 150 H, Urine Nitrite Negative, Urine Bilirubin Negative, Urine Urobilinogen Normal, Ur Leukocyte Esterase 500 H, Urine RBC 0 SEEN, Urine WBC >100 SEEN, Ur Squamous Epith Cells 0 SEEN, Urine Bacteria 0 SEEN, Urine Mucus 0 SEEN Current Medications Vancomycin HCl 2,000 mg/ (Sodium Chloride) 540 mls @ 250 mls/hr IV X1 ONE Stop: 10/23/19 01:49 Assessment/Plan All Active Problems Weakness (Acute) Hypotension (Acute) Pyuria (Acute) End-stage renal disease on hemodialysis (Acute) Fever (Acute) Hyperglycemia due to type 2 diabetes mellitus (Acute) SIRS (systemic inflammatory response syndrome) (Acute) The patient is a 74 y/o M w/ PMHx: AOCD/Fe deficiency anemia, Diabetes mellitus type II, Anxiety and Depression, BPH, GERD, HLD, Hypothyroidism, ESRD on HD following w/ MEGAN Jones who presents to the [facility] ED on 10/22/19 with history of progressively worsening weakness, inability to care for himself, noted HD on day of presentation with mild hypotension prior, noted to have been covered in feces upon presentation with recent 09/09/19-09/16/19 admission with treatment for possible port infection discharge to home despite detention facility continued placement recommendations secondary to cost as had recently been at [facility] for greater than 100 days and had left secondary to transition to self-pay who now represents secondary to debility, failure to thrive with noted elevated T upon ED evaluation. 1. Debility, weakness, failure to thrive, Multifactorial, including Acute SIRS (Fever, hypotensive, tachycardic) of Unclear Etiology: No obvious concerning port findings as previously had been treated for possible port infection. We will admit to the medical surgical floor, maintain on fall precautions, continue BSA with Rocephin and vancomycin pending urine culture, blood culture, COVID assessment although lower suspicion given no associated symptoms, obtain C. difficile and stool culture although patient notes chronic diarrhea but given recent admissions and antibiotic therapies will be cautious, requested chest x-ray, PT/OT/case management consultations for discharge planning. 2. ESRD: HD MWF, following with Dr. Isaac who will be consulted for ongoing dialysis needs. 3. Diabetes mellitus type II: We will continue patient home insulin regimen, ADA diet, Accu-Cheks with insulin sliding scale. 4. Hypertension: Noted prior history, labile since dialysis initiation, will maintain on Midrin, BP currently low upon current presentation with #1 presentation, PRN IV hydralazine. 5. Hyperlipidemia: We will continue patient on statin therapy. 6. Hypothyroidism: We will continue patient home Synthroid regimen. 7. Anxiety and depression: We will continue patient home sertraline regimen. 8. MEGAN: We will continue home CPAP regimen. 9. BPH: We will continue patient home Flomax regimen. 10. GERD: We will continue patient home PPI. 11. Obesity: We will encourage lifestyle and diet changes. 12. AOCD/iron deficiency anemia: Patient hemoglobin 10.6, stable, continue to trend, continue patient home iron supplementation. DVT prophylaxis: SCDs, heparin. 13. CODE status: Patient HCPOA is his niece Araseli Avalos and living will is not currently in place. Discussed CODE status at length including difference between FULL code, DNR-CCA and DNR-CC status. Following discussions about the differences in these status, requested DNR CCA, no intubation. Advanced Care Planning Face to Face Time: 16 minutes. Inpatient E&M: 86831 Init Hosp L3 Procedures: 12059 Advncd Care Plan 30 Min
[2019-10-22] MEDS: Acetaminophen 325 MG Tablet 650 MG PO (23:45)
--- NOTE | 2019-10-22 23:56 | ED.RN ---
bc drawn after antibiotics half way done. aware.
[2019-10-23] VITALS (17 sets, daily range): BP systolic 73–113; BP diastolic 43–75; PULSE 75–101; RESP 16–20; TEMP 36.4–37.7; O2SAT 92–99; BMI 35.9; BMI 36.0
[2019-10-23 00:52] LABS: Lactic Acid 1.9 mmol/L (0.4-1.9)
--- NOTE | 2019-10-23 01:46 | RAD_ITS ---
STUDY: X-RAY CHEST REASON FOR EXAM: Male, 74 years old patient with fever TECHNIQUE: PA and lateral views of the chest. COMPARISON: September 23, 2019 FINDINGS: Patient has a left-sided dialysis catheter in the internal jugular vein with tips of the catheters in the superior vena cava. The lungs are expanded. There is interstitial thickening present in both lungs. There is patchy groundglass attenuation of the lung bases suggesting possible air space disease and pneumonia. There is no demonstrated pleural abnormality. Normal size heart. Normal mediastinum and kira. There is prominence of the pulmonary hilar arteries with peripheral pulmonary vascular congestion. There is atherosclerotic calcification of the aortic arch with tortuosity. There is demineralization of the osseous structures. Normal visualized ribs, clavicles, and shoulders. There is no demonstrated abnormality of the visualized soft tissue structures of the upper abdomen. RAD/Chest PA and Lateral IMPRESSION: 1. Mild pulmonary congestion, similar to previous study. 2. Bilateral basilar airspace disease possibly representing pneumonia or atelectasis. Electronically Signed: Rupal Figueroa MD at 2:12 EDT , Service support ,
--- NOTE | 2019-10-23 02:23 | PCM.RX.CS ---
Consult Pharmacy has been consulted to manage selected antiobiotic: Vancomycin Type of Consult: New start Suspected Infection: Other Prior Doses of Antibiotics Received/Current Regimen: Medications Discontinued Medications Vancomycin HCl 2,000 mg/ (Sodium Chloride) 540 mls @ 250 mls/hr IV X1 ONE Stop: 10/23/19 01:49 Last Admin: 10/23/19 00:07 Dose: 250 mls/hr Labs: Sodium 139 mmol/L (136-145) 10/22/19 19:44 Potassium 3.8 mmol/L (3.5-5.1) 10/22/19 19:44 Chloride 100 mmol/L (98-107) 10/22/19 19:44 Carbon Dioxide 27.0 mmol/L (21.0-32.0) 10/22/19 19:44 Anion Gap 12 (5-15) 10/22/19 19:44 BUN 30 mg/dL (7-18) H 10/22/19 19:44 Creatinine 3.42 mg/dL (0.70-1.30) H 10/22/19 19:44 Est GFR (MDRD) Af Amer 23 mL/min (>60) L 10/22/19 19:44 Est GFR (MDRD) Non-Af 19 mL/min (>60) L 10/22/19 19:44 BUN/Creatinine Ratio 8.8 RATIO (10-20) L 10/22/19 19:44 Glucose 280 mg/dL (74-106) H 10/22/19 19:44 Microbiology: Microbiology 10/22/19 20:00 Stool Stool Occult Blood (ALEJANDRO) - Final Weight used for dosin.8 kg Estimated Creatinine Clearance: 19.6 Goal Trough: 15-20 mcg/mL Pharmacy Plan for Drug Dosing: Initial 2000mg vancomycin dose was given in ED 10/23/19. Next dose will be given after next dialysis session. Pharmacy Service will continue to monitor and adjust dosing as required.
[2019-10-23] MEDS: 0.9% Normal Saline 1,000 ML 100 ML IV ×3 (02:44→19:00)
[2019-10-23 06:33] LABS: Absolute Lymphocyte Count 1.54 X10^3/uL (0.83-4.51); Absolute Neutrophil Count 2.7 X10^3/uL (2.0-7.7); Basophil# 0.02 X10^3/uL; Basophil% 0.4 % (0-1); Eosinophil# 0.05 X10^3/uL; Eosinophils% 1.1 % (0-5); Hematocrit 31.4 % (40-54); Hemoglobin 9.6 g/dL (13.0-16.5); Lymphocyte # 1.54 X10^3/ul (4.0); Lymphocyte % 32.6 % (19-41); Mean Corp Hgb Conc 30.6 g/dL (32-36); Mean Corpuscular Hgb 27.9 pg (27.0-32.0); Mean Corpuscular Volume 91.3 fL (80-94); Mean Platelet Vol. 8.7 fl (6.2-12.0); Monocyte# 0.42 X10^3/uL; Monocyte% 8.9 % (0-10); NRBC Flagged by Analyzer 0 % (0-5); Neutrophil # 2.67 X10^3/uL (2.7-7.7); Neutrophil % 56.6 % (47-70); POSITIVE MORPHOLOGY YES; Platelet Count 136 K/mm3 (150-450); RBC Distribution Width CV 20.8 % (11.6-14.6); RBC Distribution Width SD 66.9 fl (35.1-43.9); Red Blood Count 3.44 M/mm3 (4.6-6.2); White Blood Count 4.7 K/mm3 (4.4-11.0)
[2019-10-23 06:36] LABS: Differential Indicated SCAN CRITERIA MET
[2019-10-23 06:56] LABS: ALB/GLOB Ratio 0.7 RATIO (0.9-2.4); AST(SGOT) 14 U/L (15-37); Alanine Aminotransfer ALT/SGPT 15 U/L (16-61); Albumin, Serum 2.7 g/dL (3.2-5.0); Alkaline Phosphatase 141 U/L (45-117); Anion Gap 8 (5-15); BUN 32 mg/dL (7-18); BUN/Creat Ratio 8.6 RATIO (10-20); Calcium,Total 8.2 mg/dL (8.5-10.1); Chloride 103 mmol/L (98-107); Creatinine, Serum 3.73 mg/dL (0.70-1.30); Differential Comment SCANNED; EST Glomerular Filtration Rate 17 mL/min (>60); Est Glom Filt Rate - Afr Amer 21 mL/min (>60); Estimated Creatinine Clearance 17.94 ml/min; Glucose 136 mg/dL (74-106); Magnesium 2.2 mg/dL (1.6-2.6); Microcytosis 1+; Phosphorus 3.6 mg/dL (2.5-4.9); Potassium 3.4 mmol/L (3.5-5.1); Protein, Total 6.7 g/dL (6.4-8.2); Sodium Level 141 mmol/L (136-145); Stomatocyte RARE
[2019-10-23] MEDS: Levothyroxine 75 MCG Tablet PO (07:00)
[2019-10-23] MEDS: Pantoprazole Sodium 20 MG Tablet PO (09:51)
[2019-10-23] MEDS: Sertraline 100 MG Tablet PO ×2 (09:51→21:24)
[2019-10-23] MEDS: Folic Acid/Vitamin B Comp W-C 1 Capsule 1 CAP PO (09:51)
[2019-10-23] MEDS: Midodrine HCl 5 MG Tablet PO (09:51)
[2019-10-23] MEDS: Heparin Injection (Vial) 5,000 UNIT/ML VIAL 5000 UNIT SC ×2 (09:52→21:22)
[2019-10-23] MEDS: Nystatin Powder 15gm Bottle 1 APPLIC TOPICAL ×2 (09:52→20:53)
[2019-10-23] MEDS: Calcium Acetate 667 MG Capsule PO ×3 (09:52→17:15)
[2019-10-23] MEDS: Glucerna Shake 120 ML LIQUID PO ×2 (09:57→12:16)
--- NOTE | 2019-10-23 10:58 | CASEMGMT ---
Social Work Note Pt presents to [facility] for weakness and inability to care for self. JULIAN reviewed notes. Pt was last admitted to [facility] on 09/14/2019-09/16/2019 and was discharged to [facility]. Pt was back in ED 10/20/2019-10/21/2019 and discharged home and came back to [facility] ED 10/22/2019. JULIAN placed a call to Ivy at [facility]. Ivy states pt left AMA on 10/20/2019. Ivy states pt stated that it was the end of the month, paid his patient liability, and didn't want to pay for another month of his patient liability so pt left AMA. Ivy confirms that regardless of SNF pt goes to, he will have the same liability as it is determined through Medicaid. Ivy states pt has not been home long enough (90 days) to get linked up with W[facility] services. SW in to speak with pt. SW introduced self and role at [facility]. Pt is alert and orientated x3. Pt confirms that he left [facility] AMA due to financial reasons and not wanting to pay for another month of being at SNF. Pt states that he now realizes that he is not able to take care of himself at home. Pt confirms that he was discharged on 10/20/[address] [facility] and went home and ended up falling in his garage. Pt states he told the EMS to just take him back into his home but they talked him into coming to the ED. Pt states that he was in the ED for a day and then discharged home. Pt states that he was visiting friends and going to [facility] and then when he returned home, he couldn't get out of his car due to weakness. Pt states that he called EMS again to bring to ED. Pt states he now realizes that he is not able to take care of himself at home. Pt confirms that he still on the waitlist for the [facility] and is agreeable to going to SNF. SW provided pt with list of SNF. SW updated pt that Larry in [place] is VA connected and may be beneficial to go to a VA SNF that could continue to assist him with getting to the [facility] but informed pt that he could go to any SNF, pending acceptance, under his medicaid. Pt states agreeable to [facility]. SW spoke to pt regarding patient liability under medicaid and informed pt that he will likely have the same amount that he will need to pay. Pt states that his income is around $2,000 a month and his income is through Social Security and [employer]. Pt states understanding that he will need to continue to pay his patient liability for any SNF that he goes to. SW explained that this worker can make referral to [facility] and then update pt. Pt states understanding. Per previous notes, pt is also on dialysis and goes to [facility] and chair time is 6:50am. JULIAN placed a call to Celine at [facility] and provided referral. Celine states she will review referral, asked why pt can come to [facility] under his VA benefit. JULIAN informed Celine that this was is under the impression that pt is not service connected enough for [facility] to pay for SNF but can call his SW at [facility] to confirm. JULIAN placed a call to Goldy Mckeon, pt's SW at [facility] and left message regarding pt. JULIAN faxed referral to [facility]. Plan: SNF pending acceptance and LOC Radha Cortez INTERVIEWING CLERK, IMAGING AIDE
--- NOTE | 2019-10-23 11:22 | CASEMGMT ---
Social Work Note SW reviewed tenter feeder questions. Pt has completed HCPOA and LW, haven't provided copy to [facility] and is not able to bring in copies. Radha Cortez PHYSICAL THERAPY AID, BENZENE STILL UTILITY OPERATOR
[2019-10-23 11:46] LABS: Bedside Glucose 134 mg/dL (70-110)
--- NOTE | 2019-10-23 11:53 | CON.PCM_ITS ---
Problem List (1) ESRD (end stage renal disease) on dialysis Status: Chronic Consultation - Renal 10/23/19 PCP/ Referring MD: Requesting physician: [] Primary care physician: Reason for Consultation:: ESRD - History of Present Illness History of Present Illness: The patient is a 74 year old M who was admitted to hospital with complaints of generalized weakness. ESRD on HD MWF schedule. Access is [facility]. [facility]. signed out AMA from the [facility] last monday, could not come to treatment monday. went to dialysis yesterday. - Allergies Allergies: Allergies lisinopril Allergy (Verified 10/22/19 19:38) PT UNSURE OF REACTION metformin Allergy (Verified 10/22/19 19:38) Angioedema Penicillins Allergy (Verified 10/22/19 19:38) Rash Tetanus Vaccines and Toxoid Allergy (Verified 10/22/19 19:38) Swelling at injection site - Current Medications Current Medications: Current Medications Acetaminophen (Tylenol) 650 mg PO Q6H PRN PRN PRN Reason: Pain Score 1-10/Temp > 100.7 F Al Hydroxide/Mg Hydroxide (Mylanta Ii) 30 ml PO Q6H PRN PRN PRN Reason: Gastric Burning Albuterol Sulfate (Ventolin Aerosols) 2.5 mg INHALATION Q2H PRN PRN PRN Reason: Dyspnea, wheezing Atorvastatin Calcium (Lipitor) 10 mg PO QHS [facility] Calcium Acetate (Phoslo Gel Cap) 667 mg PO TIDCM [facility] Last Admin: 10/23/19 09:52 Dose: 667 mg Documented by: Dextrose (D50w Syringe) 0 gm IV X1 PRN; Protocol PRN Reason: Hypoglycemia Ferrous Sulfate (Ferrous Sulfate) 325 mg PO DAILY@1200 [facility] Glucagon () 1 mg IM .X1 PRN PRN Reason: Hypoglycemia Guaifenesin (Robitussin) 20 ml PO Q4H PRN PRN PRN Reason: COUGH Heparin Sodium (Porcine) (Heparin Na) 5,000 unit SC Q12 [facility] Last Admin: 10/23/19 09:52 Dose: 5,000 unit Documented by: Hydralazine HCl (Apresoline Iv) 10 mg IV Q4H PRN PRN PRN Reason: SBP > 180 Hydroxyzine Pamoate (Vistaril Pamoate Capsule) 25 mg PO Q6H PRN PRN PRN Reason: ANXIETY Sodium Chloride () 1,000 mls @ 100 mls/hr IV .Q10H [facility] Last Infusion: 10/23/19 10:36 Dose: 100 mls/hr Documented by: Vancomycin IV Pharmacy to Dose (1 ea/ Sodium Chloride) 500 mls @ 250 mls/hr IV PRN PRN; Protocol PRN Reason: Rx to Dose Ceftriaxone Sodium 2 gm/ (Sodium Chloride) 50 mls @ 100 mls/hr IV Q24@2200 [facility] Insulin Glargine (Lantus (Bkc)) 38 units SC QHS [facility] Insulin Human Lispro (Humalog Kwikpen (Bk)) 0 unit SC ACHS [facility]; Protocol Last Admin: 10/23/19 07:04 Dose: Not Given Documented by: Levothyroxine Sodium (Synthroid) 75 mcg PO DAILY@0600 [facility] Last Admin: 10/23/19 07:00 Dose: 75 mcg Documented by: Magnesium Hydroxide (Milk Of Magnesia) 30 ml PO DAILY PRN PRN PRN Reason: Constipation Melatonin (Melatonin) 3 mg PO QHS PRN PRN PRN Reason: INSOMNIA Midodrine (Proamatine) 5 mg PO QODAY [facility] Last Admin: 10/23/19 09:51 Dose: 5 mg Documented by: Morphine Sulfate () 2 mg IV Q3H PRN PRN PRN Reason: Pain Score 6-10/10 Multivit/Ca Carb/B Cmplx/FA/Prenat (Nephrocaps, Renaphro) 1 capsule PO DAILY [facility] Last Admin: 10/23/19 09:51 Dose: 1 capsule Documented by: Nitroglycerin (Nitrostat) 0.4 mg SUBLINGUAL Q5M PRN PRN Reason: CARDIAC/CHEST PAIN Nutritional Formula (Lactose Free) (Glucerna Shake) 120 ml PO 4X/DAY [facility] Last Admin: 10/23/19 09:57 Dose: 120 ml Documented by: Nystatin (Mycostatin Powder) 1 applic TOPICAL BID [facility]; Protocol Last Admin: 10/23/19 09:52 Dose: 1 applicatio Documented by: Ondansetron HCl (Zofran) 4 mg IV Q8H PRN PRN PRN Reason: NAUSEA/VOMITING Oxycodone HCl (Oxyir) 5 mg PO Q4H PRN PRN PRN Reason: Pain Score 4-5/10 Pantoprazole Sodium (Protonix) 20 mg PO DAILY [facility] Last Admin: 10/23/19 09:51 Dose: 20 mg Documented by: Prochlorperazine Edisylate (Compazine Iv) 5 mg IV Q4H PRN PRN PRN Reason: Breakthrough nausea/vomiting Psyllium Hydrophilic Mucilloid (Metamucil) 1 packet PO DAILY PRN PRN PRN Reason: Constipation Senna/Docusate Sodium (Senokot-S, Leslie-Colace) 2 tablet PO BID PRN PRN PRN Reason: Constipation Sertraline HCl (Zoloft) 100 mg PO BID [facility] Last Admin: 10/23/19 09:51 Dose: 100 mg Documented by: Sodium Chloride () 10 - 40 ml IV UD PRN PRN Reason: SALINE FLUSH Tamsulosin HCl (Flomax) 0.4 mg PO QHS [facility] Throat Lozenges (Cepacol Sore Throat Lozenge) 1 lozenge MUCOUS MEM Q2H PRN PRN PRN Reason: SORE THROAT - Past Medical History Past Medical History (Chronic Problems): Chronic Problems ESRD (end stage renal disease) on dialysis (Chronic) Hyponatremia (Chronic) Thrombocytopenia (Chronic) Anemia in chronic illness (Chronic) CKD (chronic kidney disease), stage IV (Chronic) HTN (hypertension) (Chronic) Anxiety and depression (Chronic) Tobacco use (Chronic) MEGAN (obstructive sleep apnea) (Chronic) Hypothyroidism (Chronic) Chronic anemia (Chronic) GERD (gastroesophageal reflux disease) (Chronic) Diabetes mellitus, type II (Chronic) - Past Surgical History Surgical History: cataract, - - Prior back surgery, ureteral stent placements, cataract. - Social History Smoking Status: Current some day smoker Alcohol: None Drugs: None - Family History Maternal History Items: Heart Disease, Hypertension Paternal History Items: Cancer, Hypertension Review of Systems Constitutional: Denies: Chills, Fever, Weight Change HEENT: Denies: Head Aches, Sinus Congestion, Sinus Drainage Cardiovascular: Denies: Chest Pain, Palpitations Respiratory: Denies: Cough, Shortness of breath at rest, Sputum production Gastrointestinal: Denies: Abdominal Pain, Nausea, Vomiting Genitourinary: Denies: Dysuria Musculoskeletal: Denies: Joint Pain, Joint Tenderness Skin: Denies: Rash, Wounds Neurological: Denies: Numbness, Tingling, Focal weakness Psychiatric: Denies: Anxiety, Depression, Homicidal Ideations, Suicidal Ideations Hematologic/ Lymphatic: Denies: Easy Bruising, Easy Bleeding Patient Problems: Active and Suspected Problems Hypotension (Acute) Pyuria (Acute) End-stage renal disease on hemodialysis (Acute) Fever (Acute) Hyperglycemia due to type 2 diabetes mellitus (Acute) SIRS (systemic inflammatory response syndrome) (Acute) - Physical Exam Vitals/I&O's: Vital Signs Temp Pulse Resp BP Pulse Ox 98.1 F 82 16 96/43 L 95 10/23/19 11:50 10/23/19 11:50 10/23/19 11:50 10/23/19 11:50 10/23/19 11:50 Oxygen Delivery Method Room Air Weight: 113.761 kg Body Mass Index (BMI) 35.9 Finger Stick Blood Glucose 99 Intake and Output for Last 24 Hours 10/21/19 10/22/19 10/23/19 23:59 23:59 23:59 Intake Total 500 / 500 2766.67 / 2766.67 Balance 500 / 500 2766.67 / 2766.67 General: Alert, Oriented x3, Cooperative HEENT: Atraumatic, PERRLA, EOMI, Normocephalic Neck: Supple, No JVD, Negative Carotid Bruits Lungs: Clear to auscultation, Normal air movement Cardiovascular: Regular rate, No murmurs Abdomen: Bowel Sounds Present, Soft, Non Tender Extremities: No edema, Capillary Refill Less than 3 Seconds Skin: No rashes, No breakdown Musculoskeletal: No Tenderness to Palpation of Joints or Extremities Neurological: Cranial nerves II-XII grossly intact Psych/Mental Status: Normal Affect, Appropriate Microbiology Past 72 Hours 10/22/19 20:00 Stool Stool Occult Blood (ALEJANDRO) - Final Laboratory Results 10/22/19 19:44: WBC 6.2, RBC 3.84 L, Hgb 10.6 L, Hct 34.4 L, MCV 89.6, MCH 27.6, MCHC 30.8 L, RDW Std Deviation 65.9 H, RDW Coeff of Nyasia 21.0 H, Plt Count 177, MPV 8.6, Immature Gran % (Auto) 0.600, Neut % (Auto) 61.9, Lymph % (Auto) 29.3, Dickenson % (Auto) 6.9, Eos % (Auto) 0.8, Baso % (Auto) 0.5, Absolute Neuts (auto) 3.9, Absolute Lymphs (auto) 1.83, Nucleated RBC % 0.3, Differential Comment 10/22/19 19:44: Sodium 139, Potassium 3.8, Chloride 100, Carbon Dioxide 27.0, Anion Gap 12, BUN 30 H, Creatinine 3.42 H, Estim Creat Clear Calc 19.57, Est GFR (MDRD) Af Amer 23 L, Est GFR (MDRD) Non-Af 19 L, BUN/Creatinine Ratio 8.8 L, Glucose 280 H, Calcium 9.0, Total Bilirubin 0.40, AST 16, ALT 16, Alkaline Phosphatase 164 H, Total Protein 8.5 H, Albumin 3.1 L, Globulin 5.4 H, Albumin/Globulin Ratio 0.6 L 10/22/19 20:20: Urine Color Yellow, Urine Clarity Turbid, Urine pH 7.0, Ur Specific [place] 1.010, Urine Protein 100 H, Urine Glucose (UA) Normal, Urine Ketones Negative, Urine Occult Blood 150 H, Urine Nitrite Negative, Urine Bilirubin Negative, Urine Urobilinogen Normal, Ur Leukocyte Esterase 500 H, Urine RBC 0 SEEN, Urine WBC >100 SEEN, Ur Squamous Epith Cells 0 SEEN, Urine Bacteria 0 SEEN, Urine Mucus 0 SEEN 10/23/19 00:05: Lactic Acid 1.9 10/23/19 04:33: COVID-19 (KAROLYN) Not Detected 10/23/19 06:00: WBC 4.7, RBC 3.44 L, Hgb 9.6 L, Hct 31.4 L, MCV 91.3, MCH 27.9, MCHC 30.6 L, RDW Std Deviation 66.9 H, RDW Coeff of Nyasia 20.8 H, Plt Count 136 L, MPV 8.7, Immature Gran % (Auto) 0.400, Neut % (Auto) 56.6, Lymph % (Auto) 32.6, Dickenson % (Auto) 8.9, Eos % (Auto) 1.1, Baso % (Auto) 0.4, Absolute Neuts (auto) 2.7, Absolute Lymphs (auto) 1.54, Nucleated RBC % 0, Differential Comment SCANNED, Microcytosis 1+, Stomatocytes RARE 10/23/19 06:00: Sodium 141, Potassium 3.4 L, Chloride 103, Carbon Dioxide 30.0, Anion Gap 8, BUN 32 H, Creatinine 3.73 H, Estim Creat Clear Calc 17.94, Est GFR (MDRD) Af Amer 21 L, Est GFR (MDRD) Non-Af 17 L, BUN/Creatinine Ratio 8.6 L, Glucose 136 H, Calcium 8.2 L, Phosphorus 3.6, Magnesium 2.2, Total Bilirubin 0.30, AST 14 L, ALT 15 L, Alkaline Phosphatase 141 H, Total Protein 6.7, Albumin 2.7 L, Globulin 4.0, Albumin/Globulin Ratio 0.7 L 10/23/19 11:34: POC Glucose 134 H Current Medications Acetaminophen (Tylenol) 650 mg PO Q6H PRN PRN PRN Reason: Pain Score 1-10/Temp > 100.7 F Al Hydroxide/Mg Hydroxide (Mylanta Ii) 30 ml PO Q6H PRN PRN PRN Reason: Gastric Burning Albuterol Sulfate (Ventolin Aerosols) 2.5 mg INHALATION Q2H PRN PRN PRN Reason: Dyspnea, wheezing Atorvastatin Calcium (Lipitor) 10 mg PO QHS [facility] Calcium Acetate (Phoslo Gel Cap) 667 mg PO TIDCM [facility] Last Admin: 10/23/19 09:52 Dose: 667 mg Documented by: Dextrose (D50w Syringe) 0 gm IV X1 PRN; Protocol PRN Reason: Hypoglycemia Ferrous Sulfate (Ferrous Sulfate) 325 mg PO DAILY@1200 [facility] Glucagon () 1 mg IM .X1 PRN PRN Reason: Hypoglycemia Guaifenesin (Robitussin) 20 ml PO Q4H PRN PRN PRN Reason: COUGH Heparin Sodium (Porcine) (Heparin Na) 5,000 unit SC Q12 [facility] Last Admin: 10/23/19 09:52 Dose: 5,000 unit Documented by: Hydralazine HCl (Apresoline Iv) 10 mg IV Q4H PRN PRN PRN Reason: SBP > 180 Hydroxyzine Pamoate (Vistaril Pamoate Capsule) 25 mg PO Q6H PRN PRN PRN Reason: ANXIETY Sodium Chloride () 1,000 mls @ 100 mls/hr IV .Q10H [facility] Last Infusion: 10/23/19 10:36 Dose: 100 mls/hr Documented by: Vancomycin IV Pharmacy to Dose (1 ea/ Sodium Chloride) 500 mls @ 250 mls/hr IV PRN PRN; Protocol PRN Reason: Rx to Dose Ceftriaxone Sodium 2 gm/ (Sodium Chloride) 50 mls @ 100 mls/hr IV Q24@2200 [facility] Insulin Glargine (Lantus (Bkc)) 38 units SC QHS [facility] Insulin Human Lispro (Humalog Kwikpen ([facility])) 0 unit SC ACHS [facility]; Protocol Last Admin: 10/23/19 07:04 Dose: Not Given Documented by: Levothyroxine Sodium (Synthroid) 75 mcg PO DAILY@0600 [facility] Last Admin: 10/23/19 07:00 Dose: 75 mcg Documented by: Magnesium Hydroxide (Milk Of Magnesia) 30 ml PO DAILY PRN PRN PRN Reason: Constipation Melatonin (Melatonin) 3 mg PO QHS PRN PRN PRN Reason: INSOMNIA Midodrine (Proamatine) 5 mg PO QODAY [facility] Last Admin: 10/23/19 09:51 Dose: 5 mg Documented by: Morphine Sulfate () 2 mg IV Q3H PRN PRN PRN Reason: Pain Score 6-10/10 Multivit/Ca Carb/B Cmplx/FA/Prenat (Nephrocaps, Renaphro) 1 capsule PO DAILY [facility] Last Admin: 10/23/19 09:51 Dose: 1 capsule Documented by: Nitroglycerin (Nitrostat) 0.4 mg SUBLINGUAL Q5M PRN PRN Reason: CARDIAC/CHEST PAIN Nutritional Formula (Lactose Free) (Glucerna Shake) 120 ml PO 4X/DAY [facility] Last Admin: 10/23/19 09:57 Dose: 120 ml Documented by: Nystatin (Mycostatin Powder) 1 applic TOPICAL BID [facility]; Protocol Last Admin: 10/23/19 09:52 Dose: 1 applicatio Documented by: Ondansetron HCl (Zofran) 4 mg IV Q8H PRN PRN PRN Reason: NAUSEA/VOMITING Oxycodone HCl (Oxyir) 5 mg PO Q4H PRN PRN PRN Reason: Pain Score 4-5/10 Pantoprazole Sodium (Protonix) 20 mg PO DAILY [facility] Last Admin: 10/23/19 09:51 Dose: 20 mg Documented by: Prochlorperazine Edisylate (Compazine Iv) 5 mg IV Q4H PRN PRN PRN Reason: Breakthrough nausea/vomiting Psyllium Hydrophilic Mucilloid (Metamucil) 1 packet PO DAILY PRN PRN PRN Reason: Constipation Senna/Docusate Sodium (Senokot-S, Leslie-Colace) 2 tablet PO BID PRN PRN PRN Reason: Constipation Sertraline HCl (Zoloft) 100 mg PO BID [facility] Last Admin: 10/23/19 09:51 Dose: 100 mg Documented by: Sodium Chloride () 10 - 40 ml IV UD PRN PRN Reason: SALINE FLUSH Tamsulosin HCl (Flomax) 0.4 mg PO QHS [facility] Throat Lozenges (Cepacol Sore Throat Lozenge) 1 lozenge MUCOUS MEM Q2H PRN PRN PRN Reason: SORE THROAT Assessment/Plan All Active Problems Weakness (Acute) Hypotension (Acute) Pyuria (Acute) End-stage renal disease on hemodialysis (Acute) Fever (Acute) Hyperglycemia due to type 2 diabetes mellitus (Acute) SIRS (systemic inflammatory response syndrome) (Acute) ESRD. HD is on MWF schedule. had full treatment yesterday. BP is on lower side. no peripheral edema. C Diff pending. hold HD today anemia. gets long acting OZ with HD weakness and debility. happens every time he checks out of [facility]. will likely need [facility] [employer] [facility] placement
[2019-10-23] MEDS: Ferrous Sulfate 325 MG Tablet PO (12:16)
--- NOTE | 2019-10-23 12:45 | CASEMGMT ---
Social Work Note SW received message from Goldy Mckeon [place] SW stating pt cannot admit to [facility] connected facility under VA benefits as pt is not service connected. Goldy states if pt was connected, they would've already had pt placed at a [place] SNF. Goldy states that if pt were to admit to a facility with Hospice they could enter in an agreement with Hospice to help pay for room and board. Goldy states [facility] [place] as pt hasn't turned in his side of the paperwork that it needed. Goldy states the [place] physician has completed all of their necessary paperwork pt just needs to follow up with his paperwork. Goldy states pt needs copy of licence, social security card and certificate and additional documents and she is not able to send in documents as she doesn't have copies of the documents. Goldy states that she had spoken to An at dialysis to assist pt with getting the appropriate documents turned in. JULIAN waiting to hear from Larry regarding referral. Radha Cortez FARM MANAGER, HOSPICE EDUCATOR
--- NOTE | 2019-10-23 13:10 | NURSING ---
pt declined nursing calling family for update
--- NOTE | 2019-10-23 13:15 | CASEMGMT ---
Addendum entered by Radha Cortez 10/23/19 17:13: JULIAN called Evelyn with [facility] and left message regarding pt's admission to [facility]. Addendum entered by Radha Cortez 10/23/19 16:52: JULIAN spoke with Bonnie CASTELLANOS who states [facility] should type up a document for pt to sign regarding paying copay. JULIAN placed a call back to Marilyn at [facility]. JULIAN updated Marilyn that they should be the ones typing up the document for pt to sign regarding copay. Marilyn states she will write up the document tomorrow and then fax to JULIAN. Marilyn states they are able to accept pt and will need LOC. JULIAN faxed LOC to [facility]. Addendum entered by Radha Cortez 10/23/19 15:13: JULIAN received call from Zayra at [facility] ([phone]) stating they are just waiting for pt's financial's to come back. JULIAN updated Zayra that per Goldy JORDAN at [facility] pt is not service connected. Pt does have active medicaid. Zayra states understanding. JULIAN received another call from Marilyn asking if pt is willing to sign a document stating he is going to pay the $2,088 a month and states again that they are waiting for financials for pt. JULIAN placed a call to Bonnie CASTELLANOS and left message regarding having pt sign document and if that is appropriate. JULIAN waiting for call back. Original Note: Social Work Note JULIAN received message from Marilyn JORDAN at [facility] requesting call back ([phone]). JULIAN placed a call back to Marilyn. Marilyn asked about pt's COVID test. JULIAN informed Marilyn that results from pt's COVID test was faxed in referral (pt's results are negative.) Marilyn states that clinically pt looks good they are just waiting for financials. JULIAN asked Marilyn to let this worker know when they can officially accept pt and this worker will submit for LOC. Marilyn states understanding. Radha Cortez WEB UI DESIGNER, AUTOMATION DEVELOPER
--- NOTE | 2019-10-23 14:56 | PN_ITS ---
Patient Problems: Active and Suspected Problems Hypotension (Acute) Pyuria (Acute) End-stage renal disease on hemodialysis (Acute) Fever (Acute) Hyperglycemia due to type 2 diabetes mellitus (Acute) SIRS (systemic inflammatory response syndrome) (Acute) Reason for Visit: Hypotension, ESRD on hemodialysis. Diabetes mellitus type 2. Generalized weakness Vitals/I&O's: Vital Signs Temp Pulse Resp BP Pulse Ox 98.3 F 83 16 90/46 L 96 10/23/19 14:02 10/23/19 14:02 10/23/19 14:02 10/23/19 14:02 10/23/19 14:02 Oxygen Delivery Method Room Air Weight: 250 lb 12.8 oz Body Mass Index (BMI) 35.9 Finger Stick Blood Glucose 99 Intake and Output for Last 24 Hours 10/21/19 10/22/19 10/23/19 23:59 23:59 23:59 Intake Total 500 / 500 2766.67 / 2766.67 Balance 500 / 500 2766.67 / 2766.67 General: Alert, Oriented x3, Cooperative, Lethargic, - - Patient sleepy in the morning, states could not sleep last night. HEENT: Atraumatic, PERRLA, EOMI, Normocephalic Neck: Supple, No JVD, Negative Carotid Bruits Lungs: Clear to auscultation, No rhonchi, No wheeze, No rales, Diminished Cardiovascular: Regular rate, Regular Rhythm, Normal S1, Normal S2, No murmurs Abdomen: Bowel Sounds Present, Soft, Non Tender, Non-Distended Extremities: No edema, Capillary Refill Less than 3 Seconds Skin: No rashes, No breakdown Musculoskeletal: No Tenderness to Palpation of Joints or Extremities, Arthritic Changes Neurological: Cranial nerves II-XII grossly intact, Deep Tendon Reflexes 2+/4 and Symmetrical, Neuro grossly intact Psych/Mental Status: Normal Affect, Appropriate Microbiology Past 72 Hours 10/22/19 20:20 Urine, Clean Catch Urine Culture - Preliminary Gram negative carmela 10/22/19 20:00 Stool Stool Occult Blood (ALEJANDRO) - Final Laboratory Results 10/22/19 19:44: WBC 6.2, RBC 3.84 L, Hgb 10.6 L, Hct 34.4 L, MCV 89.6, MCH 27.6, MCHC 30.8 L, RDW Std Deviation 65.9 H, RDW Coeff of Nyasia 21.0 H, Plt Count 177, MPV 8.6, Immature Gran % (Auto) 0.600, Neut % (Auto) 61.9, Lymph % (Auto) 29.3, [place] % (Auto) 6.9, Eos % (Auto) 0.8, Baso % (Auto) 0.5, Absolute Neuts (auto) 3.9, Absolute Lymphs (auto) 1.83, Nucleated RBC % 0.3, Differential Comment 10/22/19 19:44: Sodium 139, Potassium 3.8, Chloride 100, Carbon Dioxide 27.0, Anion Gap 12, BUN 30 H, Creatinine 3.42 H, Estim Creat Clear Calc 19.57, Est GFR (MDRD) Af Amer 23 L, Est GFR (MDRD) Non-Af 19 L, BUN/Creatinine Ratio 8.8 L, Glucose 280 H, Calcium 9.0, Total Bilirubin 0.40, AST 16, ALT 16, Alkaline Phosphatase 164 H, Total Protein 8.5 H, Albumin 3.1 L, Globulin 5.4 H, Albumin/Globulin Ratio 0.6 L 10/22/19 20:20: Urine Color Yellow, Urine Clarity Turbid, Urine pH 7.0, Ur Specific [place] 1.010, Urine Protein 100 H, Urine Glucose (UA) Normal, Urine Ketones Negative, Urine Occult Blood 150 H, Urine Nitrite Negative, Urine Bilirubin Negative, Urine Urobilinogen Normal, Ur Leukocyte Esterase 500 H, Urine RBC 0 SEEN, Urine WBC >100 SEEN, Ur Squamous Epith Cells 0 SEEN, Urine Bacteria 0 SEEN, Urine Mucus 0 SEEN 10/23/19 00:05: Lactic Acid 1.9 10/23/19 04:33: COVID-19 (KAROLYN) Not Detected 10/23/19 06:00: WBC 4.7, RBC 3.44 L, Hgb 9.6 L, Hct 31.4 L, MCV 91.3, MCH 27.9, MCHC 30.6 L, RDW Std Deviation 66.9 H, RDW Coeff of Nyasia 20.8 H, Plt Count 136 L, MPV 8.7, Immature Gran % (Auto) 0.400, Neut % (Auto) 56.6, Lymph % (Auto) 32.6, [place] % (Auto) 8.9, Eos % (Auto) 1.1, Baso % (Auto) 0.4, Absolute Neuts (auto) 2.7, Absolute Lymphs (auto) 1.54, Nucleated RBC % 0, Differential Comment SCANNED, Microcytosis 1+, Stomatocytes RARE 10/23/19 06:00: Sodium 141, Potassium 3.4 L, Chloride 103, Carbon Dioxide 30.0, Anion Gap 8, BUN 32 H, Creatinine 3.73 H, Estim Creat Clear Calc 17.94, Est GFR (MDRD) Af Amer 21 L, Est GFR (MDRD) Non-Af 17 L, BUN/Creatinine Ratio 8.6 L, Glucose 136 H, Calcium 8.2 L, Phosphorus 3.6, Magnesium 2.2, Total Bilirubin 0.30, AST 14 L, ALT 15 L, Alkaline Phosphatase 141 H, Total Protein 6.7, Albumin 2.7 L, Globulin 4.0, Albumin/Globulin Ratio 0.7 L 10/23/19 11:34: POC Glucose 134 H Current Medications Acetaminophen (Tylenol) 650 mg PO Q6H PRN PRN PRN Reason: Pain Score 1-10/Temp > 100.7 F Al Hydroxide/Mg Hydroxide (Mylanta Ii) 30 ml PO Q6H PRN PRN PRN Reason: Gastric Burning Albuterol Sulfate (Ventolin Aerosols) 2.5 mg INHALATION Q2H PRN PRN PRN Reason: Dyspnea, wheezing Atorvastatin Calcium (Lipitor) 10 mg PO QHS [facility] Calcium Acetate (Phoslo Gel Cap) 667 mg PO TIDCM [facility] Last Admin: 10/23/19 12:16 Dose: 667 mg Documented by: Dextrose (D50w Syringe) 0 gm IV X1 PRN; Protocol PRN Reason: Hypoglycemia Ferrous Sulfate (Ferrous Sulfate) 325 mg PO DAILY@1200 [facility] Last Admin: 10/23/19 12:16 Dose: 325 mg Documented by: Glucagon () 1 mg IM .X1 PRN PRN Reason: Hypoglycemia Guaifenesin (Robitussin) 20 ml PO Q4H PRN PRN PRN Reason: COUGH Heparin Sodium (Porcine) (Heparin Na) 5,000 unit SC Q12 [facility] Last Admin: 10/23/19 09:52 Dose: 5,000 unit Documented by: Hydralazine HCl (Apresoline Iv) 10 mg IV Q4H PRN PRN PRN Reason: SBP > 180 Hydroxyzine Pamoate (Vistaril Pamoate Capsule) 25 mg PO Q6H PRN PRN PRN Reason: ANXIETY Sodium Chloride () 1,000 mls @ 100 mls/hr IV .Q10H [facility] Last Infusion: 10/23/19 10:36 Dose: 100 mls/hr Documented by: Vancomycin IV Pharmacy to Dose (1 ea/ Sodium Chloride) 500 mls @ 250 mls/hr IV PRN PRN; Protocol PRN Reason: Rx to Dose Ceftriaxone Sodium 2 gm/ (Sodium Chloride) 50 mls @ 100 mls/hr IV Q24@2200 [facility] Insulin Glargine (Lantus ([facility])) 38 units SC QHS [facility] Insulin Human Lispro (Humalog Kwikpen ([facility])) 0 unit SC ACHS [facility]; Protocol Last Admin: 10/23/19 12:13 Dose: Not Given Documented by: Levothyroxine Sodium (Synthroid) 75 mcg PO DAILY@0600 [facility] Last Admin: 10/23/19 07:00 Dose: 75 mcg Documented by: Magnesium Hydroxide (Milk Of Magnesia) 30 ml PO DAILY PRN PRN PRN Reason: Constipation Melatonin (Melatonin) 3 mg PO QHS PRN PRN PRN Reason: INSOMNIA Midodrine (Proamatine) 5 mg PO QODAY [facility] Last Admin: 10/23/19 09:51 Dose: 5 mg Documented by: Morphine Sulfate () 2 mg IV Q3H PRN PRN PRN Reason: Pain Score 6-10/10 Multivit/Ca Carb/B Cmplx/FA/Prenat (Nephrocaps, Renaphro) 1 capsule PO DAILY [facility] Last Admin: 10/23/19 09:51 Dose: 1 capsule Documented by: Nitroglycerin (Nitrostat) 0.4 mg SUBLINGUAL Q5M PRN PRN Reason: CARDIAC/CHEST PAIN Nystatin (Mycostatin Powder) 1 applic TOPICAL BID [facility]; Protocol Last Admin: 10/23/19 09:52 Dose: 1 applicatio Documented by: Ondansetron HCl (Zofran) 4 mg IV Q8H PRN PRN PRN Reason: NAUSEA/VOMITING Oxycodone HCl (Oxyir) 5 mg PO Q4H PRN PRN PRN Reason: Pain Score 4-5/10 Pantoprazole Sodium (Protonix) 20 mg PO DAILY [facility] Last Admin: 10/23/19 09:51 Dose: 20 mg Documented by: Prochlorperazine Edisylate (Compazine Iv) 5 mg IV Q4H PRN PRN PRN Reason: Breakthrough nausea/vomiting Psyllium Hydrophilic Mucilloid (Metamucil) 1 packet PO DAILY PRN PRN PRN Reason: Constipation Senna/Docusate Sodium (Senokot-S, Leslie-Colace) 2 tablet PO BID PRN PRN PRN Reason: Constipation Sertraline HCl (Zoloft) 100 mg PO BID [facility] Last Admin: 10/23/19 09:51 Dose: 100 mg Documented by: Sodium Chloride () 10 - 40 ml IV UD PRN PRN Reason: SALINE FLUSH Tamsulosin HCl (Flomax) 0.4 mg PO QHS [facility] Throat Lozenges (Cepacol Sore Throat Lozenge) 1 lozenge MUCOUS MEM Q2H PRN PRN PRN Reason: SORE THROAT STROKE Vital Signs/Narrative: Vital Signs Temp Pulse Resp BP Pulse Ox 10/23/19 14:02 98.3 F 83 16 90/46 L 96 10/23/19 13:46 83 10/23/19 11:50 98.1 F 82 16 96/43 L 95 10/23/19 11:20 16 96 Medical Necessity - Tobacco Use Smoking Status: Current some day smoker Tobacco Use: Cigars, Pipe Assessment/Plan All Active Problems Weakness (Acute) Hypotension (Acute) Pyuria (Acute) End-stage renal disease on hemodialysis (Acute) Fever (Acute) Hyperglycemia due to type 2 diabetes mellitus (Acute) SIRS (systemic inflammatory response syndrome) (Acute) The patient is a 74 y/o M with multiple comorbidities including diabetes mellitus type 2, diabetic nephropathy with ESRD on hemodialysis, Monday and Monday, was admitted with hypotension, generalized weakness, poor hygiene, covered with feces during recent admission for 2019. Patient signed off AMA from [facility]. 1. Hypotension most probably hypovolemia from dialysis: Patient was dialyzed on 10/22/2019 probably volume depleted after that. Patient had 1 L of normal saline bolus in data migration lead and then 500 normal saline ordered. Seen by tile power shear operator. Repeat blood pressure 96/43. Patient denies signs or symptoms of hypertension including dizziness, near syncope. No tachypnea or hypoxia. 2. Low-grade fever, etiology unclear possible acute cystitis: UA shows WBC more than 100 cells, LE 500- nitrite. COVID-19 PCR negative. Preliminary urine culture shows gram-negative carmela more than 100,000 colonies. Patient is still passes urine although less amount. Denies burning micturition, increased frequency or urgency. Stool for C. difficile and enteric bacteriology panel negative given patient has chronic diarrhea and recently has been on antibiotic. 3. Recurrent fall, failure to thrive/inability to care/dependent ADL: PT and OT and case management consult. 4. ESRD: HD MWF, admission of 5. Diabetes mellitus type II: continue patient home insulin regimen, ADA diet, Accu-Cheks with insulin sliding scale. Hypertension: Noted prior history, labile since dialysis initiation, will maintain on Midrin, BP currently low upon current presentation with #1 presentation, PRN IV hydralazine. 6. Hyperlipidemia: continue patient on statin therapy. 7. Hypothyroidism: continue patient home Synthroid regimen. 8. Anxiety and depression: continue patient home sertraline regimen. 9. MEGAN: On home CPAP. Continue same pressure settings. 10. BPH: On Flomax 11. GERD: PPI. 12. AOCD/iron deficiency anemia: Patient hemoglobin 10.6, stable, continue to trend, continue patient home iron supplementation. DVT prophylaxis: SCDs, heparin. CODE status: Patient BISI is his niece Araseli Avalos and living will is not currently in place. DNR CCA, no intubation. Inpatient E&M: 01365 Subs Hosp L2
[2019-10-23 16:16] LABS: Bedside Glucose 185 mg/dL (70-110)
[2019-10-23] MEDS: Insulin Lispro 100 UNIT/ML INSULN.PEN SC ×2 (17:16→21:20)
[2019-10-23] MEDS: Atorvastatin Calcium 10 MG Tablet PO (21:24)
[2019-10-23] MEDS: Tamsulosin HCl 0.4 MG Capsule PO (21:24)
[2019-10-23 21:35] LABS: Bedside Glucose 246 mg/dL (70-110)
[2019-10-23 22:40] LABS: Bedside Glucose 133 mg/dL (70-110)
[2019-10-24] VITALS (8 sets, daily range): BP systolic 92–111; BP diastolic 63; PULSE 80–86; RESP 18; TEMP 36.6–37; O2SAT 95–100
[2019-10-24] MEDS: 0.9% Normal Saline 1,000 ML 100 ML IV (05:45)
[2019-10-24 05:54] LABS: Absolute Neutrophil Count 4.9 X10^3/uL (2.0-7.7); Basophil# 0.01 X10^3/uL; Basophil% 0.1 % (0-1); Eosinophil# 0.03 X10^3/uL; Eosinophils% 0.4 % (0-5); Hematocrit 29.1 % (40-54); Hemoglobin 8.8 g/dL (13.0-16.5); Lymphocyte % 19.3 % (19-41); Mean Corp Hgb Conc 30.2 g/dL (32-36); Mean Corpuscular Hgb 28.3 pg (27.0-32.0); Mean Corpuscular Volume 93.6 fL (80-94); Mean Platelet Vol. 8.6 fl (6.2-12.0); Monocyte# 0.46 X10^3/uL; Monocyte% 6.8 % (0-10); NRBC Flagged by Analyzer 0 % (0-5); Neutrophil # 4.88 X10^3/uL (2.7-7.7); Neutrophil % 72.8 % (47-70); POSITIVE MORPHOLOGY YES; Platelet Count 107 K/mm3 (150-450); RBC Distribution Width CV 21.1 % (11.6-14.6); RBC Distribution Width SD 70.2 fl (35.1-43.9); Red Blood Count 3.11 M/mm3 (4.6-6.2); White Blood Count 6.7 K/mm3 (4.4-11.0)
[2019-10-24 06:04] LABS: Differential Indicated SCAN CRITERIA MET
[2019-10-24 06:17] LABS: Differential Comment SCANNED; Hypochromasia RARE
[2019-10-24] MEDS: Levothyroxine 75 MCG Tablet PO (06:19)
[2019-10-24 06:38] LABS: Anion Gap 8 (5-15); BUN 43 mg/dL (7-18); BUN/Creat Ratio 10.4 RATIO (10-20); Calcium,Total 8.4 mg/dL (8.5-10.1); Chloride 104 mmol/L (98-107); Creatinine, Serum 4.14 mg/dL (0.70-1.30); EST Glomerular Filtration Rate 15 mL/min (>60); Est Glom Filt Rate - Afr Amer 18 mL/min (>60); Estimated Creatinine Clearance 16.16 ml/min; Glucose 141 mg/dL (74-106); Potassium 4.1 mmol/L (3.5-5.1); Sodium Level 137 mmol/L (136-145)
[2019-10-24 06:41] LABS: Bedside Glucose 112 mg/dL (70-110)
--- NOTE | 2019-10-24 07:57 | PN_ITS ---
Patient Problems: Active and Suspected Problems Hypotension (Acute) Pyuria (Acute) End-stage renal disease on hemodialysis (Acute) Fever (Acute) Hyperglycemia due to type 2 diabetes mellitus (Acute) SIRS (systemic inflammatory response syndrome) (Acute) Reason for Visit: Follow-up for hypotension, generalized weakness/failure to thrive. Objective: Blood pressure is stabilized. Patient has bilateral groin/wet central dizziness rash Vitals/I&O's: Vital Signs Temp Pulse Resp BP Pulse Ox 98.6 F 80 18 92/63 96 10/24/19 02:18 10/24/19 04:01 10/24/19 03:05 10/24/19 02:18 10/24/19 03:05 Oxygen Delivery Method Room Air Weight: 250 lb 12.8 oz Body Mass Index (BMI) 35.9 Finger Stick Blood Glucose 99 Intake and Output for Last 24 Hours 10/22/19 10/23/19 10/24/19 23:59 23:59 23:59 Intake Total 500 / 500 4298.34 / 4298.34 3308.33 / 3308.33 Balance 500 / 500 4298.34 / 4298.34 3308.33 / 3308.33 General: Alert, Oriented x3, Cooperative HEENT: Atraumatic, PERRLA, EOMI, Normocephalic Neck: Supple, No JVD, Negative Carotid Bruits Lungs: Clear to auscultation, No rhonchi, No wheeze, No rales, Diminished Cardiovascular: Regular rate, Normal S1, Normal S2, No murmurs Abdomen: Bowel Sounds Present, Soft, Non Tender, Non-Distended Extremities: No edema, Capillary Refill Less than 3 Seconds Skin: No rashes, No breakdown Musculoskeletal: No Tenderness to Palpation of Joints or Extremities, Arthritic Changes Neurological: Cranial nerves II-XII grossly intact, Neuro grossly intact Psych/Mental Status: Normal Affect, Appropriate Microbiology Past 72 Hours 10/23/19 13:15 Stool C. difficile DNA Amplification - Final 10/22/19 20:20 Urine, Clean Catch Urine Culture - Preliminary Gram negative carmela 10/22/19 20:00 Stool Stool Occult Blood (ALEJANDRO) - Final Laboratory Results 10/23/19 07:03: POC Glucose 133 H 10/23/19 11:34: POC Glucose 134 H 10/23/19 16:10: POC Glucose 185 H 10/23/19 21:18: POC Glucose 246 H 10/24/19 05:25: WBC 6.7, RBC 3.11 L, Hgb 8.8 L, Hct 29.1 L, MCV 93.6, MCH 28.3, MCHC 30.2 L, RDW Std Deviation 70.2 H, RDW Coeff of [place] 21.1 H, Plt Count 107 L, MPV 8.6, Immature Gran % (Auto) 0.600, Neut % (Auto) 72.8 H, Lymph % (Auto) 19.3, [place] % (Auto) 6.8, Eos % (Auto) 0.4, Baso % (Auto) 0.1, Absolute Neuts (auto) 4.9, Absolute Lymphs (auto) 1.30, Nucleated RBC % 0, Differential Comment SCANNED, Hypochromasia RARE 10/24/19 05:25: Sodium 137, Potassium 4.1, Chloride 104, Carbon Dioxide 25.0, Anion Gap 8, BUN 43 H, Creatinine 4.14 H, Estim Creat Clear Calc 16.16, Est GFR (MDRD) Af Amer 18 L, Est GFR (MDRD) Non-Af 15 L, BUN/Creatinine Ratio 10.4, Glucose 141 H, Calcium 8.4 L 10/24/19 06:18: POC Glucose 112 H Current Medications Acetaminophen (Tylenol) 650 mg PO Q6H PRN PRN PRN Reason: Pain Score 1-10/Temp > 100.7 F Al Hydroxide/Mg Hydroxide (Mylanta Ii) 30 ml PO Q6H PRN PRN PRN Reason: Gastric Burning Albuterol Sulfate (Ventolin Aerosols) 2.5 mg INHALATION Q2H PRN PRN PRN Reason: Dyspnea, wheezing Atorvastatin Calcium (Lipitor) 10 mg PO QHS [facility] Last Admin: 10/23/19 21:24 Dose: 10 mg Documented by: Calcium Acetate (Phoslo Gel Cap) 667 mg PO TIDCM [facility] Last Admin: 10/23/19 17:15 Dose: 667 mg Documented by: Dextrose (D50w Syringe) 0 gm IV X1 PRN; Protocol PRN Reason: Hypoglycemia Ferrous Sulfate (Ferrous Sulfate) 325 mg PO DAILY@1200 [facility] Last Admin: 10/23/19 12:16 Dose: 325 mg Documented by: Glucagon () 1 mg IM .X1 PRN PRN Reason: Hypoglycemia Guaifenesin (Robitussin) 20 ml PO Q4H PRN PRN PRN Reason: COUGH Heparin Sodium (Porcine) (Heparin Na) 5,000 unit SC Q12 [facility] Last Admin: 10/23/19 21:22 Dose: 5,000 unit Documented by: Hydralazine HCl (Apresoline Iv) 10 mg IV Q4H PRN PRN PRN Reason: SBP > 180 Hydroxyzine Pamoate (Vistaril Pamoate Capsule) 25 mg PO Q6H PRN PRN PRN Reason: ANXIETY Sodium Chloride () 1,000 mls @ 100 mls/hr IV .Q10H [facility] Last Admin: 10/24/19 05:45 Dose: 100 mls/hr Documented by: Vancomycin IV Pharmacy to Dose (1 ea/ Sodium Chloride) 500 mls @ 250 mls/hr IV PRN PRN; Protocol PRN Reason: Rx to Dose Ceftriaxone Sodium 2 gm/ (Sodium Chloride) 50 mls @ 100 mls/hr IV Q24@2200 [facility] Last Infusion: 10/23/19 21:55 Dose: Infused Documented by: Insulin Glargine (Lantus ([facility])) 38 units SC QHS [facility] Last Admin: 10/23/19 21:20 Dose: 38 u Documented by: Insulin Human Lispro (Humalog Kwikpen ([facility])) [facility]; Protocol Last Admin: 10/24/19 06:19 Dose: Not Given Documented by: Levothyroxine Sodium (Synthroid) 75 mcg PO DAILY@0600 [facility] Last Admin: 10/24/19 06:19 Dose: 75 mcg Documented by: Magnesium Hydroxide (Milk Of Magnesia) 30 ml PO DAILY PRN PRN PRN Reason: Constipation Melatonin (Melatonin) 3 mg PO QHS PRN PRN PRN Reason: INSOMNIA Midodrine (Proamatine) 5 mg PO QODAY [facility] Last Admin: 10/23/19 09:51 Dose: 5 mg Documented by: Morphine Sulfate () 2 mg IV Q3H PRN PRN PRN Reason: Pain Score 6-10/10 Multivit/Ca Carb/B Cmplx/FA/Prenat (Nephrocaps, Renaphro) 1 capsule PO DAILY [facility] Last Admin: 10/23/19 09:51 Dose: 1 capsule Documented by: Nitroglycerin (Nitrostat) 0.4 mg SUBLINGUAL Q5M PRN PRN Reason: CARDIAC/CHEST PAIN Nystatin (Mycostatin Powder) 1 applic TOPICAL BID [facility]; Protocol Last Admin: 10/23/19 20:53 Dose: 1 applicatio Documented by: Ondansetron HCl (Zofran) 4 mg IV Q8H PRN PRN PRN Reason: NAUSEA/VOMITING Oxycodone HCl (Oxyir) 5 mg PO Q4H PRN PRN PRN Reason: Pain Score 4-5/10 Pantoprazole Sodium (Protonix) 20 mg PO DAILY [facility] Last Admin: 10/23/19 09:51 Dose: 20 mg Documented by: Prochlorperazine Edisylate (Compazine Iv) 5 mg IV Q4H PRN PRN PRN Reason: Breakthrough nausea/vomiting Psyllium Hydrophilic Mucilloid (Metamucil) 1 packet PO DAILY PRN PRN PRN Reason: Constipation Senna/Docusate Sodium (Senokot-S, Leslie-Colace) 2 tablet PO BID PRN PRN PRN Reason: Constipation Sertraline HCl (Zoloft) 100 mg PO BID [facility] Last Admin: 10/23/19 21:24 Dose: 100 mg Documented by: Sodium Chloride () 10 - 40 ml IV UD PRN PRN Reason: SALINE FLUSH Tamsulosin HCl (Flomax) 0.4 mg PO QHS [facility] Last Admin: 10/23/19 21:24 Dose: 0.4 mg Documented by: Throat Lozenges (Cepacol Sore Throat Lozenge) 1 lozenge MUCOUS MEM Q2H PRN PRN PRN Reason: SORE THROAT STROKE Vital Signs/Narrative: Vital Signs Pulse 10/24/19 04:01 80 Medical Necessity - Tobacco Use Smoking Status: Current some day smoker Tobacco Use: Cigars, Pipe Assessment/Plan All Active Problems Weakness (Acute) Hypotension (Acute) Pyuria (Acute) End-stage renal disease on hemodialysis (Acute) Fever (Acute) Hyperglycemia due to type 2 diabetes mellitus (Acute) SIRS (systemic inflammatory response syndrome) (Acute) The patient is a 74 y/o M with multiple comorbidities including diabetes mellitus type 2, diabetic nephropathy with ESRD on hemodialysis, Monday and Monday, was admitted with hypotension, generalized weakness, poor hygiene, covered with feces during recent admission for 20?09 16 2019. Patient signed off AMA from [facility]. 1. Hypotension most probably hypovolemia from dialysis: Patient was dialyzed on 10/22/2019 probably volume depleted after that. Patient had 1 L of normal saline bolus in educational diagnostician and then 500 normal saline ordered. Seen by information management manager. Repeat blood pressure 96/43. Patient denies signs or symptoms of hypertension including dizziness, near syncope. No tachypnea or hypoxia. 10/23: Patient is normotensive. IV fluid discontinued. Discussed with the information management manager regarding dialysis for not removing fluid. 2. Low-grade fever, etiology unclear possible acute cystitis: UA shows WBC more than 100 cells, LE 500- nitrite. COVID-19 PCR negative. Preliminary urine culture shows gram-negative carmela more than 100,000 colonies. Patient is still passes urine although less amount. Denies burning micturition, increased frequency or urgency. stool for C. difficile is negative and enteric pathogen panel is pending. Continue IV Rocephin. Vancomycin discontinued. Patient also has intertriginous groin rash and is on nystatin powder. 3. Recurrent fall, failure to thrive/inability to care/dependent ADL: PT and OT and case management consult. Working on placement. This is his third admission last 1 month 4. ESRD: HD MWF, 5. Diabetes mellitus type II: Blood sugar is controlled on basal insulin and sliding scale insulin as part. 6. Hyperlipidemia: continue patient on statin therapy. 7. Hypothyroidism: continue patient home Synthroid regimen. 8. Anxiety and depression: continue patient home sertraline regimen. 9. MEGAN: On home CPAP. Continue same pressure settings. 10. BPH: On Flomax 11. GERD: PPI. 12. AOCD/iron deficiency anemia: Patient hemoglobin 10.6, stable, continue to trend, continue patient home iron supplementation. DVT prophylaxis: SCDs, heparin. CODE status: Patient BISI is his niece Araseli Avalos and living will is not currently in place. DNR CCA, no intubation. Microbiology Past 72 Hours 10/23/19 13:15 Stool C. difficile DNA Amplification - Final 10/22/19 20:20 Urine, Clean Catch Urine Culture - Preliminary Gram negative carmela 10/22/19 20:00 Stool Stool Occult Blood (ALEJANDRO) - Final Laboratory Results 10/23/19 07:03: POC Glucose 133 H 10/23/19 11:34: POC Glucose 134 H 10/23/19 16:10: POC Glucose 185 H 10/23/19 21:18: POC Glucose 246 H 10/24/19 05:25: WBC 6.7, RBC 3.11 L, Hgb 8.8 L, Hct 29.1 L, MCV 93.6, MCH 28.3, MCHC 30.2 L, RDW Std Deviation 70.2 H, RDW Coeff of Nyasia 21.1 H, Plt Count 107 L, MPV 8.6, Immature Gran % (Auto) 0.600, Neut % (Auto) 72.8 H, Lymph % (Auto) 19.3, [place] % (Auto) 6.8, Eos % (Auto) 0.4, Baso % (Auto) 0.1, Absolute Neuts (auto) 4.9, Absolute Lymphs (auto) 1.30, Nucleated RBC % 0, Differential Comment SCANNED, Hypochromasia RARE 10/24/19 05:25: Sodium 137, Potassium 4.1, Chloride 104, Carbon Dioxide 25.0, Anion Gap 8, BUN 43 H, Creatinine 4.14 H, Estim Creat Clear Calc 16.16, Est GFR (MDRD) Af Amer 18 L, Est GFR (MDRD) Non-Af 15 L, BUN/Creatinine Ratio 10.4, Glucose 141 H, Calcium 8.4 L 10/24/19 06:18: POC Glucose 112 H Clinical Impression(s) from Imaging Studies Chest X-Ray 10/23/19 01:46 IMPRESSION: 1. Mild pulmonary congestion, similar to previous study. 2. Bilateral basilar airspace disease possibly representing pneumonia or atelectasis. Inpatient E&M: [id number] Subs Hosp L2
[2019-10-24] MEDS: Calcium Acetate 667 MG Capsule PO (08:55)
[2019-10-24] MEDS: Folic Acid/Vitamin B Comp W-C 1 Capsule 1 CAP PO (08:56)
[2019-10-24] MEDS: Sertraline 100 MG Tablet PO (08:56)
[2019-10-24] MEDS: Nystatin Powder 15gm Bottle 1 APPLIC TOPICAL (08:56)
[2019-10-24] MEDS: Heparin Injection (Vial) 5,000 UNIT/ML VIAL 5000 UNIT SC (08:56)
[2019-10-24] MEDS: Pantoprazole Sodium 20 MG Tablet PO (08:57)
--- NOTE | 2019-10-24 09:18 | NURSING ---
Pt states he does not wish for this nurse to call Jeanine with daily update
[2019-10-24] MEDS: Insulin Lispro 100 UNIT/ML INSULN.PEN SC (11:23)
--- NOTE | 2019-10-24 11:25 | CASEMGMT ---
Social Work Note JULIAN received LOC via email. JULIAN updated physician that pt is able to discharge today. Pt may need dialysis today before being discharged to SNF. JULIAN placed a call to Marilyn JORDAN at [facility] [place] and updated her that LOC has been received, pt medically is ready for discharge today, this worker is just waiting to determine if pt will need dialysis or not before pt discharges. JULIAN asked Marilyn about the documentation that she wanted pt sign, Marilyn states she will just have pt sign the document when he arrives to [facility]. Marilyn confirms pt is able to admit to [facility] today. JULIAN in to update pt on acceptance and approval to go to [facility]. Pt is still agreeable to [facility]. JULIAN will fax discharge paperwork once complete and arrange transportation once it is determined if pt will need dialysis today or not Plan: [facility] today. JULIAN waiting to get confirmation if pt will need dialysis today or not before pt leaves [facility] [employer]
[2019-10-24 11:31] LABS: Bedside Glucose 172 mg/dL (70-110)
--- NOTE | 2019-10-24 11:33 | PCM.TXEXTCAR ---
- Diet 10/23/19 13:37 Diet: Carbohydrate Controlled Food consistency:: Regular Liquid Consistency:: Regular/Thin Type of Dietary Supplement:: nepro cho steady 120 cc Is pt able to select menu?: Yes Diet Comments: low sodium w/ NO protein restriction - Routine Orders/Code Status Suppository Type: Dulcolax 10mg Suppository Frequency: Daily PRN Routine Lab Work: CBC, BMP, INR Code Status: [facility] - Wound(s) COCCYX Wound Type: Pressure Injury R foot 2nd toe Wound Type: scab - Therapies Weight Bearing: Weight bearing as tolerated Extremity Affected:: Bilateral Lower Physical Therapy: Eval and Treat Occupational Therapy: Eval and Treat Speech Therapy: Eval and Treat - Allergies/Procedures Done in Hospital Allergies/Adverse Reactions: Allergies lisinopril Allergy (Verified 10/22/19 19:38) PT UNSURE OF REACTION metformin Allergy (Verified 10/22/19 19:38) Angioedema Penicillins Allergy (Verified 10/22/19 19:38) Rash Tetanus Vaccines and Toxoid Allergy (Verified 10/22/19 19:38) Swelling at injection site - Type of Care/Length of Stay Estimated LOS: Convalescent Care Less Than 30 days Type of Care Needed: Skilled Rehab Potential: Good Prognosis: Good - Additional Orders/Day of Discharge Day of Discharge: 10/24/19 - Dietary and Speech Recommendations Dietitian Recommendations/Changes: D/t pt with increased nutrition needs r/t dialysis tx and PI, will change diet to CHO Control, low sodium - no protein restriction. Will change ONS from glucerna shake w/ medpass to Nepro CHO Steady at meals - Follow Up Care Primary Care Physician: [facility] [Primary Care Provider] - Please follow up with your Primary Care Physician in: in 1-2 week Please Follow Up With: Caio Isaac MD When: On hemodialysis, Monday and Monday
--- NOTE | 2019-10-24 12:33 | DS.PCM_ITS ---
Discharge Date and Diagnosis - Problem List Patient Problems: Active and Suspected Problems Hypotension (Acute) Pyuria (Acute) End-stage renal disease on hemodialysis (Acute) Fever (Acute) Hyperglycemia due to type 2 diabetes mellitus (Acute) SIRS (systemic inflammatory response syndrome) (Acute) Date of Admission: 10/22/19 Date of Discharge: 10/24/19 - Primary Discharge Diagnosis Acute Problems: Active Problems Hypotension (Acute) Pyuria (Acute) End-stage renal disease on hemodialysis (Acute) Fever (Acute) Hyperglycemia due to type 2 diabetes mellitus (Acute) SIRS (systemic inflammatory response syndrome) (Acute) - Secondary Discharge Diagnosis Chronic Problems: Chronic Problems ESRD (end stage renal disease) on dialysis (Chronic) Hyponatremia (Chronic) Thrombocytopenia (Chronic) Anemia in chronic illness (Chronic) CKD (chronic kidney disease), stage IV (Chronic) HTN (hypertension) (Chronic) Anxiety and depression (Chronic) Tobacco use (Chronic) MEGAN (obstructive sleep apnea) (Chronic) Hypothyroidism (Chronic) Chronic anemia (Chronic) GERD (gastroesophageal reflux disease) (Chronic) Diabetes mellitus, type II (Chronic) Hospital Course and Treatment Operations: None Summary of Care Provided: The patient is a 74 y/o M with multiple comorbidities including diabetes mellitus type 2, diabetic nephropathy with ESRD on hemodialysis, Monday and Monday, was admitted with hypotension, generalized weakness, poor hygiene, covered with feces during recent admission for 2019. Patient signed off AMA from [facility]. Patient was treated with IV fluid normal saline as patient was hypotensive from dialysis. Patient was seen by pricing specialist. Patient also had low-grade fever probably secondary to acute cystitis. Urine culture shows more than 100,000 colonies of Klebsiella pneumoniae and treated with IV antibiotic ceftriaxone and discharged on Omnicef, dose adjusted to the creatinine clearance. Stool for C. difficile and enteric bacteriology panel negative; patient has chronic diarrhea. Other active issues are recurrent fall, failure to thrive inability to take care independently. Patient being evaluated PT and OT. Patient is being discharged to rehab/SNF Patient other comorbidities include diabetes mellitus type 2, dyslipidemia, hypothyroidism, anxiety and depression, also sleep apnea on home CPAP, BPH and GERD and chronic iron versus anemia/anemia of chronic disease. Discharge medication reconciliation done. Discharge follow-up instructions completed. Discharge process discussed with the patient and all questions were answered to patient's satisfaction. Total time spent, exact 35 minutes on discharge meds reconciliation, ex amination, coordination of care with nurses and ancillary staff, review of imaging and blood test and discussion with the patient on follow-up instructions [] Patient Problems: Active and Suspected Problems Hypotension (Acute) Pyuria (Acute) End-stage renal disease on hemodialysis (Acute) Fever (Acute) Hyperglycemia due to type 2 diabetes mellitus (Acute) SIRS (systemic inflammatory response syndrome) (Acute) Subjective: Patient was seen and examined in the morning please see progress note of the same date. - Physical Exam Vitals/I&O's: Vital Signs Temp Pulse Resp BP Pulse Ox 97.8 F 81 18 111/63 100 10/24/19 09:04 10/24/19 11:06 10/24/19 09:04 10/24/19 09:04 10/24/19 09:04 Oxygen Delivery Method Room Air Weight: 250 lb 12.8 oz Body Mass Index (BMI) 35.9 Finger Stick Blood Glucose 99 Intake and Output for Last 24 Hours 10/22/19 10/23/19 10/24/19 23:59 23:59 23:59 Intake Total 500 / 500 4298.34 / 4298.34 3621.66 / 3621.66 Balance 500 / 500 4298.34 / 4298.34 3621.66 / 3621.66 General: Alert, Oriented x3, Cooperative HEENT: Atraumatic, PERRLA, EOMI, Normocephalic Neck: Supple, No JVD, Negative Carotid Bruits Lungs: Clear to auscultation, Diminished Cardiovascular: Regular rate, No murmurs Abdomen: Bowel Sounds Present, Soft, Non Tender Extremities: Capillary Refill Less than 3 Seconds, Edema Skin: No rashes, No breakdown Musculoskeletal: No Tenderness to Palpation of Joints or Extremities Neurological: Cranial nerves II-XII grossly intact Psych/Mental Status: Normal Affect, Appropriate Microbiology Past 72 Hours 10/22/19 20:20 Urine, Clean Catch Urine Culture - Final Klebsiella pneumoniae sp pneum 10/23/19 13:15 Stool Enteric Bacteriology - Final 10/23/19 13:15 Stool C. difficile DNA Amplification - Final 10/22/19 20:00 Stool Stool Occult Blood (ALEJANDRO) - Final Laboratory Results 10/23/19 07:03: POC Glucose 133 H 10/23/19 16:10: POC Glucose 185 H 10/23/19 21:18: POC Glucose 246 H 10/24/19 05:25: WBC 6.7, RBC 3.11 L, Hgb 8.8 L, Hct 29.1 L, MCV 93.6, MCH 28.3, MCHC 30.2 L, RDW Std Deviation 70.2 H, RDW Coeff of Nyasia 21.1 H, Plt Count 107 L, MPV 8.6, Immature Gran % (Auto) 0.600, Neut % (Auto) 72.8 H, Lymph % (Auto) 19.3, [place] % (Auto) 6.8, Eos % (Auto) 0.4, Baso % (Auto) 0.1, Absolute Neuts (auto) 4.9, Absolute Lymphs (auto) 1.30, Nucleated RBC % 0, Differential Comment SCANNED, Hypochromasia RARE 10/24/19 05:25: Sodium 137, Potassium 4.1, Chloride 104, Carbon Dioxide 25.0, Anion Gap 8, BUN 43 H, Creatinine 4.14 H, Estim Creat Clear Calc 16.16, Est GFR (MDRD) Af Amer 18 L, Est GFR (MDRD) Non-Af 15 L, BUN/Creatinine Ratio 10.4, Glucose 141 H, Calcium 8.4 L 10/24/19 06:18: POC Glucose 112 H 10/24/19 11:22: POC Glucose 172 H Current Medications Acetaminophen (Tylenol) 650 mg PO Q6H PRN PRN PRN Reason: Pain Score 1-10/Temp > 100.7 F Al Hydroxide/Mg Hydroxide (Mylanta Ii) 30 ml PO Q6H PRN PRN PRN Reason: Gastric Burning Albuterol Sulfate (Ventolin Aerosols) 2.5 mg INHALATION Q2H PRN PRN PRN Reason: Dyspnea, wheezing Atorvastatin Calcium (Lipitor) 10 mg PO QHS [facility] Last Admin: 10/23/19 21:24 Dose: 10 mg Documented by: Calcium Acetate (Phoslo Gel Cap) 667 mg PO TIDCM [facility] Last Admin: 10/24/19 11:23 Dose: Not Given Documented by: Dextrose (D50w Syringe) 0 gm IV X1 PRN; Protocol PRN Reason: Hypoglycemia Ferrous Sulfate (Ferrous Sulfate) 325 mg PO DAILY@1200 [facility] Last Admin: 10/24/19 11:23 Dose: Not Given Documented by: Glucagon () 1 mg IM .X1 PRN PRN Reason: Hypoglycemia Guaifenesin (Robitussin) 20 ml PO Q4H PRN PRN PRN Reason: COUGH Heparin Sodium (Porcine) (Heparin Na) 5,000 unit SC Q12 [facility] Last Admin: 10/24/19 08:56 Dose: 5,000 unit Documented by: Hydralazine HCl (Apresoline Iv) 10 mg IV Q4H PRN PRN PRN Reason: SBP > 180 Hydroxyzine Pamoate (Vistaril Pamoate Capsule) 25 mg PO Q6H PRN PRN PRN Reason: ANXIETY Ceftriaxone Sodium 2 gm/ (Sodium Chloride) 50 mls @ 100 mls/hr IV DAILY [facility] Insulin Glargine (Lantus ([facility])) 38 units SC QHS [facility] Last Admin: 10/23/19 21:20 Dose: 38 u Documented by: Insulin Human Lispro (Humalog Kwikpen ([facility])) 0 unit SC ACHS [facility]; Protocol Last Admin: 10/24/19 11:23 Dose: 1 units Documented by: Levothyroxine Sodium (Synthroid) 75 mcg PO DAILY@0600 [facility] Last Admin: 10/24/19 06:19 Dose: 75 mcg Documented by: Melatonin (Melatonin) 3 mg PO QHS PRN PRN PRN Reason: INSOMNIA Midodrine (Proamatine) 5 mg PO QODAY [facility] Last Admin: 10/23/19 09:51 Dose: 5 mg Documented by: Morphine Sulfate () 2 mg IV Q3H PRN PRN PRN Reason: Pain Score 6-10/10 Multivit/Ca Carb/B Cmplx/FA/Prenat (Nephrocaps, Renaphro) 1 capsule PO DAILY [facility] Last Admin: 10/24/19 08:56 Dose: 1 capsule Documented by: Nitroglycerin (Nitrostat) 0.4 mg SUBLINGUAL Q5M PRN PRN Reason: CARDIAC/CHEST PAIN Nystatin (Mycostatin Powder) 1 applic TOPICAL BID [facility]; Protocol Last Admin: 10/24/19 08:56 Dose: 1 applicatio Documented by: Ondansetron HCl (Zofran) 4 mg IV Q8H PRN PRN PRN Reason: NAUSEA/VOMITING Oxycodone HCl (Oxyir) 5 mg PO Q4H PRN PRN PRN Reason: Pain Score 4-5/10 Pantoprazole Sodium (Protonix) 20 mg PO DAILY [facility] Last Admin: 10/24/19 08:57 Dose: 20 mg Documented by: Prochlorperazine Edisylate (Compazine Iv) 5 mg IV Q4H PRN PRN PRN Reason: Breakthrough nausea/vomiting Psyllium Hydrophilic Mucilloid (Metamucil) 1 packet PO DAILY PRN PRN PRN Reason: Constipation Senna/Docusate Sodium (Senokot-S, Leslie-Colace) 2 tablet PO BID PRN PRN PRN Reason: Constipation Sertraline HCl (Zoloft) 100 mg PO BID [facility] Last Admin: 10/24/19 08:56 Dose: 100 mg Documented by: Sodium Chloride () 10 - 40 ml IV UD PRN PRN Reason: SALINE FLUSH Tamsulosin HCl (Flomax) 0.4 mg PO QHS [facility] Last Admin: 10/23/19 21:24 Dose: 0.4 mg Documented by: Throat Lozenges (Cepacol Sore Throat Lozenge) 1 lozenge MUCOUS MEM Q2H PRN PRN PRN Reason: SORE THROAT Home Medications: Medications to take at Discharge Tamsulosin HCl [Flomax] 0.4 mg PO QHS 05/11/18 Atorvastatin Calcium [Lipitor] 10 mg PO QHS 04/26/19 Folic Acid/Vitamin B Comp W-C [Nephrocaps, Renaphro] 1 cap PO DAILY 09/09/19 Levothyroxine Sodium [Synthroid] 75 mcg PO DAILY 09/09/19 Omeprazole 20 mg PO DAILY 09/09/19 Acetaminophen [Tylenol Tablet] 650 mg PO Q6H PRN PRN tab 09/11/19 Ferrous Sulfate 325 mg PO DAILY@1200 #30 tab 09/11/19 Insulin Lispro [Humalog KwikPen] See Protocol SUBCUT ACHS insuln.pen 09/11/19 Calcium Acetate 667 mg PO TID 10/20/19 Hydroxyzine Pamoate [Vistaril] 25 mg PO Q6H PRN PRN 10/20/19 Sertraline HCl [Zoloft] 100 mg PO BID 10/20/19 Insulin Glargine [Lantus SoloStar Pen] 38 units SUBCUT QHS 10/22/19 Cefdinir [Omnicef [equiv]] 300 mg PO Q48H #3 cap 10/24/19 Guaifenesin [Robitussin] 20 ml PO Q4H PRN PRN udc 10/24/19 Midodrine HCl 5 mg PO DAILY #0 10/24/19 Nystatin Powder [Mycostatin Powder] 1 applic TOPICAL BID bottle 10/24/19 Psyllium [Metamucil] 1 packet PO DAILY PRN PRN packet 10/24/19 Senna/Docusate Sodium [Senokot-S] 2 tab PO BID PRN PRN tab 10/24/19 Following Prescrptions Were Given to Patient: Cefdinir [Omnicef [equiv]] 300 mg PO Q48H #3 cap Transmission Status: Received by [facility] [facility] [[place]] - Please follow up with your Primary Care Physician in: in 1-2 week Please Follow Up With: Caio Isaac MD When: On hemodialysis, Monday and Monday Medical Necessity - Tobacco Use Smoking Status: Current some day smoker Tobacco Use: Cigars, Pipe Meaningful Use Info Meaningful Use Diagnoses (Choose all that apply): None applicable Please cancel the billing charge of today's progress note Inpatient E&M: 88894 Disch Hosp
--- NOTE | 2019-10-24 12:53 | NURSING ---
Multiple attempts made to call and give report to [facility]. Personal Lines Advisor transfers phone but no one is answering extension. Will attempt to call report at a later time.
--- NOTE | 2019-10-24 13:20 | CASEMGMT ---
Addendum entered by Radha Cortez 10/24/19 14:55: JULIAN placed a call to Jen at [facility] and left message regarding pt's discharge. Original Note: Social Work Note SW updated that pt will not need dialysis today, pt will just need to resume his regular scheduled dialysis tomorrow. Per previous notes, pt's regular scheduled dialysis is M, W, F 6:50am chair time at [facility]. JULIAN spoke with RN. Pt can be transported via cot. JULIAN faxed completed discharge paperwork to [facility] including transfer to extended care facility, signed medication list, signed scripts, COVID transfer tool, PAS/RR and LOC results. Original in SNF Folder and copy on pt's chart. JULIAN placed a call to [facility] and arranged transportation via cot for 2:00pm. Transportation form completed and placed on SNF folder and copy on pt's chart. JULIAN updated RN on transportation time. SW in to update pt on discharge and transportation time. Pt states understanding. Pt gave this worker permission to call his niece Jeanine to provide update. JULIAN placed a call to pt's niece Jeanine and left message regarding discharge plan. JULIAN placed a call to Marilyn at [facility] and updated her that pt doesn't need dialysis today and pt will need to go to his dialysis tomorrow. [facility] states transportation has been arranged for pt to get dialysis tomorrow. JULIAN updated Marilyn on transportation time to SNF today. Plan: [facility] under LOC today with [facility] transporting via cot at 2:00pm Radha Cortez ORDER SCHEDULE CLERK, [employer] TRUCK DRIVER
== END 2019-10-24 14:01 | disposition skilled nursing facility (03) | DRG 312 ==
LOC: ED 23:38 → MS3 10-23 00:07
PROVIDERS: Physician Assistant; Admitting Provider Family Medicine; Emergency Provider Emergency Medicine; Visit Provider Internal Medicine
DX: I95.3 Hypotension of hemodialysis (principal); N18.6 End stage renal disease; E87.1 Hypo-osmolality and hyponatremia; N30.00 Acute cystitis without hematuria; I12.0 Hypertensive chronic kidney disease with stage 5 chronic kidney disease or end stage renal disease; E86.1 Hypovolemia; B96.1 Klebsiella pneumoniae [K. pneumoniae] as the cause of diseases classified elsewhere; R82.81 Pyuria; E11.65 Type 2 diabetes mellitus with hyperglycemia; E11.22 Type 2 diabetes mellitus with diabetic chronic kidney disease; E11.21 Type 2 diabetes mellitus with diabetic nephropathy; D69.6 Thrombocytopenia, unspecified; D63.1 Anemia in chronic kidney disease; D50.9 Iron deficiency anemia, unspecified; F32.9 Major depressive disorder, single episode, unspecified; F41.9 Anxiety disorder, unspecified; G47.33 Obstructive sleep apnea (adult) (pediatric); E03.9 Hypothyroidism, unspecified; K21.9 Gastro-esophageal reflux disease without esophagitis; K52.9 Noninfective gastroenteritis and colitis, unspecified; N40.0 Benign prostatic hyperplasia without lower urinary tract symptoms; E78.5 Hyperlipidemia, unspecified; E66.9 Obesity, unspecified; Z68.37 Body mass index [BMI] 37.0-37.9, adult; R29.6 Repeated falls; R62.7 Adult failure to thrive; F17.290 Nicotine dependence, other tobacco product, uncomplicated; Z66 Do not resuscitate; Z99.2 Dependence on renal dialysis; Z79.4 Long term (current) use of insulin; Z79.890 Hormone replacement therapy; Z79.899 Other long term (current) drug therapy
CPT/HCPCS: 36415; 71046; 80048; 80053; 81001; 82274; 82962; 83605; 83735; 84100; 85025; 87040; 87077; 87086; 87088; 87186; 87493; 87506; 87635; 93005; 94660; 94799; 96360; 97162; 97166; 97530; 99251; 99285; 99406; J7030; J7040; J7050; A4216; G0463; J0696; U0003

== ENCOUNTER 2020-05-26 21:36 | Emergency (ER) | payer OTHER, MEDICAID, SELFPAY ==
[2019-10-23 01:48] VITALS: BMI 35.9
[2020-05-26 21:38] VITALS: BP 98/53; PULSE 76; RESP 18; TEMP 36.8; O2SAT 97; BMI 34.6
[2020-05-26 21:50] VITALS: BP 98/53; PULSE 79; RESP 20; TEMP 36.8; O2SAT 100
[2020-05-26] MEDS: 0.9% Normal Saline 1,000 ML 1000 ML IV (22:23)
[2020-05-26 22:30] LABS: Absolute Lymphocyte Count 1.41 X10^3/uL (0.83-4.51); Absolute Neutrophil Count 3.7 X10^3/uL (2.0-7.7); Basophil# 0.03 X10^3/uL; Basophil% 0.5 % (0-1); Eosinophil# 0.03 X10^3/uL; Eosinophils% 0.5 % (0-5); Hematocrit 24.1 % (40-54); Hemoglobin 7.5 g/dL (13.0-16.5); Lymphocyte # 1.41 X10^3/ul (4.0); Lymphocyte % 25.8 % (19-41); Mean Corp Hgb Conc 31.1 g/dL (32-36); Mean Corpuscular Hgb 29.3 pg (27.0-32.0); Mean Corpuscular Volume 94.1 fL (80-94); Mean Platelet Vol. 8.5 fl (6.2-12.0); Monocyte# 0.31 X10^3/uL; Monocyte% 5.7 % (0-10); NRBC Flagged by Analyzer 0 % (0-5); Neutrophil # 3.65 X10^3/uL (2.7-7.7); Platelet Count 164 K/mm3 (150-450); RBC Distribution Width CV 18.5 % (11.6-14.6); RBC Distribution Width SD 62.4 fl (35.1-43.9); Red Blood Count 2.56 M/mm3 (4.6-6.2); White Blood Count 5.5 K/mm3 (4.4-11.0)
[2020-05-26 22:35] LABS: International Normalized Ratio 1.2; Prothrombin Time (Protime)PT. 14.2 SECONDS (11.7-14.9)
[2020-05-26 22:36] LABS: Partial Thromboplast Time 40.6 Seconds (24.1-36.2)
--- NOTE | 2020-05-26 22:47 | ED.VISSUMM ---
- ER Visit Summary Date of Service: 05/26/20 Chief Complaint: Abnormal labs History of Present Illness: The patient is a 74 M who presents with abnormal labs that was noticed today at the group home. Patient states he was told his hemoglobin was low. Patient states he has been having some black stools however, he does take iron tablets. Patient states sometimes his stools are black and sometimes they are brown. Patient does admit to some general weakness. Patient admits to subjective chills but denies any fevers. Patient admits to nausea but denies any vomiting. Physical Examination: Vital signs are stable. Patient is afebrile. Patient is in no acute distress. Oral mucosa is pink and moist. Neck is supple. Trachea is midline. There is no JVD. Heart was regular rate and rhythm. Lungs are clear and equal bilaterally. Abdomen is soft. Bowel sounds are normal. There is no tenderness. There is no rebound or guarding noted. Cranial nerves II through XII are intact. There are no focal motor or sensory deficits noted. Test Results: CBC showed a hemoglobin of 7.5. This was stable compared to previous lab results from the [facility]. Patient had a hemoglobin of 7.1 on 05/20/2020. Comprehensive metabolic profile showed a slightly elevated BUN of 31 and creatinine of 4.9. These are consistent with prior results. PT with INR and PTT were normal. Emergency Department Course and Treatment: Patient is resting comfortably. Patient was advised of his findings. Patient does not meet criteria for blood transfusion at this time. Patient will be transferred back to the extended care facility [facility]. Patient understood and was agreeable with the plan. All questions were answered. Disposition: Discharge home Impression: 1. Anemia 2. Chronic kidney disease This note was generated with [employer]fy dictation software. It may contain incorrect words, spelling, and punctuation that were not noted in review of the chart prior to signing ED Disposition - Plan for ED Patient: Disposition: Non-Skill [place]/Intermediate Care Diagnosis: ESRD (end stage renal disease) on dialysis, Chronic anemia Instructions: ED Anemia, Type Not Specified (Adult), ED Chronic Kidney Disease (CKD) [facility] [Primary [facility]] - 5-7 Days
[2020-05-26 22:59] LABS: ALB/GLOB Ratio 0.4 RATIO (0.9-2.4); AST(SGOT) 12 U/L (15-37); Alanine Aminotransfer ALT/SGPT 17 U/L (16-61); Albumin, Serum 2.3 g/dL (3.2-5.0); Alkaline Phosphatase 193 U/L (45-117); Anion Gap 7 (5-15); BUN 31 mg/dL (7-18); BUN/Creat Ratio 6.3 RATIO (10-20); Chloride 98 mmol/L (98-107); EST Glomerular Filtration Rate 12 mL/min (>60); Est Glom Filt Rate - Afr Amer 15 mL/min (>60); Estimated Creatinine Clearance 13.66 ml/min; Globulin 5.6 g/dL (2.2-4.2); Glucose 148 mg/dL (74-106); Potassium 3.8 mmol/L (3.5-5.1); Protein, Total 7.9 g/dL (6.4-8.2); Sodium Level 137 mmol/L (136-145)
--- NOTE | 2020-05-26 23:17 | ED.RN ---
PT WAS INCONTINENT OF STOOL ON ARRIVAL TO ED. PT CLEANED WITH BATH WIPES AND ATTEND CHANGED. PT WITH SMALL COCCYX WOUND PRESENT ON ARRIVAL AND NOTED BY Imer ABRAHAM RN. PT TOLERATED WELL. PT MOVED UP INTO BED AND POSITIONED ON THE RIGHT SIDE. BED MOVED TO BE IN VIEW OF THE TELEVISION REQUESTED BY PT.
[2020-05-27 00:09] VITALS: BP 108/65; PULSE 87; RESP 16; O2SAT 100
[2020-05-27 00:20] VITALS: BP 114/64; PULSE 83; RESP 12; O2SAT 100
== END 2020-05-27 02:16 | disposition intermediate care facility (04) ==
PROVIDERS: Emergency Provider Emergency Medicine
DX: E11.22 Type 2 diabetes mellitus with diabetic chronic kidney disease (principal); N18.6 End stage renal disease; D63.1 Anemia in chronic kidney disease; Z99.2 Dependence on renal dialysis; Z79.4 Long term (current) use of insulin; Z79.899 Other long term (current) drug therapy; Z72.0 Tobacco use
CPT/HCPCS: 80053; 85025; 85610; 85730; 96360; 96361; 99285; J7030; A4216

== ENCOUNTER 2020-06-24 20:28 | Emergency (ER) | payer OTHER, MEDICAID, SELFPAY ==
[2020-06-24 20:29] VITALS: BP 110/62; PULSE 86; RESP 17; TEMP 36.7; O2SAT 98
[2020-06-24 20:30] VITALS: BP 110/62; PULSE 86; RESP 16; TEMP 36.7; O2SAT 99; BMI 34.7
--- NOTE | 2020-06-24 20:50 | ED.DCSUM_ITS ---
History of Present Illness Chief Complaint: Abn Labs Narrative: Patient is a 74-year-old male who presents due to abnormal labs. He has a history of anemia of chronic disease. On review of his labs sent from the shelter his baseline hemoglobin is around 7. He has had several hemoglobins of 7.0, 7.1, 7.4. Today however he had a hemoglobin of 6.9 which is below the cutoff of 7. So he was sent to the emergency department. He has no complaints. Past Medical History - Allergies and Home Meds Allergies/Adverse Reactions: Allergies lisinopril Allergy (Verified 06/24/20 20:29) PT UNSURE OF REACTION metformin Allergy (Verified 06/24/20 20:29) Angioedema Penicillins Allergy (Verified 06/24/20 20:29) Rash Tetanus Vaccines and Toxoid Allergy (Verified 06/24/20 20:29) Swelling at injection site Primary Care Physician: [place] [place] [Primary Care Provider] - Past Medical History: - - Diabetes, hypertension, hyperlipidemia, end-stage renal disease Surgical History: cataract, - - Prior back surgery, ureteral stent placements, cataract. Smoking Status: Current every day smoker - Family History Maternal Family History: Reports: Heart Disease, Hypertension Paternal Family History: Reports: Cancer, Hypertension Review of Systems All systems negative except as indicated General: Denies: Fever Eyes: Denies: Visual changes - bilaterally ENT: Denies: Bilateral ear pain Cardiovascular: Denies: Chest pain Respiratory: Denies: Dyspnea Gastrointestinal: Denies: Abdominal pain, Melena, Hematochezia Musculoskeletal: Denies: Myalgias, Arthralgias Skin: Denies: Rash Neurological: Denies: Headache Physical Exam Vital Signs/Narrative: Vital Signs Temp Pulse Resp BP Pulse Ox 06/24/20 20:30 98.1 F 86 16 110/62 99 06/24/20 20:29 98.1 F 86 17 110/62 98 Inital Vital Signs reviewed: Yes General: Well nourished Head: Normocephalic Eyes: EOMI ENT: Moist mucous membranes Neck: Supple Cardiovascular: Regular rate, Regular rhythm Respiratory: No distress, CTA bilaterally Abdomen: Soft, Nontender Skin: Normal color Neurological: Alert Psychological: Normal affect Diagnostic/Tx/Re-eval Laboratory Results 06/24/20 06/24/20 21:00 21:00 WBC 3.3 L RBC 2.23 L Hgb 6.4 L Hct 21.1 L MCV 94.6 H MCH 28.7 MCHC 30.3 L RDW Std Deviation 62.5 H RDW Coeff of Nyasia 18.5 H Plt Count 130 L MPV 8.6 Immature Gran % (Auto) 0.600 Neut % (Auto) 63.7 Lymph % (Auto) 27.2 [place] % (Auto) 7.3 Eos % (Auto) 0.9 Baso % (Auto) 0.3 Absolute Neuts (auto) 2.1 Absolute Lymphs (auto) 0.89 Nucleated RBC % 0 Crossmatch See Detail - Medical Decision Making Hemoglobin today 6.4. He denies any bleeding. He has a history of chronic anemia. He otherwise has no complaints. We will transfuse and discharged to follow-up as an outpatient. ED Disposition - Plan for ED Patient: Disposition: Home or Assisted Living Diagnosis: Anemia Instructions: ED Anemia, Type Not Specified (Adult) [facility]errals: [facility] [[facility] Provider] -
[2020-06-24 21:15] LABS: Absolute Lymphocyte Count 0.89 X10^3/uL (0.83-4.51); Absolute Neutrophil Count 2.1 X10^3/uL (2.0-7.7); Basophil# 0.01 X10^3/uL; Basophil% 0.3 % (0-1); Eosinophil# 0.03 X10^3/uL; Eosinophils% 0.9 % (0-5); Hematocrit 21.1 % (40-54); Hemoglobin 6.4 g/dL (13.0-16.5); Lymphocyte # 0.89 X10^3/ul (4.0); Lymphocyte % 27.2 % (19-41); Mean Corp Hgb Conc 30.3 g/dL (32-36); Mean Corpuscular Hgb 28.7 pg (27.0-32.0); Mean Corpuscular Volume 94.6 fL (80-94); Mean Platelet Vol. 8.6 fl (6.2-12.0); Monocyte# 0.24 X10^3/uL; Monocyte% 7.3 % (0-10); NRBC Flagged by Analyzer 0 % (0-5); Neutrophil # 2.08 X10^3/uL (2.7-7.7); Neutrophil % 63.7 % (47-70); Platelet Count 130 K/mm3 (150-450); RBC Distribution Width CV 18.5 % (11.6-14.6); RBC Distribution Width SD 62.5 fl (35.1-43.9); Red Blood Count 2.23 M/mm3 (4.6-6.2); White Blood Count 3.3 K/mm3 (4.4-11.0)
[2020-06-24 22:41] VITALS: BP 117/69; PULSE 92; RESP 14; TEMP 36.6; O2SAT 98
[2020-06-24 22:51] VITALS: BP 116/73; PULSE 95; RESP 18; TEMP 36.6; O2SAT 95
[2020-06-24 23:06] VITALS: BP 112/66; PULSE 91; RESP 18; TEMP 36.8; O2SAT 96
[2020-06-25] VITALS (8 sets, daily range): BP systolic 115–127; BP diastolic 67–74; PULSE 78–84; RESP 10–18; TEMP 35.9–37.2; O2SAT 97–100
--- NOTE | 2020-06-25 03:33 | ED.RN ---
BLOOD VOLUME SHOULD BE 500ML. COMPUTER WILL NOT LET ME EDIT INITIAL CHARTING.
== END 2020-06-25 05:30 | disposition home or self-care (01) ==
LOC: ED 22:29
PROVIDERS: Emergency Provider Emergency Medicine; PCP Family Medicine
DX: I12.0 Hypertensive chronic kidney disease with stage 5 chronic kidney disease or end stage renal disease (principal); E11.22 Type 2 diabetes mellitus with diabetic chronic kidney disease; N18.6 End stage renal disease; E78.5 Hyperlipidemia, unspecified; F17.200 Nicotine dependence, unspecified, uncomplicated; Z79.4 Long term (current) use of insulin; Z79.899 Other long term (current) drug therapy
CPT/HCPCS: 85025; 86850; 86900; 86901; 86920; 86922; 99284; J7040; J7050; P9016; A4216